=== PATIENT | male | born 1955 | race Caucasian/White ===

== ENCOUNTER 2021-10-06 17:07 | Emergency (ER) | payer MEDICARE, OTHER, SELFPAY ==
--- NOTE | 2021-10-06 17:13 | ED.LOWEXIN ---
HPI - Extremity Injury (Lower) General Chief Complaint: Wound/Laceration Stated Complaint: left leg injury Time Seen by Provider: 10/06/21 17:11 Source: patient Mode of arrival: ambulatory Limitations: no limitations History of Present Illness HPI Narrative: Mr. Foster is a 66-year-old male patient presenting to the clinic today with complaints of a left leg injury/laceration. He reports he tripped in the garage and gases leg open on the sergei. Last tetanus shot was in 2004. Bleeding is controlled Related Data Home Medications Medication Instructions Recorded Confirmed alfuzosin 10 mg tablet,extended 10 mg PO DAILY 10/06/21 10/06/21 release 24 hr (Uroxatral) allopurinol 100 mg tablet 100 mg PO DAILY 10/06/21 10/06/21 cholecalciferol (vitamin D3) 25 25 mcg PO DAILY 10/06/21 10/06/21 mcg (1,000 unit) capsule (Vitamin D3) duloxetine 60 mg capsule,delayed 60 mg PO DAILY 10/06/21 10/06/21 release (Cymbalta) famotidine 40 mg tablet (Pepcid) 40 mg PO DAILY 10/06/21 10/06/21 finasteride 5 mg tablet (Proscar) 5 mg PO DAILY 10/06/21 10/06/21 mirabegron 50 mg tablet,extended 50 mg PO DAILY 10/06/21 10/06/21 release 24 hr (Myrbetriq) multivit with minerals-iron 18 1 tablet PO DAILY 10/06/21 10/06/21 mg-folic ac 400 mcg-vit K 25 mcg tablet (Adults Multivitamin) olmesartan 5 mg tablet 5 mg PO DAILY 10/06/21 10/06/21 pantoprazole 40 mg tablet,delayed 40 mg PO QAM 10/06/21 10/06/21 release solifenacin 10 mg tablet (Vesicare) 10 mg PO DAILY 10/06/21 10/06/21 Allergies Allergy/AdvReac Type Severity Reaction Status Date / Time No Known Allergies Allergy Verified 10/06/21 17:17 Review of Systems Review of Systems: Pertinent positives per HPI. Patient denies any fever, chills, rash, headache, visual changes, dizziness, cough, runny nose, sore throat, shortness of breath, chest pain, palpitations, nausea, vomiting, diarrhea, constipation, abdominal pain, or any urinary issues. PMFSH Comments At the time of my signature, I reviewed and agree with the nursing past medical, surgical, social, and family history. There is no relevant family history pertinent to the patient complaint. Exam Narrative: General: Well-developed, well nourished, in no apparent distress Head: Normocephalic, atraumatic. Cardio: Regular rate and rhythm, s1 and s2 normal, no murmur appreciated. Resp: Clear to auscultation bilaterally, no rhonchi, rales, wheezing or rubs. Musculoskeletal: No deformity, mild tenderness to palpation of the left real around the laceration, 5.5cm vertical laceration to the left anterior eral, approx 1.5cm of laceration is an abrasion, grossly normal range of motion, muscle strength strong and equal, peripheral pulse strong, no edema, no cyanosis, normal gait and station Course Course Emergency Course: Portions of this record may have been created with voice recognition software. Level of Care: Express Care Visit Vital Signs Vital signs: Vital signs reviewed Procedures Laceration Laceration 1: Date: 10/06/21 Site: lower extremity (Left anterior leg) Side (If applicable): left Description: linear Depth: simple, single layer Local Anesthetic: lidocaine 1% (Without epi) Amount of anesthesia used (mL): 3 Pre-repair: wound explored and irrigated ====== Skin Level ====== Skin layer closed with: nylon Size (cm): 4-0 Number of sutures: 4 Technique: simple, interrupted ====== Subcutaneous Layer ====== ====== Muscle Layer ====== ====== Tendon Layer ====== Dressing: Verbal consent obtained for laceration repair. Risk and benefits explained and patient voiced understanding. Area was cleansed with Techni care and a 25 gauge needle was then used to instill 3 ml of 1% lidocaine without epi into the wound edges. Anesthesia was appropriate, area was prepped and draped using sterile technique. A 4-0 suture o
[2021-10-06 17:19] VITALS: BP 127/93; PULSE 83; RESP 20; TEMP 37.1
[2021-10-06] MEDS: TETANUS,DIPHTHERIA,AC PERTUSSIS ADULT (0.5 ML) BOOSTRIX IM (17:34)
== END 2021-10-06 18:04 | disposition home or self-care (01) ==
PROVIDERS: Emergency Provider Nurse Practitioner Family
DX: S81.812A Laceration without foreign body, left lower leg, initial encounter (principal); W22.8XXA Striking against or struck by other objects, initial encounter; Z23 Encounter for immunization; E78.00 Pure hypercholesterolemia, unspecified; G47.30 Sleep apnea, unspecified; K21.9 Gastro-esophageal reflux disease without esophagitis; Z90.5 Acquired absence of kidney; N40.0 Benign prostatic hyperplasia without lower urinary tract symptoms
CPT/HCPCS: 12002; 90471; 90715; 99212; G0463

== ENCOUNTER 2021-10-13 16:31 | Emergency (ER) | payer MEDICARE, OTHER, SELFPAY ==
[2021-10-13 16:40] VITALS: BP 136/87; PULSE 89; RESP 20; TEMP 37.4; O2SAT 99
--- NOTE | 2021-10-13 16:45 | ED.GENADULT ---
HPI - General Adult General Chief complaint: Skin/Abscess/Foreign Body Stated complaint: stitches removed Time Seen by Provider: 10/13/21 16:45 Source: patient Mode of arrival: ambulatory Limitations: no limitations History of Present Illness HPI narrative: 66-year-old male accompanied by presents to express care to have stitches removed from a wound on his left lower anterior leg that were placed on 06 October.Patient reports that he hit his leg on a sergei in his garage when he was doing some unpacking since recently moving back to [facility] from [place]. Patient has scabbed wound to left lower leg with 4 stitches in wound no drainage noted or any acute redness of wound. Patient denies any acute pain to area, states he has been applying antibacterial ointment to wound daily. MD complaint: Here for stitch removal Treatments prior to arrival: other (antibacterial ointment) Related Data Home Medications Medication Instructions Recorded Confirmed alfuzosin 10 mg tablet,extended 10 mg PO DAILY 10/06/21 10/13/21 release 24 hr (Uroxatral) allopurinol 100 mg tablet 100 mg PO DAILY 10/06/21 10/13/21 cholecalciferol (vitamin D3) 25 25 mcg PO DAILY 10/06/21 10/13/21 mcg (1,000 unit) capsule (Vitamin D3) duloxetine 60 mg capsule,delayed 60 mg PO DAILY 10/06/21 10/13/21 release (Cymbalta) famotidine 40 mg tablet (Pepcid) 40 mg PO DAILY 10/06/21 10/13/21 finasteride 5 mg tablet (Proscar) 5 mg PO DAILY 10/06/21 10/13/21 mirabegron 50 mg tablet,extended 50 mg PO DAILY 10/06/21 10/13/21 release 24 hr (Myrbetriq) multivit with minerals-iron 18 1 tablet PO DAILY 10/06/21 10/13/21 mg-folic ac 400 mcg-vit K 25 mcg tablet (Adults Multivitamin) olmesartan 5 mg tablet 5 mg PO DAILY 10/06/21 10/13/21 pantoprazole 40 mg tablet,delayed 40 mg PO QAM 10/06/21 10/13/21 release solifenacin 10 mg tablet (Vesicare) 10 mg PO DAILY 10/06/21 10/13/21 Allergies Allergy/AdvReac Type Severity Reaction Status Date / Time No Known Allergies Allergy Verified 10/13/21 16:39 Review of Systems Review of Systems: CONSTITUTIONAL: Denies fever, chills, or sweats. EYES: Denies visual changes, redness, or discharge. ENT: Denies rhinorrhea, congestion, sore throat, or otalgia. CARDIOVASCULAR: Denies chest pain, palpitations, or edema. RESPIRATORY: Denies cough or dyspnea. GASTROINTESTINAL: Denies abdominal pain, nausea, vomiting, or diarrhea. GENITOURINARY: Denies dysuria or hematuria. SKIN: Denies rash or itching. Healing wound to left lower anterior leg with scabbing measures 5.5cm. MUSCULOSKELETAL: Denies back pain, joint pain, or myalgia. NEUROLOGIC: Denies headache, numbness, or weakness. PSYCHIATRIC: Denies anxiety or depression. All systems reviewed & are unremarkable except as noted in HPI and below PMFSH Past Medical History Medical History (Updated 10/13/21 @ 20:01 by Yelena Cali NP) BPH (benign prostatic hyperplasia) Cardiac arrhythmia GERD (gastroesophageal reflux disease) History of kidney cancer Hypercholesteremia ANJANA (obstructive sleep apnea) wears C-PaP Surgical History Surgical History (Updated 10/13/21 @ 17:14 by Yelena Cali NP) H/O partial nephrectomy Left History of right nephrectomy Social History Social History (Updated 10/13/21 @ 17:15 by Yelena Cali NP) Living arrangements: with family Gender identity (if verbalized by the patient): Male Comments At time of signature, agree with nursing past medical, surgical, social and family history. There is no relevant family history pertinent to the presenting complaint Exam Narrative: GENERAL: Well-appearing, well-nourished, and in no acute distress. HEAD: Normocephalic, atraumatic. EYES: PERRLA and EOMI. ENT: Nares clear, no rhinorrhea or epistaxis. Mucous membranes moist. TMs normal with good light reflex NECK: Supple. No lymphadenopathy CHEST: Clear to auscultation. No respiratory distress. SaO2 99% on room air HEART: Regular r
== END 2021-10-13 17:05 | disposition home or self-care (01) ==
PROVIDERS: Emergency Provider Registered Nurse
DX: S81.811D Laceration without foreign body, right lower leg, subsequent encounter (principal); W22.8XXD Striking against or struck by other objects, subsequent encounter; N40.0 Benign prostatic hyperplasia without lower urinary tract symptoms; K21.9 Gastro-esophageal reflux disease without esophagitis; E78.00 Pure hypercholesterolemia, unspecified; G47.33 Obstructive sleep apnea (adult) (pediatric); Z85.53 Personal history of malignant neoplasm of renal pelvis; Z90.5 Acquired absence of kidney
CPT/HCPCS: 99211; G0463

== ENCOUNTER 2021-11-02 09:30 | Outpatient (CLI) | payer MEDICARE, OTHER, SELFPAY ==
[2021-11-02 18:40] LABS: Cholesterol 131 mg/dL (0-200); HDL Direct 29 mg/dL; Triglycerides 140 mg/dL (<150)
[2021-11-02 18:45] LABS: Alanine Aminotransferase 22 U/L (6-50); Albumin Level 4.2 g/dL (3.5-5.1); Alkaline Phosphatase 85 U/L (38-126); Anion Gap 9 mmol/L (8-16); Aspartate Amino Transferase 25 U/L (17-59); Bilirubin,Total 0.6 mg/dL (0.2-1.3); Blood Urea Nitrogen 20 mg/dL (9-20); Calcium 9.2 mg/dL (8.4-10.2); Carbon Dioxide 27 mmol/L (22-30); Chloride 105 mmol/L (98-107); Estimated Glomerular Filt Rate 43; Glucose 106 mg/dL (65-110); Potassium 4.2 mmol/L (3.4-5.0); Sodium 141 mmol/L (137-145)
[2021-11-02 18:50] LABS: LDL Cholesterol Direct 63 mg/dL
== END 2021-11-02 09:31 | disposition home or self-care (01) ==
PROVIDERS: Family Medicine; PCP Emergency Medicine; Visit Provider Emergency Medicine
DX: E78.00 Pure hypercholesterolemia, unspecified (principal); Z90.5 Acquired absence of kidney
CPT/HCPCS: 36415; 80053; 80061

== ENCOUNTER → 2022-01-03 13:25 | Outpatient (CLI) | payer MEDICARE, OTHER, SELFPAY ==
--- NOTE | ~2022-01-03 | MR_ITS ---
EXAMINATION: MR lumbar spine wo con DATE: 01/03/2022 13:58 INDICATION: Low back pain. TECHNIQUE: Magnetic resonance imaging (MRI) of the lumbar spine was performed without intravenous con trast. Sequences included sagittal T2-weighted FSE, sagittal T2-weighted FS FSE, sagittal T1-weighted FSE, and axial T2-weighted FSE. COMPARISON: None FINDINGS: There is 4 degrees levocurvature of lumbar spine. Vertebral body heights are normal. There is mildly decreased disc height at L4-L5 and L5-S1. The distal spinal cord signal intensity is normal . The conus medullaris is at L1-L2. There is no kidney in the right renal fossa. The following disc l evels are specifically discussed: L1-L2: The disc does not extend beyond the endplate margin. There is mild bilateral facet joint osteo arthritis. There is no neural foraminal stenosis. There is no central canal stenosis. L2-L3: The disc does not extend beyond the endplate margin. There is mild bilateral facet joint osteo arthritis. There is no neural foraminal stenosis. There is no central canal stenosis. L3-L4: The disc is bulging and has an annular fissure. There is mild bilateral facet joint osteoarthr itis. There is mild bilateral neural foraminal stenosis. There is mild central canal stenosis. L4-L5: The disc is bulging. There is mild right and severe left facet joint osteoarthritis. There is mild bilateral neural foraminal stenosis. There is no central canal stenosis. L5-S1: There is a right foraminal protrusion with annular fissure. There is moderate left facet joint osteoarthritis. There is ankylosis of right facet joint with severe hypertrophy. There is mild right neural foraminal stenosis. There is no central canal stenosis. IMPRESSION: 1. Mild lumbar spondylosis. Reviewed, dictated and finalized at location A. IMPRESSION: 1. Mild lumbar spondylosis.
== END ==
PROVIDERS: PCP Emergency Medicine; Visit Provider Nurse Practitioner Family
DX: M47.896 Other spondylosis, lumbar region (principal)
CPT/HCPCS: 72148

== ENCOUNTER 2022-02-06 13:36 | Outpatient (CLI) | payer MEDICARE, OTHER, SELFPAY ==
--- NOTE | ~2022-02-06 | CT_ITS ---
EXAMINATION: CT abdomen pelvis wo con DATE: 02/06/2022 13:54 INDICATION: Gross hematuria TECHNIQUE: Computed tomography (CT) of the abdomen and pelvis was performed without intravenous contr ast. The dose-length product was 490.39 mGy-cm. Automated exposure control and iterative reconstructi on technique were employed. COMPARISON: None. FINDINGS: There is a 4 mm left lower lobe nodule, image 13. Heart size is normal. No significant pleu ral or pericardial effusion. No significant vascular abnormality. No lymphadenopathy. Status post rig ht nephrectomy. There are gallstones. There is a 2.2 cm hypodense mass of the right hepatic lobe just posterior to th e gallbladder. The spleen, pancreas, left adrenal gland is unremarkable. There are nonobstructing lef t renal stones. There is defect along the superior lateral margin of the left kidney consistent with partial nephrectomy. No significant vascular abnormality. No lymphadenopathy. No free air or free flu id. Normal appendix. Small fat-containing umbilical hernia. Colonic diverticulosis without evidence f or diverticulitis. There is mild lumbar spondylosis. No focal lytic or blastic lesions. IMPRESSION: 1. Nonobstructing left nephrolithiasis. 2: Cholelithiasis. 3: Hypodense mass of the right hepatic lobe measuring 2.2 cm measuring 6 Hounsfield units, most likel y a cyst. 4: Left lower lobe nodule measuring 4 mm. Recommend follow-up low dose CT chest in 12 months to asses s stability. Reviewed, dictated and finalized at location B. ER PLANER IMPRESSION: 1. Nonobstructing left nephrolithiasis. 2: Cholelithiasis. 3: Hypodense mass of the right hepatic lobe measuring 2.2 cm measuring 6 Hounsf ield units, most likely a cyst. 4: Left lower lobe nodule measuring 4 mm. Recommend follow-up low dose CT chest in 12 months to assess stability.
== END 2022-02-06 13:37 | disposition home or self-care (01) ==
LOC: ANHIMG 13:38
PROVIDERS: PCP Emergency Medicine; Visit Provider Urology
DX: R31.0 Gross hematuria (principal); N20.0 Calculus of kidney; K80.20 Calculus of gallbladder without cholecystitis without obstruction; R91.8 Other nonspecific abnormal finding of lung field
CPT/HCPCS: 74176

== ENCOUNTER 2022-02-23 14:40 | Outpatient (CLI) | payer MEDICARE, OTHER, SELFPAY ==
[2022-02-23 16:11] LABS: Influenza A QL RT-PCR Negative (Negative); Influenza B QL RT-PCR Negative (Negative)
== END 2022-02-23 14:41 | disposition home or self-care (01) ==
LOC: ANHLAB 14:46
PROVIDERS: PCP Emergency Medicine; Visit Provider Physician Assistant
DX: B34.9 Viral infection, unspecified (principal)
CPT/HCPCS: 87502

== ENCOUNTER → 2022-03-23 15:51 | Outpatient (CLI) | payer MEDICARE, OTHER, SELFPAY ==
--- NOTE | ~2022-03-23 | XR_ITS ---
EXAMINATION: XR chest 2V 03/23/2022 16:01 INDICATION: Cough for 2 weeks PROCEDURE: 2 view chest COMPARISON: No prior studies for comparison. FINDINGS: The lungs are clear. The cardiomediastinal silhouette is within normal limits. There are no pleural effusions. There is no pneumothorax suspected. IMPRESSION: 1: NO ACUTE CARDIOPULMONARY DISEASE. Reviewed, dictated and finalized at location A. ITAL ACCOUNT MANAGER
== END ==
PROVIDERS: PCP Physician Assistant; Visit Provider Physician Assistant
DX: R05.9 Cough, unspecified (principal)
CPT/HCPCS: 71046

== ENCOUNTER 2022-06-07 07:45 | Outpatient (CLI) | payer MEDICARE, OTHER, SELFPAY ==
[2022-06-07 08:45] LABS: Hematocrit 46.6 % (42.0-52.0); Hemoglobin 15.9 g/dL (14.0-18.0); Mean Corpuscular HGB Conc 34.1 g/dl (32-36); Mean Corpuscular Hemoglobin 30.2 pg (26-34); Mean Corpuscular Volume 88.6 fl (80-100); Mean Platelet Volume 12.4 fl (7.4-10.4); Platelet Count Result 132 k/mm3 (150-375); Red Blood Count 5.26 M/mm3 (4.6-6.20); Red Cell Distribution Width 13.9 % (11.5-14.5); White Blood Count 5.7 K/mm3 (4.5-10.0)
[2022-06-07 09:09] LABS: Albumin Level 4.2 g/dL (3.5-5.1); Anion Gap 5 mmol/L (8-16); Blood Urea Nitrogen 19 mg/dL (9-20); Calcium 8.6 mg/dL (8.4-10.2); Carbon Dioxide 27 mmol/L (22-30); Chloride 109 mmol/L (98-107); Estimated Glomerular Filt Rate 50; Glucose 106 mg/dL (65-110); Phosphorus 3.3 mg/dL (2.5-4.5); Potassium 4.3 mmol/L (3.4-5.0); Sodium 141 mmol/L (137-145)
[2022-06-07 09:21] LABS: Parathyroid Intact 110.8 pg/mL (7.5-53.5)
[2022-06-07 10:44] LABS: Creatinine Urine 139.5 mg/dL; Total Protein Urine Random 7 mg/dL; Ur Ttl Prot Creatinine Ratio 0.05 mg/mg (0-0.20)
== END 2022-06-07 07:46 | disposition home or self-care (01) ==
LOC: ANHLAB 07:48
PROVIDERS: PCP Emergency Medicine; Visit Provider Internal Medicine Nephrology
DX: N18.32 Chronic kidney disease, stage 3b (principal)
CPT/HCPCS: 36415; 80069; 82570; 83970; 84156; 85027

== ENCOUNTER 2022-06-23 06:34 | Outpatient (CLI) | payer MEDICARE, OTHER, SELFPAY ==
--- NOTE | ~2022-06-23 | CT_ITS ---
EXAMINATION: CT diagnostic chest wo con DATE: 06/23/2022 07:06 INDICATION: Lung nodule on CT TECHNIQUE: Computed tomography (CT) of the chest was performed without intravenous contrast. The dose -length product (DLP) was 612.62 mGy-cm. Automated exposure control and iterative reconstruction tech Colecticaque were employed. COMPARISON: 02/06/2022 FINDINGS: There are at least five pulmonary nodules. There are one each in the left upper lobe, right upper lobe, and right lower lobe, and two in the left lower lobe. The 5 mm nodule in the right lower lobe (image 70) previously measured 3 mm. The left lower lobe nodule seen on the comparison examinat ion are stable. No pleural effusion or pneumothorax. No pathologically enlarged thoracic lymph nodes are identified. The heart size is normal. There are partially imaged changes of right nephrectomy. St ones are present in the gallbladder. There is a nonobstructing stone in the lateral aspect of the lef t kidney. There is a 2.2 cm cyst or hemangioma of the liver. IMPRESSION: 1. Lung nodules as described above with slight enlargement of a right lower lobe nodule. Findings cou ld be benign versus metastatic disease. Follow-up CT in 3-6 months is recommended. Reviewed, dictated and finalized at location B. IMPRESSION: 1. Lung nodules as described above with slight enlargement of a right lower lob e nodule. Findings could be benign versus metastatic disease. Follow-up CT in 3 -6 months is recommended.
== END 2022-06-23 06:35 | disposition home or self-care (01) ==
PROVIDERS: PCP Emergency Medicine; Visit Provider Urology
DX: R91.8 Other nonspecific abnormal finding of lung field (principal)
CPT/HCPCS: 71250

== ENCOUNTER 2022-07-12 15:24 | Outpatient (CLI) | payer MEDICARE, OTHER, SELFPAY ==
[2022-07-12 16:26] LABS: Albumin Level 4.5 g/dL (3.5-5.1); Anion Gap 4 mmol/L (8-16); Blood Urea Nitrogen 20 mg/dL (9-20); Calcium 9.1 mg/dL (8.4-10.2); Carbon Dioxide 30 mmol/L (22-30); Chloride 110 mmol/L (98-107); Estimated Glomerular Filt Rate 40; Glucose 87 mg/dL (65-110); Phosphorus 3.4 mg/dL (2.5-4.5); Potassium 4.2 mmol/L (3.4-5.0); Sodium 144 mmol/L (137-145)
== END 2022-07-12 15:25 | disposition home or self-care (01) ==
PROVIDERS: PCP Emergency Medicine; Visit Provider Internal Medicine Nephrology
DX: N18.32 Chronic kidney disease, stage 3b (principal)
CPT/HCPCS: 36415; 80069

== ENCOUNTER 2022-09-08 09:30 | Outpatient (CLI) | payer MEDICARE, OTHER, SELFPAY ==
--- NOTE | 2022-09-08 09:58 | EST_ITS ---
Patient Info Name: West Foster Age: 67 years : 1955 Gender: Male Ht: 69 in Wt: 225 lbs BSA: 2.26 m2 HR: 80 bpm BP: 122 / 84 mmHg Heart Rhythm: Sinus Rhythm Exam Date: 09/08/2022 10:20 AM Exam Location: [facility] Patient Status: Outpatient Admit Date: 09/08/2022 Staff Ordering Physician: Torey Dejesus DO Tilt Wall Supervisor: Lucie Delgado RDCS Attending Provider: TOREY DEJESUS DO Referring Physician: Kannan ACEVES; Exercise Technologist: Yola Whitney RDCS Exercise Physician: Torey Dejesus DO Exam Type: CA stress echo Study Info Indications - COTA Treadmill exercise stress echocardiogram is performed. Summary 1. 1. Negative Russell exercise stress test for ischemic ST changes by ECG criteria. 2. 2. Reduced functional capacity, achieving 7 METs of workload. 3. 3. Appropriate HR response to exercise. 4. 4. Appropriate HR recovery at 1 minute post exercise. 5. 5. Negative stress echocardiogram for ischemia by wall motion analysis. 6. 6. Patient informed of the above results. Stress Echo Findings Left Ventricle Appropriate increase in LV endocardial thickening with systole. Appropriate augmentation of contractility with systole. No wall motion abnormality. Left Ventricle Normal LV systolic function, no wall motion abnormality. Protocol: Russell Stress ECG Details Stage: REST Duration (min): 7 min : 2 sec Speed (mph): 0.0 Grade (%): 0 HR (bpm): 81 SBP (mmHg): 122 DBP (mmHg): 84 METS: --- Stage: REST Duration (min): 17 min : 31 sec Speed (mph): 0.0 Grade (%): 0 HR (bpm): 44 SBP (mmHg): 122 DBP (mmHg): 84 METS: --- Stage: STAGE 1 Duration (min): 1 min : 0 sec Speed (mph): 1.7 Grade (%): 10 HR (bpm): 74 SBP (mmHg): 122 DBP (mmHg): 84 METS: --- Stage: STAGE 1 Duration (min): 2 min : 0 sec Speed (mph): 1.7 Grade (%): 10 HR (bpm): 93 SBP (mmHg): 122 DBP (mmHg): 84 METS: --- Stage: STAGE 1 Duration (min): 3 min : 0 sec Speed (mph): 1.7 Grade (%): 10 HR (bpm): 119 SBP (mmHg): 134 DBP (mmHg): 75 METS: --- Stage: STAGE 2 Duration (min): 1 min : 0 sec Speed (mph): 2.5 Grade (%): 12 HR (bpm): 135 SBP (mmHg): 134 DBP (mmHg): 75 METS: --- Stage: STAGE 2 Duration (min): 2 min : 0 sec Speed (mph): 2.5 Grade (%): 12 HR (bpm): 125 SBP (mmHg): 150 DBP (mmHg): 77 METS: --- Stage: STAGE 2 Duration (min): 2 min : 1 sec Speed (mph): 0.0 Grade (%): 0 HR (bpm): 125 SBP (mmHg): 150 DBP (mmHg): 77 METS: --- Stage: RECOVERY Duration (min): 0 min : 58 sec Speed (mph): 0.0 Grade (%): 0 HR (bpm): 99 SBP (mmHg): 162 DBP (mmHg): 74 METS: --- Stage: RECOVERY Duration (min): 1 min : 58 sec Speed (mph): 0.0 Grade (%): 0 HR (bpm): 98 SBP (mmHg): 162 DBP (mmHg): 74 METS: --- Stage: RECOVERY Duration (min): 2 min : 58 sec Speed (mph): 0.0 Grade (%): 0 HR (bpm): 92 SBP (mmHg): 147 DBP (mmHg): 64 METS: --- Stage
== END 2022-09-08 09:31 | disposition home or self-care (01) ==
LOC: ANHCARD 09:30
PROVIDERS: PCP Emergency Medicine; Visit Provider Internal Medicine Cardiovascular Disease
DX: R06.09 Other forms of dyspnea (principal)
CPT/HCPCS: 93351

== ENCOUNTER 2022-12-27 14:16 | Outpatient (CLI) | payer MEDICARE, OTHER, SELFPAY ==
[2022-12-27 15:20] LABS: Hematocrit 50.4 % (42.0-52.0); Hemoglobin 16.7 g/dL (14.0-18.0); Mean Corpuscular HGB Conc 33.1 g/dl (32-36); Mean Corpuscular Volume 90.6 fl (80-100); Mean Platelet Volume 11.2 fl (7.4-10.4); Platelet Count Result 174 k/mm3 (150-375); Red Blood Count 5.56 M/mm3 (4.6-6.20); Red Cell Distribution Width 14.2 % (11.5-14.5); White Blood Count 6.7 K/mm3 (4.5-10.0)
[2022-12-27 15:30] LABS: Albumin Level 4.3 g/dL (3.5-5.1); Anion Gap 10 mmol/L (8-16); Blood Urea Nitrogen 16 mg/dL (9-20); Carbon Dioxide 25 mmol/L (22-30); Chloride 106 mmol/L (98-107); Estimated Glomerular Filt Rate 46; Glucose 81 mg/dL (65-110); Phosphorus 3.2 mg/dL (2.5-4.5); Potassium 4.2 mmol/L (3.4-5.0); Sodium 141 mmol/L (137-145)
[2022-12-27 15:33] LABS: Creatinine Urine 108.5 mg/dL; Total Protein Urine Random 11 mg/dL
[2022-12-27 15:39] LABS: Parathyroid Intact 92.2 pg/mL (7.5-53.5)
[2022-12-27 16:20] LABS: Vitamin D 25 Hydroxy 82.1 ng/mL
== END 2022-12-27 14:17 | disposition home or self-care (01) ==
LOC: ANHLAB 14:18
PROVIDERS: PCP Emergency Medicine; Visit Provider Internal Medicine Nephrology
DX: N18.32 Chronic kidney disease, stage 3b (principal); E21.1 Secondary hyperparathyroidism, not elsewhere classified
CPT/HCPCS: 36415; 80069; 82306; 82570; 83970; 84156; 85027

== ENCOUNTER 2023-01-25 12:30 | Outpatient (RCR) | payer MEDICARE, OTHER, SELFPAY ==
--- NOTE | 2022-12-28 09:52 | OPREHPOC ---
Outpatient Therapy Plan of Care This is a Multidisciplinary Plan of Care that may contain components documented by all disciplines (PT, OT, and ST.) PT Problem 1 PT Problem #1 Knowledge Deficit PT Goal 1 Goal Pt to be IND with issued HEP Target Visit 4 PT Problem 2 PT Problem #2 Pain PT Goal 1 Goal Pt to report R elbow pain no greater than 3/10 in the last week. Target Visit 4 PT Goal 2 Goal Pt to report 75% improvement in overall symptoms. Target Visit 4 PT Problem 3 PT Problem #3 Impaired Range of Motion PT Goal 1 Goal Pt to demonstrate R active wrist flexion equal to L wrist. Target Visit 4 PT Goal 2 Goal Pt to report an equal stretch sensation with passive wrist flexion nicholas Target Visit 4 PT Problem 4 PT Problem #4 Impaired Functional Mobil PT Goal 1 Goal Pt to be able to ride motorcycle for 1 hour without an increase in pain. Target Visit 4
--- NOTE | 2022-12-28 09:52 | PTOPEVAL1 ---
Assessment and note entered by Angélica Barker, PT, DPT Evaluation Information Assessment Status Evaluation Diagnosis R elbow pain, lateral epicondylitis Onset 1 month Subjective Information Pt reports pain along his R lateral epicondyle that started while riding his motorcycle. He states he will put a pain relief cream on it after riding his motorcycle and it will feel better along the forearm but still hurt in the elbow. The pain worsens each time he rides he motorcycle. Reported Pain Level Pain Score 2: Self Report Assessment PT Clinical Summary West presents to therapy today with a diagnosis of R elbow pain and demonstrates signs and symptoms consistent with lateral epicondylitis. Today he demonstrates decreased active and passive wrist flexion with elbow extended and painful wrist extension. There is tenderness to palpation around the lateral epicondyle. He was instructed in a HEP, self mobilization, and ice massage. Skilled therapy services are indicated to address deficits noted above, to decreased pain, and to return to PLOF. Plan of Care Interventions Electrical Stimulation,Hot Pack/Cold Pack,Manual Therapy,Neuro Re-education,Patient/Caregiver Educati,Therapeutic Activities,Therapeutic Exercise,Ultrasound PT Services Indicated Yes Treatment Frequency and 1x/wk for 4 visits Duration These treatments will address the objective and functional deficits as defined above. The patient will be advanced safely and appropriately in order for the patient to progress towards his/her prior level of function. Additional exercises will be introduced and as well as a comprehensive home exercise program upon discharge, if needed, ?to ensure carryover of functional gains achieved in the clinic. This treatment plan has been reviewed and agreement upon by the patient.
--- NOTE | 2023-01-25 13:14 | PTOPDC ---
Assessment and note entered by Angélica Barker, PT, DPT Evaluation Information Assessment Status Discharge Diagnosis R elbow pain, lateral epicondylitis Onset 1 month Subjective Information Pt states his elbow pain is doing no better since starting therapy. He is wearing a brace when riding his motorcycle but the pain is still there. Reported Pain Level Pain Score 0: Self Report Assessment PT Clinical Summary West presents to therapy today for her progress report following 4 visits of skilled therapy to treat his diagnosis of R elbow pain. Today he demonstrates improved wrist and elbow ROM without an improvement in symptoms. His HEP was progressed and he will be discharged at this time d/t no improvements in his pain. Plan of Care PT Services Indicated No
== END 2023-01-25 13:27 | disposition home or self-care (01) ==
LOC: ANHGOSHPT 12:30
PROVIDERS: PCP Emergency Medicine; Visit Provider Nurse Practitioner Family
DX: M77.11 Lateral epicondylitis, right elbow (principal)
CPT/HCPCS: 97110; 97140; 97161

== ENCOUNTER → 2023-03-16 14:31 | Outpatient (CLI) | payer MEDICARE, OTHER, SELFPAY ==
--- NOTE | ~2023-03-16 | XR_ITS ---
EXAMINATION: XR elbow RT min 3V INDICATION: Right elbow pain TECHNIQUE: Four views of the right elbow are obtained. COMPARISON: None available FINDINGS: Bone alignment is normal. There is no fracture. No joint effusion is identified. The soft t issues are unremarkable. IMPRESSION: 1. No acute osseous abnormality. Reviewed, dictated and finalized at location B. OR OCCUPATIONAL THERAPIST
== END ==
PROVIDERS: PCP Emergency Medicine; Visit Provider Orthopaedic Surgery
DX: M25.521 Pain in right elbow (principal)
CPT/HCPCS: 73080

== ENCOUNTER 2023-04-17 01:18 | Day surgery (SDC) | payer MEDICARE, OTHER, SELFPAY ==
[2023-03-21 09:50] VITALS: BMI 31.3
--- NOTE | 2023-04-13 12:29 | SUR.PREOP ---
Patient called regarding upcoming procedure. Message left on pt's voicemail regarding appointment times.
[2023-04-17 08:08] VITALS: BP 119/80; PULSE 93; RESP 18; TEMP 36.2; O2SAT 100; BMI 31.2
[2023-04-17] MEDS: LACTATED RINGERS 1,000 ML 150 ML IV CONT (08:29)
--- NOTE | 2023-04-17 08:35 | WPDANESEPPF ---
Anes - Initial Pre Proc Eval Procedure: Operation Date: 04/17/23 09:00 Proposed Procedures p Colonoscopy - Jaguar Liang MD Date/Time: 04/17/23 08:35 Surgeon: Jaguar Liang MD Pre Op Diagnosis: hx colon polyps Patient Data Age: 67 Gender: M Height: 1.78 m Weight: 98.8 kg Last Vital Signs Temp 97.1 F L 04/17/23 08:08 Pulse 93 04/17/23 08:08 Resp 18 04/17/23 08:08 BP 119/80 04/17/23 08:08 Pulse Ox 100 04/17/23 08:08 O2 Del Method Room Air 04/17/23 08:08 Allergies Allergy/AdvReac Type Severity Reaction Status Date / Time No Known Allergies Allergy Verified 04/26/23 11:44 Home Medications Medication Instructions Recorded Confirmed Type alfuzosin 10 mg tablet,extended 10 mg PO DAILY 10/06/21 04/18/23 History release 24 hr (Uroxatral) cholecalciferol (vitamin D3) 25 25 mcg PO DAILY 10/06/21 04/18/23 History mcg (1,000 unit) capsule (Vitamin D3) multivit with minerals-iron 18 1 tablet PO DAILY 10/06/21 04/18/23 History mg-folic ac 400 mcg-vit K 25 mcg tablet (Adults Multivitamin) finasteride 5 mg tablet (Proscar) 5 mg PO DAILY #90 tabs 02/21/22 04/18/23 Rx empagliflozin 10 mg tablet 10 mg PO DAILY 01/01/23 04/18/23 History (Jardiance) Cpap Mask #1 ea 01/29/23 04/18/23 Rx solifenacin 10 mg tablet (Vesicare) 10 mg PO DAILY #90 tabs 02/05/23 04/18/23 Rx olmesartan 5 mg tablet 5 mg PO DAILY #90 tabs 03/08/23 04/18/23 Rx duloxetine 60 mg capsule,delayed 60 mg PO DAILY #90 caps 03/09/23 04/26/23 Rx release (Cymbalta) allopurinol 100 mg tablet 100 mg PO DAILY #90 tabs 03/29/23 04/18/23 Rx famotidine 40 mg tablet See Rx Instructions .Route 04/02/23 04/18/23 Rx .COMPLEX #90 tabs pantoprazole 40 mg tablet,delayed See Rx Instructions .Route 04/02/23 04/18/23 Rx release .COMPLEX #90 tabs mirabegron 50 mg tablet,extended 50 mg PO DAILY #90 tabs 04/16/23 04/18/23 Rx release 24 hr (Myrbetriq) oxycodone-acetaminophen 5 mg-325 1 - 2 tablet PO Q4-6H PRN pain #30 04/26/23 Rx mg tablet tabs Patient hx anesthesia problems: none Family hx anesthesia problems: none Results Review: All pre-operative results and documents have been reviewed as part of the pre-operative evaluation. [facility] Past Medical History Medical History BPH (benign prostatic hyperplasia) Cardiac arrhythmia GERD (gastroesophageal reflux disease) History of kidney cancer Hypercholesteremia ANJANA (obstructive sleep apnea) wears C-PaP Surgical History Surgical History H/O partial nephrectomy Left History of right nephrectomy Social History Social History Smoking status: Never smoker Second hand tobacco smoke exposure: No Alcohol intake: current Alcohol use details: STATES RARELY - COUPLE TIMES A YEAR Substance use: never Substance use type: does not use Do You Feel Safe in your Home?: Yes Lack of Transportation: No Lack of Food: Never True Current Housing: I Have Housing Concerned About Future Housing: No Difficulty Paying Gas/Electric Bills: No Difficulty Paying for Meds: No Currently Unemployed: No Education: Trade/Vocational Certificate Difficulty w/ Childcare or Family Care: No Living arrangements: with family Gender identity (if verbalized by the patient): Male Sexual Orientation (if Verbalized by the Patient): Straight or Heterosexual Spiritual care concerns: No Anes - Eval Final PreProcedure Day of Procedure 04/17/23 08:35 Patient weight: obese Heart: regular rate and rhythm Lungs: clear to auscultation Airway: Mallampati scale class III Neurological: alert and oriented Last oral intake: >/= 8 hours ASA classification: III Emergent: no Anesthetic plan: proceed Anesthesia type and monitoring: general GIVS and standard monitoring Results
--- NOTE | 2023-04-17 09:11 | PM.HPGS ---
History of Present Illness History of Present Illness Consent: Risks, benefits, and alternatives have been discussed and questions answered. Patient agrees to proceed with procedure. Chief complaint: hx colon polyps Narrative: [place] Foster is a 67 year old male with colon polyp 5 years ago Review of Systems Constitutional: Constitutional: Denies headache(s) and Denies weakness Eyes: Eyes: Denies blurry vision ENT: Reports Normal hearing present, Denies headache(s) and Denies neck pain Cardiovascular: Cardiovascular: Denies chest pain and Denies dyspnea Respiratory: Respiratory: Denies dyspnea Gastrointestinal: Gastrointestinal: Reports no additional gastrointestinal complaints Genitourinary: Genitourinary: Denies dysuria Musculoskeletal: Musculoskeletal: Denies neck pain Integumentary/Breasts: Skin/Breast: Denies dry skin Neurologic: Reports Normal hearing present, Denies headache(s) and Denies weakness Psychiatric: Psychiatric: Denies anxiety Endocrine: Endocrine: Denies change in body appearance Hematologic/Lymphatic: Hematologic/Lymphatic: Denies easy bleeding Allergic/Immunologic: Allergic/Immunologic: Denies urticaria PMFSH Past Medical History Medical History BPH (benign prostatic hyperplasia) Cardiac arrhythmia GERD (gastroesophageal reflux disease) History of kidney cancer Hypercholesteremia ANJANA (obstructive sleep apnea) wears C-PaP Surgical History Surgical History H/O partial nephrectomy Left History of right nephrectomy Social History Social History (Updated 03/21/23 @ 15:08 by Anita Castanon MA) Smoking status: Never smoker Second hand tobacco smoke exposure: No Alcohol intake: current Alcohol use details: STATES RARELY - COUPLE TIMES A YEAR Substance use: never Substance use type: does not use Do You Feel Safe in your Home?: Yes Lack of Transportation: No Lack of Food: Never True Current Housing: I Have Housing Concerned About Future Housing: No Difficulty Paying Gas/Electric Bills: No Difficulty Paying for Meds: No Currently Unemployed: No Education: Trade/Vocational Certificate Difficulty w/ Childcare or Family Care: No Living arrangements: with family Gender identity (if verbalized by the patient): Male Sexual Orientation (if Verbalized by the Patient): Straight or Heterosexual Spiritual care concerns: No Meds Home Medications and Allergies Home Medications Medication Instructions Recorded Confirmed Type alfuzosin 10 mg tablet,extended 10 mg PO DAILY 10/06/21 04/16/23 History release 24 hr (Uroxatral) cholecalciferol (vitamin D3) 25 25 mcg PO DAILY 10/06/21 04/16/23 History mcg (1,000 unit) capsule (Vitamin D3) multivit with minerals-iron 18 1 tablet PO DAILY 10/06/21 04/16/23 History mg-folic ac 400 mcg-vit K 25 mcg tablet (Adults Multivitamin) finasteride 5 mg tablet (Proscar) 5 mg PO DAILY #90 tabs 02/21/22 04/16/23 Rx empagliflozin 10 mg tablet 10 mg PO DAILY 01/01/23 04/16/23 History (Jardiance) Cpap Mask #1 ea 01/29/23 04/16/23 Rx solifenacin 10 mg tablet (Vesicare) 10 mg PO DAILY #90 tabs 02/05/23 04/16/23 Rx olmesartan 5 mg tablet 5 mg PO DAILY #90 tabs 03/08/23 04/16/23 Rx duloxetine 60 mg capsule,delayed 60 mg PO DAILY #90 caps 03/09/23 04/16/23 Rx release (Cymbalta) allopurinol 100 mg tablet 100 mg PO DAILY #90 tabs 03/29/23 04/16/23 Rx famotidine 40 mg tablet See Rx Instructions .Route 04/02/23 04/16/23 Rx .COMPLEX #90 tabs pantoprazole 40 mg tablet,delayed See Rx Instructions .Route 04/02/23 04/16/23 Rx release .COMPLEX #90 tabs mirabegron 50 mg tablet,extended 50 mg PO DAILY #90 tabs 04/16/23 04/16/23 Rx release 24 hr (Myrbetriq) Allergies Allergy/AdvReac Type Severity Reaction Status Date / Time No Known Allergies Allergy Verified 04/16/23 10:51
[2023-04-17 09:31] VITALS: BP 144/61; PULSE 80; RESP 22; O2SAT 95
[2023-04-17 09:41] VITALS: BP 91/63; PULSE 79; RESP 20; O2SAT 97
[2023-04-17 09:51] VITALS: BP 90/62; PULSE 65; RESP 16; O2SAT 97
== END 2023-04-17 10:10 | disposition home or self-care (01) ==
PROVIDERS: PCP Emergency Medicine; Visit Provider Internal Medicine Gastroenterology
PROC: 0DJD8ZZ Inspection of Lower Intestinal Tract, Via Natural or Artificial Opening Endoscopic (ICD-10-PCS; CPT 45378; principal; 2023-04-17 09:00)
DX: Z12.11 Encounter for screening for malignant neoplasm of colon (principal); D12.0 Benign neoplasm of cecum; D12.2 Benign neoplasm of ascending colon; K64.8 Other hemorrhoids; K57.30 Diverticulosis of large intestine without perforation or abscess without bleeding; E78.00 Pure hypercholesterolemia, unspecified; K21.9 Gastro-esophageal reflux disease without esophagitis; G47.33 Obstructive sleep apnea (adult) (pediatric); Z85.528 Personal history of other malignant neoplasm of kidney; Z90.5 Acquired absence of kidney
CPT/HCPCS: 45385; 88305; J2704; J7120

== ENCOUNTER 2023-04-19 12:26 | Outpatient (CLI) | payer MEDICARE, OTHER, SELFPAY ==
[2023-04-19 15:30] LABS: INR 1.1; Partial Thromboplastin Time 35.9 SECONDS (22.3-36.8); Prothrombin Time 14.4 Seconds (11.1-14.7)
[2023-04-19 15:33] LABS: Anion Gap 8 mmol/L (8-16); Blood Urea Nitrogen 16 mg/dL (9-20); Calcium 8.8 mg/dL (8.4-10.2); Carbon Dioxide 25 mmol/L (22-30); Chloride 109 mmol/L (98-107); Estimated Glomerular Filt Rate 40; Glucose 104 mg/dL (65-110); Potassium 4.4 mmol/L (3.4-5.0); Sodium 142 mmol/L (137-145)
== END 2023-04-19 12:27 | disposition home or self-care (01) ==
PROVIDERS: Anesthesiology; PCP Emergency Medicine; Visit Provider Orthopaedic Surgery
DX: N18.32 Chronic kidney disease, stage 3b (principal)
CPT/HCPCS: 36415; 80048; 85610; 85730

== ENCOUNTER 2023-04-26 00:55 | Day surgery (SDC) | payer MEDICARE, OTHER, SELFPAY ==
[2023-04-16 10:52] VITALS: BMI 31.3
--- NOTE | 2023-04-16 10:58 | PC.NURSE ---
PRE-OP INSTRUCTIONS, PLEASE READ CAREFULLY Report to the Outpatient Waiting Room, entrance under the green pavilion located off [facility], at time _1100_ on date _04/26/23_. Planned Procedure Time: _1 PM_. Time changes happen often and if your time is changed the preop area will call you the afternoon before. - You and your visitor will be asked to self-screen and do not enter if you have any COVID symptoms. - A mask is optional within the hospital at this time. Patients may have clear liquids (water, carbonated beverages, clear teas, apple juice) until 3 hours prior to surgery (1000 AM) with a maximum of 20 ounces. - No food from midnight until time of surgery Take the following medications with a SIP of water the morning of surgery: _DULOXETINE_ DO NOT STOP ANY OF YOUR OTHER PRESCRIPTION MEDICATIONS PRIOR TO SURGERY ?EXCEPT THE FOLLOWING Medications to discontinue per ANESTHESIA - _MULTIVITAMIN 3 DAYS PRIOR TO SURGERY, Date to take last dose 04/22/23_ Please no make-up, nail swiss, hairspray, perfume, deodorant, or body powder the day of surgery. No jewelry (including any body piercings) or valuables the day of surgery, leave them at home. Please take a shower or bath the night before, or the morning of, surgery with an antibacterial soap. Wear comfortable, loose fitting clothing. - Jewelry must be removed prior to entering the operating room. Rings and piercings that are not removed may be cut off. - The hospital will not accept responsibility for valuables. - Please leave all valuables, including medications, at home the day of surgery. If you are going home after surgery, a licensed regional driver must drive you home. - NO public transportation without another adult if you receive anesthesia. - We recommend that an adult stay with you for 24 hours following discharge. - We also recommend that you do not drive, make important decision, drink alcoholic beverages, or take any drugs that were not prescribed by your health care provider for at least 24 hours after your discharge time. For Pediatric surgeries, we recommend two adults accompany the child home. Follow any additional instructions given to you from your surgeon. If you or anyone in your household have experienced Covid symptoms in the past week, please notify your surgeon or the nurse liaison at the phone number below for possible testing. Telephone instructions given to _PATIENT_and asked if any additional questions and then verbalized understanding. Patient advised to call surgeon office or pre surgery nurse liaison [phone] if any additional questions.
[2023-04-26] VITALS (7 sets, daily range): BP systolic 117–143; BP diastolic 82–95; PULSE 66–80; RESP 14–16; TEMP 36.2–36.6; O2SAT 100
--- NOTE | 2023-04-26 07:22 | WPDHPUPDATE1 ---
History and Physical Update Update Date/Time: 04/26/23 07:22 History and Physical has been reviewed, including an updated exam of the patient. There are NO changes in the patient's condition. Risks, benefits, and alternatives have been discussed and questions answered. Patient agrees to proceed with procedure.
[2023-04-26] MEDS: LACTATED RINGERS 1,000 ML 30 ML IV CONT ×2 (11:30→13:46)
[2023-04-26 11:31] LABS: Glucose Point of Care 75 mg/dl (65-105)
[2023-04-26] MEDS: ACETAMINOPHEN 500 MG TABLET 1000 MG PO (11:45)
[2023-04-26] MEDS: KETOROLAC 15 MG/ML VIAL (*BKC) IV PUSH (11:45)
--- NOTE | 2023-04-26 11:59 | WPDANESEPPF ---
Anes - Initial Pre Proc Eval Procedure: Operation Date: 04/26/23 13:00 Proposed Procedures p Right Elbow Lateral Epicondyle Debridement - Madi Carpenter MD Date/Time: 04/26/23 11:59 Surgeon: Madi Carpenter MD Pre Op Diagnosis: right elbow lateral epicondylitis Patient Data Age: 67 Gender: M Height: 1.78 m Weight: 101.1 kg Last Vital Signs Temp 36.6 C 04/26/23 11:45 Pulse 66 04/26/23 11:45 Resp 16 04/26/23 11:45 BP 129/82 04/26/23 11:45 Pulse Ox 100 04/26/23 11:45 O2 Del Method Room Air 04/26/23 11:45 Allergies Allergy/AdvReac Type Severity Reaction Status Date / Time No Known Allergies Allergy Verified 04/26/23 11:44 Home Medications Medication Instructions Recorded Confirmed Type alfuzosin 10 mg tablet,extended 10 mg PO DAILY 10/06/21 04/18/23 History release 24 hr (Uroxatral) cholecalciferol (vitamin D3) 25 25 mcg PO DAILY 10/06/21 04/18/23 History mcg (1,000 unit) capsule (Vitamin D3) multivit with minerals-iron 18 1 tablet PO DAILY 10/06/21 04/18/23 History mg-folic ac 400 mcg-vit K 25 mcg tablet (Adults Multivitamin) finasteride 5 mg tablet (Proscar) 5 mg PO DAILY #90 tabs 02/21/22 04/18/23 Rx empagliflozin 10 mg tablet 10 mg PO DAILY 01/01/23 04/18/23 History (Jardiance) Cpap Mask #1 ea 01/29/23 04/18/23 Rx solifenacin 10 mg tablet (Vesicare) 10 mg PO DAILY #90 tabs 02/05/23 04/18/23 Rx olmesartan 5 mg tablet 5 mg PO DAILY #90 tabs 03/08/23 04/18/23 Rx duloxetine 60 mg capsule,delayed 60 mg PO DAILY #90 caps 03/09/23 04/26/23 Rx release (Cymbalta) allopurinol 100 mg tablet 100 mg PO DAILY #90 tabs 03/29/23 04/18/23 Rx famotidine 40 mg tablet See Rx Instructions .Route 04/02/23 04/18/23 Rx .COMPLEX #90 tabs pantoprazole 40 mg tablet,delayed See Rx Instructions .Route 04/02/23 04/18/23 Rx release .COMPLEX #90 tabs mirabegron 50 mg tablet,extended 50 mg PO DAILY #90 tabs 04/16/23 04/18/23 Rx release 24 hr (Myrbetriq) oxycodone-acetaminophen 5 mg-325 1 - 2 tablet PO Q4-6H PRN pain #30 04/26/23 Rx mg tablet tabs Laboratory Tests 04/26/23 11:22 POC Capillary Glucose 75 mg/dl (65-105) Patient hx anesthesia problems: none Family hx anesthesia problems: none Results Review: All pre-operative results and documents have been reviewed as part of the pre-operative evaluation. [facility] Past Medical History Medical History BPH (benign prostatic hyperplasia) Cardiac arrhythmia GERD (gastroesophageal reflux disease) History of kidney cancer Hypercholesteremia ANJANA (obstructive sleep apnea) wears C-PaP Surgical History Surgical History H/O partial nephrectomy Left History of right nephrectomy Social History Social History Smoking status: Never smoker Second hand tobacco smoke exposure: No Alcohol intake: current Alcohol use details: STATES RARELY - COUPLE TIMES A YEAR Substance use: never Substance use type: does not use Do You Feel Safe in your Home?: Yes Lack of Transportation: No Lack of Food: Never True Current Housing: I Have Housing Concerned About Future Housing: No Difficulty Paying Gas/Electric Bills: No Difficulty Paying for Meds: No Currently Unemployed: No Education: Trade/Vocational Certificate Difficulty w/ Childcare or Family Care: No Living arrangements: with family Gender identity (if verbalized by the patient): Male Sexual Orientation (if Verbalized by the Patient): Straight or Heterosexual Spiritual care concerns: No Anes - Eval Final PreProcedure Day of Procedure 04/26/23 11:59 Patient weight: obese Heart: regular rate and rhythm Lungs: clear to auscultation Airway: Mallampati scale class III Neurological: alert and oriented Last oral intake: >/= 8 hours ASA classification
[2023-04-26] MEDS: ceFAZolin 2 GM/D5W 50 ML 2 GM/50 ML BAG IVPB (12:51)
[2023-04-26] MEDS: BUPivacaine HCL 0.5% PF 30 ML VIAL 20 ML INFILTRATE (13:14)
[2023-04-26 14:16] LABS: Glucose Point of Care 83 mg/dl (65-105)
--- NOTE | 2023-04-26 14:16 | W.PM.PROC2 ---
Procedure Note - Detailed Date of Procedure 04/26/23 Pre-op Diagnosis Right elbow lateral epicondylitis Post-op Diagnosis Same Procedure Performed Open right elbow lateral epicondyle debridement Surgeon Madi Carpenter MD [employer] Agent Suellen Disla PA-C Anesthesia General Findings Moderate degenerative tissue. Subtle prominent areas at the lateral epicondyle without discrete calcified bodies. Description of Procedure The patient was brought to the operating room. Preoperative antibiotics were given. A general anesthetic was administered. The arm was prepped and draped in the usual sterile fashion with a well-padded tourniquet on the arm. The limb was exsanguinated and the tourniquet inflated to 250 mililiters of mercury. A longitudinal incision was created over the pathological site at the lateral epicondyle. Dissection was brought down to the interval between the common extensor tendons and the extensor carpi radialis longus. The muscle was elevated anteriorly, exposing the extensor carpi radialis brevis. Degenerative pathologic tendon was identified and excised sharply. The lateral epicondyle was gently abraded. The scratch test was to confirm complete excision of pathologic tissue. The wound was carefully irrigated. The tourniquet was released. The extensor tendon fascia was repaired with [id number] sutures #0 Vicryl . The skin was closed with interrupted 3-0 Monocryl suture followed by running 4-0 Monocryl suture and Steri-Strips. Sterile dressing was applied with the wrist splint. The patient was extubated and brought to the recovery room in stable condition. Estimated Blood Loss 10 Drains No Complications No immediate complications Condition Stable Disposition PACU [facility] Billing Surgery - Charge Forward: Surgery Billing
== END 2023-04-26 15:08 | disposition home or self-care (01) ==
PROVIDERS: PCP Emergency Medicine; Visit Provider Orthopaedic Surgery
PROC: (CPT 24110; principal; 2023-04-26 13:00)
DX: M77.11 Lateral epicondylitis, right elbow (principal); N40.0 Benign prostatic hyperplasia without lower urinary tract symptoms; K21.9 Gastro-esophageal reflux disease without esophagitis; E78.00 Pure hypercholesterolemia, unspecified; G47.33 Obstructive sleep apnea (adult) (pediatric); Z85.528 Personal history of other malignant neoplasm of kidney; Z90.5 Acquired absence of kidney; E66.9 Obesity, unspecified; Z68.32 Body mass index [BMI] 32.0-32.9, adult; Z79.84 Long term (current) use of oral hypoglycemic drugs
CPT/HCPCS: 24358; 82948; A4565; A9270; J0690; J1596; J1885; J2250; J2371; J2405; J2704; J3010; J7120

== ENCOUNTER 2023-05-11 10:11 | Outpatient (CLI) | payer MEDICARE, OTHER, SELFPAY ==
[2023-05-11 10:41] LABS: Cholesterol 158 mg/dL (0-200); HDL Direct 37 mg/dL; Triglycerides 158 mg/dL (<150)
[2023-05-11 10:51] LABS: LDL Cholesterol Direct 86 mg/dL
== END 2023-05-11 10:12 | disposition home or self-care (01) ==
LOC: ANHLAB 10:13
PROVIDERS: PCP Emergency Medicine; Visit Provider Emergency Medicine
DX: I10 Essential (primary) hypertension (principal)
CPT/HCPCS: 36415; 80061

== ENCOUNTER 2023-06-20 14:05 | Outpatient (CLI) | payer MEDICARE, OTHER, SELFPAY ==
[2023-06-20 14:25] LABS: Hematocrit 51.1 % (42.0-52.0); Hemoglobin 16.9 g/dL (14.0-18.0); Mean Corpuscular HGB Conc 33.1 g/dl (32-36); Mean Corpuscular Hemoglobin 30.1 pg (26-34); Mean Corpuscular Volume 91.1 fl (80-100); Mean Platelet Volume 11.1 fl (7.4-10.4); Platelet Count Result 177 k/mm3 (150-375); Red Blood Count 5.61 M/mm3 (4.6-6.20); Red Cell Distribution Width 13.6 % (11.5-14.5); White Blood Count 5.8 K/mm3 (4.5-10.0)
[2023-06-20 14:41] LABS: Albumin Level 4.3 g/dL (3.5-5.1); Anion Gap 4 mmol/L (4-12); Blood Urea Nitrogen 22 mg/dL (9-20); Calcium 9.4 mg/dL (8.4-10.2); Carbon Dioxide 30 mmol/L (22-30); Chloride 106 mmol/L (98-107); Estimated Glomerular Filt Rate 40; Glucose 110 mg/dL (65-110); Phosphorus 3.5 mg/dL (2.5-4.5); Potassium 4.1 mmol/L (3.4-5.0); Sodium 140 mmol/L (137-145)
[2023-06-20 14:50] LABS: Parathyroid Intact 72.8 pg/mL (7.5-53.5)
[2023-06-20 15:03] LABS: Creatinine Urine 115.8 mg/dL; Total Protein Urine Random 7 mg/dL; Ur Ttl Prot Creatinine Ratio 0.06 mg/mg (0-0.20)
[2023-06-20 16:20] LABS: Vitamin D 25 Hydroxy 72.9 ng/mL
== END 2023-06-20 14:06 | disposition home or self-care (01) ==
LOC: ANHLAB 14:08
PROVIDERS: PCP Emergency Medicine; Visit Provider Internal Medicine Nephrology
DX: E21.1 Secondary hyperparathyroidism, not elsewhere classified (principal); N18.32 Chronic kidney disease, stage 3b; Z85.528 Personal history of other malignant neoplasm of kidney
CPT/HCPCS: 36415; 80069; 82306; 82570; 83970; 84156; 85027

== ENCOUNTER 2023-09-06 14:30 | Outpatient (RCR) | payer MEDICARE, OTHER, SELFPAY ==
--- NOTE | 2023-06-12 08:26 | OTOPEVAL1 ---
Assessment and note entered by Jeferson Richards, JUAN/Cinthya, CHT Evaluation Information 06/12/23 Diagnosis Encounter for other orthopedic aftercare Subjective Information Patient is s/p right lateral epicondyle debridement (04/26/23). He is right handed. Reports difficulties and pain with light ROM, being able to wash his hair, and feeding himself. He reports he cannot pickle maker a glass of water with the right hand. Reported Pain Level Pain Score 0: Self Report Additional Pain Score Comments No pain at rest. Pain can increase to 10/10 with use. Assessment OT Clinical Summary Patient referred to OT ~6 weeks following right lateral epicondyle debridement with residual pain, weakness, and stiffness limiting his return to right UE use for ADLs and riding his motorcycle. Skilled OT indicated for HEP instruction/ progression, use of modalities, manual therapy, and therapeutic exercises to facilitate optimal functional flexibility and strength of his dominant UE. Plan of Care Interventions Therapeutic Exercise,Manual Therapy,Therapeutic Activities,Hot Pack/Cold Pack,Ultrasound,Paraffin OT Services Indicated Yes Treatment Frequency and 2x/week for 8 visits Duration These treatments will address the objective and functional deficits as defined above. The patient will be advanced safely and appropriately in order for the patient to progress towards his/her prior level of function. Additional exercises will be introduced and as well as a comprehensive home exercise program upon discharge, if needed, ?to ensure carryover of functional gains achieved in the clinic. This treatment plan has been reviewed and agreement upon by the patient.
--- NOTE | 2023-06-12 08:27 | OPREHPOC ---
Outpatient Therapy Plan of Care This is a Multidisciplinary Plan of Care that may contain components documented by all disciplines (PT, OT, and ST.) OT Problem 1 OT Problem #1 Knowledge Deficit OT Goal 1 Goal 1. Patient to be independent with instructed materials. Target Visit 9 OT Problem 2 OT Problem #2 Pain OT Goal 1 Goal 1. Patient to report reduced pain with active ROM to 1/10 or less. 2. Patient to report reduced pain with using his right hand to wash his hair to 2/10 or less. Target Visit 9 OT Problem 3 OT Problem #3 Impaired Flexibility OT Goal 1 Goal 1. Improve functional flexibility of the right elbow to 0 degrees of extension. Target Visit 9 OT Problem 4 OT Problem #4 Impaired Strength OT Goal 1 Goal 1. Patient to be able to complete elbow strengthening with 2 lb. free weight x10 reps without pain. 2. Patient to be able to complete wrist strengthening in all planes with 2 lb. free weight x10 reps without pain. Target Visit 9
--- NOTE | 2023-07-12 11:39 | OTOPPROG ---
Assessment and note entered by Jeferson Richards, BABAKR/Cinthya, CHT OT Progress Update 07/12/23 Diagnosis Encounter for other orthopedic aftercare Subjective Information s/p right lateral epicondyle debridement 04/26/23 Patient has participated in 8 OT sessions. He reports not feeling like there's been much progress functionally as he continues to feel pain when using his right hand to feed himself, complete grooming tasks, and when he tries to lift a glass of water. He reports daily 6/10 pain. He reports trying to do some yard work and was in 8/ 10 pain after this. He reports he is now able to use his right hand to feed himself, but has to take breaks due to pain. He leaves therapy sessions consistently at 2/10. ROM of the elbow, forearm, and wrist has improved to normal limits. Right national account director strength improved from 38 lbs to 60 lbs. At the start of care he had 7/10 pain with national account director strength assessment and today he reported 2/10 pain. Therapy has been utilizing modalities, manual therapy, stretching, and light strengthening to help reduce pain and improve functional strength. He is compliant with his HEP. Quickdash improved from 61.4% to 47.7% Assessment OT Clinical Summary Patient referred to OT following right lateral epicondyle debridement. He has participated in 8 treatment sessions focused on utilizing modalities , soft tissue work, and therapeutic exercise. He is demonstrating progress with improved flexibility and reduced pain. He continues to be limited with functional use particularly activities that are resistive. Continued skilled OT indicated for HEP progression, use of modalities, manual therapy, and therapeutic exercises to facilitate optimal functional flexibility and strength of his dominant UE. Plan of Care Interventions Therapeutic Exercise,Manual Therapy,Therapeutic Activities,Hot Pack/Cold Pack,Ultrasound,Paraffin OT Services Indicated Yes Treatment Frequency and 2x/week for 9 visits Duration These treatments will address the objective and functional deficits as defined above. The patient will be advanced safely and appropriately in order for the patient to progress
--- NOTE | 2023-07-12 11:40 | OPREHPOC ---
Outpatient Therapy Plan of Care This is a Multidisciplinary Plan of Care that may contain components documented by all disciplines (PT, OT, and ST.) OT Problem 1 OT Problem #1 Knowledge Deficit OT Goal 1 Goal 1. Patient to be independent with instructed materials. ---OT POC UPDATE 07/12/23--- 1. Met, continue as HEP is progressed Target Visit 9 OT Problem 2 OT Problem #2 Pain OT Goal 1 Goal 1. Patient to report reduced pain with active ROM to 1/10 or less. 2. Patient to report reduced pain with using his right hand to wash his hair to 2/10 or less. ---OT POC UPDATE 07/12/23--- 1. Not met, continue to treat pain 2. Not met, continue to treat pain Target Visit 9 OT Problem 3 OT Problem #3 Impaired Flexibility OT Goal 1 Goal 1. Improve functional flexibility of the right elbow to 0 degrees of extension. ---OT POC UPDATE 07/12/23--- 1. Met Target Visit 9 OT Problem 4 OT Problem #4 Impaired Strength OT Goal 1 Goal 1. Patient to be able to complete elbow strengthening with 2 lb. free weight x10 reps without pain. 2. Patient to be able to complete wrist strengthening in all planes with 2 lb. free weight x10 reps without pain. ---OT POC UPDATE 07/12/23--- 1. Progressing, not met, continue 2. Progressing, not met, continue Target Visit 9
--- NOTE | 2023-08-09 11:27 | OTOPPROG ---
Assessment and note entered by Jeferson Richards, BABAKR/Cinthya, CHT Evaluation Information Assessment Status Progress Diagnosis Encounter for other orthopedic aftercare Subjective Information s/p right lateral epicondyle debridement 04/26/23 Patient has participated in 16 OT sessions. He reports continued issues with pain in the elbow, particularly with use. He states at rest his pain is typically 0/10, unless it's been a busy day. He has been using the arm, but does not push himself to the point of 10/10 pain. He has progressed to light strengthening with 2 lbs. 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 He states he can feed himself with the right hand, taking less rest breaks than a month ago. He reports the worst pains are with elbow flexion with resistance. ROM of the elbow, forearm, and wrist has improved to normal limits. Right supervisor pullet farm strength improved from 60 lbs to 76 lbs . At the start of care he had 7/10 pain with supervisor pullet farm strength assessment and today he reported 2/10 pain. Elbow flexion MMT is the most painful of all muscle groups tested. Elbow flexion 4+/5. Elbow extension 5/5. Wrist flexion and extension measure 4+/5 and no pain with MMT assessment of the wrist. Therapy has been utilizing modalities, manual therapy, stretching, and light strengthening to help reduce pain and improve functional strength. He is compliant with his HEP. Assessment OT Clinical Summary Patient referred to OT following right lateral epicondyle debridement. He has participated in 16 treatment sessions focused on utilizing modalities , soft tissue work, and therapeutic exercise focused on improved flexibility and strength. He is demonstrating progress with improved strength and reduced pain with exercises and ADLs. He is tolerating progressive wrist strengthening well. Difficulties with elbow flexion, particularly with forearm in neutral or pronated. He is working on the flexibility of the supinator. He continues to be limited with functional use particularly activities that are resistive. Continued skilled OT indicated for HEP progression, use of modalities, manual therapy, and therapeutic exercises to facilitate optimal functiona
--- NOTE | 2023-08-09 11:28 | OPREHPOC ---
Outpatient Therapy Plan of Care This is a Multidisciplinary Plan of Care that may contain components documented by all disciplines (PT, OT, and ST.) OT Problem 1 OT Problem #1 Knowledge Deficit OT Goal 1 Goal 1. Patient to be independent with instructed materials. ---OT POC UPDATE 07/12/23--- 1. Met, continue as HEP is progressed ---OT POC UPDATE 08/09/23--- 1. Met Target Visit 24 OT Problem 2 OT Problem #2 Pain OT Goal 1 Goal 1. Patient to report reduced pain with active ROM to 1/10 or less. 2. Patient to report reduced pain with using his right hand to wash his hair to 2/10 or less. ---OT POC UPDATE 07/12/23--- 1. Not met, continue to treat pain 2. Not met, continue to treat pain ---OT POC UPDATE 08/09/23--- 1. Progressing, not met, continue to treat pain 2. Progressing, not met, continue to treat pain Target Visit 24 OT Problem 3 OT Problem #3 Impaired Flexibility OT Goal 1 Goal 1. Improve functional flexibility of the right elbow to 0 degrees of extension. ---OT POC UPDATE 07/12/23--- 1. Met ---OT POC UPDATE 08/09/23--- 1. Met; D/C ROM goal Target Visit 9 OT Problem 4 OT Problem #4 Impaired Strength OT Goal 1 Goal 1. Patient to be able to complete elbow strengthening with 2 lb. free weight x10 reps without pain. 2. Patient to be able to complete wrist strengthening in all planes with 2 lb. free weight x10 reps without pain. ---OT POC UPDATE 07/12/23--- 1. Progressing, not met, continue 2. Progressing, not met, continue ---OT POC UPDATE 08/09/23--- 1. Progressing, not met, continue 2. Met Target Visit 24
--- NOTE | 2023-09-06 15:09 | OTOPDC ---
Assessment and note entered by Jeferson Richards, JUAN/Cinthya, CHT OT Discharge Summary 09/06/23 Assessment Status Discharge Diagnosis Encounter for other orthopedic aftercare Subjective Information s/p right lateral epicondyle debridement 04/26/23 Patient has participated in 23 OT sessions. He reports continued issues with pain in the elbow, particularly with use. He unfortunately is reporting no change in the last month. He states at rest his pain continues to be 0/10, unless it's been a busy day. He has been using the arm, but does not push himself to the point of 10/10 pain. He has progressed to light strengthening with 2 lbs. 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 He states he can feed himself with the right hand, taking less rest breaks than a month ago. He reports the worst pains are with elbow flexion with resistance. ROM of the elbow, forearm, and wrist has improved to normal limits. Right event sales manager strength improved from 60 lbs to 76 lbs. At the start of care he had 7/10 pain with event sales manager strength assessment and today he reported 0/10 pain. Elbow flexion MMT is the most painful of all muscle groups tested. Elbow flexion 4+/5. Elbow extension 5/5. Wrist flexion and extension measure 4+/5 and no pain with MMT assessment of the wrist. Therapy has been utilizing modalities, manual therapy, stretching, and light strengthening to help reduce pain and improve functional strength. He is compliant with his HEP. Reported Pain Level Pain Score 0: Self Report Additional Pain Score Comments No pain at rest. At worst the pain has gotten up to is 5/10 when doing things around the house, carrying items to the basement, etc. Assessment OT Clinical Summary Patient referred to OT following right lateral epicondyle debridement. He has participated in 23 treatment sessions focused on utilizing modalities, soft tissue work, and therapeutic exercise focused on improved flexibility and strength. Since the start of care he has made progress with improved strength and reduced pain with exercises and ADLs, however the progress has unfortunately
== END 2023-09-06 16:07 | disposition home or self-care (01) ==
LOC: ANHGOSHOT 14:30
PROVIDERS: PCP Emergency Medicine; Visit Provider Physician Assistant Surgical
DX: Z48.817 Encounter for surgical aftercare following surgery on the skin and subcutaneous tissue (principal)
CPT/HCPCS: 97018; 97035; 97110; 97140; 97165

== ENCOUNTER 2023-09-10 12:14 | Outpatient (CLI) | payer MEDICARE, OTHER, SELFPAY ==
--- NOTE | ~2023-09-10 | MR_ITS ---
EXAMINATION: MR elbow RT wo con DATE: 09/10/2023 13:11 INDICATION: Right elbow lateral epicondylitis presenting with pain. TECHNIQUE: Magnetic resonance imaging (MRI) of the right elbow was performed without intravenous cont rast. Sequences included coronal, axial, and sagittal PD-weighted FS FSE and coronal, axial, and sagi ttal PD-weighted FSE. COMPARISON: None FINDINGS: Osseous/other: Normal alignment. Normal marrow signal with no marrow edema, fracture, osteochondral lesion or abnor mal marrow replacing process. Tendons: Triceps and brachialis tendons are normal. Mild tendinopathy without tear of the distal biceps brachi i tendon. Mild tendinopathy without tear at the medial humeral epicondylar origin of the common flexo r tendon wad. Moderate tendinopathy without tear at the lateral epicondylar origin of the common exte nsor tendon wad. Ligaments: The medial and lateral collateral ligament complexes are normal. Cubital tunnel: Cubital tunnel is unremarkable with normal signal and caliber of the ulnar nerve. Fluid: Physiologic amount of fluid the elbow joint. IMPRESSION: 1. Tendinopathy without discrete tears, moderate severity at the origin of the common extensor tendon wad and mild at the origin of the common flexor tendon wad and distal biceps brachii tendon. Reviewed, dictated and finalized at location B. IMPRESSION: 1. Tendinopathy without discrete tears, moderate severity at the origin of the common extensor tendon wad and mild at the origin of the common flexor tendon w ad and distal biceps brachii tendon.
== END 2023-09-10 12:15 | disposition home or self-care (01) ==
PROVIDERS: PCP Emergency Medicine; Visit Provider Physician Assistant Surgical
DX: M77.11 Lateral epicondylitis, right elbow (principal)
CPT/HCPCS: 73221

== ENCOUNTER 2023-11-06 13:45 | Outpatient (RCR) | payer MEDICARE, OTHER, SELFPAY ==
--- NOTE | 2023-09-28 17:20 | OPREHPOC ---
Outpatient Therapy Plan of Care This is a Multidisciplinary Plan of Care that may contain components documented by all disciplines (PT, OT, and ST.) PT Problem 1 PT Problem #1 Knowledge Deficit PT Goal 1 Goal [place] with HEP Target Visit 4 PT Problem 2 PT Problem #2 Pain PT Goal 1 Goal Patient will reports minimal to no pain with moderate pressure of bicipital groove Target Visit 8 PT Goal 2 Goal Report no elbow pain with lift activity of 5# or greater Target Visit 10 PT Problem 3 PT Problem #3 Impaired Strength PT Goal 1 Goal Demonstrate elbow flexion strength of 5/5 without pain at proximal or distal biceps Target Visit 10
--- NOTE | 2023-09-28 17:20 | PTOPEVAL1 ---
Assessment and note entered by Richard Mccain, PT Evaluation Information Assessment Status Evaluation Diagnosis Bicipital tendonitis Onset September 2022 Subjective Information Reports that overall he has been having pain mostly localized to the elbow at this time. Denying any shoulder issues. Reports that he had a cortisone injection on September 18 of this month. He is Right handed and it is affecting his function of his dominant upper extremity. Right now pain is greatest limiting factor. Reported Pain Level Pain Score 1: Self Report Assessment PT Clinical Summary Patient presents with medial and lateral epicondyle irritation with significant tenderness to R condyles. He is also showing pain and tenderness to R anterior shoulder in bicipital groove. Patient will benefit from skilled therapy to address these deficits for edema reduction, pain relief, and improved gross function of shoulder and elbow with reduced pain. Plan of Care Interventions Electrical Stimulation,Hot Pack/Cold Pack,Manual Therapy,Neuro Re-education,Therapeutic Activities, Therapeutic Exercise,Ultrasound PT Services Indicated Yes Treatment Frequency and 2x/week for 10 visits Duration These treatments will address the objective and functional deficits as defined above. The patient will be advanced safely and appropriately in order for the patient to progress towards his/her prior level of function. Additional exercises will be introduced and as well as a comprehensive home exercise program upon discharge, if needed, ?to ensure carryover of functional gains achieved in the clinic. This treatment plan has been reviewed and agreement upon by the patient.
--- NOTE | 2023-11-06 15:54 | OPREHPOC ---
Outpatient Therapy Plan of Care This is a Multidisciplinary Plan of Care that may contain components documented by all disciplines (PT, OT, and ST.) PT Problem 1 PT Problem #1 Knowledge Deficit PT Goal 1 Goal / Goal Update [place] with HEP Target Visit 4 Progress Met PT Problem 2 PT Problem #2 Pain PT Goal 1 Goal / Goal Update Patient will reports minimal to no pain with moderate pressure of bicipital groove Target Visit 8 Progress Partially Met PT Goal 2 Goal / Goal Update Report no elbow pain with lift activity of 5# or greater Target Visit 10 Progress Not Met PT Problem 3 PT Problem #3 Impaired Strength PT Goal 1 Goal / Goal Update Demonstrate elbow flexion strength of 5/5 without pain at proximal or distal biceps Target Visit 10 Progress Not Met
--- NOTE | 2023-11-06 15:55 | PTOPDC ---
Assessment and note entered by Richard Mccain, PT Evaluation Information Assessment Status Discharge Diagnosis Bicipital tendonitis Onset September 2022 Subjective Information Reports that he has no perceived change at this time. Dr. Carpenter referring to elbow specialist and he is awaiting instruction. He is comfortable with current strengthening and stretching routine and will continue because he reports that he does get more sore if he does not regularly stretch. Patient requesting discharge to [facility] at this time. Reported Pain Level Pain Score 5: Self Report Assessment PT Clinical Summary Patient has seen some minor progress in shoulder motion and shoulder strength. Improved elbow flexion noted. Overall still reporting pain in elbow that is unchanged from initial evaluation. Patient is following up with elbow specialist to assess possible sources of pain. He is able to reduce increased pain with frequent stretching per report. Independent with [facility] and will continue while awaiting consult. Discharge per request at this time. Plan of Care PT Services Indicated D/C to HEP
== END 2023-11-06 16:04 | disposition home or self-care (01) ==
LOC: ANHGOSHPT 13:45
PROVIDERS: PCP Emergency Medicine; Visit Provider Orthopaedic Surgery
DX: M75.21 Bicipital tendinitis, right shoulder (principal); Z98.890 Other specified postprocedural states
CPT/HCPCS: 97035; 97110; 97140; 97161; 97530

== ENCOUNTER 2023-11-23 13:18 | Outpatient (RCR) | payer MEDICARE, OTHER, SELFPAY ==
--- NOTE | 2023-11-23 14:28 | PTOPEVAL1 ---
Assessment and note entered by Angélica Barker, PT, DPT Evaluation Information Assessment Status Evaluation Diagnosis R knee pain ICD-10 Condition Codes (PT) M25.561 Onset chronic Subjective Information Pt reports a 10-15 year history of R knee pain with a possible meniscus injury. He states 30 years ago he has a meniscus repair. He states all activities that require him to bend his knee is painful, also stairs, carry heavy loads and kneeling. He also reports changing directions while he is walking will cause a sharp pain. Reported Pain Level Pain Score 0: Self Report Assessment PT Clinical Summary Pt presents to therapy today for his initial evaluation with a diagnosis of R knee pain, it is suspected of a meniscus injury. Today he reports tenderness to palpation at the medial knee joint line. He has good hip, knee, and ankle ROM and strength. He ambulates without an deviations, he does demonstrate an anterior weight shift with functional squatting. Therapy services are indicated to improve knee joint stability and to minimize pain. Plan of Care Interventions Gait Training,Hot Pack/Cold Pack,Manual Therapy, Neuro Re-education,Patient/Caregiver Educati, Therapeutic Activities,Therapeutic Exercise PT Services Indicated Yes Treatment Frequency and pending ortho follow up Duration These treatments will address the objective and functional deficits as defined above. The patient will be advanced safely and appropriately in order for the patient to progress towards his/her prior level of function. Additional exercises will be introduced and as well as a comprehensive home exercise program upon discharge, if needed, ?to ensure carryover of functional gains achieved in the clinic. This treatment plan has been reviewed and agreement upon by the patient.
--- NOTE | 2024-01-24 08:35 | PTOPDC ---
Assessment and note entered by Angélica Barker, PT, DPT Evaluation Information Assessment Status Discharge - Pt Not Presen Diagnosis R knee pain ICD-10 Condition Codes (PT) M25.561 Onset chronic Subjective Information Called and spoke with pt, he states he and Dr. Carpenter decided on a surgical approach but he is planning on waiting until spring. Assessment PT Clinical Summary Encouraged pt to continue with issued HEP until surgery. Will d/c at this time to HEP.
== END 2024-01-24 08:57 | disposition home or self-care (01) ==
LOC: ANHGOSHPT 13:18
PROVIDERS: PCP Emergency Medicine; Visit Provider Orthopaedic Surgery
DX: M11.861 Other specified crystal arthropathies, right knee (principal)
CPT/HCPCS: 97110; 97161

== ENCOUNTER 2023-12-06 14:05 | Outpatient (CLI) | payer MEDICARE, OTHER, SELFPAY ==
--- NOTE | ~2023-12-06 | MR_ITS ---
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 Sequences included coronal PD-weighted FSE, coronal PD-weighted FS FSE, sagittal T2-weighted FS E, sagittal PD-weighted FS FSE and axial PD weighted fat saturated FSE. COMPARISON: 11/14/2023 FINDINGS: Medial compartment: There is increased intrasubstance signal in the posterior horn of the medial meniscus which does not extend to the articular surface to suggest tear most likely related to chondrocalcinosis which is sebastian dent on the prior radiographs. There is mild chondral swelling with intrasubstance linear decreased s ignal along the lateral side of the anterior weightbearing medial femoral condyle which also appears to correspond to chondrocalcinosis on prior radiograph. Articular cartilage is otherwise normal. Lateral compartment: Small region of increased intrasubstance signal along the inner third of the body of the lateral meni scus similarly not definitively contact an articular surface and with corresponding chondrocalcinosis at this location on the prior radiograph. Subtle stippled pattern of decreased intrasubstance signal within the cartilage at the central weightbearing lateral femoral condyle and along the posterior as pect of the lateral tibial plateau also likely related to chondrocalcinosis. Articular cartilage is o therwise normal. Patellofemoral compartment: And mild chondral swelling and heterogeneous decreased signal in the cartilage at the lateral patella r facet which can also be related to chondrocalcinosis with corresponding calcific density on the lola or radiograph although the undersurface is also mildly irregular suggesting at least mild partial-thi ckness chondral fissuring. There is deep chondral fissuring with minimal underlying cortical irregula rity and small focus of mild subarticular edema-like signal change at the inferomedial aspect of the lateral trochlea. Ligaments and tendons: Anterior and posterior cruciate ligaments are normal. The medial collateral ligament and fibular rajinder ateral ligament complex are normal. The extensor mechanism is normal. The visualized medial and later al hamstring tendons as well as the iliotibial band are normal. Fluid: Minimal right knee joint effusion. 4 mm loose osteochondral body versus heterotopic ossicle with cent ral fat density and peripheral rim calcification on prior radiograph located along the cephalad perip heral margin of the body of the medial meniscus. Osseous/other: Bone alignment is normal. No fracture or pathologic marrow replacing process. IMPRESSION: 1. Small regions of abnormal signal in portions of the bilateral menisci and portions of the cartilag e in all 3 compartments with corresponding calcification on prior radiograph consistent with chondroc alcinosis. 2. Small region of high-grade chondral malacia the inferomedial aspect of the lateral trochlea and mo derate grade chondromalacia along the lateral patellar facet. Reviewed, dictated and finalized at location B. IMPRESSION: 1. Small regions of abnormal signal in portions of the bilateral menisci and po rtions of the cartilage in all 3 compartments with corresponding calcification on prior radiograph consistent with chondrocalcinosis. 2. Small region of high-grade chondral malacia the inferomedial aspect of the l ateral trochlea and moderate grade chondromalacia along the lateral patellar fa cet.
== END 2023-12-06 14:06 | disposition home or self-care (01) ==
LOC: MICIMG 14:07
PROVIDERS: PCP Orthopaedic Surgery; Visit Provider Orthopaedic Surgery
DX: M11.861 Other specified crystal arthropathies, right knee (principal)
CPT/HCPCS: 73721

== ENCOUNTER 2023-12-27 16:11 | Outpatient (CLI) | payer MEDICARE, OTHER, SELFPAY ==
[2023-12-27 16:28] LABS: Hematocrit 49.1 % (42.0-52.0); Hemoglobin 16.5 g/dL (14.0-18.0); Mean Corpuscular HGB Conc 33.6 g/dl (32-36); Mean Corpuscular Hemoglobin 30.2 pg (26-34); Mean Corpuscular Volume 89.8 fl (80-100); Mean Platelet Volume 10.8 fl (7.4-10.4); Platelet Count Result 178 k/mm3 (150-375); Red Blood Count 5.47 M/mm3 (4.6-6.20); Red Cell Distribution Width 13.5 % (11.5-14.5); White Blood Count 6.6 K/mm3 (4.5-10.0)
[2023-12-27 17:11] LABS: Parathyroid Intact 62.1 pg/mL (14.5-75.2)
[2023-12-27 17:42] LABS: Albumin Level 4.5 g/dL (3.5-5.1); Anion Gap 10 mmol/L (4-12); Blood Urea Nitrogen 19 mg/dL (9-20); Calcium 9.2 mg/dL (8.4-10.2); Carbon Dioxide 25 mmol/L (22-30); Chloride 106 mmol/L (98-107); Estimated Glomerular Filt Rate 40; Glucose 61 mg/dL (65-110); Phosphorus 2.9 mg/dL (2.5-4.5); Potassium 3.8 mmol/L (3.4-5.0); Sodium 141 mmol/L (137-145)
[2023-12-27 17:57] LABS: Creatinine Urine 51.5 mg/dL; Total Protein Urine Random 13 mg/dL; Ur Ttl Prot Creatinine Ratio 0.25 mg/mg (0-0.20)
== END 2023-12-27 16:12 | disposition home or self-care (01) ==
PROVIDERS: PCP Emergency Medicine; Visit Provider Internal Medicine Nephrology
DX: N18.32 Chronic kidney disease, stage 3b (principal); Z85.528 Personal history of other malignant neoplasm of kidney
CPT/HCPCS: 36415; 80069; 82570; 83970; 84156; 85027

== ENCOUNTER 2024-01-28 08:27 | Outpatient (CLI) | payer MEDICARE, OTHER, SELFPAY ==
--- NOTE | ~2024-01-28 | MR_ITS ---
EXAMINATION: MR lumbar spine wo con DATE: 01/28/2024 09:10 INDICATION: Low back pain. TECHNIQUE: Magnetic resonance imaging (MRI) of the lumbar spine was performed without intravenous con trast. Sequences included sagittal T2-weighted FSE, sagittal T2-weighted FS FSE, sagittal T1-weighted FSE, and axial T2-weighted FSE. COMPARISON: Lumbar spine MRI 01/03/2022 FINDINGS: There is 7 degrees levocurvature of lumbar spine. There is mild chronic anterior wedging of T12 vertebral body. There is mildly decreased disc height at L3-L4, L4-L5, and L5-S1. The distal spi nal cord signal intensity is normal. The conus medullaris is at L1-L2. The following disc levels are specifically discussed: L1-L2: The disc does not extend beyond the endplate margin. There is mild bilateral facet joint osteo arthritis. There is no neural foraminal stenosis. There is no central canal stenosis. L2-L3: The disc does not extend beyond the endplate margin. There is moderate bilateral facet joint o steoarthritis. There is no neural foraminal stenosis. There is no central canal stenosis. L3-L4: The disc is bulging. There is mild bilateral facet joint osteoarthritis. There is mild bilater al neural foraminal stenosis. There is mild central canal stenosis. L4-L5: The disc is bulging. There is moderate right and severe left facet joint osteoarthritis. There is mild bilateral neural foraminal stenosis. There is mild central canal stenosis. L5-S1: The disc does not extend beyond the endplate margin. There is moderate left facet joint osteoa rthritis. There is ankylosis of right facet joint with moderate hypertrophy. There is mild bilateral neural foraminal stenosis. There is no central canal stenosis. IMPRESSION: 1. Mild lumbar spondylosis, stable from 01/03/2022. Reviewed, dictated and finalized at location [] [employer]ENCE TRA[employer]
== END 2024-01-28 08:28 | disposition home or self-care (01) ==
LOC: MICIMG 08:29
PROVIDERS: PCP Nurse Practitioner Family; Visit Provider Nurse Practitioner Family
DX: M47.896 Other spondylosis, lumbar region (principal)
CPT/HCPCS: 72148

== ENCOUNTER 2024-04-15 14:00 | Outpatient (RCR) | payer MEDICARE, OTHER, SELFPAY ==
--- NOTE | 2024-03-07 12:15 | OPREHPOC ---
Outpatient Therapy Plan of Care This is a Multidisciplinary Plan of Care that may contain components documented by all disciplines (PT, OT, and ST.) PT Problem 1 PT Problem #1 Knowledge Deficit PT Goal 1 Goal / Goal Update [place] with HEP Target Visit 4 PT Goal 2 Goal / Goal Update Report consistent pain no greater than 2/10 for 2 weeks Target Visit 8 PT Problem 2 PT Problem #2 Impaired Range of Motion PT Goal 1 Goal / Goal Update 1. Achieve terminal R elbow extension 2. 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 Target Visit 8
--- NOTE | 2024-03-07 12:15 | PTOPEVAL1 ---
Assessment and note entered by Richard Mccain, PT Evaluation Information Assessment Status Evaluation Diagnosis Right elbow extensor tendon repair M77.11 ICD-10 Condition Codes (PT) Pain in right shoulder M25.511,Pain in right elbow M25.521 Onset 02/18/24 Subjective Information Reports that he is having pain but it is different from what he was having before. 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 He has had a couple of instances of numbness in his hand but were short lived. Reported Pain Level Pain Score 4: Self Report Assessment PT Clinical Summary Patient presents with ROM and strength loss following extensor complex repair. Patient per protocol allowed to perform elbow AROM as tolerated. Patient will benefit forms killed therapy to address these deficits for gross function motion and training exercise with progression to gross UE functional strength training. Plan of Care Interventions Electrical Stimulation,Hot Pack/Cold Pack,Manual Therapy,Neuro Re-education,Therapeutic Activities, Therapeutic Exercise PT Services Indicated Yes Treatment Frequency and 2x/week for 8 visits Duration These treatments will address the objective and functional deficits as defined above. The patient will be advanced safely and appropriately in order for the patient to progress towards his/her prior level of function. Additional exercises will be introduced and as well as a comprehensive home exercise program upon discharge, if needed, ?to ensure carryover of functional gains achieved in the clinic. This treatment plan has been reviewed and agreement upon by the patient.
--- NOTE | 2024-04-15 14:39 | OPREHPOC ---
Outpatient Therapy Plan of Care This is a Multidisciplinary Plan of Care that may contain components documented by all disciplines (PT, OT, and ST.) PT Problem 1 PT Problem #1 Knowledge Deficit PT Goal 1 Goal / Goal Update [place] with HEP Target Visit 4 Progress Met PT Goal 2 Goal / Goal Update Report consistent pain no greater than 2/10 for 2 weeks Target Visit 8 Progress Met PT Problem 2 PT Problem #2 Impaired Range of Motion PT Goal 1 Goal / Goal Update 1. Achieve terminal R elbow extension 2. 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 Target Visit 8 Progress Met
--- NOTE | 2024-04-15 14:39 | PTOPDC ---
Assessment and note entered by Richard Mccain, PT Evaluation Information Assessment Status Progress Diagnosis Right elbow extensor tendon repair M77.11 ICD-10 Condition Codes (PT) Pain in right shoulder M25.511,Pain in right elbow M25.521 Onset 02/18/24 Subjective Information Reports that overall he is doing remarkably better . Still has occasional pain at maximal flexion and rotation. No pain at rest and no discomfort with regular use. Reported Pain Level Pain Score 0: Self Report Assessment PT Clinical Summary Patient has met all goals for therapy and is suitable for discharge to [facility] at this time. No ROM , curb supervisor, or strength deficits noted. Plan of Care PT Services Indicated Yes
== END 2024-04-15 15:00 | disposition home or self-care (01) ==
LOC: ANHGOSHPT 14:00
PROVIDERS: PCP Nurse Practitioner Family
DX: M77.11 Lateral epicondylitis, right elbow (principal)
CPT/HCPCS: 97016; 97110; 97140; 97161

== ENCOUNTER 2024-05-20 12:01 | Outpatient (CLI) | payer MEDICARE, OTHER, SELFPAY ==
[2024-05-20 12:24] LABS: Estimated Glomerular Filt Rate 40
[2024-05-20 14:32] LABS: Hematocrit 49.8 % (42.0-52.0); Hemoglobin 16.6 g/dL (14.0-18.0); Mean Corpuscular HGB Conc 33.3 g/dl (32-36); Mean Corpuscular Hemoglobin 29.9 pg (26-34); Mean Corpuscular Volume 89.6 fl (80-100); Mean Platelet Volume 11.1 fl (7.4-10.4); Platelet Count Result 175 k/mm3 (150-375); Red Blood Count 5.56 M/mm3 (4.6-6.20); Red Cell Distribution Width 13.7 % (11.5-14.5); White Blood Count 7.2 K/mm3 (4.5-10.0)
[2024-05-20 14:46] LABS: Albumin Level 4.1 g/dL (3.5-5.1); Anion Gap 9 mmol/L (4-12); Blood Urea Nitrogen 21 mg/dL (9-20); Calcium 9.4 mg/dL (8.4-10.2); Carbon Dioxide 26 mmol/L (22-30); Chloride 107 mmol/L (98-107); Estimated Glomerular Filt Rate 49; Glucose 72 mg/dL (65-110); Potassium 4.3 mmol/L (3.4-5.0); Sodium 142 mmol/L (137-145)
[2024-05-20 14:51] LABS: Creatinine Urine 67.9 mg/dL
[2024-05-20 14:58] LABS: Parathyroid Intact 43.1 pg/mL (14.5-75.2)
[2024-05-20 15:06] LABS: Total Protein Urine Random < 5 mg/dL; Ur Ttl Prot Creatinine Ratio < 0.07 mg/mg (0-0.20)
== END 2024-05-20 12:02 | disposition home or self-care (01) ==
PROVIDERS: Internal Medicine Nephrology; PCP Nurse Practitioner Family; Visit Provider Nurse Practitioner Family
DX: R10.11 Right upper quadrant pain (principal); R07.81 Pleurodynia; N18.32 Chronic kidney disease, stage 3b; K82.4 Cholesterolosis of gallbladder; K76.0 Fatty (change of) liver, not elsewhere classified; K59.00 Constipation, unspecified
CPT/HCPCS: 36415; 71260; 74177; 80069; 82570; 83970; 84156; 85027; Q9967

== ENCOUNTER 2024-06-12 12:20 | Outpatient (CLI) | payer MEDICARE, OTHER, SELFPAY ==
--- OUTSIDE RECORDS SUMMARY | 2024-06-12 13:12 | XMS_ITS | Clinical Summary ---
Author Organization [facility] Cayla utieddie Address [address] [address] Phone Care Team Providers Care Alignment Mechanic Name Role Phone Medhat Pierre MD Primary Care Provider [phone] Allergies No known active allergies Medications No known medications Active Problems Problem Noted Date Diagnosed Date Chronic kidney disease stage 3B 12/15/2021 Blood in urine 12/15/2021 Renal cell carcinoma of bilateral kidneys 2021 Family History Medical History Relation Comments Kidney disease Neg Hx Social History Tobacco Use Types Packs/Day Years Used Date Smoking Tobacco: Never Smokeless Tobacco: Never Alcohol Use Standard Drinks/Week Comments Yes 0 (1 standard drink = 0.6 oz pur e alcohol) rare Sex and Gender Information Value Date Recorded Sex Assigned at Not on file Gender Identity Not on file Sexual Orientation Not on file Last Filed Vital Signs Vital Sign Reading Time Taken Comments Blood Pressure 108/60 12/15/2021 10:22 AM CDT Pulse 96 12/15/2021 10:22 AM CDT Temperature 36.2 C (97.1 F) 12/15/2021 10:22 AM CDT Respiratory Rate - - Oxygen Saturation - - Inhaled Oxygen Concentration - - Weight 103 kg (227 lb) 12/15/2021 10:22 AM CDT Height 177.8 cm (5' 10 ) 12/15/2021 10:22 AM CDT Body Mass Index 32.57 12/15/2021 10:22 AM CDT Plan of Treatment Health Maintenance Due Date Last Done Comments Pneumococcal PPSV23/PCV13 65 + Years / High and Highest Risk (1 of 4 - PCV) 1961 Influenza Vaccine (#1) 2023 Care Teams Alignment Mechanic Relationship Specialty Start Date End Date Medhat Pierre MD PCP - General Family Medicine 11/01/21
--- OUTSIDE RECORDS SUMMARY | 2024-06-12 13:12 | XMS_ITS | Patient Health Record ---
Author Organization [facility]rest Billing Info Address [address] [place] [id number] Care Team Providers Care Bottomer Operator Name Role Phone Cm Hodges Primary Care Provider CYRUS Maldonado [phone] Reason For Referral No Information Medications Medication SIG (Take, Route, Frequency, Duration) Notes Start Date End Date Status VESIcare 10 MG 1 tablet Orally Once a day for 90 days 06/25/2018 Active Vitamin D-3 1000 UNIT 1 capsule Orally O nce a day for 30 day(s) Active Alfuzosin HCl ER 10 MG 1 tablet immediat abhinav after the same meal Orally Once a day for 90 days Active Olmesartan Medoxomil 20 MG 1 tablet Orally Once a day for 30 day(s) Active Uroxatral 10 MG 1 tablet immediately after the same meal Orally Once a day for 90 days Active Pepcid 40 MG 1 tablet at bedtime Orally Once a day for 30 day(s) Active Allopurinol 100 MG 1 tablet Orally Once a day for 30 day(s) Active Proscar 5 MG 1 tablet Orally Once a day for 90 Active Cozaar 50 MG 1 tablet Orally Once a day for 30 day(s) Active Zantac 150 MG 1 tablet at bedtime Orally Once a day for 30 day(s) Not-Taking Cymbalta 60 MG 1 capsule Orally Onc e a day for 30 day(s) Active Multivitamin Adult - as directed Orally Active Pantoprazole Sodium 40 MG 1 tablet Orall y Once a day for 30 day(s) Active Myrbetriq 50 MG 1 tablet Orally Once a day for 90 days 08/26/2018 Active Social History Tobacco Use: Social History Observation Description Date Details (start date - stop date) Never Smoker NA - NA Tobacco Status: Question Answer Notes Patient is a never smoker Problems Problem Type SNOMED Code ICD Code Onset Dates Problem Status W/U Status Risk Notes Problem [id number] 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, unspecified laterality (C64.9) Active confirmed Problem [id number] Benign prostatic hyperplasia with lower urinary tract symptoms, symptom details unspecified (N40.1) Active confirmed Plan Of Treatment Pending Test Test Name Order Date XRAY-CHEST, 2 VIEWS, FRONTAL & LATERAL ( [id number]) 01/31/2018 MRI-ABDOMEN; W/O CONTRAST MA TL(S) FOLLOWED BY CONTRAST MATL(S) & FURTHER SEQUENCES ([id number]) 01/31/2018 BUN + Creat ([id number]) 01/31/2018 BUN + Creat ([id number]) 03/10/2020 Insurance Providers Payer Name Payer Address Payer Phone Subscriber Number Group Number Insured Name Patient Relationship to Insured Coverage Start Date Coverage End Date [place] [address] [address] [place], [place] [id number] [place] Self - patient is the insured [address] [facility] [address] [place], [place] [id number] [phone] [id number] [place] Self - patient is the insured 8 8 Medical (General) History Medical History History ICD Code Esophageal reflux Arthritis Hypertension enlarged prostate renal cell ca Surgical History Surgery Date(Month/Year) rt nephrectomy 08/23 lt partial nephrectomy 04/01 lt thumb sx, knee sx 1990 lt shoulder sx 2011 tonsillectomy Right Hand/Trigger Finger 11/2019 Hospitalization History Reason Date(Month/Year) see surgical hx
--- OUTSIDE RECORDS SUMMARY | 2024-06-12 13:12 | XMS_ITS | Clinical Summary ---
Author Organization [facility] Address [facility] [place] [address] Care Team Providers Care T[employer] Installer Name Role Phone Stephanie Magana NP Primary Care Provider [phone] Torey Brunner DO Unavailable Allergies No known active allergies Medications alfuzosin ER (UROXATRAL) 10 mg 24 hr tablet Take 1 tablet (10 mg total) by mouth daily after dinner 08/20/19 23 Active cholecalciferol (VITAMIN D-3) 25 mcg (1,000 unit) tablet Take 1 tablet (1,000 Units total) by mouth every morning Active DULoxetine DR (CYMBALTA) 60 mg capsule Take 1 capsule (60 mg total) by mouth nightly 06/06/19 23 Active Jardiance 10 mg tablet Take 1 tablet (10 mg total) by mouth every morning 07/19/19 23 Active famotidine (PEPCID) 40 mg tablet Take 1 tablet (40 mg total) by mouth nightly 07/03/19 23 Active Myrbetriq 50 mg tablet extended release 24 hr Take 1 tablet (50 mg total) by mouth daily after dinner 07/20/[address] (PROTONIX) 40 mg EC tablet Take 1 tablet (40 mg total) by mouth every morning 08/08/19 23 Active solifenacin (VESIcare) 10 mg tablet Take 1 tablet (10 mg total) by mouth daily after dinner 07/19/19 23 Active multivitamin tablet Take 1 tablet by mouth every morning Active allopurinoL (ZYLOPRIM) 100 mg tablet Take 1 tablet (100 mg total) by mouth daily after dinner Active finasteride (PROSCAR) 5 mg tablet Take 1 tablet (5 mg total) by mouth nightly Active olmesartan (BENICAR) 5 mg tablet Take 1 tablet (5 mg total) by mouth nightly Active methocarbamoL (ROBAXIN) 750 mg tablet Take 1 tablet (750 mg total) by mouth 3 (three) times a day as needed 05/22/19 Active acetaminophen 500 mg capsuleIndicatio ns:Pain Take 2 capsules (1,000 mg total) by mouth every 6 (six) hours 06/10/19 25 Active gabapentin (NEURONTIN) 300 mg capsule Take 1 capsule (300 mg total) by mouth 3 (three) times a day 90 capsule 1 06/10/19 25 025 Active lidocaine (ASPERCREME) 4 % adhesive patch,medicated Place 2 patches on the skin daily for 12 hours 06/10/19 25 Active polyethylene glycol (MIRALAX) 17 gram packetIndication s:constipation Take 1 packet (17 g total) by mouth daily 30 packet 06/10/19 25 025 Active senna-docusate (PERICOLACE) 8.6-50 mg Take 2 tablets by mouth 2 (two) times a day as needed for constipation 60 tablet 06/10/19 25 025 Active oxyCODONE (ROXICODONE) 5 mg immediate release tabletIndication s:Pain Take 1 tablet (5 mg total) by mouth every 4 (four) hours as needed for pain for up to 7 days 24 tablet 06/10/19 25 025 Active apixaban (ELIQUIS) 5 mg tabletIndication s:atrial fibrillation Take 1 tablet (5 mg total) by mouth every 12 (twelve) hours 60 tablet 06/10/19 25 025 Active amiodarone (PACERONE) 200 mg tabletIndication s:Prevention of Recurrent Atrial Fibrillation Take 2 tablets (400 mg total) by mouth 2 (two) times a day for 3 days, THEN 2 tablets (400 mg total) daily for 20 days. 52 tablet 06/10/19 25 025 Active chlorhexidine (PERIDEX) 0.12 % oral rinseIndications :Mouth Infection Prevention Swish and spit 15 mL 3 (three) times a day for 5 days 225 mL 05/27/19 25 025 methylPREDNISolo ne (MEDROL DOSEPACK) 4 mg Dosepack 08/31/19 24 025 Discontinu ed(Alterna te therapy) Active Problems Patient Care Coordination No te Formatting of this note migh t be different from the original. Referring provider: Dr. Medhat Pierre Mr. West Foster is a 67-year-old with a lung nodule. He was being followed for some lung nodules. On 06/24/2019 the patient underwent a chest CT without contrast which demonstrated at least 5 pulmonary nodules. There was 1 in the left upper lobe, right upper lobe and right lower lobe and 2 in the left lower lobe. There was a 5 mm right lower lobe nodule that previously measured 3 mm. The other nodules are stable. Patient has a history of a right nephrectomy in 2007 for renal cell carcinoma and is status post left partial nephrectomy due to a recurrence in 2011. He also has a history of stage IIIB chronic kidney disease. Patient is a never smoker. Patient presents today for further surgical evaluation. 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 Lung nodule Encounters Date Type Department Care Team Description 06/12/2024 Orders Only [facility] Surgery [address] [place] [phone] Janice Byrd, MARINE Bloody stools (Primary Dx) 06/12/2024 Orders Only [facility] Surgery [address] [place] [phone] Janice Byrd, MARINE Bloody stools (Primary Dx) 06/04/2024 8:30 AM CDT - 06/04/2024 12:00 PM CDT Surgery [facility] Operating Room [address] [place] [address] George Martinez MD XI ROBOTIC THORACIC RIGHT LOWER LOBE LOBECTOMY 06/04/2024 7:42 AM CDT Anesthesia Event [facility] Operating Room [address] [place] [phone] Margarita Cooper MD Barnhart, Lynlee Jo, NP 06/04/2024 6:47 AM CDT - 06/09/2024 4:30 PM CDT Hospital Encounter [address] [address] George Martinez MD Lung nodule (Primary Dx); Nodule of lower lobe of right lung Discharge Disposition: Discharge to home or self care 05/27/2024 11:00 AM CDT - 05/27/2024 11:59 PM CDT Hospital Encounter [facility] Diagnostic Imaging [address] [place] [address] Discharge Disposition: Discharge to home or self care 05/27/2024 10:45 AM CDT Pre-Admission Testing [facility] Pre Anesthesia Testing [address] [place] [address] Pre-operative exam (Primary Dx) 05/26/2024 Orders Only [facility] Surgery [facility] Floor [address] [place] [phone] Janice Byrd NP Gingivitis (Primary Dx) 05/21/2024 Orders Only [facility] Pulmonology [address] [phone] Jag Tobar MD 05/20/2024 12:20 PM DATA SME - 05/20/2024 11:59 PM DATA SME Hospital Encounter [facility] [employer] [address] [place] [address] Discharge Disposition: Discharge to home or self care 05/20/2024 Telephone [facility] Surgery [address] [facility] [address] [place] [phone] Yadira Byrd RMA 05/20/2024 Orders Only [facility] Surgery [address] [facility] [address] [place] [phone] George Martinez MD Chest wall pain (Primary Dx) 05/20/2024 Telephone [facility] Surgery [address] [place] [address] Floor 5 [place] [address] Janice Byrd NP 05/15/2024 10:45 AM DATA SME Office Visit [facility] Pulmonology [facility] [address] [place] [phone] Jag Tobar MD Lung nodule (Primary Dx); ANJANA (obstructive sleep apnea); History of renal cell cancer 05/08/2024 1:40 PM DATA SME Office Visit [facility] Orthopaedic Surgery [address] [facility] [address] [place] [address] Fredy Flanagan MD Lateral epicondylitis of right elbow (Primary Dx) 05/08/2024 9:30 AM DATA SME Office Visit [facility] Surgery [address] [facility] [address] [place] [address] George Martinez MD Lung nodule (Primary Dx) 04/29/2024 Telephone [facility] Surgery [address] [facility] Floor 5 [place] [address] Octavio Herrera, MARINE 04/22/2024 Telephone [facility] Oncology [address] [facility] [address] [place] [address] Meenakshi Kohler, ANDRÉS 04/22/2024 Orders Only [facility] Pulmonology [address] [place] [address] [place] [phone] Jag Tobar MD Fungal infection (Primary Dx) 04/22/2024 Orders Only [facility] Pulmonology [address] [place] [address] [place] [phone] Jag Tobar MD 04/11/2024 9:15 AM DATA SME - 04/11/2024 10:50 AM DATA SME Surgery [facility] OR [address] [place] [address] Jag Tobar MD BRONCHOSCOPY,LAVAGE, BRUSHINGS,BIOPSY 04/11/2024 9:07 AM DATA SME Anesthesia Event [facility] OR [address] [place] [address] Sandra Mensah MD Kuntz, Edward William MD 04/11/2024 6:57 AM DATA SME - 04/11/2024 12:59 PM DATA SME Hospital Encounter [facility] OR [address] [place] [address] Jag Tobar MD Nodule of right lung Discharge Disposition: Discharge to home or self care 04/10/2024 10:04 AM DATA SME - 04/10/2024 11:59 PM DATA SME Hospital Encounter [facility] [address] [place] [address] Discharge Disposition: Discharge to home or self care 04/10/2024 10:03 AM DATA SME - 04/10/2024 11:59 PM DATA SME Hospital Encounter [facility] [address] [place] [address] Lung nodule Discharge Disposition: Discharge to home or self care 04/10/2024 Telephone [facility] Oncology [address] [facility] [address] [place] [address] Stephania Thomas, ADAM 04/10/2024 Orders Only [facility] Surgery [address] [facility] Floor 5 [place] [phone] Janice Byrd NP Lung nodule (Primary Dx) 04/08/2024 Telephone [facility] Surgery [address] [facility] [address] [place] [phone] Yadira Byrd RMA 04/07/2024 1:56 PM DATA SME - 04/07/2024 11:59 PM DATA SME Hospital Encounter [facility] Cardiac Testing [address] [place] [address] Preop testing Discharge Disposition: Discharge to home or self care 04/07/2024 1:56 PM DATA SME - 04/07/2024 11:59 PM DATA SME Hospital Encounter [facility] Respiratory Therapy [address] [place] [address] Lung nodule Discharge Disposition: Discharge to home or self care 04/07/2024 Orders Only [facility] PreAdmission Testing [address] [place] [address] Lianne Carlson RN Preop testing (Primary Dx) 04/04/2024 12:15 PM DATA SME Lab [facility] Lab [address] [place] [address] Lung nodule; History of biopsy 04/04/2024 11:45 AM DATA SME Office Visit [facility] Pulmonology [address] [facility] [address] [place] [address] Jag Tobar MD Lung nodule (Primary Dx); ANJANA (obstructive sleep apnea); History of renal cell cancer; History of biopsy 04/04/2024 Orders Only [facility] Surgery [address] [facility] [address] [place] [address] George Martinez MD Lung nodule (Primary Dx) 04/03/2024 8:45 AM DATA SME Office Visit [facility] Surgery [address] [facility] [address] [place] [address] George Martinez MD Lung nodule (Primary Dx) 03/27/2024 2:20 PM DATA SME Office Visit [facility] Orthopaedic Surgery [address] [facility] 1st Floor [address] [place] [address] Fredy Flanagan MD Lateral epicondylitis of right elbow (Primary Dx) 03/25/2024 12:15 PM DATA SME - 03/25/2024 11:59 PM DATA SME Hospital Encounter [facility] Medical Office Building [address] [place] [address] Lung nodule Discharge Disposition: Discharge to home or self care from Last 3 Months Surgical History Surgery Date Site/Laterality Comments PARTIAL NEPHRECTOMY 03/19/2011 - 03/18/2012 Left NEPHRECTOMY 03/19/2007 - 03/18/2008 Right KNEE ARTHROSCOPY Right x2 TRANSFER MUSCLE / TENDON ELB OW / UPPER ARM 03/19/2023 - 04/18/2023 Right x2 02/2024 ELBOW SURGERY 02/17/2024 - 03/18/2024 x2 LASIK COLONOSCOPY BRONCHOSCOPY 04/11/2024 w/biopsy Medical History Medical History Date Comments Arthritis Hypertension Chronic kidney disease Stage 3b Cancer (HCC) renal cell carci noma bilaterally Sleep apnea uses CPAP divya e Multiple pulmonary nodules [facility] h scheuled for 04/11/24 for evaluation Wears glasses Family History Medical History Relation Name Comments Stomach cancer Maternal Grandmother Breast cancer Mother Breast cancer Sister Anesthesia problems Neg Hx Relation Name Status Comments Father Maternal Grandmother Mother Sister Social History Tobacco Use Types Packs/Day Years Used Date Smoking Tobacco: Never Smokeless Tobacco: Never Tobacco Cessation:Counseling Given: Not Answered [facility] Utilities Answer Date Recorded In the past 12 months has th e electric, gas, oil, or water company threatened to shut off services in your home? No 06/09/2024 Social Connection and Isolat ion Panel [NHANES] Answer Date Recorded In a typical week, how many times do you talk on the phone with family, friends, or neighbors? More than three times a week 06/09/2024 How often do you get togethe r with friends or relatives? More than three times a week 06/09/2024 How often do you attend chur ch or rastafari services? Never 06/09/2024 Do you belong to any clubs o r organizations such as worship groups, unions, fraternal or athletic groups, or school groups? No 06/09/2024 How often do you attend meet ings of the clubs or organizations you belong to? Never 06/09/2024 Are you , , di vorced, , never , or living with a partner? 06/09/2024 AUDIT-C Answer Date Recorded Q1: How often do you have a drink containing alc ohol? Monthly or less 06/04/2024 Q2: How many drinks containi ng alcohol do you have on a typical day when you are drinking? 1 or 2 06/04/2024 Q3: How often do you have si x or more drinks on one occasion? Never 06/04/2024 Overall Financial Resource Strain (CARDIA) Answe r Date Recorded How hard is it for you to pa y for the very basics like food, housing, medical care, and heating? Not hard at all 06/09/2024 Hunger Vital Sign Answer Date Recorded Within the past 12 months, y ou worried that your food would run out before you got the money to buy more. Never true 06/10/19 25 Within the past 12 months, t he food you bought just didn't last and you didn't have money to get more. Never true 06/09/2024 PRAPARE - Transportation Answer Date Re corded In the past 12 months, has l ack of transportation kept you from medical appointments or from getting medications? No 05/18 In the past 12 months, has l ack of transportation kept you from meetings, work, or from getting things needed for daily living? No 06/09/2024 Housing Stability Vital Sign Answer Gato e Recorded In the last 12 months, was t here a time when you were not able to pay the mortgage or rent on time? No 06/09/2024 In the past 12 months, how m any times have you moved where you were living? 0 06/09/2024 At any time in the past 12 m [facility], were you homeless or living in a fci (including now)? No 06/09/2024 Personal Safety Answer Date Recorded Have you ever been in or are you currently in a harmful physical or emotional relationship or is someone making you feel afraid or unsafe? Denies 06/04/2024 Sex and Gender Information Value Date Recorded Sex Assigned at Not on file Legal Sex Male 3:43 PM CDT Gender Identity Male 05/17/2023 8:50 AM DATA SME Sexual Orientation Straight 05/17/2023 8: 50 AM DATA SME Obstetrics History Last Filed Vital Signs Vital Sign Reading Time Taken Comments Blood Pressure 112/78 06/09/2024 12:22 PM CDT Pulse 81 06/09/2024 12:00 PM CDT Temperature 36.6 C (97.8 F) 06/09/2024 12:22 PM CDT Respiratory Rate 16 06/09/2024 12:2 2 PM CDT Oxygen Saturation 96% 06/09/2024 12: 22 PM CDT Inhaled Oxygen Concentration - - Weight 100.3 kg (221 lb 1.9 oz) 06/05/2024 6:00 AM CDT Height 177.8 cm (5' 10 ) 06/04/2024 7:02 AM CDT Body Mass Index 31.73 06/04/2024 7:02 AM CDT Plan of Treatment Health Maintenance Due Date Last Done Comments Colon Cancer Screening-Colonoscopy 1955 Depression Screening 1955 Hepatitis C Screening 1953 Hepatitis B Screening 1971 Pneumococcal vaccine 65+ (1 of 1 - PCV) 2003 Zoster Vaccine (1 of 2) 2003 Well Visit 65+ 2018 Influenza Vaccine (#1) 2023 2, 12/18/2018, 01/18/2010 Fall Risk Assessment 06/09/2025 06/09/2024 DTaP/Tdap/Td Vaccine (2 - Td or Tdap) 10/07/2031 Medical Devices Implanted Type Area Shop Director Device Identifier Shelf Expiration Date Model / Serial / Lot [employer] Suture [place] K[employer]less Fibertak Resorbable [id number] - [id number] Implanted:Qty: 1 on 02/18/2024 by Fredy Flanagan MD at [facility] Right: Elbow [employer] [id number] 10/16/2028 [id number] / / [id number] Procedures Procedure Name Priority Date/Time Associated Diagnosis Comments HEPATIC FUNCTION PANEL STAT 11:37 AM CDT PROTIME-INR STAT 06/09/2024 11:37 AM CDT EGFR Routine 06/09/2024 4:19 AM CDT DIFFERENTIAL AUTO Routine 06/09/2024 4:1 9 AM CDT BASIC METABOLIC PANEL Routine 06/09/2024 4:19 AM CDT CBC WITH AUTO DIFFERENTIAL Routine 06/09/2024 4:19 AM CDT XR CHEST 1 VIEW IP Routine 06/09/2024 4:17 AM CDT XR CHEST 1 VIEW IP Routine 06/08/2024 6:00 AM CDT EGFR Routine 06/08/2024 3:43 AM CDT DIFFERENTIAL AUTO Routine 06/08/2024 3:4 3 AM CDT BASIC METABOLIC PANEL Routine 06/08/2024 3:43 AM CDT CBC WITH AUTO DIFFERENTIAL Routine 06/08/2024 3:[address] CHEST WO CONTRAST IP Routine 06/07/2024 11:19 AM CDT XR CHEST PA LATERAL 2 VIEWS IP Routine 06/07/2024 9:15 AM CDT XR CHEST 1 VIEW IP Routine 06/07/2024 5:55 AM CDT EGFR Routine 06/07/2024 4:39 AM CDT DIFFERENTIAL AUTO Routine 06/07/2024 4:3 9 AM CDT BASIC METABOLIC PANEL Routine 06/07/2024 4:39 AM CDT CBC WITH AUTO DIFFERENTIAL Routine 06/07/2024 4:39 AM CDT ECG 12-LEAD STAT 06/06/2024 6:[address] LIMITED LOCALIZED FOLLOW UP STUDY ED Urgent/IP Urgent 06/06/2024 2:04 PM CDT APTT STAT 06/06/2024 8:35 AM CDT PROTIME-INR STAT 06/06/2024 8:35 AM CDT CRITICAL CARE Routine 06/06/2024 8:27 AM CDT Nodule of lower lobe of right lung POCT GLUCOSE DEVICE Routine 06/06/2024 7 :48 AM CDT XR CHEST 1 VIEW IP Routine 06/06/2024 5:04 AM CDT EGFR Routine 06/06/2024 5:00 AM CDT DIFFERENTIAL AUTO Routine 06/06/2024 5:0 0 AM CDT CBC WITH AUTO DIFFERENTIAL Routine 06/06/2024 5:00 AM CDT PHOSPHORUS Routine 06/06/2024 5:00 AM CDT COMPREHENSIVE METABOLIC PANEL Routine 06/06/2024 5:00 AM CDT CRITICAL CARE Routine 06/05/2024 11:57 PM CDT Lung nodule POCT GLUCOSE DEVICE Routine 06/05/2024 9 :22 PM CDT XR CHEST 1 VIEW IP Routine 06/05/2024 9:21 PM CDT POCT GLUCOSE DEVICE Routine 06/05/2024 4 :27 PM CDT XR CHEST 1 VIEW ED Urgent/IP Urgent 06/05/2024 4:19 PM CDT POCT GLUCOSE DEVICE Routine 06/05/2024 11:35 AM CDT CRITICAL CARE Routine 06/05/2024 7:29 AM CDT Nodule of lower lobe of right lung POCT GLUCOSE DEVICE Routine 06/05/2024 7 :02 AM CDT XR CHEST 1 VIEW IP Routine 06/05/2024 4:53 AM CDT EGFR Routine 06/05/2024 3:10 AM CDT DIFFERENTIAL AUTO Routine 06/05/2024 3:1 0 AM CDT CBC WITH AUTO DIFFERENTIAL Routine 06/05/2024 3:10 AM CDT PHOSPHORUS Routine 06/05/2024 3:10 AM CDT MAGNESIUM Routine 06/05/2024 3:10 AM CDT COMPREHENSIVE METABOLIC PANEL Routine 06/05/2024 3:10 AM CDT EGFR Timed 06/04/2024 11:02 PM CDT BASIC METABOLIC PANEL Timed 06/04/2024 11:02 PM CDT CBC WITHOUT DIFFERENTIAL Timed 06/04/2024 11:02 PM CDT POCT GLUCOSE DEVICE Routine 06/04/2024 7 :55 PM CDT POCT GLUCOSE DEVICE Routine 06/04/2024 7 :55 PM CDT POCT GLUCOSE DEVICE Routine 06/04/2024 5 :47 PM CDT EGFR STAT 06/04/2024 1:26 PM CDT DIFFERENTIAL AUTO STAT 06/04/2024 1:2 6 PM CDT CBC WITH AUTO DIFFERENTIAL STAT 06/04/2024 1:26 PM CDT PHOSPHORUS STAT 06/04/2024 1:26 PM CDT MAGNESIUM STAT 06/04/2024 1:26 PM CDT BASIC METABOLIC PANEL STAT 06/04/2024 1:26 PM CDT POCT GLUCOSE DEVICE Routine 06/04/2024 1 :10 PM CDT CRITICAL CARE Routine 06/04/2024 1:06 PM CDT Nodule of lower lobe of right lung XR CHEST 1 VIEW ED Urgent/IP Urgent 06/04/2024 11:31 AM CDT SURGICAL PATHOLOGY Routine 06/04/2024 11:23 AM CDT Nodule of lower lobe of right lung PREPARE RBC STAT 06/04/2024 8:20 AM CDT PERIPHERAL LINE Routine 06/04/2024 8:09 AM CDT ANESTHESIA ARTERIAL LINE PLACEMENT Routine 06/04/2024 8:09 AM CDT ID AN ELECTIVE ENDOTRACHEAL AIRWAY Routine 06/04/2024 8:08 AM CDT XI ROBOTIC THORACIC WEDGE RESECTION 06/04/2024 7:42 AM CDT Nodule of lower lobe of right lung PREPARE RBC STAT 06/04/2024 7:00 AM CDT B CHECK SAMPLE STAT 06/04/2024 6:47 AM CDT EGFR Routine 05/27/2024 12:19 PM CDT Pre-operative exam DIFFERENTIAL AUTO Routine 05/27/2024 12:19 PM CDT Pre-operative exam CBC WITH AUTO DIFFERENTIAL Routine 05/27/2024 12:19 PM CDT Pre-operative exam COMPREHENSIVE METABOLIC PANEL Routine 05/27/2024 12:19 PM CDT Pre-operative exam TYPE AND SCREEN Routine 05/27/2024 11:59 AM CDT Pre-operative exam URINALYSIS AND REFLEX TO MICROSCOPIC AND CULTURE Routine 05/27/2024 11:59 AM CDT Pre-operative exam ECG 12-LEAD Routine 05/27/2024 11:45 AM CDT Pre-operative exam XR CHEST PA LATERAL 2 VIEWS Schedule Routine, Read Routine (OP Routine) 05/27/2024 11:16 AM CDT Pre-operative exam CT BODY OUTSIDE REFERENCE Routine 05/20/2024 12:20 PM DATA SME XR CHEST PA LATERAL 2 VIEWS ED Urgent/IP Urgent 04/11/2024 12:16 PM DATA SME XR CHEST 1 VIEW ED 04/11/2024 10:17 AM DATA SME FL FLUOROSCOPY < 1 HOUR IP Routine 04/11/19 9:41 AM DATA SME SURGICAL PATHOLOGY Routine 04/11/2024 9: 22 AM DATA SME Nodule of right lung CYTOLOGY Routine 04/11/2024 9:21 AM DATA SME Nodule of right lung ID AN PROCEDURE PLACEHOLDER Routine 04/11/2024 9:20 AM DATA SME ID AN ELECTIVE ENDOTRACHEAL AIRWAY Routine 04/11/2024 9:20 AM DATA SME AEROBIC CULTURE AND GRAM STAIN Routine 04/11/2024 9:19 AM DATA SME MYCOLOGY (FUNGAL) CULTURE Routine 04/11/2024 9:19 AM DATA SME MYCOBACTERIOLOGY AFB CULTURE AND ACID-FAST STAIN Routine 04/11/2024 9:19 AM DATA SME BRONCHOSCOPY 04/11/2024 9:08 AM DATA SME Nodule of right lung BRONCHOSCOPY 04/11/2024 8:47 AM DATA SME EGFR STAT 04/11/2024 7:30 AM DATA SME DIFFERENTIAL AUTO STAT 04/11/2024 7:3 0 AM DATA SME PROTIME-INR STAT 04/11/2024 7:30 AM DATA SME CBC WITH AUTO DIFFERENTIAL STAT 04/11/2024 7:30 AM DATA SME BASIC METABOLIC PANEL STAT 04/11/2024 7:30 AM DATA SME APTT STAT 04/11/2024 7:30 AM DATA SME PET/CT FDG SKULL TO THIGH Schedule Routine, Read Routine (OP Routine) 04/10/2024 12:12 PM DATA SME Lung nodule PULMONARY FUNCTION TEST (PFT) Routine 04/07/2024 2:59 PM DATA SME Lung nodule ECG 12-LEAD Routine 04/07/2024 2:06 PM DATA SME Preop testing EGFR Routine 04/04/2024 12:28 PM DATA SME Lung nodule DIFFERENTIAL AUTO Routine 04/04/2024 12:28 PM DATA SME Lung nodule CBC WITH AUTO DIFFERENTIAL Routine 04/04/2024 12:28 PM DATA SME Lung nodule BASIC METABOLIC PANEL Routine 04/04/2024 12:28 PM DATA SME Lung nodule PROTIME-INR Routine 04/04/2024 12:28 PM DATA SME Lung nodule History of biopsy POCT CREATININE FOR CONTRAST EVALUATION Routine 03/25/2024 12:[address] CHEST W CONTRAST Schedule Routine, Read Routine (OP Routine) 03/25/2024 12:35 PM DATA SME Lung nodule from Last 3 Months Results * Protime-INR (06/09/2024 11:37 AM CDT) PT 12.0 9.7 - 13.0 sec INR 1.11 0.90 - 1.20 ANNE BANUELOS Comment: Interpretive data Oral anticoagulant therapeutic ranges: Venous thromboembolism prophylaxis or treatment: 2.0-3.0 CARDIOLOGY Standard range: 2.0-3.0 High-intensity range: 2.5-3.5 Refer to indication-specific guidelines for appropriate target ranges for prosthetic heart valve replacement. Current interpretive data was last revised on 2019. Blood 06/09/2024 11:3 7 AM CDT 06/09/2024 11:45 AM CDT Narrative CERNER CH - 06/09/2024 12:02 PM CDT Baseline prior to apixaban initiation. Monserrat Ibarra TOOL AND DIE MAKER APPRENTICE LAB BLOOD ORDERABLES Joya l Result Performing Organization Address [facility] Co de Phone Number [facility] [id number] [address] [employer] [place] [place] [address] * Hepatic function panel (06/09/2024 11:37 AM CDT) Bilirubin, total 0.7 0.1 - 1.2 mg/dL Bilirubin, direct 0.3 0.1 - 0.3 mg/dL [facility] Protein, pl 6.5 6.5 - 8.5 g/dL [facility] Albumin 3.5 3.5 - 5.0 g/dL [facility] Alk phos 101 40 - 130 Units/L [facility] ALT 33 7 - 55 Units/L [facility] AST 27 10 - 50 Units/L [facility] Blood 06/09/2024 11:3 7 AM CDT 06/09/2024 11:45 AM CDT Narrative [facility] - 06/09/2024 12:14 PM CDT Baseline prior to apixaban initiation. Monserrat Ibarra [employer] APPRENTICE LAB BLOOD ORDERABLES Joya l Result Performing Organization Address [facility] Phone Number [facility] [id number] [employer] [place] [place] [address] * (ABNORMAL) eGFR (06/09/2024 4:19 AM CDT) eGFR 46(L) >=60 mL/min/1. 73 m2 Comment: Interpretive Data Reference Interval Normal >/= 90 mL/min/1.73m2 Mildly decreased* 60 - 89 mL/min/1.73m2 Mildly to moderately decreased 45 - 59 mL/min/1.73m2 Moderately to severely decreased 30 - 44 mL/min/1.73m2 Severely decreased 15 - 29 mL/min/1.73m2 Kidney Failure < 15 mL/min/1.73m2 *Relative to young adult level Estimated glomerular filtration rate is determined by the 2020 CKD-EPI equation recommended by the National Kidney Foundation (A Unifying Approach to GFR Estimation: Recommendations of the NKF-ASK Task Force on Reassessing the Inclusion of Race in Diagnosing Kidney Disease, JASN 202). The CKD-EPI equation should not be used for patients with unstable renal function and has not been validated in children and those over 70. Current interpretive data was last reviewed 2021. Blood 06/09/2024 4:19 AM CDT 06/09/2024 5:16 AM CDT us Jeferson George NP LAB BLOOD ORDERABLES Final Result ANNE [address] Department [place] [address] * (ABNORMAL) Differential, auto (06/09/2024 4:19 AM CDT) Neutrophil abs 10.7(H) 1.5 - 6.5 K/cumm Imm gran abs 0.1 0.0 - 0.1 K/cumm [facility] Lymphocyte abs 1.6 0.8 - 3.3 K/cumm [facility] Monocyte abs 0.9(H) 0.2 - 0.8 K/cumm [facility] Eosinophil abs 0.1 0.0 - 0.5 K/cumm [facility] Basophil abs 0.0 0.0 - 0.1 K/cumm [facility] Neutrophil pct 80.3 % [facility] Comment: Interpretive Data Percent cell count reference ranges are not reported, since discordance with absolute values may lead to misinterpretation of CBC data. Current Interpretive Data was last revised on 2017. Imm gran pct 0.5 % ANNE Comment: Interpretive Data Percent cell count reference ranges are not reported, since discordance with absolute values may lead to misinterpretation of CBC data. Current Interpretive Data was last revised on 2017. Lymphocyte pct 11.8 % ANNE Comment: Interpretive Data Percent cell count reference ranges are not reported, since discordance with absolute values may lead to misinterpretation of CBC data. Current Interpretive Data was last revised on 2017. Monocyte pct 6.8 % [facility] Comment: Interpretive Data Percent cell count reference ranges are not reported, since discordance with absolute values may lead to misinterpretation of CBC data. Current Interpretive Data was last revised on 2017. Eosinophil pct 0.4 % [facility] Comment: Interpretive Data Percent cell count reference ranges are not reported, since discordance with absolute values may lead to misinterpretation of CBC data. Current Interpretive Data was last revised on 2017. Basophil pct 0.2 % [facility] Comment: Interpretive Data Percent cell count reference ranges are not reported, since discordance with absolute values may lead to misinterpretation of CBC data. Current Interpretive Data was last revised on 2017. Blood 06/09/2024 4:19 AM CDT 06/09/2024 5:15 AM CDT Charles Dorantes MD LAB BLOOD ORDERABLES Fin al Result [facility] [address] Department [place] [address] * (ABNORMAL) CBC with auto differential (06/09/2024 4:19 AM CDT) WBC 13.4(H) 3.8 - 9.9 K/cumm Hgb 15.6 13.0 - 17.5 g/dL [facility] Hct 48.0 38.9 - 50.3 % [facility] Plt 196 150 - 400 K/cumm [facility] MPV 11.2 9.1 - 12.3 fL [facility] RBC 5.30 4.30 - 5.80 M/cumm [facility] MCV 90.6 81.3 - 96.4 fL [facility] MCH 29.4 27.1 - 33.3 pg [facility] MCHC 32.5 32.3 - 35.7 g/dL [facility] RDW CV 14.4 11.1 - 14.9 % [facility] RDW SD 47.6 35.7 - 48.1 fL [facility] NRBC abs 0.00 0.00 - 0.01 K/cumm [facility] Blood 06/09/2024 4:19 AM CDT 06/09/2024 5:15 AM CDT us Charles Dorantes MD LAB BLOOD ORDERABLES Fin al Result ANNE [id number] Department [place] [address] * (ABNORMAL) Basic metabolic panel (06/09/2024 4:19 AM CDT) Sodium 140 135 - 145 mmol/L Potassium, pl 4.0 3.3 - 4.9 mmol/L [facility] Chloride 103 97 - 110 mmol/L [facility] CO2 25 22 - 32 mmol/L [facility] Anion gap 12 2 - 15 mmol/L [facility] BUN 25 6 - 25 mg/dL [facility] Creatinine 1.60(H) 0.80 - 1.30 mg/dL [facility] Glucose 141 70 - 199 mg/dL [facility] Comment: Interpretive Data Fasting glucose >/= 126 mg/dl is diagnostic for diabetes. Fasting is defined as no caloric intake for at least 8 hours. Fasting glucose between 100 mg/dl to 125 mg/dl is diagnostic of prediabetes. In a patient with classic symptoms of hyperglycemia or hyperglycemic crisis, a random glucose >/= 200 mg/dl is diagnostic for diabetes. In the absence of unequivocal hyperglycemia, results should be confirmed by repeat testing. The classification and Diagnosis of Diabetes Diabetes Care 2021; 46: S19-S40. Current interpretive data was last revised 2022. Calcium 9.1 8.5 - 10.3 mg/dL [facility] Blood 06/09/2024 4:19 AM CDT 06/09/2024 5:16 AM CDT us Jeferson George NP LAB BLOOD ORDERABLES Final Result ANNE [address] [address] Department [place] [address] * XR Chest 1 View (06/09/2024 4:17 AM CDT) Anatomical Region Laterality Modality Body, Chest N/A Computed Radiogr aphy 06/09/2024 8:27 AM CDT Impressions 06/09/2024 8:27 AM CDT No pneumothorax. Electronically signed by: Lena Harris M.D. Narrative 06/09/2024 8:27 AM CDT EXAMINATION: XR CHEST 1 VIEW HISTORY: The patient is a 69-year-old male who has had removal of a right thoracostomy tube. Comparison made with the previous study dated 06/08/2024. TECHNIQUE: AP portable view of the chest. FINDINGS: Allowing for the poor inspiration, there is no active infiltrate. No pneumothorax is evident. Heart not enlarged. No failure. Procedure Note Lena Harris MD - 06/09/2024 EXAMINATION: XR CHEST 1 VIEW HISTORY: The patient is a 69-year-old male who has had removal of a right thoracostomy tube. Comparison made with the previous study dated 06/08/2024. TECHNIQUE: AP portable view of the chest. FINDINGS: Allowing for the poor inspiration, there is no active infiltrate. No pneumothorax is evident. Heart not enlarged. No failure. IMPRESSION: No pneumothorax. Electronically signed by: Lena Harris M.D. George Martinez MD IMG XR PROCEDURES Final Result * XR Chest 1 View (06/08/2024 6:00 AM CDT) Anatomical Region Laterality Modality Body, Chest N/A Computed Radiogr aphy 06/08/2024 10:1 6 AM CDT Impressions 06/08/2024 10:16 AM CDT Decreased size of small right pneumothorax with thoracostomy tube in place. Electronically signed by: Yael Avitia M.D. Narrative 06/08/2024 10:16 AM CDT Examination: XR CHEST 1 VIEW Date: 06/08/2024 5:45 AM History: Check tube placement Comparison: 06/07/2024. Findings: Volume loss of the right hemithorax with diaphragmatic elevation, basilar atelectasis and thoracostomy tube at the base is again seen. A small known right pneumothorax is decreased. Normal heart size noted. Right lower chest wall emphysema is present. Procedure Note Yael Avitia MD - 06/08/2024 Examination: XR CHEST 1 VIEW Date: 06/08/2024 5:45 AM History: Check tube placement Comparison: 06/07/2024. Findings: Volume loss of the right hemithorax with diaphragmatic elevation, basilar atelectasis and thoracostomy tube at the base is again seen. A small known right pneumothorax is decreased. Normal heart size noted. Right lower chest wall emphysema is present. IMPRESSION: Decreased size of small right pneumothorax with thoracostomy tube in place. Electronically signed by: Yael Avitia M.D. us George Martinez MD IMG XR PROCEDURES Final Result * (ABNORMAL) eGFR (06/08/2024 3:43 AM CDT) eGFR 56(L) >=60 mL/min/1. 73 m2 Comment: Interpretive Data Reference Interval Normal >/= 90 mL/min/1.73m2 Mildly decreased* 60 - 89 mL/min/1.73m2 Mildly to moderately decreased 45 - 59 mL/min/1.73m2 Moderately to severely decreased 30 - 44 mL/min/1.73m2 Severely decreased 15 - 29 mL/min/1.73m2 Kidney Failure < 15 mL/min/1.73m2 *Relative to young adult level Estimated glomerular filtration rate is determined by the 2020 CKD-EPI equation recommended by the National Kidney Foundation (A Unifying Approach to GFR Estimation: Recommendations of the NKF-ASK Task Force on Reassessing the Inclusion of Race in Diagnosing Kidney Disease, JASN 2020). The CKD-EPI equation should not be used for patients with unstable renal function and has not been validated in children and those over 70. Current interpretive data was last reviewed 2021. Blood 06/08/2024 3:43 AM CDT 06/08/2024 3:47 AM CDT us Jeferson George NP LAB BLOOD ORDERABLES Final Result ANNE [address] [facility] Department [place] [address] * Differential, auto (06/08/2024 3:43 AM CDT) Neutrophil abs 6.0 1.5 - 6.5 K/cumm Imm gran abs 0.1 0.0 - 0.1 K/cumm [facility] Lymphocyte abs 2.0 0.8 - 3.3 K/cumm [facility] Monocyte abs 0.7 0.2 - 0.8 K/cumm [facility] Eosinophil abs 0.3 0.0 - 0.5 K/cumm [facility] Basophil abs 0.0 0.0 - 0.1 K/cumm [facility] Neutrophil pct 66.1 % [facility] Comment: Interpretive Data Percent cell count reference ranges are not reported, since discordance with absolute values may lead to misinterpretation of CBC data. Current Interpretive Data was last revised on 2017. Imm gran pct 0.8 % [facility] Comment: Interpretive Data Percent cell count reference ranges are not reported, since discordance with absolute values may lead to misinterpretation of CBC data. Current Interpretive Data was last revised on 2017. Lymphocyte pct 21.6 % [facility] Comment: Interpretive Data Percent cell count reference ranges are not reported, since discordance with absolute values may lead to misinterpretation of CBC data. Current Interpretive Data was last revised on 2017. Monocyte pct 7.5 % [facility] Comment: Interpretive Data Percent cell count reference ranges are not reported, since discordance with absolute values may lead to misinterpretation of CBC data. Current Interpretive Data was last revised on 2017. Eosinophil pct 3.7 % [facility] Comment: Interpretive Data Percent cell count reference ranges are not reported, since discordance with absolute values may lead to misinterpretation of CBC data. Current Interpretive Data was last revised on 2017. Basophil pct 0.3 % [facility] Comment: Interpretive Data Percent cell count reference ranges are not reported, since discordance with absolute values may lead to misinterpretation of CBC data. Current Interpretive Data was last revised on 2017. Blood 06/08/2024 3:43 AM CDT 06/08/2024 3:47 AM CDT Charles Dorantes MD LAB BLOOD ORDERABLES Fin al Result Performing Organization Address [facility] Co de Phone Number ANNE [address] [place] [address] * CBC with auto differential (06/08/2024 3:43 AM CDT) WBC 9.1 3.8 - 9.9 K/cumm Hgb 15.5 13.0 - 17.5 g/dL [facility] Hct 46.7 38.9 - 50.3 % [facility] Plt 185 150 - 400 K/cumm [facility] MPV 11.0 9.1 - 12.3 fL [facility] RBC 5.18 4.30 - 5.80 M/cumm [facility] MCV 90.2 81.3 - 96.4 fL [facility] MCH 29.9 27.1 - 33.3 pg [facility] MCHC 33.2 32.3 - 35.7 g/dL [facility] RDW CV 14.3 11.1 - 14.9 % [facility] RDW SD 47.0 35.7 - 48.1 fL [facility] NRBC abs 0.00 0.00 - 0.01 K/cumm [facility] Blood 06/08/2024 3:43 AM CDT 06/08/2024 3:47 AM CDT Charles Dorantes MD LAB BLOOD ORDERABLES Fin al Result Performing Organization Address [facility] Co de Phone Number ANNE BANU[place] [address] Department of [employer] [place] [address] * (ABNORMAL) Basic metabolic panel (06/08/2024 3:43 AM CDT) Sodium 139 135 - 145 mmol/L Potassium, pl 3.9 3.3 - 4.9 mmol/L [facility] Chloride 105 97 - 110 mmol/L [facility] CO2 24 22 - 32 mmol/L [facility] Anion gap 10 2 - 15 mmol/L [facility] BUN 21 6 - 25 mg/dL [facility] Creatinine 1.35(H) 0.80 - 1.30 mg/dL [facility] Glucose 144 70 - 199 mg/dL [facility] Comment: Interpretive Data Fasting glucose >/= 126 mg/dl is diagnostic for diabetes. Fasting is defined as no caloric intake for at least 8 hours. Fasting glucose between 100 mg/dl to 125 mg/dl is diagnostic of prediabetes. In a patient with classic symptoms of hyperglycemia or hyperglycemic crisis, a random glucose >/= 200 mg/dl is diagnostic for diabetes. In the absence of unequivocal hyperglycemia, results should be confirmed by repeat testing. The classification and Diagnosis of Diabetes Diabetes Care 2021; 46: S19-S40. Current interpretive data was last revised 2022. Calcium 8.6 8.5 - 10.3 mg/dL [facility] Blood 06/08/2024 3:43 AM CDT 06/08/2024 3:47 AM CDT Jeferson George NP LAB BLOOD ORDERABLES Final Result [facility] [address] Department [place] [address] * CT Chest WO Contrast (06/07/2024 11:19 AM CDT) Anatomical Region Laterality Modality Body N/A Computed Tomogra phy 06/07/2024 12:0 8 PM CDT Impressions 06/07/2024 12:37 PM CDT Right lower lobectomy with thoracostomy tube and decreased size of small right pneumothorax. Multifocal right upper lobe peribronchial and dependent coalescent groundglass opacities which may represent aspiration or bronchopneumonia. Bilateral pulmonary nodules. Cholelithiasis. Electronically signed by: Yael Avitia M.D. Narrative 06/07/2024 12:37 PM CDT Examination: CT CHEST WO CONTRAST Date: 06/07/2024 11:15 AM Clinical History: Pneumothorax Assess status post right lower lobectomy couple pneumothoraces/collapse Technique: Computed tomographic images of the chest were obtained in the axial plane without the administration of contrast. 2-D Coronal and sagittal reformatted images were performed. Comparison: Outside CT chest 05/20/[address] Limited 06/06/2024. Findings: Normal heart size noted without pericardial effusion..Nonaneurysmal aorta is seen. No mesenteric lymphadenopathy identified. Postop change of right lower lobectomy is seen.Ill-defined multifocal peribronchial and dependent coalescent groundglass opacities are seen in the right upper lobe. A right thoracostomy tube is seen in the medial right base with small pneumothorax decreased in size from 06/06/2024. An 8 mm smoothly marginated middle lobe paramediastinal nodule is unchanged. A 3 mm anterior right middle lobe nodule is seen in image 59.. A 7 mm left lower lobe nodule image 59 and 6 mm on image 58 series 3 again noted. The bony thorax is unremarkable.. Distended gallbladder with multiple gallstones again seen. Procedure Note Yael Avitia MD - 06/07/2024 Examination: CT CHEST WO CONTRAST Date: 06/07/2024 11:15 AM Clinical History: Pneumothorax Assess status post right lower lobectomy couple pneumothoraces/collapse Technique: Computed tomographic images of the chest were obtained in the axial plane without the administration of contrast. 2-D Coronal and sagittal reformatted images were performed. Comparison: Outside CT chest 05/20/[address] Limited 06/06/2024. Findings: Normal heart size noted without pericardial effusion..Nonaneurysmal aorta is seen. No mesenteric lymphadenopathy identified. Postop change of right lower lobectomy is seen.Ill-defined multifocal peribronchial and dependent coalescent groundglass opacities are seen in the right upper lobe. A right thoracostomy tube is seen in the medial right base with small pneumothorax decreased in size from 06/06/2024. An 8 mm smoothly marginated middle lobe paramediastinal nodule is unchanged. A 3 mm anterior right middle lobe nodule is seen in image 59.. A 7 mm left lower lobe nodule image 59 and 6 mm on image 58 series 3 again noted. The bony thorax is unremarkable.. Distended gallbladder with multiple gallstones again seen. IMPRESSION: Right lower lobectomy with thoracostomy tube and decreased size of small right pneumothorax. Multifocal right upper lobe peribronchial and dependent coalescent groundglass opacities which may represent aspiration or bronchopneumonia. Bilateral pulmonary nodules. Cholelithiasis. Electronically signed by: Yael Avitia M.D. us Chanelle Campbell [employer] APPRENTICE IMG CT PROCEDURES Final R esult * XR Chest PA Lateral 2 Views (06/07/2024 9:15 AM CDT) Anatomical Region Laterality Modality Body, Chest N/A Computed Radiogr aphy 06/07/2024 10:2 3 AM CDT Impressions 06/07/2024 10:23 AM CDT Increased size of the small right pneumothorax with thoracostomy tube in place. Gas-filled large and small bowel with air-fluid levels possibly ileus. Correlate clinically and with follow-up abdomen series. The Non Critical results were discussed with the patient's nurse, Torrie by Dr. Avitia on 06/07/2024 at 10:22 AM. Electronically signed by: Yael Avitia M.D. Narrative 06/07/2024 10:23 AM CDT Examination: XR CHEST PA LATERAL 2 VIEWS Date: 06/07/2024 8:50 AM History: assess lung volumes- has chest tube Comparison: 06/07/2024. Findings: The heart is normal in size. Moderate right diaphragm elevation is seen with basal atelectasis. The left hemithorax is clear. The known small right pneumothorax is increased in size with 18 mm pleural separation. A thoracostomy tube is seen at the right base. Interval air-fluid levels noted in large and small bowel with mild distention. Procedure Note Yael Avitia MD - 06/07/2024 Examination: XR CHEST PA LATERAL 2 VIEWS Date: 06/07/2024 8:50 AM History: assess lung volumes- has chest tube Comparison: 06/07/2024. Findings: The heart is normal in size. Moderate right diaphragm elevation is seen with basal atelectasis. The left hemithorax is clear. The known small right pneumothorax is increased in size with 18 mm pleural separation. A thoracostomy tube is seen at the right base. Interval air-fluid levels noted in large and small bowel with mild distention. IMPRESSION: Increased size of the small right pneumothorax with thoracostomy tube in place. Gas-filled large and small bowel with air-fluid levels possibly ileus. Correlate clinically and with follow-up abdomen series. The Non Critical results were discussed with the patient's nurse, Torrie by Dr. Avitia on 06/07/2024 at 10:22 AM. Electronically signed by: Yael Avitia M.D. us Monserrat Ibarra [employer] APPRENTICE IMG XR PROCEDURES Final R esult * XR Chest 1 View (06/07/2024 5:55 AM CDT) Anatomical Region Laterality Modality Body, Chest N/A Computed Radiogr aphy 06/07/2024 9:59 AM CDT Impressions 06/07/2024 9:59 AM CDT Interval right lower lobe atelectasis with diaphragmatic elevation. Small right pneumothorax is decreased in size. Electronically signed by: Yael Avitia M.D. Narrative 06/07/2024 9:59 AM CDT Examination: XR CHEST 1 VIEW Date: 06/07/2024 5:40 AM History: Check tube placement Comparison: 06/06/2024. Findings: Interval right diaphragmatic elevation and lower lobe atelectasis is seen. A small known right pneumothorax is decreased in size with 5 mm of pleural separation at the apex. Normal heart size noted. The left hemithorax is clear. Osseous structures are not remarkable. Procedure Note Yael Avitia MD - 06/07/2024 Examination: XR CHEST 1 VIEW Date: 06/07/2024 5:40 AM History: Check tube placement Comparison: 06/06/2024. Findings: Interval right diaphragmatic elevation and lower lobe atelectasis is seen. A small known right pneumothorax is decreased in size with 5 mm of pleural separation at the apex. Normal heart size noted. The left hemithorax is clear. Osseous structures are not remarkable. IMPRESSION: Interval right lower lobe atelectasis with diaphragmatic elevation. Small right pneumothorax is decreased in size. Electronically signed by: Yael Avitia M.D. us George Martinez MD IMG XR PROCEDURES Final Result * (ABNORMAL) eGFR (06/07/2024 4:39 AM CDT) eGFR 51(L) >=60 mL/min/1. 73 m2 Comment: Interpretive Data Reference Interval Normal >/= 90 mL/min/1.73m2 Mildly decreased* 60 - 89 mL/min/1.73m2 Mildly to moderately decreased 45 - 59 mL/min/1.73m2 Moderately to severely decreased 30 - 44 mL/min/1.73m2 Severely decreased 15 - 29 mL/min/1.73m2 Kidney Failure < 15 mL/min/1.73m2 *Relative to young adult level Estimated glomerular filtration rate is determined by the 2020 CKD-EPI equation recommended by the National Kidney Foundation (A Unifying Approach to GFR Estimation: Recommendations of the NKF-ASK Task Force on Reassessing the Inclusion of Race in Diagnosing Kidney Disease, JASN 2020). The CKD-EPI equation should not be used for patients with unstable renal function and has not been validated in children and those over 70. Current interpretive data was last reviewed 2021. Blood 06/07/2024 4:39 AM CDT 06/07/2024 6:06 AM CDT Jeferson George NP LAB BLOOD ORDERABLES Final Result [facility] [address] Department [place] [address] * (ABNORMAL) Differential, auto (06/07/2024 4:39 AM CDT) Neutrophil abs 6.1 1.5 - 6.5 K/cumm Imm gran abs 0.1 0.0 - 0.1 K/cumm [facility] Lymphocyte abs 1.8 0.8 - 3.3 K/cumm [facility] Monocyte abs 0.9(H) 0.2 - 0.8 K/cumm [facility] Eosinophil abs 0.3 0.0 - 0.5 K/cumm [facility] Basophil abs 0.0 0.0 - 0.1 K/cumm [facility] Neutrophil pct 66.7 % [facility] Comment: Interpretive Data Percent cell count reference ranges are not reported, since discordance with absolute values may lead to misinterpretation of CBC data. Current Interpretive Data was last revised on 2017. Imm gran pct 0.6 % [facility] Comment: Interpretive Data Percent cell count reference ranges are not reported, since discordance with absolute values may lead to misinterpretation of CBC data. Current Interpretive Data was last revised on 2017. Lymphocyte pct 19.8 % [facility] Comment: Interpretive Data Percent cell count reference ranges are not reported, since discordance with absolute values may lead to misinterpretation of CBC data. Current Interpretive Data was last revised on 2017. Monocyte pct 9.5 % [facility] Comment: Interpretive Data Percent cell count reference ranges are not reported, since discordance with absolute values may lead to misinterpretation of CBC data. Current Interpretive Data was last revised on 2017. Eosinophil pct 3.0 % [facility] Comment: Interpretive Data Percent cell count reference ranges are not reported, since discordance with absolute values may lead to misinterpretation of CBC data. Current Interpretive Data was last revised on 2017. Basophil pct 0.4 % [facility] Comment: Interpretive Data Percent cell count reference ranges are not reported, since discordance with absolute values may lead to misinterpretation of CBC data. Current Interpretive Data was last revised on 2017. Blood 06/07/2024 4:39 AM CDT 06/07/2024 6:04 AM CDT Charles Dorantes MD LAB BLOOD ORDERABLES Fin al Result [facility] [address] Department [place] [address] * (ABNORMAL) CBC with auto differential (06/07/2024 4:39 AM CDT) WBC 9.1 3.8 - 9.9 K/cumm Hgb 15.1 13.0 - 17.5 g/dL [facility] Hct 46.5 38.9 - 50.3 % [facility] Plt 165 150 - 400 K/cumm [facility] MPV 11.5 9.1 - 12.3 fL [facility] RBC 5.02 4.30 - 5.80 M/cumm [facility] MCV 92.6 81.3 - 96.4 fL [facility] MCH 30.1 27.1 - 33.[address] [facility] MCHC 32.5 32.3 - 35.7 g/dL [facility] RDW CV 14.6 11.1 - 14.9 % [facility] RDW SD 49.5(H) 35.7 - 48.1 fL [facility] NRBC abs 0.00 0.00 - 0.01 K/cumm [facility] Blood 06/07/2024 4:39 AM CDT 06/07/2024 6:04 AM CDT us Charles Dorantes MD LAB BLOOD ORDERABLES Fin al Result [facility] [address] Department [place] [address] * (ABNORMAL) Basic metabolic panel (06/07/2024 4:39 AM CDT) Sodium 141 135 - 145 mmol/L Potassium, pl 3.9 3.3 - 4.9 mmol/L [facility] Chloride 104 97 - 110 mmol/L [facility] CO2 26 22 - 32 mmol/L [facility] Anion gap 11 2 - 15 mmol/L [facility] BUN 24 6 - 25 mg/dL [facility] Creatinine 1.47(H) 0.80 - 1.30 mg/dL [facility] Glucose 111 70 - 199 mg/dL [facility] Comment: Interpretive Data Fasting glucose >/= 126 mg/dl is diagnostic for diabetes. Fasting is defined as no caloric intake for at least 8 hours. Fasting glucose between 100 mg/dl to 125 mg/dl is diagnostic of prediabetes. In a patient with classic symptoms of hyperglycemia or hyperglycemic crisis, a random glucose >/= 200 mg/dl is diagnostic for diabetes. In the absence of unequivocal hyperglycemia, results should be confirmed by repeat testing. The classification and Diagnosis of Diabetes Diabetes Care 202; 46: S19-S40. Current interpretive data was last revised 2022. Calcium 8.7 8.5 - 10.3 mg/dL NANE BANUELOS Blood 06/07/2024 4:39 AM CDT 06/07/2024 6:06 AM CDT us Jeferson George NP LAB BLOOD ORDERABLES Final Result Performing Organization Address [facility] Co de Phone Number ANNE [address] Department [place] [address] * ECG 12 lead (06/06/2024 6:18 PM CDT) 06/06/2024 6:18 PM CDT Narrative [facility] - 06/06/2024 11:56 PM CDT Vent Rate: 96 bpm RR Interval: 622 msec ID Interval: 0 msec QRS Duration: 112 msec QT Interval: 356 msec QTC Interval: 410 msec P-R-T [place]: 0 - 20 - -10 degrees IMPRESSION: ATRIAL FIBRILLATION WITH ABERRANT CONDUCTION OR VENTRICULAR PREMATURE COMPLEXES MODERATE INTRAVENTRICULAR CONDUCTION DELAY ABNORMAL RHYTHM ECG Compared to prior EKG, atrial fibrillation replaced sinus rhythm Electronically Signed By: Damaso Brock MD George Martinez MD ECG ORDERABLES Final Result Performing Organization Address [facility] de Phone Number [facility] [email or web address] [facility] * CT Limited Localized Follow Up Study (06/06/2024 2:04 PM CDT) Anatomical Region Laterality Modality Body N/A Computed Tomogra phy 06/06/2024 7:32 PM CDT Impressions 06/06/2024 7:32 PM CDT As the right pneumothorax was too small to place a pigtail catheter, the originally scheduled chest tube placement was canceled Electronically signed by: Lena Harris M.D. Narrative 06/06/2024 7:32 PM CDT EXAMINATION: CT LIMITED LOCALIZED FOLLOW UP STUDY HISTORY: The patient is a 69-year-old male who was referred to the CT suite for image guided placement of a chest tube into a small right pneumothorax. TECHNIQUE: Procedure was explained to the patient along with benefits, complications and possible alternatives and informed consent was obtained and documented. Mulberry protocol was performed to confirm the patient's identity and planned procedure. The patient was placed supine on the CT scan and sections were obtained through the thorax. These images revealed a very tiny right pneumothorax of less than 5%. Therefore I made a decision not to try to place a pigtail catheter into the right pneumothorax. This was discussed with the patient's nurse, following which this was discussed with the patient. FINDINGS: CT images reveals a very tiny right pneumothorax. Procedure Note Lena Harris MD - 06/06/2024 EXAMINATION: CT LIMITED LOCALIZED FOLLOW UP STUDY HISTORY: The patient is a 69-year-old male who was referred to the CT suite for image guided placement of a chest tube into a small right pneumothorax. TECHNIQUE: Procedure was explained to the patient along with benefits, complications and possible alternatives and informed consent was obtained and documented. Mulberry protocol was performed to confirm the patient's identity and planned procedure. The patient was placed supine on the CT scan and sections were obtained through the thorax. These images revealed a very tiny right pneumothorax of less than 5%. Therefore I made a decision not to try to place a pigtail catheter into the right pneumothorax. This was discussed with the patient's nurse, following which this was discussed with the patient. FINDINGS: CT images reveals a very tiny right pneumothorax. IMPRESSION: As the right pneumothorax was too small to place a pigtail catheter, the originally scheduled chest tube placement was canceled Electronically signed by: Lena Harris M.D. Jeferson George TOOL AND DIE MAKER APPRENTICE IM CT PROCEDURES Final Res ult * aPTT (06/06/2024 8:35 AM CDT) aPTT 33 28 - 38 sec Comment: Interpretive Data Heparin therapeutic range: 66.0 - 100.0 seconds. Range based on correlation with therapeutic heparin activity range of 0.3 - 0.7 Units/mL. Current interpretive data was last revised on 2022. Blood 06/06/2024 8:35 AM CDT 06/06/2024 8:42 AM CDT Jeferson George [employer]OL [employer]IE MAKER APPRENTICE LAB BLOOD ORDERABLES Final Result Performing Organization Address [facility] de Phone Number ANNE BANUELOS [address] [facility] [employer] [place] [address] * Protime-INR (06/06/2024 8:35 AM CDT) PT 12.4 9.7 - 13.0 sec INR 1.14 0.90 - 1.20 ANNE Comment: Interpretive data Oral anticoagulant therapeutic ranges: Venous thromboembolism prophylaxis or treatment: 2.0-3.0 CARDIOLOGY Standard range: 2.0-3.0 High-intensity range: 2.5-3.5 Refer to indication-specific guidelines for appropriate target ranges for prosthetic heart valve replacement. Current interpretive data was last revised on 2019. Blood 06/06/2024 8:35 AM CDT 06/06/2024 8:42 AM CDT Jeferson George TOOL AND DIE MAKER APPRENTICE LAB BLOOD ORDERABLES Final Result Performing Organization Address [facility] de Phone Number ANNE BANUELOS [address] [facility] [employer] [place] [address] * Critical Care (06/06/2024 8:27 AM CDT) Narrative Charles Dorantes MD - 06/06/2024 8:27 AM CDT Charles Dorantes MD 06/06/2024 4:14 PM Critical Care Performed by: Charles Dorantes MD Authorized by: Charles Dorantes MD CRITICAL CARE: Team: CORTEZ Shift: AM Level of Billing: Subsequent Hospital Visit Level 3 My time spent with this patient was 30 minutes: Critical Provider Statement: I have seen and examined the patient on this day of service. I have reviewed and confirmed the history, physical exam, laboratory, and radiographic data as documented in the ICU note. I have reviewed and discussed my treatment plan with the patient's team and other medical/sap solution manager consultant staff. This time was in addition to and separate from care provided by other practitioners on this day of service. Lobectomy This time was spent by me doing the following: Serial bedside patient exams Acute pain control Active and frequent reassessment of respiratory status and oxygen requirements Active and frequent monitoring of intake/output and volumen status I spent time reviewing and interpreting data from bedside monitors, laboratory results, and imaging, I spent time discussing the management of this critically ill patient with consultants and the medical staff and I spent time documenting in the medical record us Charles Dorantes MD IN CLINIC/BEDSIDE ORDERA BLES Final Result * POCT glucose (06/06/2024 7:48 AM CDT) Glucose, POC 122 70 - 199 mg/dL POC Performer [id number] ANNE Blood 06/06/2024 7:48 AM CDT 06/06/2024 7:48 AM CDT us George Martinez MD LAB POCT ORDERABLES - DEVICE Fin al Result Performing Organization Address City/State/[facility] Co de Phone Number ANNE [address] Department [place] [address] * XR Chest 1 View (06/06/2024 5:04 AM CDT) Anatomical Region Laterality Modality Body, Chest N/A Computed Radiogr aphy 06/06/2024 5:56 AM CDT Impressions 06/06/2024 5:56 AM CDT Stable cardiomegaly. Small right pneumothorax without tension. Electronically signed by: Dylan Hendrickson M.D. Narrative 06/06/2024 5:56 AM CDT EXAMINATION: XR CHEST 1 VIEW DATE: 06/06/2024 4:35 AM HISTORY: Tube placement history of renal cell carcinoma renal disease FINDINGS:Compared with study of the prior day, cardiomegaly stable. No failure fluid infiltrates. Small right pneumothorax without tension less than 5%. Mild elevation right diaphragm persists. Right-sided chest drain seen at the right lung base. Procedure Note Dylan Hendrickson MD - 06/06/2024 EXAMINATION: XR CHEST 1 VIEW DATE: 06/06/2024 4:35 AM HISTORY: Tube placement history of renal cell carcinoma renal disease FINDINGS:Compared with study of the prior day, cardiomegaly stable. No failure fluid infiltrates. Small right pneumothorax without tension less than 5%. Mild elevation right diaphragm persists. Right-sided chest drain seen at the right lung base. IMPRESSION: Stable cardiomegaly. Small right pneumothorax without tension. Electronically signed by: Dylan Hendrickson M.D. us George Martinez MD IMG XR PROCEDURES Final Result * (ABNORMAL) eGFR (06/06/2024 5:00 AM CDT) eGFR 52(L) >=60 mL/min/1. 73 m2 Comment: Interpretive Data Reference Interval Normal >/= 90 mL/min/1.73m2 Mildly decreased* 60 - 89 mL/min/1.73m2 Mildly to moderately decreased 45 - 59 mL/min/1.73m2 Moderately to severely decreased 30 - 44 mL/min/1.73m2 Severely decreased 15 - 29 mL/min/1.73m2 Kidney Failure < 15 mL/min/1.73m2 *Relative to young adult level Estimated glomerular filtration rate is determined by the 2020 CKD-EPI equation recommended by the National Kid[employer] (A Unifying Approach to GFR Estimation: Recommendations of the NKF-ASK Task Force on Reassessing the Inclusion of Race in Diagnosing Kidney Disease, JASN 2020). The CKD-EPI equation should not be used for patients with unstable renal function and has not been validated in children and those over 70. Current interpretive data was last reviewed 2021. Blood 06/06/2024 5:00 AM CDT 06/06/2024 5:05 AM CDT us Charles Dorantes MD LAB BLOOD ORDERABLES Fin al Result ANNE [address] Department [place] [address] * (ABNORMAL) Differential, auto (06/06/2024 5:00 AM CDT) Neutrophil abs 9.7(H) 1.5 - 6.5 K/cumm Imm gran abs 0.1 0.0 - 0.1 K/cumm [facility] Lymphocyte abs 1.7 0.8 - 3.3 K/cumm [facility] Monocyte abs 1.0(H) 0.2 - 0.8 K/cumm [facility] Eosinophil abs 0.1 0.0 - 0.5 K/cumm [facility] Basophil abs 0.0 0.0 - 0.1 K/cumm [facility] Neutrophil pct 77.1 % [facility] Comment: Interpretive Data Percent cell count reference ranges are not reported, since discordance with absolute values may lead to misinterpretation of CBC data. Current Interpretive Data was last revised on 2017. Imm gran pct 0.5 % [facility] Comment: Interpretive Data Percent cell count reference ranges are not reported, since discordance with absolute values may lead to misinterpretation of CBC data. Current Interpretive Data was last revised on 2017. Lymphocyte pct 13.2 % [facility] Comment: Interpretive Data Percent cell count reference ranges are not reported, since discordance with absolute values may lead to misinterpretation of CBC data. Current Interpretive Data was last revised on 2017. Monocyte pct 8.1 % [facility] Comment: Interpretive Data Percent cell count reference ranges are not reported, since discordance with absolute values may lead to misinterpretation of CBC data. Current Interpretive Data was last revised on 2017. Eosinophil pct 0.9 % [facility] Comment: Interpretive Data Percent cell count reference ranges are not reported, since discordance with absolute values may lead to misinterpretation of CBC data. Current Interpretive Data was last revised on 2017. Basophil pct 0.2 % [facility] Comment: Interpretive Data Percent cell count reference ranges are not reported, since discordance with absolute values may lead to misinterpretation of CBC data. Current Interpretive Data was last revised on 2017. Blood 06/06/2024 5:00 AM CDT 06/06/2024 5:04 AM CDT us Charles Dorantes MD LAB BLOOD ORDERABLES Fin al Result ANNE BANUELOS [address] Department of Laboratories [place] [id number] * (ABNORMAL) CBC with auto differential (06/06/2024 5:00 AM CDT) WBC 12.6(H) 3.8 - 9.9 K/cumm Hgb 15.1 13.0 - 17.5 g/dL [facility] Hct 46.2 38.9 - 50.3 % [facility] Plt 143(L) 150 - 400 K/cumm [facility] MPV 11.2 9.1 - 12.3 fL [facility] RBC 5.12 4.30 - 5.80 M/cumm [facility] MCV 90.2 81.3 - 96.4 fL [facility] MCH 29.5 27.1 - 33.3 pg [facility] MCHC 32.7 32.3 - 35.7 g/dL [facility] RDW CV 14.5 11.1 - 14.9 % [facility] RDW SD 48.2(H) 35.7 - 48.1 fL [facility] NRBC abs 0.00 0.00 - 0.01 K/cumm [facility] Blood 06/06/2024 5:00 AM CDT 06/06/2024 5:04 AM CDT Charles Dorantes MD LAB BLOOD ORDERABLES Fin al Result Performing Organization Address City/[facility] Co de Phone Number SUNSHINEANEESH [address] [facility] [employer] [place] [address] * (ABNORMAL) Phosphorus (06/06/2024 5:00 AM CDT) Pathologist [facility] Phosphorus, pl 1.8(L) 2.3 - 4.5 mg/dL Blood 06/06/2024 5:00 AM CDT 06/06/2024 5:05 AM CDT Charles Dorantes MD LAB BLOOD ORDERABLES Fin al Result Performing Organization Address [facility]/ZIP Co de Phone Number [facility] [address] [employer] [place] [address] * (ABNORMAL) Comprehensive metabolic panel (06/06/2024 5:00 AM CDT) Sodium 141 135 - 145 mmol/L Potassium, pl 4.1 3.3 - 4.9 mmol/L [facility] Chloride 109 97 - 110 mmol/L [facility] CO2 22 22 - 32 mmol/L [facility] Anion gap 10 2 - 15 mmol/L [facility] BUN 20 6 - 25 mg/dL [facility] Creatinine 1.45(H) 0.80 - 1.30 mg/dL [facility] Glucose 135 70 - 199 mg/dL [facility] Comment: Interpretive Data Fasting glucose >/= 126 mg/dl is diagnostic for diabetes. Fasting is defined as no caloric intake for at least 8 hours. Fasting glucose between 100 mg/dl to 125 mg/dl is diagnostic of prediabetes. In a patient with classic symptoms of hyperglycemia or hyperglycemic crisis, a random glucose >/= 200 mg/dl is diagnostic for diabetes. In the absence of unequivocal hyperglycemia, results should be confirmed by repeat testing. The classification and Diagnosis of Diabetes Diabetes Care 2021; 46: S19-S40. Current interpretive data was last revised 2022. Calcium 8.2(L) 8.5 - 10.3 mg/dL [facility] Bilirubin, total 0.3 0.1 - 1.2 mg/dL [facility] Protein, pl 6.3(L) 6.5 - 8.5 g/dL [facility] Albumin 3.6 3.5 - 5.0 g/dL [facility] Alk phos 81 40 - 130 Units/L [facility] ALT 19 7 - 55 Units/L [facility] AST 24 10 - 50 Units/L [facility] Blood 06/06/2024 5:00 AM CDT 06/06/2024 5:05 AM CDT us Charles Dorantes MD LAB BLOOD ORDERABLES Fin al Result ANNE [address] Department [place] [address] * Critical Care (06/05/2024 11:57 PM CDT) Narrative Trae Guerrero MD - 06/05/2024 11:57 PM CDT Trae Guerrero MD 06/06/2024 5:35 AM Critical Care Performed by: Trae Guerrero MD Authorized by: Trae Guerrero MD CRITICAL CARE: Team: CORTEZ Shift: PM Level of Billing: Subsequent Hospital Visit Level 3 My time spent with this patient was 30 minutes: Critical Provider Statement: I have seen and examined the patient on this day of service. I have reviewed and confirmed the history, physical exam, laboratory, and radiographic data as documented in the ICU note. I have reviewed and discussed my treatment plan with the patient's team and other medical/sap solution manager consultant staff. This time was in addition to and separate from care provided by other practitioners on this day of service. Acute pain/acute postoperative pain This time was spent by me doing the following: Serial bedside patient exams Active and frequent reassessment of respiratory status and oxygen requirements and Incentive spirometry, pulmonary toilet I spent time reviewing and interpreting data from bedside monitors, laboratory results, and imaging, I spent time discussing the management of this critically ill patient with consultants and the medical staff and I spent time documenting in the medical record us Trae Guerrero MD IN CLINIC/BEDSIDE ORDERABLES Fi nal Result * POCT glucose (06/05/2024 9:22 PM CDT) Glucose, POC 112 70 - 199 mg/dL POC Performer [id number] ANNE BANUELOS Blood 06/05/2024 9:22 PM CDT 06/05/2024 9:22 PM CDT us George Martinez MD LAB POCT ORDERABLES - DEVICE Fin al Result ANNE [address] Department [place] [address] * XR Chest 1 Vw Portable (06/05/2024 9:21 PM CDT) Anatomical Region Laterality Modality Body, Chest N/A Computed Radiogr aphy 06/05/2024 10:0 6 PM CDT Impressions 06/05/2024 10:06 PM CDT Cardiomegaly. Electronically signed by: Lena Harris M.D. Narrative 06/05/2024 10:06 PM CDT EXAMINATION: XR CHEST 1 VIEW HISTORY: The patient is a 69-year-old male who presents with chest pain. Comparison is made with the previous study dated 06/05/2024 TECHNIQUE: AP portable view of the chest. FINDINGS: Cardiomegaly with aortic atherosclerosis. No failure. No active infiltrate. Procedure Note Lena Harris MD - 06/05/2024 EXAMINATION: XR CHEST 1 VIEW HISTORY: The patient is a 69-year-old male who presents with chest pain. Comparison is made with the previous study dated 06/05/2024 TECHNIQUE: AP portable view of the chest. FINDINGS: Cardiomegaly with aortic atherosclerosis. No failure. No active infiltrate. IMPRESSION: Cardiomegaly. Electronically signed by: Lena Harris M.D. us Trae Guerrero MD IMG XR PROCEDURES Final Result * POCT glucose (06/05/2024 4:27 PM CDT) [facility] Signature Glucose, POC 98 70 - 199 mg/dL POC Performer [id number] ANNE BANUELOS Blood 06/05/2024 4:27 PM CDT 06/05/2024 4:27 PM CDT George Martinez MD LAB POCT ORDERABLES - DEVICE Fin al Result ANNE [address] Department [place] [address] * XR Chest 1 View (06/05/2024 4:19 PM CDT) Anatomical Region Laterality Modality Body, Chest N/A Computed Radiogr aphy 06/05/2024 4:36 PM CDT Impressions 06/05/2024 4:36 PM CDT Basilar oriented right thoracostomy tube appears appropriately positioned. No definitive pneumothorax. Bandlike opacity in the left lower lobe suggestive of atelectasis. Cardiomediastinal silhouette within normal limits. No consolidation. Electronically signed by: Alexander Watkins II, D.O. Narrative 06/05/2024 4:36 PM CDT EXAMINATION: XR CHEST 1 VIEW DATE: 06/05/2024 3:50 PM INDICATION: Assess chest tube placement. COMPARISON: 06/05/2024. Procedure Note Alexander Watkins II, DO - 06/05/2024 EXAMINATION: XR CHEST 1 VIEW DATE: 06/05/2024 3:50 PM INDICATION: Assess chest tube placement. COMPARISON: 06/05/2024. IMPRESSION: Basilar oriented right thoracostomy tube appears appropriately positioned. No definitive pneumothorax. Bandlike opacity in the left lower lobe suggestive of atelectasis. Cardiomediastinal silhouette within normal limits. No consolidation. Electronically signed by: Alexander Watkins II, D.O. us Monserrat Ibarra TOOL AND [employer]IE MAKER APPRENTICE IMG XR PROCEDURES Final R esult * POCT glucose (06/05/2024 11:35 AM CDT) [facility] Signature Glucose, POC 122 70 - 199 mg/dL POC Performer [id number] ANNE BANUELOS Blood 06/05/2024 11:3 5 AM CDT 06/05/2024 11:35 AM CDT us George Martinez MD LAB POCT ORDERABLES - DEVICE Fin al Result [facility] [address] [facility] Department [place] [address] * Critical Care (06/05/2024 7:29 AM CDT) Narrative Charles Dorantes MD - 06/05/2024 7:29 AM CDT Charles Dorantes MD 06/05/2024 1:58 PM Critical Care Performed by: Charles Dorantes MD Authorized by: Charles Dorantes MD CRITICAL CARE: Team: CORTEZ Shift: AM Level of Billing: Subsequent Hospital Visit Level 3 My time spent with this patient was 45 minutes: Critical Provider Statement: I have seen and examined the patient on this day of service. I have reviewed and confirmed the history, physical exam, laboratory, and radiographic data as documented in the ICU note. I have reviewed and discussed my treatment plan with the patient's team and other medical/sap solution manager consultant staff. This time was in addition to and separate from care provided by other practitioners on this day of service. Lobectomy This time was spent by me doing the following: Serial bedside patient exams Acute pain control CT management Active and frequent reassessment of respiratory status and oxygen requirements I spent time reviewing and interpreting data from bedside monitors, laboratory results, and imaging, I spent time discussing the management of this critically ill patient with consultants and the medical staff and I spent time documenting in the medical record us Charles Dorantes MD IN CLINIC/BEDSIDE ORDERA BLES Final Result * POCT glucose (06/05/2024 7:02 AM CDT) Glucose, POC 111 70 - 199 mg/dL POC Performer [id number] ANNE Blood 06/05/2024 7:02 AM CDT 06/05/2024 7:02 AM CDT us George Martinez MD LAB POCT ORDERABLES - DEVICE Fin al Result [facility] [address] Department [place] [address] * XR Chest 1 View (06/05/2024 4:53 AM CDT) Anatomical Region Laterality Modality Body, Chest N/A Computed Radiogr aphy 06/05/2024 8:09 AM CDT Impressions 06/05/2024 8:09 AM CDT No pneumothorax. Cardiomegaly. Electronically signed by: Dylan Hendrickson M.D. Narrative 06/05/2024 8:09 AM CDT EXAMINATION: XR CHEST 1 VIEW DATE: 06/05/2024 4:05 AM HISTORY: Tube placement follow-up FINDINGS:Compared with the study of the prior day, right thoracostomy tube remains in place without evidence of pneumothorax. Continued elevation right diaphragm. Cardiomegaly without failure. No infiltrates. Procedure Note Dylan Hendrickson MD - 06/05/2024 EXAMINATION: XR CHEST 1 VIEW DATE: 06/05/2024 4:05 AM HISTORY: Tube placement follow-up FINDINGS:Compared with the study of the prior day, right thoracostomy tube remains in place without evidence of pneumothorax. Continued elevation right diaphragm. Cardiomegaly without failure. No infiltrates. IMPRESSION: No pneumothorax. Cardiomegaly. Electronically signed by: Dylan Hendrickson M.D. us George Martinez MD IMG XR PROCEDURES Final Result * (ABNORMAL) eGFR (06/05/2024 3:10 AM CDT) eGFR 50(L) >=60 mL/min/1. 73 m2 Comment: Interpretive Data Reference Interval Normal >/= 90 mL/min/1.73m2 Mildly decreased* 60 - 89 mL/min/1.73m2 Mildly to moderately decreased 45 - 59 mL/min/1.73m2 Moderately to severely decreased 30 - 44 mL/min/1.73m2 Severely decreased 15 - 29 mL/min/1.73m2 Kidney Failure < 15 mL/min/1.73m2 *Relative to young adult level Estimated glomerular filtration rate is determined by the 2020 CKD-EPI equation recommended by the National Kidney Foundation (A Unifying Approach to GFR Estimation: Recommendations of the NKF-ASK Task Force on Reassessing the Inclusion of Race in Diagnosing Kidney Disease, JASN 2020). The CKD-EPI equation should not be used for patients with unstable renal function and has not been validated in children and those over 70. Current interpretive data was last reviewed 2021. Blood 06/05/2024 3:10 AM CDT 06/05/2024 3:15 AM CDT us Charles Dorantes MD LAB BLOOD ORDERABLES Fin al Result Performing Organization Address City/State/ZIP Co wy Phone Number [facility] [phone] Department of [employer] [place] [place] [address] * (ABNORMAL) Differential, auto (06/05/2024 3:10 AM CDT) Neutrophil abs 12.7(H) 1.5 - 6.5 K/cumm Imm gran abs 0.1 0.0 - 0.1 K/cumm [facility] Lymphocyte abs 0.8 0.8 - 3.3 K/cumm [facility] Monocyte abs 0.9(H) 0.2 - 0.8 K/cumm [facility] Eosinophil abs 0.0 0.0 - 0.5 K/cumm [facility] Basophil abs 0.0 0.0 - 0.1 K/cumm [facility] Neutrophil pct 88.1 % [facility] Comment: Interpretive Data Percent cell count reference ranges are not reported, since discordance with absolute values may lead to misinterpretation of CBC data. Current Interpretive Data was last revised on 2017. Imm gran pct 0.5 % [facility] Comment: Interpretive Data Percent cell count reference ranges are not reported, since discordance with absolute values may lead to misinterpretation of CBC data. Current Interpretive Data was last revised on 2017. Lymphocyte pct 5.4 % [facility] Comment: Interpretive Data Percent cell count reference ranges are not reported, since discordance with absolute values may lead to misinterpretation of CBC data. Current Interpretive Data was last revised on 2017. Monocyte pct 5.9 % [facility] Comment: Interpretive Data Percent cell count reference ranges are not reported, since discordance with absolute values may lead to misinterpretation of CBC data. Current Interpretive Data was last revised on 2017. Eosinophil pct 0.0 % [facility] Comment: Interpretive Data Percent cell count reference ranges are not reported, since discordance with absolute values may lead to misinterpretation of CBC data. Current Interpretive Data was last revised on 2017. Basophil pct 0.1 % [facility] Comment: Interpretive Data Percent cell count reference ranges are not reported, since discordance with absolute values may lead to misinterpretation of CBC data. Current Interpretive Data was last revised on 2017. Blood 06/05/2024 3:10 AM CDT 06/05/2024 3:15 AM CDT Charles Dorantes MD LAB BLOOD ORDERABLES Fin al Result Performing Organization Address [facility] Co de Phone Number [place]UEL[place] [phone] [facility] [employer] [place] [address] * (ABNORMAL) CBC with auto differential (06/05/2024 3:10 AM CDT) WBC 14.4(H) 3.8 - 9.9 K/cumm Hgb 13.7 13.0 - 17.5 g/dL [facility] Hct 41.3 38.9 - 50.3 % [facility] Plt 151 150 - 400 K/cumm [facility] MPV 11.0 9.1 - 12.3 fL [facility] RBC 4.63 4.30 - 5.80 M/cumm [facility] MCV 89.2 81.3 - 96.4 fL [facility] MCH 29.6 27.1 - 33.3 pg [facility] MCHC 33.2 32.3 - 35.7 g/dL [facility] RDW CV 14.2 11.1 - 14.9 % [facility] RDW SD 45.8 35.7 - 48.1 fL [facility] NRBC abs 0.00 0.00 - 0.01 K/cumm [facility] Blood 06/05/2024 3:10 AM CDT 06/05/2024 3:15 AM CDT Charles Dorantes MD LAB BLOOD ORDERABLES Fin al Result Performing Organization Address City/[facility] Co de Phone Number ANNE BANUELOS [address] Department of [employer] [place] [address] * Phosphorus (06/05/2024 3:10 AM CDT) Phosphorus, pl 3.0 2.3 - 4.5 mg/dL Blood 06/05/2024 3:10 AM CDT 06/05/2024 3:15 AM CDT Charles Dorantes MD LAB BLOOD ORDERABLES Fin al Result Performing Organization Address City[facility] Co de Phone Number ANNE BANUELOS [phone] [employer] [place] [address] * Magnesium (06/05/2024 3:10 AM CDT) Pathologist [facility] [place] Magnesium 2.4 1.4 - 2.5 mg/dL Blood 06/05/2024 3:10 AM CDT 06/05/2024 3:15 AM CDT Charles Dorantes MD LAB BLOOD ORDERABLES Fin al Result Performing Organization Address [facility] de Phone Number ANNE BANUELOS [address] [employer] [place] [address] * (ABNORMAL) Comprehensive metabolic panel (06/05/2024 3:10 AM CDT) Pathologist [facility] [place] Sodium 141 135 - 145 mmol/L Potassium, pl 4.5 3.3 - 4.9 mmol/L [facility] Chloride 111(H) 97 - 110 mmol/L [facility] CO2 21(L) 22 - 32 mmol/L [facility] Anion gap 9 2 - 15 mmol/L [facility] BUN 22 6 - 25 mg/dL [facility] Creatinine 1.49(H) 0.80 - 1.30 mg/dL [facility] Glucose 128 70 - 199 mg/dL [facility] Comment: Interpretive Data Fasting glucose >/= 126 mg/dl is diagnostic for diabetes. Fasting is defined as no caloric intake for at least 8 hours. Fasting glucose between 100 mg/dl to 125 mg/dl is diagnostic of prediabetes. In a patient with classic symptoms of hyperglycemia or hyperglycemic crisis, a random glucose >/= 200 mg/dl is diagnostic for diabetes. In the absence of unequivocal hyperglycemia, results should be confirmed by repeat testing. The classification and Diagnosis of Diabetes Diabetes Care 2021; 46: S19-S40. Current interpretive data was last revised 2022. Calcium 7.9(L) 8.5 - 10.3 mg/dL [facility] Bilirubin, total 0.4 0.1 - 1.2 mg/dL [facility] Protein, pl 5.7(L) 6.5 - 8.5 g/dL [facility] Albumin 3.5 3.5 - 5.0 g/dL [facility] Alk phos 75 40 - 130 Units/L [facility] ALT 18 7 - 55 Units/L [facility] AST 23 10 - 50 Units/L [facility] Blood 06/05/2024 3:10 AM CDT 06/05/2024 3:15 AM CDT us Charles Dorantes MD LAB BLOOD ORDERABLES Fin al Result Performing Organization Address [facility] Co de Phone Number ANNE BANUELOS [phone] Department [employer] [place] [address] * (ABNORMAL) eGFR (06/04/2024 11:02 PM CDT) eGFR 56(L) >=60 mL/min/1. 73 m2 Comment: Interpretive Data Reference Interval Normal >/= 90 mL/min/1.73m2 Mildly decreased* 60 - 89 mL/min/1.73m2 Mildly to moderately decreased 45 - 59 mL/min/1.73m2 Moderately to severely decreased 30 - 44 mL/min/1.73m2 Severely decreased 15 - 29 mL/min/1.73m2 Kidney Failure < 15 mL/min/1.73m2 *Relative to young adult level Estimated glomerular filtration rate is determined by the 2020 CKD-EPI equation recommended by the National Kidney Foundation (A Unifying Approach to GFR Estimation: Recommendations of the NKF-ASK Task Force on Reassessing the Inclusion of Race in Diagnosing Kidney Disease, JASN 2020). The CKD-EPI equation should not be used for patients with unstable renal function and has not been validated in children and those over 70. Current interpretive data was last reviewed 2021. Blood 06/04/2024 11:0 2 PM CDT 06/04/2024 11:14 PM CDT us George Martinez MD LAB BLOOD ORDERABLES Final Resul t Performing Organization Address City/[facility]/ZIP Co de Phone Number ANNE BANUELOS [address] Department [place] [address] * (ABNORMAL) CBC without differential (06/04/2024 11:02 PM CDT) Pathologist [facility] [place] WBC 13.2(H) 3.8 - 9.9 K/cumm Hgb 13.3 13.0 - 17.5 g/dL [facility] Hct 40.4 38.9 - 50.3 % [facility] Plt 134(L) 150 - 400 K/cumm [facility] MPV 11.3 9.1 - 12.3 fL [facility] RBC 4.52 4.30 - 5.80 M/cumm [facility] MCV 89.4 81.3 - 96.4 fL [facility] MCH 29.4 27.1 - 33.3 pg [facility] MCHC 32.9 32.3 - 35.7 g/dL [facility] RDW CV 14.1 11.1 - 14.9 % [facility] RDW SD 46.2 35.7 - 48.1 fL [facility] NRBC abs 0.00 0.00 - 0.01 K/cumm [facility] Blood 06/04/2024 11:0 2 PM CDT 06/04/2024 11:14 PM CDT us George Martinez MD LAB BLOOD ORDERABLES Final Resul t [facility] [id number] Department [place] [address] * (ABNORMAL) Basic metabolic panel (06/04/2024 11:02 PM CDT) Pathologist [facility] [place] Sodium 142 135 - 145 mmol/L Potassium, pl 4.4 3.3 - 4.9 mmol/L [facility] Chloride 111(H) 97 - 110 mmol/L [facility] CO2 19(L) 22 - 32 mmol/L [facility] Anion gap 12 2 - 15 mmol/L [facility] BUN 22 6 - 25 mg/dL [facility] Creatinine 1.35(H) 0.80 - 1.30 mg/dL [facility] Glucose 126 70 - 199 mg/dL [facility] Comment: Interpretive Data Fasting glucose >/= 126 mg/dl is diagnostic for diabetes. Fasting is defined as no caloric intake for at least 8 hours. Fasting glucose between 100 mg/dl to 125 mg/dl is diagnostic of prediabetes. In a patient with classic symptoms of hyperglycemia or hyperglycemic crisis, a random glucose >/= 200 mg/dl is diagnostic for diabetes. In the absence of unequivocal hyperglycemia, results should be confirmed by repeat testing. The classification and Diagnosis of Diabetes Diabetes Care 2021; 46: S19-S40. Current interpretive data was last revised 2022. Calcium 7.6(L) 8.5 - 10.3 mg/dL [facility] Blood 06/04/2024 11:0 2 PM CDT 06/04/2024 11:14 PM CDT us George Martinez MD LAB BLOOD ORDERABLES Final Resul t Performing Organization Address [facility] Co de Phone Number [facility] [address] [employer] [place] [address] * POCT glucose (06/04/2024 7:55 PM CDT) Glucose, POC 176 70 - 199 mg/dL POC Performer [id number] [facility] Blood 06/04/2024 7:55 PM CDT 06/04/2024 7:55 PM CDT us George Martinez MD LAB POCT ORDERABLES - DEVICE Fin al Result Performing Organization Address City/[facility] Co de Phone Number [facility] [address] [employer] [place] [address] * (ABNORMAL) POCT glucose (06/04/2024 7:55 PM CDT) Glucose, POC 224(H) 70 - 199 mg/dL POC Performer [id number] [facility] Blood 06/04/2024 7:55 PM CDT 06/04/2024 7:55 PM CDT us George Martinez MD LAB POCT ORDERABLES - DEVICE Fin al Result Performing Organization Address [facility] Co de Phone Number ANNE BANUELOS [phone] [employer] [place] [address] * POCT glucose (06/04/2024 5:47 PM CDT) Pathologist [facility] [place] Glucose, POC 131 70 - 199 mg/dL POC Performer [id number] [facility] Blood 06/04/2024 5:47 PM CDT 06/04/2024 5:47 PM CDT George Martinez MD LAB POCT ORDERABLES - DEVICE Fin al Result Performing Organization Address [facility] de Phone Number ANNE BANUELOS [phone] [employer] [place] [address] * (ABNORMAL) eGFR (06/04/2024 1:26 PM CDT) [facility] eGFR 54(L) >=60 mL/min/1. 73 m2 Comment: Interpretive Data Reference Interval Normal >/= 90 mL/min/1.73m2 Mildly decreased* 60 - 89 mL/min/1.73m2 Mildly to moderately decreased 45 - 59 mL/min/1.73m2 Moderately to severely decreased 30 - 44 mL/min/1.73m2 Severely decreased 15 - 29 mL/min/1.73m2 Kidney Failure < 15 mL/min/1.73m2 *Relative to young adult level Estimated glomerular filtration rate is determined by the 2020 CKD-EPI equation recommended by the National Kidney Foundation (A Unifying Approach to GFR Estimation: Recommendations of the NKF-ASK Task Force on Reassessing the Inclusion of Race in Diagnosing Kidney Disease, JASN 2020). The CKD-EPI equation should not be used for patients with unstable renal function and has not been validated in children and those over 70. Current interpretive data was last reviewed 2021. Blood 06/04/2024 1:26 PM CDT 06/04/2024 1:38 PM CDT us Charles Dorantes MD LAB BLOOD ORDERABLES Fin al Result [facility] [address] Department [place] [address] * (ABNORMAL) Differential, auto (06/04/2024 1:26 PM CDT) Neutrophil abs 10.7(H) 1.5 - 6.5 K/cumm Imm gran abs 0.1 0.0 - 0.1 K/cumm [facility] Lymphocyte abs 0.3(L) 0.8 - 3.3 K/cumm [facility] Monocyte abs 0.1(L) 0.2 - 0.8 K/cumm [facility] Eosinophil abs 0.0 0.0 - 0.5 K/cumm [facility] Basophil abs 0.0 0.0 - 0.1 K/cumm [facility] Neutrophil pct 95.7 % [facility] Comment: Interpretive Data Percent cell count reference ranges are not reported, since discordance with absolute values may lead to misinterpretation of CBC data. Current Interpretive Data was last revised on 2017. Imm gran pct 0.6 % [facility] Comment: Interpretive Data Percent cell count reference ranges are not reported, since discordance with absolute values may lead to misinterpretation of CBC data. Current Interpretive Data was last revised on 2017. Lymphocyte pct 2.3 % [facility] Comment: Interpretive Data Percent cell count reference ranges are not reported, since discordance with absolute values may lead to misinterpretation of CBC data. Current Interpretive Data was last revised on 2017. Monocyte pct 1.2 % [facility] Comment: Interpretive Data Percent cell count reference ranges are not reported, since discordance with absolute values may lead to misinterpretation of CBC data. Current Interpretive Data was last revised on 2017. Eosinophil pct 0.1 % [facility] Comment: Interpretive Data Percent cell count reference ranges are not reported, since discordance with absolute values may lead to misinterpretation of CBC data. Current Interpretive Data was last revised on 2017. Basophil pct 0.1 % [facility] Comment: Interpretive Data Percent cell count reference ranges are not reported, since discordance with absolute values may lead to misinterpretation of CBC data. Current Interpretive Data was last revised on 2017. Blood 06/04/2024 1:26 PM CDT 06/04/2024 1:38 PM CDT Charles Dorantes MD LAB BLOOD ORDERABLES Fin al Result Performing Organization Address [facility] Co de Phone Number ANNE BANUELOS [phone] [employer] [place] [address] * (ABNORMAL) CBC with auto differential (06/04/2024 1:26 PM CDT) WBC 11.1(H) 3.8 - 9.9 K/cumm Hgb 14.5 13.0 - 17.5 g/dL [facility] Hct 43.7 38.9 - 50.3 % [facility] Plt 150 150 - 400 K/cumm [facility] MPV 10.8 9.1 - 12.3 fL [facility] RBC 4.93 4.30 - 5.80 M/cumm [facility] MCV 88.6 81.3 - 96.4 fL [facility] MCH 29.4 27.1 - 33.3 pg [facility] MCHC 33.2 32.3 - 35.7 g/dL [facility] RDW CV 14.0 11.1 - 14.9 % [facility] RDW SD 45.3 35.7 - 48.1 fL [facility] NRBC abs 0.00 0.00 - 0.01 K/cumm [facility] Blood 06/04/2024 1:26 PM CDT 06/04/2024 1:38 PM CDT Charles Dorantes MD LAB BLOOD ORDERABLES Fin al Result Performing Organization Address City/[facility] Co de Phone Number ANNE BANUELOS [address] [employer] [place] [address] * (ABNORMAL) Phosphorus (06/04/2024 1:26 PM CDT) Phosphorus, pl 1.9(L) 2.3 - 4.5 mg/dL Blood 06/04/2024 1:26 PM CDT 06/04/2024 1:32 PM CDT Charles Dorantes MD LAB BLOOD ORDERABLES Fin al Result Performing Organization Address [facility] Co de Phone Number ANNE BANUELOS [address] [employer] [place] [address] * Magnesium (06/04/2024 1:26 PM CDT) Pathologist [facility] Magnesium 1.9 1.4 - 2.5 mg/dL Blood 06/04/2024 1:26 PM CDT 06/04/2024 1:32 PM CDT Charles Dorantes MD LAB BLOOD ORDERABLES Fin al Result Performing Organization Address [facility] de Phone Number ANNE BANUELOS [phone] [employer] [place] [address] * (ABNORMAL) Basic metabolic panel (06/04/2024 1:26 PM CDT) Pathologist [facility] [place] Sodium 143 135 - 145 mmol/L Potassium, pl 3.7 3.3 - 4.9 mmol/L [facility] Chloride 112(H) 97 - 110 mmol/L [facility] CO2 20(L) 22 - 32 mmol/L [facility] Anion gap 11 2 - 15 mmol/L [facility] BUN 26(H) 6 - 25 mg/dL [facility] Creatinine 1.40(H) 0.80 - 1.30 mg/dL [facility] Glucose 134 70 - 199 mg/dL [facility] Comment: Interpretive Data Fasting glucose >/= 126 mg/dl is diagnostic for diabetes. Fasting is defined as no caloric intake for at least 8 hours. Fasting glucose between 100 mg/dl to 125 mg/dl is diagnostic of prediabetes. In a patient with classic symptoms of hyperglycemia or hyperglycemic crisis, a random glucose >/= 200 mg/dl is diagnostic for diabetes. In the absence of unequivocal hyperglycemia, results should be confirmed by repeat testing. The classification and Diagnosis of Diabetes Diabetes Care 202; 46: S19-S40. Current interpretive data was last revised 2022. Calcium 8.0(L) 8.5 - 10.3 mg/dL [facility] Blood 06/04/2024 1:26 PM CDT 06/04/2024 1:32 PM CDT us Charles Dorantes MD LAB BLOOD ORDERABLES Fin al Result Performing Organization Address [facility] Co de Phone Number ANNE [address] [address] Department of [employer] [place] [address] * POCT glucose (06/04/2024 1:10 PM CDT) Glucose, POC 122 70 - 199 mg/dL POC Performer [id number] [facility] Blood 06/04/2024 1:10 PM CDT 06/04/2024 1:10 PM CDT George Martinez MD LAB POCT ORDERABLES - DEVICE Fin al Result Performing Organization Address [facility] Co de Phone Number ANNE [address] Department of [employer] [place] [address] * Critical Care (06/04/2024 1:06 PM CDT) Narrative Charles Dorantes MD - 06/04/2024 1:06 PM CDT Charles Dorantes MD 06/04/2024 6:26 PM Critical Care Performed by: Charles Dorantes MD Authorized by: Charles Dorantes MD CRITICAL CARE: Team: JARED Shift: AM Level of Billing: Critical Care My time spent with this patient was 45 minutes: Critical Provider Statement: I have seen and examined the patient on this day of service. I have reviewed and confirmed the history, physical exam, laboratory and radiologic data as documented in the signed ICU note. I have reviewed and discussed my treatment plan with the ICU team and other medical/sap solution manager consultant staff, making frequent assessments and decisions regarding this patient's complex medical care. Critical Care time was exclusive of time spent performing separately billed procedures, treating other patients, and teaching. This time was in addition to and separate from critical care provided by other practitioners in my group on this day of service. Critical Care was necessary to treat or prevent imminent or life-threatening deterioration of the following conditions: Lobectomy This time was spent by me doing the following: Serial bedside patient exams Acute pain control Chest tube management Active and frequent reassessment of respiratory status and oxygen requirements Active and frequent monitoring of intake/output and volumen status I spent time reviewing and interpreting data from bedside monitors, laboratory results, and imaging, I spent time discussing the management of this critically ill patient with consultants and the medical staff and I spent time documenting in the medical record us Charles Dorantes MD IN CLINIC/BEDSIDE ORDERA BLES Final Result * XR Chest 1 View - in ICU (06/04/2024 11:31 AM CDT) Anatomical Region Laterality Modality Body, Chest N/A Computed Radiogr aphy 06/04/2024 11:3 7 AM CDT Impressions 06/04/2024 11:37 AM CDT No pneumothorax. Electronically signed by: Lena Harris M.D. Narrative 06/04/2024 11:37 AM CDT EXAMINATION: XR CHEST 1 VIEW HISTORY: The patient is a 69-year-old who has had right thoracotomy. Comparison made with the previous study dated 04/11/2024 TECHNIQUE: AP portable view of the chest. FINDINGS: Right thoracostomy tube in situ. No pneumothorax. Lungs clear. Cardiovascular structures unremarkable. Procedure Note Lena Harris MD - 06/04/2024 EXAMINATION: XR CHEST 1 VIEW HISTORY: The patient is a 69-year-old who has had right thoracotomy. Comparison made with the previous study dated 04/11/2024 TECHNIQUE: AP portable view of the chest. FINDINGS: Right thoracostomy tube in situ. No pneumothorax. Lungs clear. Cardiovascular structures unremarkable. IMPRESSION: No pneumothorax. Electronically signed by: Lena Harris M.D. us George Martinez MD IMG XR PROCEDURES Final Result * Surgical pathology (06/04/2024 11:23 AM CDT) Tissue (Lymph Node, Single excision) 06/04/2024 8:36 AM CDT Tissue (Lymph Node, Single excision) 06/04/2024 8:42 AM CDT Tissue (Lymph Node, Single excision) 06/04/2024 8:47 AM CDT Tissue (Lymph Node, Single excision) 06/04/2024 8:54 AM CDT Tissue (Lymph Node, Single excision) 06/04/2024 9:07 AM CDT Tissue (Lymph Node, Single excision) 06/04/2024 9:07 AM CDT Tissue (Lymph Node, Single excision) 06/04/2024 9:18 AM CDT Tissue (Lymph Node, Single excision) 06/04/2024 9:43 AM CDT Tissue (Lymph Node, Single excision) 06/04/2024 9:44 AM CDT Tissue (Lymph Node, Single excision) 06/04/2024 10:01 AM CDT Tissue (Lung - Total / Lobe / Segment Resection non-tumor) 06/04/2024 10:06 AM CDT Narrative PATHOLOGY - 06/06/2024 2:43 PM CDT EPIC results best viewed via link to PDF [facility] Department of Pathology [address] [place], [place] [id number] Note to Patients: This report may contain a detailed description of human tissue sent by a health care provider to the laboratory for pathologic evaluation. The content of this report is essential for diagnosis and may provide important critical findings. This information may be unfamiliar to patients to review without a medical professional present. It is advised that the patient review this report in the presence of a health care provider who can answer questions and explain the details. Final Report Patient Name: WEST FOSTER Address: [address] [address] Gender: M : 1955 (Age: 69) Service: Cardiothoracic Location: Hospital #: [id number] Patient Type: [facility] Taken: 06/04/2024 Received: 06/04/2024 Accessioned: 06/04/2024 Reported: 06/06/2024 Physician(s):Ryan Mccray NP Diagnosis: A. Lymph node station 9 #1- Negative for carcinoma B. Lymph node station 7 #1- Negative for carcinoma C. Lymph node station 10 #1- Negative for carcinoma D. Lymph node station 11 #1- Negative for carcinoma E. Lymph node station 11 #2- Negative for carcinoma F. Lymph node station 11 #3- Negative for carcinoma G. Lymph node station 12 #1- Negative for carcinoma H. Lymph node station 11 #4- Negative for carcinoma I. Lymph node station 11 #5- Negative for carcinoma J. Lymph node station number 4R #1- Negative for carcinoma K. 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 Report Electronically Reviewed and Signed Out By Stacy Shoemaker M.D. 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 Martinez's cell phone - Dr. Angela Shoemaker M.D. Microscopic Description: Microscopic examination confirms the diagnosis and the frozen section diagnosis interpretation. All separately submitted lymph nodes are negative for carcinoma (0/10) The right lower lobe lobectomy specimen demonstrates a clear cell neoplasm showing moderate nuclear pleomorphism (nucleoli visible in many areas at low power). It is predominantly present within a branched bronchus with focal parenchymal involvement also noted. The tumor shows positive staining for RCC, CD10, AE1/AE3 and Vimentin. IHC stain for CK7 is negative. Three grossly identified lymph nodes are negative for carcinoma (0/3). Clinical History: Nodule of lower lobe of right lung, h/o renal cell CA, now with multiple lung masses, one growing (RLL) Procedure: XI robotic thoracic right lower lobe lobectomy Gross Description: The specimen is submitted in eleven containers labeled WEST FOSTER . A. The first container is labeled lymph node station 9 #1 . Is 1 gil-perez lymph node measuring 7 mm. Entirely in A. B. The second container is labeled lymph node station 7 #1 . It is 1 gil-perez lymph node measuring 4 mm. Entirely in B. C. The third container is labeled lymph node station 10 #1 . It is 1 gil-perez lymph node measuring 4 mm. Entirely in C. D. The fourth container is labeled lymph node station 11 #1 . It is 1 gil-perez lymph node measuring 5 mm. Entirely in D. E. The fifth container is labeled lymph node station 11 #2 . It is 1 gil-perez lymph node measuring 1 cm. Entirely in E. F. The sixth container is labeled lymph node station 11 #3 . It is 1 gil-perez lymph node measuring 1.2 cm. Entirely in F. G. The seventh container is labeled lymph node station 12 #1 . It is 1 gil-perez lymph node measuring 8 mm. Entirely in G. H. The eighth container is labeled lymph node station 11 #4 . It is 1 gil-perez lymph node measuring 9 mm. Entirely in a H. I. The ninth container is labeled lymph node station 11 #5 . It is 1 gil-perez lymph node measuring 6 mm. Entirely in I. J. The tenth container is labeled lymph node station 4 R #1 . It is 1 gil-perez lymph node measuring 5 mm. Entirely in J. K. The eleventh container is labeled right lower lobe . It is a lower lobectomy specimen that weighs 187 g and measures 15 x 11 x 3.5 cm. The pleural surface is pink-perez and smooth. A suture is present at the base. Deep to the suture is a perez lesion that appears to be predominantly located within the bronchus. It measures 4.3 x 2.0 x 1.5 cm. It is attached to the wall of the bronchus, 5 mm from the bronchial margin (after trimming an additional 2mm staple margin). The surrounding lung shows dilated bronchial branches and vessels that contain an abundance mucinous material mucinous tissue also surrounds the intrabronchial mass forming a mucinous plug. The mucus plug closely approximates the bronchial margin however the tumor appears 7mm distant from the margin (overall measurement). Scattered areas of pallor are present. There are no additional discrete masses. A portion of the lesion and the bronchial margin is submitted for frozen section evaluation with the tissue embedded in cassette K1 and K2. Telephone Information Clerk sections are submitted: Vascular margin K 3, tumor with bronchus K 4 through K6, random lung K 7 through K 9, lymph nodes from hilum K 10 . Bernabe Contreras R.N., P.A./Stacy Shoemaker M.D. REPORT IMAGES AND SCANNED DOCUMENTS, IF INCLUDED, ONLY VIEWABLE IN PDF VERSION OF REPORT The performance characteristics of some immunohistochemical stains, fluorescence in-situ hybridization tests and immunophenotyping by flow cytometry cited in this report (if any) were determined by the Surgical Pathology Department at [facility] as part of an ongoing senior manager quality assurance program and in compliance with federally mandated regulations drawn from the Clinical Laboratory Improvement Act of 1988 (CLIA '88). Some of these tests rely on the use of analyte specific reagents and are subject to specific labeling requirements by the US Food and Drug Administration. Such diagnostic tests may only be performed in a facility that is certified by the Department of Health and Human Services as a high complexity laboratory under CLIA '88. The FDA has determined that such clearance or approval is not necessary. This test is used for clinical purposes. It should not be regarded as investigational or for research. Nevertheless, federal rules concerning the medical use of analyte specific reagents require that the following disclaimer be attached to the report: This test was developed and its performance characteristics determined by the Surgical Pathology Department [facility]. It has not been cleared or approved by the U. S. Food and Drug Administration. Note for decalcified specimens: This assay has not been validated on decalcified tissues. Results should be interpreted with caution given the possibility of false negativity on decalcified specimens us George Martinez MD LAB PATHOLOGY ORDERABLES Final R esult PATHOLOGY [address] [place] [address] * Prepare RBC: 1 Units (06/04/2024 8:20 AM CDT) Product code [id number] Unit Number [id number] 5-N [facility] Product Blood Type APOS ANNE Dispense Status RETURNED [facility] Blood 06/04/2024 8:20 AM CDT 06/04/2024 8:20 AM CDT Narrative ANNE - 06/05/2024 12:18 AM CDT Are special requirements needed? (All products are leukoreduced and CMV- safe)- >No Date required:-[id number] LRRBC # of Ergef-[id number] Reasons:-Intra-op transfusion} us George Martinez MD BLOOD BANK PRODUCT ORDERABLES [facility] Result [facility] [address] Department [place] [address] * Peripheral IV Catheter (06/04/2024 8:09 AM CDT) Narrative Nikita Joy AA - 06/04/2024 8:09 AM CDT Nikita Joy AA 06/04/2024 8:09 AM Peripheral IV Catheter Patient location: OR Staff: Placed by: AA: Nikita Joy AA Preprocedure prep: Prep solution: alcohol PPE: provider hat/mask and gloves PIV line: Laterality: right Site: forearm Catheter size: 18 g Technique: direct visualization and anatomical landmarks Procedure details: good blood return Number of attempts: 1 Assessment: Events: patient tolerated procedure well with no complications us Margarita Cooper MD ANESTHESIA ORDERABLES Final Resu lt * Arterial Line (06/04/2024 8:09 AM CDT) Narrative Nikita Joy AA - 06/04/2024 8:09 AM CDT Nikita Joy AA 06/04/2024 8:09 AM Arterial Line Patient location: OR Indication: continuous blood pressure monitoring and blood sampling needed Staff: Supervising provider: Margarita Cooper MD Placed by: AA: Nikita Joy AA Procedure prep: Prep solution: chlorhexadine/alcohol Prep: provider hat/mask and sterile gloves Skin infiltrated with lidocaine 1%: yes Arterial line: Catheter size: 20 gauge Catheter length: 1 and 3/4 inch Catheter type: wire-guided catheter Seldinger technique: yes Laterality: left Site: radial artery Line secured: Tegaderm and tape Results: good waveform and good blood return Number of attempts: 2 Assessment: Events: patient tolerated procedure well with no complications us Margarita Cooper MD ANESTHESIA ORDERABLES Final Resu lt * ID AN ELECTIVE ENDOTRACHEAL AIRWAY (06/04/2024 8:08 AM CDT) Narrative Nikita Joy AA - 06/04/2024 8:08 AM CDT Nikita Joy AA 06/04/2024 8:08 AM Airway Patient location: OR Urgency: elective Date/time: 06/04/2024 7:53 AM Indications for airway management: anesthesia Difficult airway: no Staff: Supervising provider: Margarita Cooper MD Placed by: AA: Nikita Joy AA Emergent airway documentation: Risks and benefits discussed: yes Consent obtained: yes Consent given by: patient Airway prep: Preoxygenated: yes Patient position: sniffing Mask difficulty assessment: 2 - vent by mask + OA or adjuvant Spontaneous ventilation during airway: absent Sedation level during airway: GA Final airway details: Final airway type: endotracheal airway Tube type: ETT - double lumen left ETT double lumen: 39 fr Cuffed: yes Technique used for successful ETT placement: video laryngoscopy Insertion site: oral Blade type: Chris Video blade type: Kapadia Blade size: 4 Cormack-Lehane (video): grade I - full view of glottis Cuff inflated with: air Placement verified by: auscultation and CO2 detection Airway secured with: silk tape Number of attempts: 1 Additional comments: Atraumatic. Teeth as before. us Margarita Cooper MD ANESTHESIA ORDERABLES Final Resu lt * Prepare RBC: 1 Units (06/04/2024 7:00 AM CDT) Product code [id number] Unit Number [id number] 4-M [facility] Product Blood Type APOS CERNER CH Dispense Status RETURNED CERNER Blood 06/04/2024 7:00 AM CDT Narrative NANE - 06/05/2024 12:18 AM CDT Specify Procedure:->robotic lobectomy Are special requirements needed? (All products are leukoreduced and CMV- safe)- >No Date required:-[id number] LRRBC # of [id number]-[id number] Reasons:-Hold for procedure (specify procedure)} us Monserrat Ibarra [employer]KER APPRENTICE BLOOD BANK PRODUCT ORDERA BLES Final Result Performing Organization Address [facility] Co de Phone Number ANNE BANUELOS [id number] [employer] [place] [address] * Check Sample (06/04/2024 6:47 AM CDT) ABO Rh A Positive CH HCLL OTHER 06/04/2024 6:47 AM CDT 06/04/2024 7:56 AM CDT us George Martinez MD LAB BLOOD ORDERABLES Final Resul t Performing Organization Address [facility] de Phone Number ANNE BANUELOS [address] [address] [employer] [place] [address] CH * (ABNORMAL) eGFR (05/27/2024 12:19 PM CDT) eGFR 49(L) >=60 mL/min/1. 73 m2 Comment: Interpretive Data Reference Interval Normal >/= 90 mL/min/1.73m2 Mildly decreased* 60 - 89 mL/min/1.73m2 Mildly to moderately decreased 45 - 59 mL/min/1.73m2 Moderately to severely decreased 30 - 44 mL/min/1.73m2 Severely decreased 15 - 29 mL/min/1.73m2 Kidney Failure < 15 mL/min/1.73m2 *Relative to young adult level Estimated glomerular filtration rate is determined by the 2020 CKD-EPI equation recommended by the National Kidney Foundation (A Unifying Approach to GFR Estimation: Recommendations of the NKF-ASK Task Force on Reassessing the Inclusion of Race in Diagnosing Kidney Disease, JASN 2020). The CKD-EPI equation should not be used for patients with unstable renal function and has not been validated in children and those over 70. Current interpretive data was last reviewed 2021. Blood 05/27/2024 12:1 9 PM CDT 05/27/2024 12:19 PM CDT us George Martinez MD LAB BLOOD ORDERABLES Final Resul t ANNE [address] Department [place] [address] * Differential, auto (05/27/2024 12:19 PM CDT) Neutrophil abs 4.9 1.5 - 6.5 K/cumm Imm gran abs 0.1 0.0 - 0.1 K/cumm [facility] Lymphocyte abs 1.8 0.8 - 3.3 K/cumm [facility] Monocyte abs 0.6 0.2 - 0.8 K/cumm [facility] Eosinophil abs 0.0 0.0 - 0.5 K/cumm [facility] Basophil abs 0.0 0.0 - 0.1 K/cumm [facility] Neutrophil pct 65.9 % [facility] Comment: Interpretive Data Percent cell count reference ranges are not reported, since discordance with absolute values may lead to misinterpretation of CBC data. Current Interpretive Data was last revised on 2017. Imm gran pct 1.1 % [facility] Comment: Interpretive Data Percent cell count reference ranges are not reported, since discordance with absolute values may lead to misinterpretation of CBC data. Current Interpretive Data was last revised on 2017. Lymphocyte pct 24.6 % [facility] Comment: Interpretive Data Percent cell count reference ranges are not reported, since discordance with absolute values may lead to misinterpretation of CBC data. Current Interpretive Data was last revised on 2017. Monocyte pct 7.8 % [facility] Comment: Interpretive Data Percent cell count reference ranges are not reported, since discordance with absolute values may lead to misinterpretation of CBC data. Current Interpretive Data was last revised on 2017. Eosinophil pct 0.1 % [facility] Comment: Interpretive Data Percent cell count reference ranges are not reported, since discordance with absolute values may lead to misinterpretation of CBC data. Current Interpretive Data was last revised on 2017. Basophil pct 0.5 % [facility] Comment: Interpretive Data Percent cell count reference ranges are not reported, since discordance with absolute values may lead to misinterpretation of CBC data. Current Interpretive Data was last revised on 2017. Blood 05/27/2024 12:1 9 PM CDT 05/27/2024 12:19 PM CDT George Martinez MD LAB BLOOD ORDERABLES Final Resul t Performing Organization Address [facility] Co de Phone Number ANNE BANUELOS [id number] [place] [address] * (ABNORMAL) CBC with auto differential (05/27/2024 12:19 PM CDT) Pathologist [facility] WBC 7.5 3.8 - 9.9 K/cumm Hgb 17.2 13.0 - 17.5 g/dL [facility] Hct 52.7(H) 38.9 - 50.3 % [facility] Plt 174 150 - 400 K/cumm [facility] MPV 11.2 9.1 - 12.3 fL [facility] RBC 5.83(H) 4.30 - 5.80 M/cumm [facility] MCV 90.4 81.3 - 96.4 fL [facility] MCH 29.5 27.1 - 33.[address] [facility] MCHC 32.6 32.3 - 35.7 g/dL [facility] RDW CV 14.1 11.1 - 14.9 % [facility] RDW SD 46.4 35.7 - 48.1 fL [facility] NRBC abs 0.00 0.00 - 0.01 K/cumm [facility] Blood 05/27/2024 12:1 9 PM CDT 05/27/2024 12:19 PM CDT George Martinez MD LAB BLOOD ORDERABLES Final Resul t Performing Organization Address [facility] Co de Phone Number ANNE BANUELOS [phone] [employer] [place], [place] [id number] * (ABNORMAL) Comprehensive metabolic panel (05/27/2024 12:19 PM CDT) Sodium 143 135 - 145 mmol/L Potassium, pl 3.8 3.3 - 4.9 mmol/L [facility] Chloride 106 97 - 110 mmol/L [facility] CO2 25 22 - 32 mmol/L [facility] Anion gap 12 2 - 15 mmol/L [facility] BUN 24 6 - 25 mg/dL [facility] Creatinine 1.52(H) 0.80 - 1.30 mg/dL [facility] Glucose 80 70 - 199 mg/dL [facility] Comment: Interpretive Data Fasting glucose >/= 126 mg/dl is diagnostic for diabetes. Fasting is defined as no caloric intake for at least 8 hours. Fasting glucose between 100 mg/dl to 125 mg/dl is diagnostic of prediabetes. In a patient with classic symptoms of hyperglycemia or hyperglycemic crisis, a random glucose >/= 200 mg/dl is diagnostic for diabetes. In the absence of unequivocal hyperglycemia, results should be confirmed by repeat testing. The classification and Diagnosis of Diabetes Diabetes Care 2021; 46: S19-S40. Current interpretive data was last revised 2022. Calcium 9.3 8.5 - 10.3 mg/dL [facility] Bilirubin, total 0.5 0.1 - 1.2 mg/dL [facility] Protein, pl 7.5 6.5 - 8.5 g/dL [facility] Albumin 4.4 3.5 - 5.0 g/dL [facility] Alk phos 101 40 - 130 Units/L [facility] ALT 23 7 - 55 Units/L [facility] AST 15 10 - 50 Units/L [facility] Blood 05/27/2024 12:1 9 PM CDT 05/27/2024 12:19 PM CDT us George Martinez MD LAB BLOOD ORDERABLES Final Resul t ANNE [address] Department [place] [address] * (ABNORMAL) Urinalysis reflex to microscopic and culture Urine, clean voided (05/27/2024 11:59 AM CDT) Color, ur Yellow Yellow Clarity, ur Clear Clear [facility] Specific gravity, ur 1.011 1.003 - 1.030 [facility] pH, urine 5.5 [facility] Comment: Interpretive Data U rine pH is affected by diet, medications, systemic acid-base disturbances, and renal tubular function. pH may affect urinary stone formation. For example, urine pH below 6.0 may help reduce the tendency for calcium phosphate stones and pH greater than 6.0 may reduce the tendency for uric acid stone formation. Source: [facility] Current Interpretive Data was last revised on 2017 Protein, ur ql Negative Negative [facility] Glucose, ur ql 4+(A) Negative [facility] Ketones, ur Negative Negative [facility] Bilirubin, ur Negative Negative [facility] Blood, ur Negative Negative [facility] Urobilinogen, ur <2.0 <2.0 mg/dL [facility] Nitrite, ur Negative Negative [facility] Leukocyte esterase, ur Negative Negative [facility] UA reflex comment Reflex conditions for microscopic UA and culture not met. [facility] Urine, clean voided 05/27/2024 11:59 AM CDT 05/27/2024 1:23 PM CDT George Martinez MD LAB MICROBIOLOGY - GENERAL ORDER KAILEY Final Result Performing Organization Address [facility] de Phone Number ANNE [address] [place] [address] * Type and screen (05/27/2024 11:59 AM CDT) ABO Rh A Positive Neymar, indirect Negative [facility] Blood 05/27/2024 11:5 9 AM CDT 05/27/2024 12:31 PM CDT Narrative [facility] - 05/27/2024 1:45 PM CDT Has the patient had Daratumumab or Isatuximab in the past 6 months?->Unknown us George Martinez MD LAB BLOOD BANK TEST ORDERABLES F inal Result Performing Organization Address [facility] Co de Phone Number ANNE [address] [address] [employer] [place], [place] [id number] * ECG 12 lead (05/27/2024 11:45 AM CDT) 05/27/2024 11:4 5 AM CDT Narrative [facility] - 05/27/2024 3:19 PM CDT Vent Rate: 77 bpm RR Interval: 771 msec ID Interval: 166 msec QRS Duration: 91 msec QT Interval: 366 msec QTC Interval: 398 msec P-R-T [place]: 39 - -25 - -7 degrees IMPRESSION: SINUS RHYTHM WITH OCCASIONAL VENTRICULAR PREMATURE COMPLEXES WITH OCCASIONAL SUPRAVENTRICULAR PREMATURE COMPLEXES BORDERLINE LEFT AXIS DEVIATION LOW QRS VOLTAGE IN PRECORDIAL LEADS PATTERN CONSISTENT WITH PULMONARY DISEASE ABNORMAL ECG Electronically Signed By: Carson Aguila MD, [facility] us George Martinez MD ECG ORDERABLES Final Result [facility] * X-ray chest 2 views (05/27/2024 11:16 AM CDT) Anatomical Region Laterality Modality Body, Chest N/A Computed Radiogr aphy 05/27/2024 2:10 PM CDT Impressions 05/27/2024 2:10 PM CDT NO ACUTE PULMONARY CHANGE. Electronically signed by: Isidro Alcantar M.D. Narrative 05/27/2024 2:10 PM CDT EXAMINATION: XR CHEST PA LATERAL 2 VIEWS HISTORY: Exam preoperatively ORDER DATE: 05/27/2024 11:05 AM FINDINGS: The lungs are clear of infiltrate. The cardiac and mediastinal outlines are unremarkable. There are no significant pleural effusions . No significant abnormalities are noted in the spine or remainder of the bony thorax. Procedure Note Isidro Alcantar MD - 05/27/2024 EXAMINATION: XR CHEST PA LATERAL 2 VIEWS HISTORY: Exam preoperatively ORDER DATE: 05/27/2024 11:05 AM FINDINGS: The lungs are clear of infiltrate. The cardiac and mediastinal outlines are unremarkable. There are no significant pleural effusions . No significant abnormalities are noted in the spine or remainder of the bony thorax. IMPRESSION: NO ACUTE PULMONARY CHANGE. Electronically signed by: Isidro Alcantar M.D. us George Martinez MD IMG XR PROCEDURES Final Result * CT Body Outside Reference (05/20/2024 12:20 PM DATA SME) Narrative [id number] - 05/22/2024 11:13 AM DATA SME This order has been auto-finalized and does not contain a result. us Provider Transcribed Order IMG CT PROCEDURES Fin al Result HECTOR_[email or web address] * XR Chest PA Lateral 2 Views (04/11/2024 12:16 PM DATA SME) Anatomical Region Laterality Modality Body, Chest N/A Computed Radiogr aphy 04/11/2024 12:2 9 PM DATA SME Narrative 04/11/2024 12:31 PM DATA SME EXAM DESCRIPTION: XR CHEST PA LATERAL 2 VIEWS REASON FOR STUDY: abnormal cxr OPS pt, physician requested 2vw chest xray due to abnormal cxr TECHNIQUE: Frontal and lateral radiographic view(s) of the chest. COMPARISON: 04/11/2024 FINDINGS: LUNGS: There is mild elevation of the right hemidiaphragm. No focal opacity, pleural effusion, or pneumothorax. HEART/MEDIASTINUM: Cardiac silhouette normal in size. Mediastinal and hilar contours appear normal. LINES/TUBES: None. BONES: No acute osseous abnormality. IMPRESSION: No acute cardiopulmonary abnormality. No pneumothorax appreciated. THIS IS AN ELECTRONICALLY VERIFIED FINAL REPORT 04/11/2024 12:31 PM - Electronically signed by Jez Rahman M.D. AM T: Report ID: [id number] Reading Location: [id number] Procedure Note Jez Rahman MD - 04/11/2024 EXAM DESCRIPTION: XR CHEST PA LATERAL 2 VIEWS REASON FOR STUDY: abnormal cxr OPS pt, physician requested 2vw chest xray due to abnormal cxr TECHNIQUE: Frontal and lateral radiographic view(s) of the chest. COMPARISON: 04/11/2024 FINDINGS: LUNGS: There is mild elevation of the right hemidiaphragm. No focal opacity, pleural effusion, or pneumothorax. HEART/MEDIASTINUM: Cardiac silhouette normal in size. Mediastinal andhilar contours appear normal. LINES/TUBES: None. BONES: No acute osseous abnormality. IMPRESSION: No acute cardiopulmonary abnormality. No pneumothorax appreciated. THIS IS AN ELECTRONICALLY VERIFIED FINAL REPORT 04/11/2024 12:31 PM - Electronically signed by Jez Rahman M.D. AM T: Report ID: [id number] Reading Location: [id number] Jag Tobar MD IMG XR PROCEDURES Final Resu lt * XR Chest 1 View (04/11/2024 10:17 AM DATA SME) Anatomical Region Laterality Modality Body, Chest N/A Computed Radiogr aphy 04/11/2024 11:0 2 AM DATA SME Narrative 04/11/2024 11:31 AM DATA SME EXAM DESCRIPTION: XR CHEST 1 VIEW REASON FOR STUDY: post bronchoscopy TECHNIQUE: Single radiographic view(s) of the chest. COMPARISON: CT chest 03/25/2024 FINDINGS: LUNGS: There is no focal consolidation. No sizable pleural effusion appreciated. There appears to be a deep sulcus sign in the left lung, which can be a secondary sign of pneumothorax. HEART/MEDIASTINUM: Cardiac silhouette normal in size. Mediastinal and hilar contours appear normal. LINES/TUBES: There is a right-sided dialysis catheter with the tip near the superior cavoatrial junction. Extraneous devices overlie the patient. BONES: No acute osseous abnormality. IMPRESSION: There is the appearance of a deep sulcus sign in the left lung, which can be a secondary sign of pneumothorax. Consider full upright PA and lateral radiographs or a CT chest for further evaluation. These significant findings were reported by telephone to Dr. Tobar's nurse, Elayne Maki on 04/11/2024 at 11:21 a.m. nurse states that she will immediately relay the findings to Dr. Tobar who is currently with the patient. THIS IS AN ELECTRONICALLY VERIFIED FINAL REPORT 04/11/2024 11:31 AM - Electronically signed by Jez Rahman M.D. AM T: Report ID: [id number] Reading Location: [id number] Procedure Note Jez Rahman MD - 04/11/2024 EXAM DESCRIPTION: XR CHEST 1 VIEW REASON FOR STUDY: post bronchoscopy TECHNIQUE: Single radiographic view(s) of the chest. COMPARISON: CT chest 03/25/2024 FINDINGS: LUNGS: There is no focal consolidation. No sizable pleural effusion appreciated. There appears to be a deep sulcus sign in the left lung, which can be a secondary sign of pneumothorax. HEART/MEDIASTINUM: Cardiac silhouette normal in size. Mediastinal andhilar contours appear normal. LINES/TUBES: There is a right-sided dialysis catheter with the tip nearthe superior cavoatrial junction. Extraneous devices overlie the patient. BONES: No acute osseous abnormality. IMPRESSION: There is the appearance of a deep sulcus sign in the leftlung, which can be a secondary sign of pneumothorax. Consider full upright PAand lateral radiographs or a CT chest for further evaluation. These significant findings were reported by telephone to Dr. Tobar's nurse, Elayne Maki on 04/11/2024 at 11:21 a.m. nurse states thatshe will immediately relay the findings to Dr. Tobar who is currently withthe patient. THIS IS AN ELECTRONICALLY VERIFIED FINAL REPORT 04/11/2024 11:31 AM - Electronically signed by Jez Rahman M.D. AM T: Report ID: [id number] Reading Location: [id number] us Jag Tobar MD IMG XR PROCEDURES Final Resu lt * FL Fluoroscopy < 1 Hour (04/11/2024 9:41 AM DATA SME) Narrative RAD_JENNIFER_OC_MHE - 04/11/2024 9:42 AM DATA SME The images from this study are not interpreted by Radiology. Please refer to the physician's procedure / OR operative note. us Jag Tobar MD IMG FLUOROSCOPY PROCEDURES F inal Result RAD_JENNIFER_MHB_MHE * Surgical pathology (04/11/2024 9:22 AM DATA SME) Tissue (Lung Biopsy) 04/11/2024 9:22 AM DATA SME Narrative PATHOLOGY [facility] - 04/14/2024 3:07 PM DATA SME [facility] Department of Pathology [address] [place] [id number] Note to Patients: This report may contain a detailed description of human tissue sent by a health care provider to the laboratory for pathologic evaluation. The content of this report is essential for diagnosis and may provide important critical findings. This information may be unfamiliar to patients to review without a medical professional present. It is advised that the patient review this report in the presence of a health care provider who can answer questions and explain the details. 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 Please correlate with the culture result for speciation. The result was communicated with Dr. Jag Tobar via [employer] message on 04/14/2024. Microscopic examination substantiates the above cited diagnosis. Please correlate with the culture result for speciation. The result was communicated with Dr. Jag Tobar via [employer] message on 04/14/2024. Clinical History: The patient is a 68-year-old man with a nodule of the right lung. Operative procedure: bronchoscopy with biopsy. Gross Description Received in formalin, labeled with the patient s identifiers and right lower lobe biopsies and consists of multiple gil-perez to perez-red, friable tissue fragments measuring 0.9 x 0.7 x 0.3 cm in aggregate. Filtered and entirely submitted. Labeled A1. Jar 0. jjb/04/11/2024 11:35 EVERETT Singleton, PA (ASCP) Microscopic slide review and interpretation for this case was performed at [facility], Department of Surgical Pathology, [address] [facility], [id number], [place] [address] CLIA # [id number] Jag Tobar MD LAB PATHOLOGY ORDERABLES Fin al Result Performing Organization Address City/State/[facility] Co de Phone Number PATHOLOGY [facility] * Cytology (04/11/2024 9:21 AM DATA SME) Fluid (Bronch Lavage (Cytology)) 04/11/2024 9:21 AM DATA SME Narrative PATHOLOGY [facility] - 04/15/2024 6:01 PM DATA SME EPIC results best viewed via link to PDF [facility] Ondina Guzman Laboratory [place] [address] Note to Patients: This report may contain a detailed description of human tissue sent by a health care provider to the laboratory for pathologic evaluation. The content of this report is essential for diagnosis and may provide important critical findings. This information may be unfamiliar to patients to review without a medical professional present. It is advised that the patient review this report in the presence of a health care provider who can answer questions and explain the details. CYTOPATHOLOGY REPORT FINAL Patient Name: WEST FOSTER Gender: M : 1955 (Age: 68) Address: [address] [address] [facility] #: [id number] Taken:04/11/2024 Received:04/11/2024 Reported: 04/15/2024 Patient Type: [facility] SDS OUTPATIENT Service: Surgery Location: Physician(s): MD Stephanie Rubio NP FINAL DIAGNOSIS A. Lung, right lower lobe, bronchoalveolar lavage: - Negative for malignancy - Alveolated macrophages, acute inflammation, and ciliated bronchial epithelial cells present B. Lung, right lower lobe brushing and brush tip: - Numerous septate fungal hyphae with pigment deposition present (see comment) - Negative for malignancy Comments A-B. Microscopic examination substantiates the above cited diagnosis. Please note, in part B there are numerous septate fungal hyphae some with light brown pigmentation noted. 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 Please correlate with concurrent cultures for further characterization. sucr/04/15/2024 18:01 By this signature, I attest that the above diagnosis is based upon my personal examination of the slides(and/or other material indicated in the diagnosis). Kristina Haynes M.D. Report Electronically Reviewed and Signed Out By Kristina Haynes M.D. 04/15/2024 18:01:32 Monika Hassan [facility]) Gross Description A. BAL right lower lobe: 25 ml cloudy fluid - 1 Pap stained ThinPrep. (vo) B. Right lower lobe brushing and brush tip: 1 brush tip received in 80 mL - 1 CB . (vo) Clinical Diagnosis and History The patient is a 68 year old male with nodule of right lung. Microscopic slide review and interpretation for this case was performed at [facility], Department of Surgical Pathology, [address] [facility] [place], [id number], [place] [address] IA # [id number] REPORT IMAGES AND SCANNED DOCUMENTS, IF INCLUDED, ONLY VIEWABLE IN PDF VERSION OF REPORT The performance characteristics of some immunohistochemical stains, in-situ hybridization and fluorescence in-situ hybridization tests and immunophenotyping by flow cytometry cited in this report (if any) were determined by the Surgical Pathology and Flow Cytometry Departments at [facility] as part of an ongoing senior manager quality assurance program and in compliance with federally mandated regulations drawn from the Clinical Laboratory Improvement Act of 1988 (CLIA '88). Some of these tests rely on the use of analyte specific reagents and are subject to specific labeling requirements by the US Food and Drug Administration. Such diagnostic tests may only be performed in a facility that is certified by the Department of Health and Human Services as a high complexity laboratory under CLIA '88. The FDA has determined that such clearance or approval is not necessary. This test is used for clinical purposes. It should not be regarded as investigational or for research. Nevertheless, federal rules concerning the medical use of analyte specific reagents require that the following disclaimer be attached to the report: This test was developed and its performance characteristics determined by the Surgical Pathology and Flow Cytometry Departments of [facility]. It has not been cleared or approved by the U. S. Food and Drug Administration. Jag Tobar MD LAB CYTOLOGY ORDERABLES Joya l Result PATHOLOGY [facility] * ID AN ELECTIVE ENDOTRACHEAL AIRWAY, ID AN PROCEDURE PLACEHOLDER (04/11/2024 9:20 AM DATA SME) Narrative Devon Garcia CRNA - 04/11/2024 9:20 AM DATA SME Devon Garcia CRNA 04/11/2024 9:20 AM Airway Patient location: OR Urgency: elective Indications for airway management: anesthesia Difficult airway: no Staff: Supervising provider: Sandra Mensah MD Placed by: CAKE PRESS OPERATOR: Devon Garcia CRNA Emergent airway documentation: Risks and benefits discussed: yes Consent obtained: yes Consent given by: patient Airway prep: Preoxygenated: yes Patient position: sniffing Mask difficulty assessment: 1 - vent by mask Spontaneous ventilation during airway: absent Sedation level during airway: deep Final airway details: Final airway type: endotracheal airway Tube type: ETT ETT size: 8.0 mm Cuffed: yes Technique used for successful ETT placement: direct laryngoscopy Devices/Methods used in placement: intubating stylet and LTA Insertion site: oral Blade type: Loco Blade size: 2 Cormack-Lehane (direct): grade I - full view of glottis Cuff volume: 6 mL Cuff inflated with: air ETT to gums: 22 cm Placement verified by: auscultation and CO2 detection Airway secured with: other (pink tape) Number of attempts: 1 us Sandra Mensah MD ANESTHESIA ORDERABLES Final Re sult * (ABNORMAL) Aerobic culture and gram stain Bronchoalveolar lavage Lobe, right lower (04/11/2024 9:19AM DATA SME) Direct Specimen Exam Stain: Cytospin Gram stain shows: Rare polymorphonuclear leukocytes seen. No organisms seen. Comment:Testing performed by : [facility], [address] [place]., [address] Report Final Report: Curvularia species Plus growth of clinically insignificant bacterial lucian. (.) ANNE Comment:Testing performed by : [facility], [address] [place] [address]., [address] Organism PLUS GROWTH OF CLINICALLY INSIGNIFICANT LUCIAN. ANNE Organism CURVULARIA SPECIES ANNE Bronchoalveolar lavage (Lobe, right lower) 04/11/2024 9:19 AM DATA SME 04/11/2024 11:24 AM DATA SME Narrative [facility] - 04/27/2024 3:12 PM DATA SME Testing performed by [facility] Microbiology Laboratory ([phone]) Specimens submitted from normally sterile body sites will have all bacterial morphotypes identified. Specimens that contain grossly mixed lucian and/or are from body sites that are not normally sterile will be examined for Staphylococcus aureus, Pseudomonas aeruginosa, beta-hemolytic strep, vancomycin-resistant Enterococcus and fungus. If any of these are isolated, the organism will be reported. Current interpretive data was last revised on 2016. us Jag Tobar MD LAB MICROBIOLOGY - GENERAL O RDERABLES Final Result [facility] [address] [facility] Department [place] [address] * (ABNORMAL) Mycology (fungal) culture Bronchoalveolar lavage Lobe, right lower (04/11/2024 9:19 AM DATA SME) Report Final Report: Curvularia species (.) Comment:Testing performed by : [facility], [address] [place]., [address] Organism CURVULARIA SPECIES ANNE Bronchoalveolar lavage (Lobe, right lower) 04/11/2024 9:19 AM DATA SME 04/11/2024 11:24 AM DATA SME Narrative ANNE - 05/09/2024 8:28 AM DATA SME Testing performed by [facility] Microbiology Laboratory ([phone]). Jag Tobar MD LAB MICROBIOLOGY - GENERAL O RDERABLES Final Result Performing Organization Address City/[facility]/ZIP Co de Phone Number ANNE [address] [place] [address] * Mycobacteriology (AFB) culture and acid-fast stain Bronchoalveolar lavage Lobe, right lower (04/11/2024 9:19 AM DATA SME) Direct Specimen Exam Stain: No Acid-fast bacilli seen Comment:Testing performed by : [facility], [address] [place]., [address] Report Final Report: No growth of acid-fast bacilli ANNE Comment:Testing performed by : [facility], [address] [place]., [address] Bronchoalveolar lavage (Lobe, right lower) 04/11/2024 9:19 AM DATA SME 04/11/2024 11:24 AM DATA SME Narrative ANNE - 06/09/2024 8:08 AM CDT Testing performed by [facility] Microbiology Laboratory ([phone]). Jag Tobar MD LAB MICROBIOLOGY - GENERAL O RDERABLES Final Result ANNE [address] [place] [address] * Bronchoscopy (04/11/2024 8:47 AM DATA SME) Anatomical Region Laterality Modality Other Narrative Procedure Note Jag Tobar MD - 04/11/2024 8:47 AM CST [facility] Pulmonary Patient Name: West Foster Procedure Date: 04/11/2024 8:47 AM Date of : 1955 Admit Type: Outpatient Age: 68 Room: [facility] RO[facility] 25 Gender: Male Note Status: Finalized Attending MD: Jag Tobar M.D. Procedure: Bronchoscopy Providers: Jag Tobar M.D. Referring MD: Requesting Physician: Procedure: After obtaining informed consent, the [id number] bronchoscope was introduced through the rightnostril and advanced to the. Findings: Jaki Tobar M.D. Jag Tobar M.D. 04/11/2024 9:53:56 AM . Number of Addenda: 0 Note Initiated On: 04/11/2024 8:47 AM us Jag Tobar MD ENDOSCOPY PROCEDURES Final R esult * (ABNORMAL) eGFR (04/11/2024 7:30 AM DATA SME) eGFR 46(L) >=60 mL/min/1. 73 m2 Comment: Interpretive Data Reference Interval Normal >/= 90 mL/min/1.73m2 Mildly decreased* 60 - 89 mL/min/1.73m2 Mildly to moderately decreased 45 - 59 mL/min/1.73m2 Moderately to severely decreased 30 - 44 mL/min/1.73m2 Severely decreased 15 - 29 mL/min/1.73m2 Kidney Failure < 15 mL/min/1.73m2 *Relative to young adult level Estimated glomerular filtration rate is determined by the 2020 CKD-EPI equation recommended by the National Kidney Foundation (A Unifying Approach to GFR Estimation: Recommendations of the NKF-ASK Task Force on Reassessing the Inclusion of Race in Diagnosing Kidney Disease, JASN 2020). The CKD-EPI equation should not be used for patients with unstable renal function and has not been validated in children and those over 70. Current interpretive data was last reviewed 2021. Blood 04/11/2024 7:30 AM DATA SME 04/11/2024 7:34 AM DATA SME Jag Tobar MD LAB BLOOD ORDERABLES Final R esult [facility] [address] [facility] Department [place] [address] * Differential, auto (04/11/2024 7:30 AM DATA SME) Pathologist [facility] Neutrophil abs 3.6 1.5 - 6.5 K/cumm Imm gran abs 0.0 0.0 - 0.1 K/cumm [facility] Lymphocyte abs 1.8 0.8 - 3.3 K/cumm [facility] Monocyte abs 0.5 0.2 - 0.8 K/cumm [facility] Eosinophil abs 0.2 0.0 - 0.5 K/cumm [facility] Basophil abs 0.0 0.0 - 0.1 K/cumm [facility] Neutrophil pct 58.8 % [facility] Comment: Interpretive Data Percent cell count reference ranges are not reported, since discordance with absolute values may lead to misinterpretation of CBC data. Current Interpretive Data was last revised on 2017. Imm gran pct 0.3 % [facility] Comment: Interpretive Data Percent cell count reference ranges are not reported, since discordance with absolute values may lead to misinterpretation of CBC data. Current Interpretive Data was last revised on 2017. Lymphocyte pct 29.9 % [facility] Comment: Interpretive Data Percent cell count reference ranges are not reported, since discordance with absolute values may lead to misinterpretation of CBC data. Current Interpretive Data was last revised on 2017. Monocyte pct 7.7 % [facility] Comment: Interpretive Data Percent cell count reference ranges are not reported, since discordance with absolute values may lead to misinterpretation of CBC data. Current Interpretive Data was last revised on 2017. Eosinophil pct 2.6 % [facility] Comment: Interpretive Data Percent cell count reference ranges are not reported, since discordance with absolute values may lead to misinterpretation of CBC data. Current Interpretive Data was last revised on 2017. Basophil pct 0.7 % [facility] Comment: Interpretive Data Percent cell count reference ranges are not reported, since discordance with absolute values may lead to misinterpretation of CBC data. Current Interpretive Data was last revised on 2017. Blood 04/11/2024 7:30 AM DATA SME 04/11/2024 7:34 AM DATA SME us Jag Tobar MD LAB BLOOD ORDERABLES Final R esult [facility] [address] [facility] Department [place] [address] * CBC with auto differential (04/11/2024 7:30 AM DATA SME) WBC 6.1 3.8 - 9.9 K/cumm Hgb 16.4 13.0 - 17.5 g/dL [facility] Hct 49.4 38.9 - 50.3 % [facility] Plt 184 150 - 400 K/cumm [facility] MPV 11.3 9.1 - 12.3 fL [facility] RBC 5.55 4.30 - 5.80 M/cumm [facility] MCV 89.0 81.3 - 96.4 fL [facility] MCH 29.5 27.1 - 33.3 pg [facility] MCHC 33.2 32.3 - 35.7 g/dL [facility] RDW CV 13.7 11.1 - 14.9 % [facility] RDW SD 44.6 35.7 - 48.1 fL [facility] NRBC abs 0.00 0.00 - 0.01 K/cumm [facility] Blood 04/11/2024 7:30 AM DATA SME 04/11/2024 7:34 AM DATA SME Jag Tobar MD LAB BLOOD ORDERABLES Final R esult Performing Organization Address [facility] Co de Phone Number [address] [employer] [place] [address] * aPTT (04/11/2024 7:30 AM DATA SME) aPTT 31 22 - 37 sec Comment: Interpretive data aPTT test has not been evaluated for monitoring heparin therapy. The anti-Xa is the preferred test. Current interpretive data was last revised on 2019. Blood 04/11/2024 7:30 AM DATA SME 04/11/2024 7:34 AM DATA SME Jag Tobar MD LAB BLOOD ORDERABLES Final R [facility] Performing Organization Address [facility] de Phone Number [address] [employer] [place] [address] * Protime-INR (04/11/2024 7:30 AM DATA SME) PT 14.2 12.0 - 14.6 sec INR 1.1 0.9 - 1.2 [facility] Comment: Ref Range High Interpretive data Oral anticoagulant therapeutic ranges: Venous thromboembolism prophylaxis or treatment: 2.0-3.0 CARDIOLOGY Standard range: 2.0-3.0 High-intensity range: 2.5-3.5 Refer to indication-specific guidelines for appropriate target ranges for prosthetic heart valve replacement. Current interpretive data was last revised on 2019. Blood 04/11/2024 7:30 AM DATA SME 04/11/2024 7:34 AM DATA SME Jag Tobar MD LAB BLOOD ORDERABLES Final R esult ANNE [address] [facility] Department [place] [address] * (ABNORMAL) Basic metabolic panel (04/11/2024 7:30 AM DATA SME) Sodium 142 135 - 145 mmol/L Potassium, pl 4.1 3.3 - 4.9 mmol/L [facility] Chloride 109 97 - 110 mmol/L [facility] CO2 23 22 - 32 mmol/L [facility] Anion gap 10 2 - 15 mmol/L [facility] BUN 20 6 - 25 mg/dL [facility] Creatinine 1.61(H) 0.80 - 1.30 mg/dL [facility] Glucose 115 70 - 199 mg/dL [facility] Comment: Interpretive Data Fasting glucose >/= 126 mg/dl is diagnostic for diabetes. Fasting is defined as no caloric intake for at least 8 hours. Fasting glucose between 100 mg/dl to 125 mg/dl is diagnostic of prediabetes. In a patient with classic symptoms of hyperglycemia or hyperglycemic crisis, a random glucose >/= 200 mg/dl is diagnostic for diabetes. In the absence of unequivocal hyperglycemia, results should be confirmed by repeat testing. The classification and Diagnosis of Diabetes Diabetes Care 202; 46: S19-S40. Current interpretive data was last revised 2022. Calcium 9.0 8.5 - 10.3 mg/dL [facility] Blood 04/11/2024 7:30 AM DATA SME 04/11/2024 7:34 AM DATA SME Jag Tobar MD LAB BLOOD ORDERABLES Final R esult ANNE [address] [facility] Department [place] [address] * PET/CT FDG Skull to Thigh (04/10/2024 12:12 PM DATA SME) Anatomical Region Laterality Modality N/A Positron Emissio n Tomography (PET) 04/10/2024 2:18 PM DATA SME Impressions 04/10/2024 2:44 PM DATA SME 1. Moderately FDG-avid right lower lobe nodule is increased in size and suspicious for malignant involvement. This may may represent a primary malignancy versus metastatic disease. 2. Additional pulmonary nodules are relatively stable from 2021 and are too small to fully characterize on PET/CT. Recommend attention on follow-up imaging. 3. Focal marked FDG-avidity, likely at the ascending colon. Recommend attention on follow-up imaging and correlation with colonoscopy if clinically indicated. Dictated by: Chan Sweet MD The radiology attending physician has personally reviewed this study, and had reviewed and/or edited this written report and agrees with it. Electronically signed by: Jose Luis Walker M.D. Narrative 04/10/2024 2:44 PM DATA SME EXAMINATION: TUMOR FDG-PET/CT IMAGING DATE OF STUDY: 04/10/2024 SCANNER: [facility] Create (NV1). This is a high-resolution scanner, which can result in higher SUVs (and even detection of new small lesions) compared to older scanners. RADIOPHARMACEUTICAL: 89 mCi F-18 Fluorodeoxyglucose (FDG) i.v. Injection site: Right antecubital HISTORY: 68-year-old man with right renal cell carcinoma status post right nephrectomy in 2007 and partial left nephrectomy in 2012. Undergoing evaluation for right lower lobe pulmonary nodule initially seen on 03/25/2024 and new from 12/05/2023. Multiple additional subcentimeter pulmonary nodules were reported, some of which have increased in size from 02/06/2022. The study is requested for diagnosis. Initial treatment strategy. TECHNIQUE: The patient's fasting blood glucose level, measured by glucometer before injection of FDG, was 89 mg/dL. After intravenous administration of FDG, noncontrast CT images were obtained for attenuation correction and for fusion with emission PET images to allow for anatomical localization of PET findings. Emission PET images were then obtained. The study was interpreted on the [employer] workstation. The mean liver SUV (reported for quality systems engineer purposes) is 2.5. The total scanned area was skull base to proximal thighs. Images of the body were obtained starting 59 minutes after injection of tracer. All reported SUVs are maximum SUVs, unless otherwise specified. COMPARISON: Multiple prior CT chests, most recently 04/04/2024 DESCRIPTORS OF LESION FDG AVIDITY: Minimal: <= blood pool Mild: > blood pool and <= liver Moderate: > liver and <= 2x SUVmax liver Moderate to marked: >2x SUVmax liver and <= 3x SUVmax liver Marked: > 3x SUVmax liver FINDINGS: There is a multilobular soft tissue mass within the right lower lobe with extension to the adjacent bronchus, measuring approximately 4.7 x 2.7 cm in greatest axial dimensions with a focus of moderate FDG avidity along the posterior aspect of the mass demonstrating an SUV of 5.4 (image 110). This is increased in size from 12/06/2023. There are multiple additional pulmonary nodules which are below the resolution for PET/CT evaluation. For example, there is a right middle lobe 8 mm pulmonary nodule (image 108). There is a 7 mm left lower lobe pulmonary nodule (image 107). Additional tiny pulmonary nodules such as a left upper lobe 5 mm nodule (image 83) are noted. There is a markedly FDG-avid focus within the mesentery of the right lower quadrant of the abdomen in close proximity to the ascending colon with an SUV of 8.1 (image 175 of 320) without definite CT correlate. This may be related to misregistration of bowel activity. No suspicious osseous lesion. Focal FDG uptake in the distal esophagus likely secondary to reflux esophagitis. Additional CT findings: Multiple gallstones in the distended gallbladder. Hepatic cyst. Fatty atrophy of the pancreas. Right radical nephrectomy. Partial left nephrectomy changes. Degenerative changes along the spine noted. Procedure Note Jose Luis Walker MD - 04/10/2024 EXAMINATION: TUMOR FDG-PET/CT IMAGING DATE OF STUDY: 04/10/2024 SCANNER: [facility] N CIHI ([id number]). This is a high-resolution scanner, which can result in higher SUVs (and even detection of new small lesions) compared to older scanners. RADIOPHARMACEUTICAL: 89 mCi F-18 Fluorodeoxyglucose (FDG) i.v. Injection site: Right antecubital HISTORY: 68-year-old man with right renal cell carcinoma status post right nephrectomy in 2007 and partial left nephrectomy in 2012. Undergoing evaluation for right lower lobe pulmonary nodule initially seen on 03/25/2024 and new from 12/05/2023. Multiple additional subcentimeter pulmonary nodules were reported, some of which have increased in size from 02/06/2022. The study is requested for diagnosis. Initial treatment strategy. TECHNIQUE: The patient's fasting blood glucose level, measured by glucometer before injection of FDG, was 89 mg/dL. After intravenous administration of FDG, noncontrast CT images were obtained for attenuation correction and for fusion with emission PET images to allow for anatomical localization of PET findings. Emission PET images were then obtained. The study was interpreted on the [employer] workstation. The mean liver SUV (reported for quality systems engineer purposes) is 2.5. The total scanned area was skull base to proximal thighs. Images of the body were obtained starting 59 minutes after injection of tracer. All reported SUVs are maximum SUVs, unless otherwise specified. COMPARISON: Multiple prior CT chests, most recently 04/04/2024 DESCRIPTORS OF LESION FDG AVIDITY: Minimal: <= blood pool Mild: > blood pool and <= liver Moderate: > liver and <= 2x SUVmax liver Moderate to marked: >2x SUVmax liver and <= 3x SUVmax liver Marked: > 3x SUVmax liver FINDINGS: There is a multilobular soft tissue mass within the right lower lobe with extension to the adjacent bronchus, measuring approximately 4.7 x 2.7 cm in greatest axial dimensions with a focus of moderate FDG avidity along the posterior aspect of the mass demonstrating an SUV of 5.4 (image 110). This is increased in size from 12/06/2023. There are multiple additional pulmonary nodules which are below the resolution for PET/CT evaluation. For example, there is a right middle lobe 8 mm pulmonary nodule (image 108). There is a 7 mm left lower lobe pulmonary nodule (image 107). Additional tiny pulmonary nodules such as a left upper lobe 5 mm nodule (image 83) are noted. There is a markedly FDG-avid focus within the mesentery of the right lower quadrant of the abdomen in close proximity to the ascending colon with an SUV of 8.1 (image 175 of 320) without definite CT correlate. This may be related to misregistration of bowel activity. No suspicious osseous lesion. Focal FDG uptake in the distal esophagus likely secondary to reflux esophagitis. Additional CT findings: Multiple gallstones in the distended gallbladder. Hepatic cyst. Fatty atrophy of the pancreas. Right radical nephrectomy. Partial left nephrectomy changes. Degenerative changes along the spine noted. IMPRESSION: 1. Moderately FDG-avid right lower lobe nodule is increased in size and suspicious for malignant involvement. This may may represent a primary malignancy versus metastatic disease. 2. Additional pulmonary nodules are relatively stable from 2021 and are too small to fully characterize on PET/CT. Recommend attention on follow-up imaging. 3. Focal marked FDG-avidity, likely at the ascending colon. Recommend attention on follow-up imaging and correlation with colonoscopy if clinically indicated. Dictated by: Chan Sweet MD The radiology attending physician has personally reviewed this study, and had reviewed and/or edited this written report and agrees with it. Electronically signed by: Jose Luis Walker M.D. George Martinez MD IM PET PROCEDURES Final Result * (ABNORMAL) Pulmonary Function Test - (04/07/2024 2:59 PM DATA SME) FVC PRE 3.92 3.12 - 5.33 L [facility] FEV1 PRE 3.21 2.29 - 4.02 L [facility] [id number] 81.76 62.34 - 87.83 % [facility] VMU10-28% PRE 4.38(A) 1.03 - 4.35 L/s [facility] PEF PRE 9.97 6.07 - 10.05 L/s [facility] DLCOc SB 23.77 20.26 - 34.11 ml/(min*mm Hg) [facility] DLCO/VA PRE 4.53 2.66 - 4.97 ml/(min*mm Hg*L) [facility] VA 5.25(A) 6.98 - 6.98 L [facility] TLC PRE 5.92(A) 5.97 - 8.28 L [facility] VC PRE 3.92 3.31 - 5.16 L [facility] IC PRE 2.95(A) 3.17 - 3.17 L [facility] FRC PL PRE 2.97 2.71 - 4.69 L [facility] ERV PRE 0.97(A) 1.06 - 1.06 L [facility] RV PRE 2.00 1.96 - 3.31 L [facility] VTG 3.01 L [facility] RAW PRE 1.15(A) 3.06 - 3.06 cmH2O*s/L [facility] Anatomical Region Laterality Modality PFT 04/07/2024 2:30 PM DATA SME Impressions 04/08/2024 8:38 AM DATA SME 1. Normal spirometry. Total lung capacity is approaching the lower limit of normal and may reflect a mild restrictive ventilatory limitation 2. Normal diffusion capacity Electronically signed by Isidro Tabor MD Pulmonary & Critical Care Narrative 04/08/2024 8:38 AM DATA SME PULMONARY FUNCTION TESTS [place] Cristian 68 y.o. 04/08/2024 INTERPRETATION Please see technologist's comments mentioned in attached results report. SPIROMETRY: Pre bronchodilator FEV1 is 101 % predicted, FVC is 93 % predicted, FEV1/FVC is 0.82 Bronchodilator response: Not performed Inspection of the patient's flow-volume loops shows: Possible flattening of the inspiratory limb with normal appearance of the expiratory limbs. LUNG VOLUMES: Lung volumes by body plethysmography: TLC is 83 % predicted, RV is 76 % predicted DLCO: Unadjusted for hemoglobin and carboxyhemoglobin DLCO is 87 % predicted George Martinez MD PFT ORDERABLES Final Result * ECG 12 lead (04/07/2024 2:06 PM DATA SME) Ventricular Rate EKG/Min 66 BPM [facility] Atrial Rate 66 BPM [facility] ID-Interval (MSEC) 160 ms [facility] QRS-Interval (MSEC) 92 ms [facility] QT-Interval (MSEC) 376 ms [facility] QTc 394 ms [facility] P [place] 38 degrees [facility] R [place] 38 degrees [facility] T [place] 6 degrees [facility] Diagnosis Sinus rhythm with marked sinus arrhythmia Possible Inferior infarct , age undetermined Abnormal ECG No previous ECGs available Confirmed by MONIKA REDDY M.D. ([id number]) on 04/08/2024 7:48:19 AM [facility] 04/07/2024 2:06 PM DATA SME 04/08/2024 7:48 AM DATA SME Vito Guerrero MD ECG ORDERABLES Final Result [facility] * (ABNORMAL) eGFR (04/04/2024 12:28 PM DATA SME) eGFR 44(L) >=60 mL/min/1. 73 m2 Comment: Interpretive Data Reference Interval Normal >/= 90 mL/min/1.73m2 Mildly decreased* 60 - 89 mL/min/1.73m2 Mildly to moderately decreased 45 - 59 mL/min/1.73m2 Moderately to severely decreased 30 - 44 mL/min/1.73m2 Severely decreased 15 - 29 mL/min/1.73m2 Kidney Failure < 15 mL/min/1.73m2 *Relative to young adult level Estimated glomerular filtration rate is determined by the 2020 CKD-EPI equation recommended by the National Kid[employer] (A Unifying Approach to GFR Estimation: Recommendations of the NKF-ASK Task Force on Reassessing the Inclusion of Race in Diagnosing Kidney Disease, JASN 2020). The CKD-EPI equation should not be used for patients with unstable renal function and has not been validated in children and those over 70. Current interpretive data was last reviewed 2021. Blood 04/04/2024 12:2 8 PM DATA SME 04/04/2024 12:52 PM DATA SME Jag Tobar MD LAB BLOOD ORDERABLES Final R esult Performing Organization Address City/[facility]/ZIP Co de Phone Number ANNE [address] [facility] Department [place] [address] * Differential, auto (04/04/2024 12:28 PM DATA SME) Pathologist [facility] Neutrophil abs 3.7 1.5 - 6.5 K/cumm Imm gran abs 0.0 0.0 - 0.1 K/cumm [facility] Lymphocyte abs 1.9 0.8 - 3.3 K/cumm [facility] Monocyte abs 0.5 0.2 - 0.8 K/cumm [facility] Eosinophil abs 0.1 0.0 - 0.5 K/cumm [facility] Basophil abs 0.0 0.0 - 0.1 K/cumm [facility] Neutrophil pct 59.4 % [facility] Comment: Interpretive Data Percent cell count reference ranges are not reported, since discordance with absolute values may lead to misinterpretation of CBC data. Current Interpretive Data was last revised on 2017. Imm gran pct 0.3 % [facility] Comment: Interpretive Data Percent cell count reference ranges are not reported, since discordance with absolute values may lead to misinterpretation of CBC data. Current Interpretive Data was last revised on 2017. Lymphocyte pct 30.5 % [facility] Comment: Interpretive Data Percent cell count reference ranges are not reported, since discordance with absolute values may lead to misinterpretation of CBC data. Current Interpretive Data was last revised on 2017. Monocyte pct 7.6 % [facility] Comment: Interpretive Data Percent cell count reference ranges are not reported, since discordance with absolute values may lead to misinterpretation of CBC data. Current Interpretive Data was last revised on 2017. Eosinophil pct 1.7 % [facility] Comment: Interpretive Data Percent cell count reference ranges are not reported, since discordance with absolute values may lead to misinterpretation of CBC data. Current Interpretive Data was last revised on 2017. Basophil pct 0.5 % [facility] Comment: Interpretive Data Percent cell count reference ranges are not reported, since discordance with absolute values may lead to misinterpretation of CBC data. Current Interpretive Data was last revised on 2017. Blood 04/04/2024 12:2 8 PM DATA SME 04/04/2024 12:52 PM DATA SME Jag Tobar MD LAB BLOOD ORDERABLES Final R esult [facility] [id number] [facility] Department [place] [address] * (ABNORMAL) CBC with auto differential (04/04/2024 12:28 PM DATA SME) WBC 6.3 3.8 - 9.9 K/cumm Hgb 16.6 13.0 - 17.5 g/dL [facility] Hct 50.4(H) 38.9 - 50.3 % [facility] Plt 183 150 - 400 K/cumm [facility] MPV 11.3 9.1 - 12.3 fL [facility] RBC 5.56 4.30 - 5.80 M/cumm [facility] MCV 90.6 81.3 - 96.4 fL [facility] MCH 29.9 27.1 - 33.3 pg [facility] MCHC 32.9 32.3 - 35.7 g/dL [facility] RDW CV 13.6 11.1 - 14.9 % [facility] RDW SD 45.5 35.7 - 48.1 fL [facility] NRBC abs 0.00 0.00 - 0.01 K/cumm [facility] Blood 04/04/2024 12:2 8 PM DATA SME 04/04/2024 12:52 PM DATA SME Narrative [facility] - 04/04/2024 1:03 PM DATA SME Please perform CBC with manual differential. Jag Tobar MD LAB BLOOD ORDERABLES Final R esult Performing Organization Address [facility] de Phone Number [address] [place] [address] * Protime-INR (04/04/2024 12:28 PM DATA SME) PT 13.6 12.0 - 14.6 sec INR 1.0 0.9 - 1.2 [facility] Comment: Ref Range High Interpretive data Oral anticoagulant therapeutic ranges: Venous thromboembolism prophylaxis or treatment: 2.0-3.0 CARDIOLOGY Standard range: 2.0-3.0 High-intensity range: 2.5-3.5 Refer to indication-specific guidelines for appropriate target ranges for prosthetic heart valve replacement. Current interpretive data was last revised on 2019. Blood 04/04/2024 12:2 8 PM DATA SME 04/04/2024 12:52 PM DATA SME Jag Tobar MD LAB BLOOD ORDERABLES Final R esult Performing Organization Address [facility] Co de Phone Number [address] [place] [address] * (ABNORMAL) Basic metabolic panel (04/04/2024 12:28 PM DATA SME) [facility] Sodium 145 135 - 145 mmol/L Potassium, pl 4.5 3.3 - 4.9 mmol/L [facility] Chloride 109 97 - 110 mmol/L [facility] CO2 26 22 - 32 mmol/L [facility] Anion gap 10 2 - 15 mmol/L [facility] BUN 21 6 - 25 mg/dL [facility] Creatinine 1.65(H) 0.80 - 1.30 mg/dL [facility] Glucose 87 70 - 199 mg/dL [facility] Comment: Interpretive Data Fasting glucose >/= 126 mg/dl is diagnostic for diabetes. Fasting is defined as no caloric intake for at least 8 hours. Fasting glucose between 100 mg/dl to 125 mg/dl is diagnostic of prediabetes. In a patient with classic symptoms of hyperglycemia or hyperglycemic crisis, a random glucose >/= 200 mg/dl is diagnostic for diabetes. In the absence of unequivocal hyperglycemia, results should be confirmed by repeat testing. The classification and Diagnosis of Diabetes Diabetes Care 2021; 46: S19-S40. Current interpretive data was last revised 2022. Calcium 10.0 8.5 - 10.3 mg/dL [facility] Blood 04/04/2024 12:2 8 PM DATA SME 04/04/2024 12:52 PM DATA SME Narrative [facility] - 04/04/2024 1:21 PM DATA SME Has the patient fasted?->No Jag Tobar MD LAB BLOOD ORDERABLES Final R esult [facility]NE [address] [facility] Department [place] [address] * (ABNORMAL) POCT creatinine for contrast evaluation (03/25/2024 12:35 PM DATA SME) [facility] Creatinine POC 1.90(H) 0.80 - 1.30 mg/dL Comment:Testing performed by : [facility], [address] [place] [address]., [id number] Blood 03/25/2024 12:3 5 PM DATA SME 03/25/2024 12:35 PM DATA SME us George Martinez MD POINT OF CARE TEST ORDERABLES Fi nal Result ANNE [facility] [address] [facility] Department [place] [address] * CT Chest W Contrast (03/25/2024 12:35 PM DATA SME) Anatomical Region Laterality Modality Body N/A Computed Tomogra phy 03/25/2024 12:4 0 PM DATA SME Narrative 03/25/2024 1:40 PM DATA SME EXAM DESCRIPTION: CT CHEST W CONTRAST REASON FOR STUDY: Lung nodule 3 month lung nodule f/u. No complaints. Hx of kidney cancer, right nephrectomy, left partial nephrectomy. TECHNIQUE: CT scan of the chest performed with intravenous contrast using helical scanning technique with dynamic intravenous contrast injection. Reconstructed coronal and sagittal MPR images reviewed. All images stored on PACS. Automated exposure control was used as a dose optimization technique for this examination. CONTRAST TYPE/DOSE: 100mL of IOVERSOL 350 MG IODINE/ML INTRAVENOUS SYRINGE injected via intravenous COMPARISON: 12/06/2023 FINDINGS: LUNGS: There is no definite evidence of a pneumothorax. The major central airways are grossly patent. There is scattered mild subsegmental atelectasis and scarring, which is most significant in the lung bases. There is no definite evidence of a focal consolidation or pleural effusion. There is interval development of a heterogeneous lobulated nodule in the central right lower lobe measuring 2.5 cm in the transverse dimension by 1.7 cm in the AP dimension by 2.1 cm in the craniocaudal dimension. This nodule appears to extend to a segmental branch of the right lower lobe bronchus with associated mucous plugging of multiple right lower lobe bronchi distally. There are multiple additional pulmonary nodules, which are overall grossly similar in size in comparison to the prior study, however have increased in comparison to prior CT dated 12/06/2023. For example, there is a 0.8 cm pulmonary nodule in the medial right upper lobe, which previously measured 0.[address] dated 02/06/2022 (axial image 44). There is a 0.6 cm left lower lobe pulmonary nodule, which previously measured 0.[address] dated 02/06/2022. There is subpleural 0.6 cm left lower lobe pulmonary nodule, which previously measured 0.[address] dated 02/06/2022. There are several additional smaller nodules noted, which are overall grossly unchanged since 11/16/2022. Example, there is stable 0.3 cm pulmonary nodule in the anterior right middle lobe (axial image 48). There is a stable 0.4 cm pulmonary nodule in the medial left upper lobe (axial image 20). There is a stable 0.3 cm pulmonary nodule in the lateral left upper lobe (axial image 52). MEDIASTINUM/DL: The heart size is stable. There is no definite evidence of a pericardial effusion. There is no definite evidence of mediastinal, hilar, or axillary lymphadenopathy. CHEST WALL: No masses. No subcutaneous air. HARDWARE/LINES/TUBES: None. UPPER ABDOMEN: There is a small amount of ingested debris noted in the mid esophagus, which is compatible with gastroesophageal reflux. There is a small hiatal hernia. The right adrenal gland is surgically absent. The left adrenal gland is grossly stable and unremarkable. There is diffuse hepatic steatosis with a stable cyst in the right hepatic lobe measuring 2.9 cm, which does not require follow-up imaging. There is cholelithiasis. MUSCULOSKELETAL: There is a mild dextroscoliotic curvature of the spine with degenerative changes. OTHER: No other significant abnormality. IMPRESSION: Interval development of a heterogeneous lobulated nodule in the central right lower lobe, which is concerning for malignancy as described above. Further evaluation with bronchoscopy/tissue sampling versus PET-CT is recommended as clinically indicated. Multiple additional pulmonary nodules, which are overall grossly similar to the prior study, however mildly increased in size in comparison to prior CT dated 02/06/2022, and therefore these nodules are suspicious. Continued attention on the aforementioned follow-up PET-CT is recommended as clinically indicated. Additional scattered small pulmonary nodules measuring up to 0.4 cm, which are overall grossly unchanged since 11/16/2022. Continued attention on follow-up imaging is recommended as clinically indicated. Scattered mild subsegmental atelectasis and scarring, which is most significant the lung bases. No definite evidence of focal consolidation. Small amount of ingested debris noted in the mid esophagus, which is compatible with gastroesophageal reflux. Diffuse hepatic steatosis. Cholelithiasis. Findings were discussed with Dr. Martinez By Dr. Ghotra at 13:36 hours on 03/25/2024 . THIS IS AN ELECTRONICALLY VERIFIED FINAL REPORT 03/25/2024 1:40 PM - Electronically signed by Madhavi Ghotra D.O. PS: PS Report ID: [id number] Reading Location: [id number] Procedure Note Madhavi Ghotra, DO - 03/25/2024 EXAM DESCRIPTION: CT CHEST W CONTRAST REASON FOR STUDY: Lung nodule 3 month lung nodule f/u. No complaints. Hx of kidney cancer, right nephrectomy, left partial nephrectomy. TECHNIQUE: CT scan of the chest performed with intravenous contrast using helical scanning technique with dynamic intravenous contrast injection. Reconstructed coronal and sagittal MPR images reviewed. All images storedon PACS. Automated exposure control was used as a dose optimizationtechnique for this examination. CONTRAST TYPE/DOSE: 100mL of IOVERSOL 350 MG IODINE/ML INTRAVENOUS SYRINGE injected via intravenous COMPARISON: 12/06/2023 FINDINGS: LUNGS: There is no definite evidence of a pneumothorax. Themajor central airways are grossly patent. There is scattered mild subsegmental atelectasis and scarring, which is most significant in the lung bases.There is no definite evidence of a focal consolidation or pleural effusion. There is interval development of a heterogeneous lobulated nodule in the central right lower lobe measuring 2.5 cm in the transverse dimension by1.7 cm in the AP dimension by 2.1 cm in the craniocaudal dimension. Thisnodule appears to extend to a segmental branch of the right lower lobe bronchuswith associated mucous plugging of multiple right lower lobe bronchidistally. There are multiple additional pulmonary nodules, which are overall grossly similar in size in comparison to the prior study, however have increasedin comparison to prior CT dated 12/06/2023. For example, there is a 0.8 cm pulmonary nodule in the medial right upper lobe, which previously measured0.[address] dated 02/06/2022 (axial image 44). There is a 0.6 cm left lower lobe pulmonary nodule, which previously measured 0.[address] dated 02/06/2022. There is subpleural 0.6 cm left lower lobe pulmonary nodule, which previously measured 0.[address] dated 02/06/2022. There are several additional smaller nodules noted, which are overallgrossly unchanged since 11/16/2022. Example, there is stable 0.3 cm pulmonarynodule in the anterior right middle lobe (axial image 48). There is a stable 0.4cm pulmonary nodule in the medial left upper lobe (axial image 20). There nikki stable 0.3 cm pulmonary nodule in the lateral left upper lobe (axial image 52). MEDIASTINUM/DL: The heart size is stable. There is no definiteevidence of a pericardial effusion. There is no definite evidence of mediastinal, hilar, or axillary lymphadenopathy. CHEST WALL: No masses. No subcutaneous air. HARDWARE/LINES/TUBES: None. UPPER ABDOMEN: There is a small amount of ingested debris noted in themid esophagus, which is compatible with gastroesophageal reflux. There is asmall hiatal hernia. The right adrenal gland is surgically absent. The left adrenal gland is grossly stable and unremarkable. There is diffusehepatic steatosis with a stable cyst in the right hepatic lobe measuring 2.9 cm,which does not require follow-up imaging. There is cholelithiasis. MUSCULOSKELETAL: There is a mild dextroscoliotic curvature of the spinewith degenerative changes. OTHER: No other significant abnormality. IMPRESSION: Interval development of a heterogeneous lobulated nodule in the centralright lower lobe, which is concerning for malignancy as described above.Further evaluation with bronchoscopy/tissue sampling versus PET-CT is recommendedas clinically indicated. Multiple additional pulmonary nodules, which are overall grossly similarto the prior study, however mildly increased in size in comparison to priorCT dated 02/06/2022, and therefore these nodules are suspicious. Continued attention on the aforementioned follow-up PET-CT is recommended asclinically indicated. Additional scattered small pulmonary nodules measuring up to 0.4 cm,which are overall grossly unchanged since 11/16/2022. Continued attention on follow-up imaging is recommended as clinically indicated. Scattered mild subsegmental atelectasis and scarring, which is most significant the lung bases. No definite evidence of focal consolidation. Small amount of ingested debris noted in the mid esophagus, which is compatible with gastroesophageal reflux. Diffuse hepatic steatosis. Cholelithiasis. Findings were discussed with Dr. Martinez By Dr. Ghotra at 13:36 hours on 03/25/2024 . THIS IS AN ELECTRONICALLY VERIFIED FINAL REPORT 03/25/2024 1:40 PM - Electronically signed by Madhavi Ghotra D.O. PS: PS Report ID: [id number] Reading Location: [place] [address] George Martinez MD IMG CT PROCEDURES Final Result from Last 3 Months Insurance MEDICARE [facility] Address: [facility] [address] [place] [address] [employer] MEDICARE FOR LIFE MEDICARE FOR LIFE Advance Directives For more information, please contact: [phone] * Full Code (Latest Code Status on File) Date Activated Date Inactivated Comments 06/04/2024 12:48 PM 06/09/2024 10:54 PM Care Teams Tire Installer Relationship Specialty Start Date End Date Stephanie Magana, TOOL AND DIE MAKER APPRENTICE [address] [place] [address] PCP - General Family Medicine 04/03/24 Torey Brunner DO [address] [facility] [address] [place] [address] Referring Physician Internal Medicine 05/09/24
--- OUTSIDE RECORDS SUMMARY | 2024-06-12 13:13 | XMS_ITS | Encounter Summary ---
Author Organization [facility] Address [address] [place] [address] Phone Care Team Providers Care Acute Specialist Name Role Phone Stephanie Magana NP Primary Care Provider [phone] Kannan Torey Cande DO Unavailable Encounter Details Date Type Department Care Team (Late st Contact Info) Description 06/12/2024 Orders Only [facility] Surgery [address] [facility] Floor 5 [place] [address] Janice Byrd, MARINE [address] [place], [place] [id number] Bloody stools (Primary Dx) Social History Tobacco Use Types Packs/Day Years Used Date Smoking Tobacco: Never Smokeless Tobacco: Never [facility] Utilities Answer Date Recorded In the past 12 months has [employer], gas, oil, or water [employer] threatened to shut off services in your [...] 06/09/2024 How often do you attend chur or gnosticist services? Never 06/09/2024 Do you belong to any clubs o r organizations such as mormonism groups, unions, fraternal or athletic groups, or [...] any time in the past 12 m [facility], were you homeless or living in a usp (including now)? No 06/09/2024 Personal Safety Answer Date Recorded Have you ever been in or are you currently in a harmful physical or emotional relationship or is someone making you feel afraid or unsafe? Denies 06/04/2024 Sex and Gender Information Value Date Recorded Sex Assigned at Not on file Legal Sex Male 3:43 PM CDT Gender Identity Male 05/17/2023 8:50 AM [employer]NAGEMENT [employer] Sexual Orientation Straight 05/17/2023 8: 50 AM MANAGEMENT INTER[employer] documented as of this encounter Plan of Treatment Scheduled Orders Name Type Priority Associated Diagnoses Orde r Schedule CBC without differential Lab Routine Bloody stools Expected: 06/15/2024, Expires: 06/12/2025 documented as of this encounter Visit Diagnoses Diagnosis Bloody stools- Primary documented in this encounter Care Teams Acute Specialist Relationship Specialty Start Date End Date Stephanie Magana, MARINE [address] [place] [address] PCP - General Family Medicine 04/03/24 Torey Brunner DO [address] [facility] [address] [place] [address] Referring Physician Internal Medicine 05/09/24 documented as of this encounter
--- OUTSIDE RECORDS SUMMARY | 2024-06-12 13:13 | XMS_ITS | Clinical Summary ---
Author Organization [facility] Address [address] [facility] [place] [address] Care Team Providers Care Digital Campaign Manager Name Role Phone Medhat Pierre Primary Care Provider Unavailabl e Source Comments [facility],non-owned Affiliates and Associated Physician Practices is amultiple site organization consisting of ambulatory clinics and hospital sitesin [place], [place], [place] and [place]. This disclosure is being madepursuant to the Care Everywhere program and may not contain all information available regarding this patient. Last updated 17.[facility] [employer] Allergies No known active allergies Medications * Be aware that medications may not be up to date on this document. Alwaysverify current medications with the patient. Medication Sig Dispensed Refills Start Date End Date Status alfuzosin CR 24hr (Uroxatral) 10 MG tablet 1 {tab} by oral route. 08/19/2022 Active Alfuzosin HCl (UROXATRAL PO) Active allopurinol (Zyloprim) 100 MG tablet 1 {tab} by oral route. Active ciprofloxacin (Cipro) 500 MG tablet Active DULoxetine (Cymbalta) 60 MG capsule 06/05/2022 Active empagliflozin (Jardiance) 10 MG tablet 07/18/2022 Active Active Problems No known active problems Social History Tobacco Use Types Packs/Day Years Used Date Smoking Tobacco: Never Smokeless Tobacco: Never Tobacco Cessation:Counseling Given: Not Answered Sex and Gender Information Value Date Recorded Sex Assigned at Not on file Gender Identity Not on file Sexual Orientation Not on file Plan of Treatment Upcoming Encounters Date Type Department Care Team (Late st Contact Info) Description 01/07/2025 12:50 PM CDT Office Visit [facility] - Dermatology [address] [facility] [place] [id number] Fredy Marie MD [address] [place], [place] [address] [address] [place] [address] Health Maintenance Due Date Last Done Comments COLOGUARD (AGES 45-75) - COL ON CA SCREENING 1953 COLON MONITORING 1953 COLONOSCOPY - COLON CA SCREENING 1953 CT COLONOGRAPHY - COLON CA SCREENING 1953 Colorectal Cancer Screening 1953 FIT - COLON CA SCREENING 1953 FLEX SIG - COLON CA SCREENING 1953 LIPID TESTING 1953 MEDICARE AWV 12 MONTHS 1953 HEPATITIS C SCREENING 05/09/1971 DTAP/TDAP/TD VACCINES (1 - Tdap) 1972 PNEUMOCOCCAL VACCINE 50+ (1 of 1 - PCV) 2003 ZOSTER VACCINE (1 of 2) 2003 Respiratory Syncytial Virus (RSV) Vaccine Pt: or over 60 yrs (1 - Risk 60-74 years 1-dose series) 2013 COVID-19 VACCINE ( - 2023-2 5 season) 2023 INFLUENZA VACCINE (#1) 2023 9, 01/18/2010 DEPRESSION SCREENING 03/19/2024 HEPATITIS B VACCINE Aged Out No longe r eligible based on patient's age to complete this topic HIB VACCINE Aged Out No longer eligi ble based on patient's age to complete this topic HPV VACCINE Aged Out No longer eligi ble based on patient's age to complete this topic MENINGOCOCCAL (Group B) VACCINE SHARED DECISION-MAKING Aged Out No longer eligible based on patient's age to complete this topic MENINGOCOCCAL GROUPS A/C/Y/W VACCINE Aged Out No longer eligible b ased on patient's age to complete this topic Care Teams Digital Campaign Manager Relationship Specialty Start Date End Date Medhat Pierre PCP - General 07/04/23
--- OUTSIDE RECORDS SUMMARY | 2024-06-12 13:13 | XMS_ITS | Encounter Summary ---
Author Organization [facility] Address [address] [place] [address] Phone Care Team Providers Care School Office Assistant Name Role Phone Stephanie Magana NP Primary Care Provider [phone] Kannan Torey Cande DO Unavailable [phone] Encounter Details Date Type Department Care Team (Late st Contact Info) Description 06/12/2024 Orders Only [facility] Surgery [address] [facility] Floor 5 [place] [address] Janice Byrd, MARINE [address] [place], [place] [phone] Bloody stools (Primary Dx) Social History Tobacco Use Types Packs/Day Years Used Date Smoking Tobacco: Never Smokeless Tobacco: Never [facility] Utilities Answer Date Recorded In the past 12 months has [employer] gas, oil, or water [employer] threatened to shut off services in your [...] How often do you attend chur or sikhism services? Never 06/09/2024 Do you belong to any clubs o r organizations such as taoism groups, unions, fraternal or athletic groups, or [...] any time in the past 12 m [facility], were you homeless or living in a chcf (including now)? No 06/09/2024 Personal Safety Answer Date Recorded Have you ever been in or are you currently in a harmful physical or emotional relationship or is someone making you feel afraid or unsafe? 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 Sexual Orientation Straight 05/17/2023 8: 50 AM ELECTRIC ORGAN ASSEMBLER documented as of this encounter Plan of Treatment Scheduled Orders Name Type Priority Associated Diagnoses Orde r Schedule Comprehensive metabolic panel Lab Routine Bloody stools Expected: 06/12/2024, Expires: 06/12/2025 documented as of this encounter Visit Diagnoses Diagnosis Bloody stools- Primary documented in this encounter Care Teams School Office Assistant Relationship Specialty Start Date End Date Stephanie Magana, MARINE [address] [place] [address] PCP - General Family Medicine 04/03/24 Torey Brunner DO [address] [facility] [address] [place] [address] Referring Physician Internal Medicine 05/09/24 documented as of this encounter
--- OUTSIDE RECORDS SUMMARY | 2024-06-12 13:13 | XMS_ITS ---
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 Past Treatment and Therapy Plans No past plan information found. Lifetime Dose Tracking * Chemical Lifetime Dose Automatic Entry Manual Entr y Fluoro Time 0.413 minutes 0.413 minutes 0 minutes Air kerma at the reference point (Ka,r) 3.61 mGy 3 .61 mGy 0 mGy
--- OUTSIDE RECORDS SUMMARY | 2024-06-12 13:13 | XMS_ITS | Referral Summary ---
Author Organization [facility] Address [address] [place] [phone] Care Team Providers [employer] Name Role Phone Stephanie Magana NP Primary Care Provider [phone] Torey Brunner Cande DO Unavailable [phone] Encounters Date Type Department Care Team Description 06/12/2024 Orders Only [facility] Surgery [address] [place] [phone] Janice Byrd NP Bloody stools (Primary Dx) 06/12/2024 Orders Only [facility] Surgery [address] [place] [phone] Janice Byrd NP Bloody stools (Primary Dx) 06/04/2024 6:47 AM CDT - 06/09/2024 4:30 PM CDT Hospital Encounter [address] [phone] George Martinez MD Lung nodule (Primary Dx); Nodule of lower lobe of right lung Discharge Disposition: Discharge to home or self care 06/04/2024 8:30 AM CDT - 06/04/2024 12:00 PM CDT Surgery [facility] Operating Room [address] [place] [phone] George Martinez MD XI ROBOTIC THORACIC RIGHT LOWER LOBE LOBECTOMY 06/04/2024 7:42 AM CDT Anesthesia Event [facility] Operating Room [address] [place] [address] Margarita Cooper MD Barnhart, Lynlee Jo, NP 05/27/2024 11:00 AM CDT - 05/27/2024 11:59 PM CDT Hospital Encounter [facility] Diagnostic Imaging [id number] [place] [address] Discharge Disposition: Discharge to home or self care 05/27/2024 10:45 AM CDT Pre-Admission Testing [facility] Pre Anesthesia Testing [address] [place] [address] Pre-operative exam (Primary Dx) 05/26/2024 Orders Only [facility] [address] [place] [phone] Janice Byrd, MARINE Gingivitis (Primary Dx) 05/21/2024 Orders Only [facility] Pulmonology [address] [place] [phone] Jag Tobar MD 05/20/2024 12:20 PM TRANSITIONS RN CARE COORDINATOR - 05/20/2024 11:59 PM TRANSITIONS RN CARE COORDINATOR Hospital Encounter [facility] [employer] [address] [place] [address] Discharge Disposition: Discharge to home or self care 05/20/2024 Telephone [facility] Surgery [address] [facility] [address] [place] [phone] Yadira Byrd RMA 05/20/2024 Orders Only [facility] Surgery [address] [facility] [address] [place] [phone] George Martinez MD Chest wall pain (Primary Dx) 05/20/2024 Telephone [facility] Surgery [address] [place] [address] [address] [place] [phone] Janice Byrd, MARINE 05/15/2024 10:45 AM TRANSITIONS RN CARE COORDINATOR Office Visit [facility] Pulmonology [address] [place] [phone] Jag Tobar MD Lung nodule (Primary Dx); ANJANA (obstructive sleep apnea); History of renal cell cancer 05/08/2024 9:30 AM TRANSITIONS RN CARE COORDINATOR Office Visit [facility] Surgery [address] [facility] [address] [place] [phone] George Martinez MD Lung nodule (Primary Dx) 05/08/2024 1:40 PM TRANSITIONS RN CARE COORDINATOR Office Visit [facility] Orthopaedic Surgery [address] [place] [address] Fredy Flanagan MD Lateral epicondylitis of right elbow (Primary Dx) 04/29/2024 Telephone [facility] Surgery [address] [facility] Floor 5 [place] [address] Octavio Herrera, MARINE 04/22/2024 Telephone [facility] Oncology [address] [place] [phone] Meenakshi Kohler, ANDRÉS 04/22/2024 Orders Only [facility] Pulmonology [address] [place] [address] [place] [phone] Jag Tobar MD Fungal infection (Primary Dx) 04/22/2024 Orders Only [facility] Pulmonology [address] [place] [address] [place] [phone] Jag Tobar MD 04/11/2024 9:15 AM TRANSITIONS RN CARE COORDINATOR - 04/11/2024 10:50 AM TRANSITIONS RN CARE COORDINATOR Surgery [facility] OR [address] [place] [address] Jag Tobar MD BRONCHOSCOPY,LAVAGE, BRUSHINGS,BIOPSY 04/11/2024 9:07 AM TRANSITIONS RN CARE COORDINATOR Anesthesia Event [facility] OR [address] [place] [address] Sandra Mensah MD Kuntz, Edward William, MD 04/11/2024 6:57 AM TRANSITIONS RN CARE COORDINATOR - 04/11/2024 12:59 PM TRANSITIONS RN CARE COORDINATOR Hospital Encounter [facility] OR [address] [place] [phone] Jag Tobar MD Nodule of right lung Discharge Disposition: Discharge to home or self care 04/10/2024 Telephone [facility] Oncology [address] [facility] [address] [place] [phone] Stephania Thomas ADAM 04/10/2024 Orders Only [facility] Surgery [address] [facility] Floor 5 [place] [address] Janice Byrd NP Lung nodule (Primary Dx) 04/10/2024 10:04 AM TRANSITIONS RN CARE COORDINATOR - 04/10/2024 11:59 PM TRANSITIONS RN CARE COORDINATOR Hospital Encounter [facility] [address] [place] [address] Discharge Disposition: Discharge to home or self care 04/10/2024 10:03 AM TRANSITIONS RN CARE COORDINATOR - 04/10/2024 11:59 PM TRANSITIONS RN CARE COORDINATOR Hospital Encounter [facility] [address] [place] [address] Lung nodule Discharge Disposition: Discharge to home or self care 04/08/2024 Telephone [facility] Surgery [address] [facility] [address] [place] [phone] Yadira Byrd RMA 04/07/2024 1:56 PM TRANSITIONS RN CARE COORDINATOR - 04/07/2024 11:59 PM TRANSITIONS RN CARE COORDINATOR Hospital Encounter [facility] Cardiac Testing [address] [place] [address] Preop testing Discharge Disposition: Discharge to home or self care 04/07/2024 Orders Only [facility] PreAdmission Testing [facility] [place] [address] Lianne Carlson RN Preop testing (Primary Dx) 04/07/2024 1:56 PM TRANSITIONS RN CARE COORDINATOR - 04/07/2024 11:59 PM TRANSITIONS RN CARE COORDINATOR Hospital Encounter [facility] Respiratory Therapy [address] [place] [address] Lung nodule Discharge Disposition: Discharge to home or self care 04/04/2024 12:15 PM TRANSITIONS RN CARE COORDINATOR Lab [facility] Lab [facility] [place] [address] Lung nodule; History of biopsy 04/04/2024 Orders Only [facility] Surgery [address] [facility] [address] [place] [address] George Martinez MD Lung nodule (Primary Dx) 04/04/2024 11:45 AM TRANSITIONS RN CARE COORDINATOR Office Visit [facility] Pulmonology [address] [facility] [address] [place] [phone] Jag Tobar MD Lung nodule (Primary Dx); ANJANA (obstructive sleep apnea); History of renal cell cancer; History of biopsy 04/03/2024 8:45 AM TRANSITIONS RN CARE COORDINATOR Office Visit [facility] Phys[facility] Surgery [address] [facility] [address] [place] [phone] George Martinez MD Lung nodule (Primary Dx) 03/27/2024 2:20 PM TRANSITIONS RN CARE COORDINATOR Office Visit [facility] Orthopaedic Surgery [address] [facility] [address] [place] [address] Fredy Flanagan MD Lateral epicondylitis of right elbow (Primary Dx) 03/25/2024 12:15 PM TRANSITIONS RN CARE COORDINATOR - 03/25/2024 11:59 PM TRANSITIONS RN CARE COORDINATOR Hospital Encounter 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 Never 06/09/2024 Do you belong to any clubs o r organizations such as hoahaoism groups, unions, fraternal or athletic groups, or [...] any time in the past 12 m [facility], were you homeless or living in a residential (including now)? No 06/09/2024 Personal Safety Answer Date Recorded Have you ever been in or are you currently in a harmful physical or emotional relationship or is someone making you feel afraid or unsafe? Denies 06/04/2024 Sex and Gender Information Value Date Recorded Sex Assigned at Not on file Legal Sex Male 3:43 PM CDT Gender Identity Male 05/17/2023 8:50 AM TRANSITIONS RN CARE COORDINATOR Sexual Orientation Straight 05/17/2023 8: 50 AM TRANSITIONS RN CARE COORDINATOR Last Filed Vital Signs Vital Sign Reading [...] 06/04/2024 7:02 AM CDT Plan of Treatment Not on file Medical Devices Implanted Type Area Pot Pusher Device Identifier Shelf Expiration Date Model / Serial / Lot [employer] Suture Ignacio Knotless Fibertak Resorbable [id number] - [id number] Implanted:Qty: 1 on 02/18/2024 by Fredy Flanagan MD at [facility] Right: Elbow [employer] [id number] 10/16/2028 [id number] / / [id number] Procedures Procedure Name Priority Date/Time Associated Diagnosis [...] LINE PLACEMENT Routine 06/04/2024 8:09 AM CDT NJ AN ELECTIVE ENDOTRACHEAL AIRWAY Routine 06/04/2024 8:08 [...] BODY OUTSIDE REFERENCE Routine 05/20/2024 12:20 PM TRANSITIONS RN CARE COORDINATOR XR CHEST PA LATERAL 2 VIEWS ED Urgent/IP Urgent 04/11/2024 12:16 PM TRANSITIONS RN CARE COORDINATOR XR CHEST 1 VIEW ED 04/11/2024 10:17 AM TRANSITIONS RN CARE COORDINATOR FL FLUOROSCOPY < 1 HOUR IP Routine 04/11/19 9:41 AM TRANSITIONS RN CARE COORDINATOR SURGICAL PATHOLOGY Routine 04/11/2024 9: 22 AM TRANSITIONS RN CARE COORDINATOR Nodule of right lung CYTOLOGY Routine 04/11/2024 9:21 AM TRANSITIONS RN CARE COORDINATOR Nodule of right lung NJ AN PROCEDURE PLACEHOLDER Routine 04/11/2024 9:20 AM TRANSITIONS RN CARE COORDINATOR NJ AN ELECTIVE ENDOTRACHEAL AIRWAY Routine 04/11/2024 9:20 AM TRANSITIONS RN CARE COORDINATOR AEROBIC CULTURE AND GRAM STAIN Routine 04/11/2024 9:19 AM TRANSITIONS RN CARE COORDINATOR MYCOLOGY (FUNGAL) CULTURE Routine 04/11/2024 9:19 AM TRANSITIONS RN CARE COORDINATOR MYCOBACTERIOLOGY AFB CULTURE AND ACID-FAST STAIN Routine 04/11/2024 9:19 AM TRANSITIONS RN CARE COORDINATOR BRONCHOSCOPY 04/11/2024 9:08 AM TRANSITIONS RN CARE COORDINATOR Nodule of right lung BRONCHOSCOPY 04/11/2024 8:47 AM TRANSITIONS RN CARE COORDINATOR EGFR STAT 04/11/2024 7:30 AM TRANSITIONS RN CARE COORDINATOR DIFFERENTIAL AUTO STAT 04/11/2024 7:3 0 AM TRANSITIONS RN CARE COORDINATOR PROTIME-INR STAT 04/11/2024 7:30 AM TRANSITIONS RN CARE COORDINATOR CBC WITH AUTO DIFFERENTIAL STAT 04/11/2024 7:30 AM TRANSITIONS RN CARE COORDINATOR BASIC METABOLIC PANEL STAT 04/11/2024 7:30 AM TRANSITIONS RN CARE COORDINATOR APTT STAT 04/11/2024 7:30 AM TRANSITIONS RN CARE COORDINATOR PET/CT FDG SKULL TO THIGH Schedule Routine, Read Routine (OP Routine) 04/10/2024 12:12 PM TRANSITIONS RN CARE COORDINATOR Lung nodule PULMONARY FUNCTION TEST (PFT) Routine 04/07/2024 2:59 PM TRANSITIONS RN CARE COORDINATOR Lung nodule ECG 12-LEAD Routine 04/07/2024 2:06 PM TRANSITIONS RN CARE COORDINATOR Preop testing EGFR Routine 04/04/2024 12:28 PM TRANSITIONS RN CARE COORDINATOR Lung nodule DIFFERENTIAL AUTO Routine 04/04/2024 12:28 PM TRANSITIONS RN CARE COORDINATOR Lung nodule CBC WITH AUTO DIFFERENTIAL Routine 04/04/2024 12:28 PM TRANSITIONS RN CARE COORDINATOR Lung nodule BASIC METABOLIC PANEL Routine 04/04/2024 12:28 PM TRANSITIONS RN CARE COORDINATOR Lung nodule PROTIME-INR Routine 04/04/2024 12:28 PM TRANSITIONS RN CARE COORDINATOR Lung nodule History of biopsy POCT CREATININE FOR CONTRAST EVALUATION Routine 03/25/2024 12:35 PM TRANSITIONS RN CARE COORDINATOR CT CHEST W CONTRAST Schedule Routine, Read Routine (OP Routine) 03/25/2024 12:35 PM TRANSITIONS RN CARE COORDINATOR Lung nodule from Last 3 Months Results * Protime-INR (06/09/2024 11:37 AM CDT) PT 12.0 9.7 - 13.0 sec INR 1.11 0.90 - 1.20 [facility] Comment: Interpretive data Oral anticoagulant therapeutic ranges: Venous thromboembolism prophylaxis or treatment: 2.0-3.0 CARDIOLOGY Standard range: 2.0-3.0 High-intensity range: 2.5-3.5 Refer to indication-specific guidelines for appropriate target ranges for prosthetic heart valve replacement. Current interpretive data was last revised on 2019. Blood 06/09/2024 11:3 7 AM CDT 06/09/2024 11:45 AM CDT Narrative [facility] - 06/09/2024 12:02 PM CDT Baseline prior to apixaban initiation. Monserrat Ibarra [employer] LAB BLOOD ORDERABLES Joya l Result Performing Organization Address [facility] Co de Phone Number ANNE [phone] [address] * Hepatic function panel (06/09/2024 11:37 AM CDT) Bilirubin, total 0.7 0.1 - 1.2 mg/dL Bilirubin, direct 0.3 0.1 - 0.3 mg/dL [facility] Protein, pl 6.5 6.5 - 8.5 g/dL [facility] CH Albumin 3.5 3.5 - 5.0 g/dL [facility] Alk phos 101 40 - 130 Units/L [facility] ALT 33 7 - 55 Units/L [facility] AST 27 10 - 50 Units/L [facility] Blood 06/09/2024 11:3 7 AM CDT 06/09/2024 11:45 AM CDT Narrative [facility] - 06/09/2024 12:14 PM CDT Baseline prior to apixaban initiation. Monserrat Ibarra NP LAB BLOOD ORDERABLES Joya l Result Performing Organization Address [facility] Co de Phone Number ANNE BANUELOS [address] Department [place] [address] * (ABNORMAL) eGFR (06/09/2024 4:19 AM CDT) [...] 4:19 AM CDT 06/09/2024 5:16 AM CDT Jeferson George NP LAB BLOOD ORDERABLES Final Result ANNE BANUELOS [address] Department [place] [address] * (ABNORMAL) Differential, auto (06/09/2024 4:19 AM CDT) Neutrophil abs 10.7(H) 1.5 - 6.5 K/cumm Imm gran abs 0.1 0.0 - 0.1 K/cumm [facility] Lymphocyte abs 1.6 0.8 - 3.3 K/cumm [facility] Monocyte abs 0.9(H) 0.2 - 0.8 [facility] Eosinophil abs 0.1 0.0 - 0.5 K/cumm [facility] Basophil abs 0.0 0.0 - 0.1 K/cumm [facility] Neutrophil pct 80.3 % [facility] Comment: Interpretive Data Percent cell count [...] revised on 2017. Monocyte pct 6.8 % ANNE Comment: Interpretive Data Percent cell count reference ranges are not reported, since discordance with absolute values may lead to misinterpretation of CBC data. Current Interpretive Data was last revised on 2017. Eosinophil pct 0.4 % ANNE Comment: Interpretive Data Percent cell count reference ranges are not reported, since discordance with absolute values may lead to misinterpretation of CBC data. Current Interpretive Data was last revised on 2017. Basophil pct 0.2 % [facility] Comment: Interpretive Data Percent cell count reference ranges are not reported, since discordance with absolute values may lead to misinterpretation of CBC data. Current Interpretive Data was last revised on 2017. Blood 06/09/2024 4:19 AM CDT 06/09/2024 5:15 AM CDT Charles Dorantes MD LAB BLOOD ORDERABLES Fin al Result [facility] [address] Department [place] [address] * (ABNORMAL) CBC with auto differential (06/09/2024 4:19 AM CDT) WBC 13.4(H) 3.8 - 9.9 K/cumm Hgb 15.6 13.0 - 17.5 g/dL [facility] Hct 48.0 38.9 - 50.3 % [facility] Plt 196 150 - 400 K/cumm [facility] MPV 11.2 9.1 - 12.3 fL [facility] RBC 5.30 4.30 - 5.80 M/cumm [facility] MCV 90.6 81.3 - 96.4 fL [facility] MCH 29.4 27.1 - 33.3 pg [facility] MCHC 32.5 32.3 - 35.7 g/dL [facility] RDW CV 14.4 11.1 - 14.9 % [facility] RDW SD 47.6 35.7 - 48.1 fL [facility] NRBC abs 0.00 0.00 - 0.01 K/cumm [facility] Blood 06/09/2024 4:19 AM CDT 06/09/2024 5:15 AM CDT Charles Dorantes MD LAB BLOOD ORDERABLES Fin al Result [facility] [address] [address] Department [place] [address] * (ABNORMAL) Basic metabolic panel (06/09/2024 4:19 AM CDT) Sodium 140 135 - 145 mmol/L Potassium, pl 4.0 3.3 - 4.9 mmol/L [facility] Chloride 103 97 - 110 mmol/L [facility] CO2 25 22 - 32 mmol/L [facility] Anion gap 12 2 - 15 mmol/L [facility] BUN 25 6 - 25 mg/dL [facility] Creatinine 1.60(H) 0.80 - 1.30 mg/dL [facility] Glucose 141 70 - 199 mg/dL [facility] Comment: Interpretive Data Fasting glucose >/= [...] 2022. Calcium 9.1 8.5 - 10.3 mg/dL ANNE BANUELOS Blood 06/09/2024 4:19 AM CDT 06/09/2024 5:16 AM CDT Jeferson George [employer] LAB BLOOD ORDERABLES Final Result ANNE BANUELOS [address] Department [place] [address] * XR Chest 1 View (06/09/2024 4:17 [...] place. Electronically signed by: Yael Avitia M.D. George Martinez MD IMG XR PROCEDURES [...] George NP LAB BLOOD ORDERABLES Final Result [facility] [address] Department [place] [address] * Differential, auto (06/08/2024 3:43 AM CDT) Neutrophil abs 6.0 1.5 - 6.5 K/cumm Imm gran abs 0.1 0.0 - 0.1 K/cumm [facility] Lymphocyte abs 2.0 0.8 - 3.3 K/cumm [facility] Monocyte abs 0.7 0.2 - 0.8 K/cumm [facility] Eosinophil abs 0.3 0.0 - 0.5 K/cumm [facility] Basophil abs 0.0 0.0 - 0.1 K/cumm [facility] Neutrophil pct 66.1 % [facility] Comment: Interpretive Data Percent cell count reference ranges are not reported, since discordance with absolute values may lead to misinterpretation of CBC data. Current Interpretive Data was last revised on 2017. Imm gran pct 0.8 % [facility] Comment: Interpretive Data Percent cell count reference ranges are not reported, since discordance with absolute values may lead to misinterpretation of CBC data. Current Interpretive Data was last revised on 2017. Lymphocyte pct 21.6 % [facility] Comment: Interpretive Data Percent cell count reference ranges are not reported, since discordance with absolute values may lead to misinterpretation of CBC data. Current Interpretive Data was last revised on 2017. Monocyte pct 7.5 % [facility] Comment: Interpretive Data Percent cell count reference ranges are not reported, since discordance with absolute values may lead to misinterpretation of CBC data. Current Interpretive Data was last revised on 2017. Eosinophil pct 3.7 % [facility] Comment: Interpretive Data Percent cell count reference ranges are not reported, since discordance with absolute values may lead to misinterpretation of CBC data. Current Interpretive Data was last revised on 2017. Basophil pct 0.3 % [facility] Comment: Interpretive Data Percent cell count reference ranges are not reported, since discordance with absolute values may lead to misinterpretation of CBC data. Current Interpretive Data was last revised on 2017. Blood 06/08/2024 3:43 AM CDT 06/08/2024 3:47 AM CDT us Charles Dorantes MD LAB BLOOD ORDERABLES Fin al Result [facility] [address] Department of Laboratories [place], [place] [id number] * CBC with auto differential (06/08/2024 3:43 AM CDT) WBC 9.1 3.8 - 9.9 K/cumm Hgb 15.5 13.0 - 17.5 g/dL [facility] Hct 46.7 38.9 - 50.3 % [facility] Plt 185 150 - 400 K/cumm [facility] MPV 11.0 9.1 - 12.[address] [facility] RBC 5.18 4.30 - 5.80 M/cumm [facility] MCV 90.2 81.3 - 96.[address] [facility] MCH 29.9 27.1 - 33.[address] [facility] MCHC 33.2 32.3 - 35.7 g/dL [facility] RDW CV 14.3 11.1 - 14.9 % [facility] RDW SD 47.0 35.7 - 48.[address] [facility] NRBC abs 0.00 0.00 - 0.01 K/cumm [facility] Blood 06/08/2024 3:43 AM CDT 06/08/2024 3:47 AM CDT us Charles Dorantes MD LAB BLOOD ORDERABLES Fin al Result ANNE BANUELOS [address] Department [place] [address] * (ABNORMAL) Basic metabolic panel (06/08/2024 3:43 AM CDT) Sodium 139 135 - 145 mmol/L Potassium, pl 3.9 3.3 - 4.9 mmol/L [facility] Chloride 105 97 - 110 mmol/L [facility] CO2 24 22 - 32 mmol/L [facility] Anion gap 10 2 - 15 mmol/L [facility] BUN 21 6 - 25 mg/dL [facility] Creatinine 1.35(H) 0.80 - 1.30 mg/dL [facility] Glucose 144 70 - 199 mg/dL [facility] Comment: [...] 2022. Calcium 8.6 8.5 - 10.3 mg/dL [facility] Blood 06/08/2024 3:43 AM CDT 06/08/2024 3:47 AM CDT us Jeferson George NP LAB BLOOD ORDERABLES Final Result ANNE BANUELOS [address] Department [place] [address] * CT Chest WO Contrast (06/07/2024 11:19 [...] by: Yael Avitia M.D. us Monserrat Ibarra NP IMG CT PROCEDURES Final R esult * [...] by: Yael Avitia M.D. us Monserrat Ibarra [employer] IMG XR PROCEDURES Final R esult * [...] George NP LAB BLOOD ORDERABLES Final Result [facility] [address] [address] Department [place] [address] * (ABNORMAL) Differential, auto (06/07/2024 4:39 AM CDT) Neutrophil abs 6.1 1.5 - 6.5 K/cumm Imm gran abs 0.1 0.0 - 0.1 K/cumm [facility] Lymphocyte abs 1.8 0.8 - 3.3 K/cumm [facility] Monocyte abs 0.9(H) 0.2 - 0.8 K/cumm [facility] Eosinophil abs 0.3 0.0 - 0.5 K/cumm [facility] Basophil abs 0.0 0.0 - 0.1 K/cumm [facility] Neutrophil pct 66.7 % [facility] Comment: Interpretive Data Percent cell count reference ranges are not reported, since discordance with absolute values may lead to misinterpretation of CBC data. Current Interpretive Data was last revised on 2017. Imm gran pct 0.6 % [facility] Comment: Interpretive Data Percent cell count reference ranges are not reported, since discordance with absolute values may lead to misinterpretation of CBC data. Current Interpretive Data was last revised on 2017. Lymphocyte pct 19.8 % [facility] Comment: Interpretive Data Percent cell count reference ranges are not reported, since discordance with absolute values may lead to misinterpretation of CBC data. Current Interpretive Data was last revised on 2017. Monocyte pct 9.5 % [facility] Comment: Interpretive Data Percent cell count reference ranges are not reported, since discordance with absolute values may lead to misinterpretation of CBC data. Current Interpretive Data was last revised on 2017. Eosinophil pct 3.0 % [facility] Comment: Interpretive Data Percent cell count reference ranges are not reported, since discordance with absolute values may lead to misinterpretation of CBC data. Current Interpretive Data was last revised on 2017. Basophil pct 0.4 % [facility] Comment: Interpretive Data Percent cell count reference ranges are not reported, since discordance with absolute values may lead to misinterpretation of CBC data. Current Interpretive Data was last revised on 2017. Blood 06/07/2024 4:39 AM CDT 06/07/2024 6:04 AM CDT Charles Dorantes MD LAB BLOOD ORDERABLES Fin al Result Performing Organization Address City/[facility]/ZIP Co de Phone Number ANNE BANUELOS [address] [place] [address] * (ABNORMAL) CBC with auto differential (06/07/2024 4:39 AM CDT) WBC 9.1 3.8 - 9.9 K/cumm Hgb 15.1 13.0 - 17.5 g/dL [facility] Hct 46.5 38.9 - 50.3 % [facility] Plt 165 150 - 400 K/cumm [facility] MPV 11.5 9.1 - 12.3 fL [facility] RBC 5.02 4.30 - 5.80 M/cumm [facility] MCV 92.6 81.3 - 96.4 fL [facility] MCH 30.1 27.1 - 33.3 pg [facility] MCHC 32.5 32.3 - 35.7 g/dL [facility] RDW CV 14.6 11.1 - 14.9 % [facility] RDW SD 49.5(H) 35.7 - 48.1 fL [facility] NRBC abs 0.00 0.00 - 0.01 K/cumm [facility] Blood 06/07/2024 4:39 AM CDT 06/07/2024 6:04 AM CDT Charles Dorantes MD LAB BLOOD ORDERABLES Fin al Result Performing Organization Address City/[facility] Co de Phone Number ANNE BANUELOS [address] Department of [employer] [place], [place] [id number] * (ABNORMAL) Basic metabolic panel (06/07/2024 4:39 AM CDT) Sodium 141 135 - 145 mmol/L Potassium, pl 3.9 3.3 - 4.9 mmol/L [facility] Chloride 104 97 - 110 mmol/L [facility] CO2 26 22 - 32 mmol/L [facility] Anion gap 11 2 - 15 mmol/L [facility] BUN 24 6 - 25 mg/dL [facility] Creatinine 1.47(H) 0.80 - 1.30 mg/dL [facility] Glucose 111 70 - 199 mg/dL [facility] Comment: Interpretive Data Fasting glucose >/= [...] 2022. Calcium 8.7 8.5 - 10.3 mg/dL [facility] Blood 06/07/2024 4:39 AM CDT 06/07/2024 6:06 AM CDT us Jeferson George NP LAB BLOOD ORDERABLES Final Result Performing Organization Address City/[facility] Co de Phone Number [facility] [address] [place] [address] * ECG 12 lead (06/06/2024 6:18 PM CDT) 06/06/2024 6:18 PM CDT Narrative [facility] - 06/06/2024 11:56 PM CDT Vent Rate: 96 bpm RR Interval: 622 msec [place] Interval: 0 msec QRS Duration: 112 msec QT Interval: 356 msec QTC Interval: 410 msec P-R-T [place]: 0 - 20 - -10 degrees IMPRESSION: ATRIAL FIBRILLATION WITH ABERRANT CONDUCTION OR VENTRICULAR PREMATURE COMPLEXES MODERATE INTRAVENTRICULAR CONDUCTION DELAY ABNORMAL RHYTHM ECG Compared to prior EKG, atrial fibrillation replaced sinus rhythm Electronically Signed By: Damaso Brock MD us George Martinez MD ECG ORDERABLES Final Result Performing Organization Address [facility] Co de Phone Number [facility] [employer] [facility] * CT Limited Localized Follow Up [...] and informed consent was obtained and documented. [place] protocol was performed to confirm the patient's [...] and informed consent was obtained and documented. [place] protocol was performed to confirm the patient's [...] signed by: Lena Harris M.D. Jeferson George [employer] IMG CT PROCEDURES Final Res ult * aPTT (06/06/2024 8:35 AM CDT) aPTT 33 28 - 38 sec Comment: Interpretive Data Heparin therapeutic range: 66.0 - 100.0 seconds. Range based on correlation with therapeutic heparin activity range of 0.3 - 0.7 Units/mL. Current interpretive data was last revised on 2022. Blood 06/06/2024 8:35 AM CDT 06/06/2024 8:42 AM CDT Jeferson George [employer] LAB BLOOD ORDERABLES Final Result Performing Organization Address [facility] de Phone Number ANNE [address] [place] [address] * Protime-INR (06/06/2024 8:35 AM CDT) PT [...] CDT 06/06/2024 8:42 AM CDT Jeferson George NP LAB BLOOD ORDERABLES Final Result Performing Organization Address [facility] Co de Phone Number [facility] [address] [facility] [address] [place], [place] [id number] * Critical Care (06/06/2024 8:27 AM CDT) [...] plan with the patient's team and other medical/benefits sales consultant staff. This time was in addition [...] 122 70 - 199 mg/dL POC Performer [id number] ANNE BANUELOS Blood 06/06/2024 7:48 AM CDT 06/06/2024 7:48 AM CDT us George Martinez MD LAB POCT ORDERABLES - DEVICE Fin al Result [facility] [address] Department [place] [address] * XR Chest 1 View (06/06/2024 5:04 [...] tension. Electronically signed by: Dylan Hendrickson M.D. George Martinez MD IMG XR PROCEDURES [...] MD LAB BLOOD ORDERABLES Fin al Result [facility] [address] [place] [address] * (ABNORMAL) Differential, auto (06/06/2024 5:00 AM CDT) Neutrophil abs 9.7(H) 1.5 - 6.5 K/cumm Imm gran abs 0.1 0.0 - 0.1 K/cumm [facility] Lymphocyte abs 1.7 0.8 - 3.3 K/cumm [facility] Monocyte abs 1.0(H) 0.2 - 0.8 K/cumm [facility] Eosinophil abs 0.1 0.0 - 0.5 K/cumm [facility] Basophil abs 0.0 0.0 - 0.1 K/cumm [facility] Neutrophil pct 77.1 % [facility] Comment: Interpretive Data Percent cell count reference ranges are not reported, since discordance with absolute values may lead to misinterpretation of CBC data. Current Interpretive Data was last revised on 2017. Imm gran pct 0.5 % [facility] Comment: Interpretive Data Percent cell count reference ranges are not reported, since discordance with absolute values may lead to misinterpretation of CBC data. Current Interpretive Data was last revised on 2017. Lymphocyte pct 13.2 % [facility] Comment: Interpretive Data Percent cell count reference ranges are not reported, since discordance with absolute values may lead to misinterpretation of CBC data. Current Interpretive Data was last revised on 2017. Monocyte pct 8.1 % [facility] Comment: Interpretive Data Percent cell count reference ranges are not reported, since discordance with absolute values may lead to misinterpretation of CBC data. Current Interpretive Data was last revised on 2017. Eosinophil pct 0.9 % [facility] Comment: Interpretive Data Percent cell count reference ranges are not reported, since discordance with absolute values may lead to misinterpretation of CBC data. Current Interpretive Data was last revised on 2017. Basophil pct 0.2 % [facility] Comment: Interpretive Data Percent cell count reference ranges are not reported, since discordance with absolute values may lead to misinterpretation of CBC data. Current Interpretive Data was last revised on 2017. Blood 06/06/2024 5:00 AM CDT 06/06/2024 5:04 AM CDT Charles Dorantes MD LAB BLOOD ORDERABLES Fin al Result Performing Organization Address City/[facility]/ZIP Co de Phone Number ANNE BANUELOS [address] [place] [address] * (ABNORMAL) CBC with auto differential (06/06/2024 5:00 AM CDT) WBC 12.6(H) 3.8 - 9.9 K/cumm Hgb 15.1 13.0 - 17.5 g/dL [facility] Hct 46.2 38.9 - 50.3 % [facility] Plt 143(L) 150 - 400 K/cumm [facility] MPV 11.2 9.1 - 12.3 fL [facility] RBC 5.12 4.30 - 5.80 M/cumm [facility] MCV 90.2 81.3 - 96.[address] [facility] MCH 29.5 27.1 - 33.[address] [facility] MCHC 32.7 32.3 - 35.7 g/dL [facility] RDW CV 14.5 11.1 - 14.9 % [facility] RDW SD 48.2(H) 35.7 - 48.[address] [facility] NRBC abs 0.00 0.00 - 0.01 K/cumm [facility] Blood 06/06/2024 5:00 AM CDT 06/06/2024 5:04 AM CDT Charles Dorantes MD LAB BLOOD ORDERABLES Fin al Result Performing Organization Address City/[facility]/ZIP Co de Phone Number ANNE BANUELOS [address] Department [place] [address] * (ABNORMAL) Phosphorus (06/06/2024 5:00 AM CDT) Phosphorus, pl 1.8(L) 2.3 - 4.5 mg/dL Blood 06/06/2024 5:00 AM CDT 06/06/2024 5:05 AM CDT Charles Dorantes MD LAB BLOOD ORDERABLES [facility] al Result [facility] [address] Department [place] [address] * (ABNORMAL) Comprehensive metabolic panel (06/06/2024 5:00 [...] BLOOD ORDERABLES Fin al Result ANNE BANUELOS [address] [place] [address] * Critical Care (06/05/2024 11:57 PM CDT) [...] plan with the patient's team and other medical/benefits sales consultant staff. This time was in addition [...] 112 70 - 199 mg/dL POC Performer [id number] [facility] Blood 06/05/2024 9:22 PM CDT 06/05/2024 9:22 PM CDT us George Martinez MD LAB POCT ORDERABLES - DEVICE Fin al Result ANNE BANUELOS [address] Department [place] [address] * XR Chest 1 Vw Portable (06/05/2024 [...] * POCT glucose (06/05/2024 4:27 PM CDT) Glucose, POC 98 70 - 199 mg/dL POC Performer [id number] ANNE VIN Blood 06/05/2024 4:27 PM CDT 06/05/2024 4:27 PM CDT us George Martinez MD LAB POCT ORDERABLES - DEVICE Fin al Result ANNE [address] Department [place] [address] * XR Chest 1 View (06/05/2024 4:19 PM CDT) Anatomical Region Laterality Modality Body, Chest N/A Computed Radiogr aphy 06/05/2024 4:36 PM CDT Impressions 06/05/2024 4:36 PM CDT Basilar oriented right thoracostomy tube appears appropriately positioned. No definitive pneumothorax. Bandlike opacity in the left lower lobe suggestive of atelectasis. Cardiomediastinal silhouette within normal limits. No consolidation. Electronically signed by: Alexander Watkins II DAliciaOAlciia Narrative 06/05/2024 4:36 PM CDT EXAMINATION: XR [...] No consolidation. Electronically signed by: Alexander Watkins II D.O. us Monserrat Ibarra [employer] IMG XR PROCEDURES Final R esult * POCT glucose (06/05/2024 11:35 AM CDT) Glucose, POC 122 70 - 199 mg/dL POC Performer [id number] ANNE BANUELOS Blood 06/05/2024 11:3 5 AM CDT 06/05/2024 11:35 AM CDT George Martinez MD LAB POCT ORDERABLES - DEVICE Fin al Result Performing Organization Address [facility] Co de Phone Number ANNE [address] [place] [address] * Critical Care (06/05/2024 7:29 AM CDT) [...] plan with the patient's team and other medical/benefits sales consultant staff. This time was in addition [...] spent time documenting in the medical record Charles Dorantes MD IN CLINIC/BEDSIDE ORDERA BLES Final Result * POCT glucose (06/05/2024 7:02 AM CDT) Glucose, POC 111 70 - 199 mg/dL POC Performer [id number] ANNE BANUELOS Blood 06/05/2024 7:02 AM CDT 06/05/2024 7:02 AM CDT George Martinez MD LAB POCT ORDERABLES - DEVICE Fin al Result Performing Organization Address [facility] Co de Phone Number [facility] [address] Department [place] [address] * XR Chest 1 View (06/05/2024 4:53 [...] Cardiomegaly. Electronically signed by: Dylan Hendrickson M.D. George Martinez MD IMG XR PROCEDURES [...] MD LAB BLOOD ORDERABLES Fin al Result [facility] [address] Department [place] [address] * (ABNORMAL) Differential, auto (06/05/2024 3:10 AM CDT) Neutrophil abs 12.7(H) 1.5 - 6.5 K/cumm Imm gran abs 0.1 0.0 - 0.1 K/cumm [facility] Lymphocyte abs 0.8 0.8 - 3.3 K/cumm [facility] Monocyte abs 0.9(H) 0.2 - 0.8 K/cumm [facility] Eosinophil abs 0.0 0.0 - 0.5 K/cumm [facility] Basophil abs 0.0 0.0 - 0.1 K/cumm [facility] Neutrophil pct 88.1 % [facility] Comment: Interpretive Data Percent cell count reference ranges are not reported, since discordance with absolute values may lead to misinterpretation of CBC data. Current Interpretive Data was last revised on 2017. Imm gran pct 0.5 % [facility] Comment: Interpretive Data Percent cell count reference ranges are not reported, since discordance with absolute values may lead to misinterpretation of CBC data. Current Interpretive Data was last revised on 2017. Lymphocyte pct 5.4 % [facility] Comment: Interpretive Data Percent cell count reference ranges are not reported, since discordance with absolute values may lead to misinterpretation of CBC data. Current Interpretive Data was last revised on 2017. Monocyte pct 5.9 % [facility] Comment: Interpretive Data Percent cell count reference ranges are not reported, since discordance with absolute values may lead to misinterpretation of CBC data. Current Interpretive Data was last revised on 2017. Eosinophil pct 0.0 % [facility] Comment: Interpretive Data Percent cell count reference ranges are not reported, since discordance with absolute values may lead to misinterpretation of CBC data. Current Interpretive Data was last revised on 2017. Basophil pct 0.1 % [facility] Comment: Interpretive Data Percent cell count reference ranges are not reported, since discordance with absolute values may lead to misinterpretation of CBC data. Current Interpretive Data was last revised on 2017. Blood 06/05/2024 3:10 AM CDT 06/05/2024 3:15 AM CDT Charles Dorantes MD LAB BLOOD ORDERABLES Fin al Result [facility] [address] Department [place] [address] * (ABNORMAL) CBC with auto differential (06/05/2024 3:10 AM CDT) WBC 14.4(H) 3.8 - 9.9 K/cumm Hgb 13.7 13.0 - 17.5 g/dL [facility] Hct 41.3 38.9 - 50.3 % [facility] Plt 151 150 - 400 K/cumm [facility] MPV 11.0 9.1 - 12.[address] [facility] RBC 4.63 4.30 - 5.80 M/cumm [facility] MCV 89.2 81.3 - 96.[address] [facility] MCH 29.6 27.1 - 33.[address] [facility] MCHC 33.2 32.3 - 35.7 g/dL [facility] RDW CV 14.2 11.1 - 14.9 % [facility] RDW SD 45.8 35.7 - 48.[address] [facility] NRBC abs 0.00 0.00 - 0.01 K/cumm [facility] Blood 06/05/2024 3:10 AM CDT 06/05/2024 3:15 AM CDT Charles Doratnes MD LAB BLOOD ORDERABLES Fin al Result Performing Organization Address City/[facility]/ZIP Co de Phone Number ANNE BANUELOS [address] [facility] [place] [address] * Phosphorus (06/05/2024 3:10 AM CDT) Phosphorus, pl 3.0 2.3 - 4.5 mg/dL Blood 06/05/2024 3:10 AM CDT 06/05/2024 3:15 AM CDT Charles Dorantes MD LAB BLOOD ORDERABLES Fin al Result Performing Organization Address [facility] de Phone Number ANNE BANUELOS [address] [place] [address] * Magnesium (06/05/2024 3:10 AM CDT) Pathologist [facility] Magnesium 2.4 1.4 - 2.5 mg/dL Blood 06/05/2024 3:10 AM CDT 06/05/2024 3:15 AM CDT Charles Dorantes MD LAB BLOOD ORDERABLES Fin al Result Performing Organization Address [facility] de Phone Number ANNE BANUELOS [address] [place] [address] * (ABNORMAL) Comprehensive metabolic panel (06/05/2024 3:10 AM CDT) Sodium 141 135 - 145 mmol/L Potassium, pl 4.5 3.3 - 4.9 mmol/L [facility] Chloride 111(H) 97 - 110 mmol/L [facility] CO2 21(L) 22 - 32 mmol/L [facility] Anion gap 9 2 - 15 mmol/L [facility] BUN 22 6 - 25 mg/dL [facility] Creatinine 1.49(H) 0.80 - 1.30 mg/dL [facility] Glucose 128 70 - 199 mg/dL [facility] Comment: [...] CDT Charles Dorantes MD LAB BLOOD ORDERABLES [facility] al Result ANNE [address] Department [place] [address] * (ABNORMAL) eGFR (06/04/2024 11:02 PM CDT) [...] 2 PM CDT 06/04/2024 11:14 PM CDT George Martinez MD LAB BLOOD ORDERABLES Final Resul t Performing Organization Address City/[facility]/ZIP Co de Phone Number ANNE [address] [place] [address] * (ABNORMAL) CBC without differential (06/04/2024 11:02 PM CDT) WBC 13.2(H) 3.8 - 9.9 K/cumm Hgb 13.3 13.0 - 17.5 g/dL [facility] Hct 40.4 38.9 - 50.3 % [facility] Plt 134(L) 150 - 400 K/cumm [facility] MPV 11.3 9.1 - 12.[address] [facility] RBC 4.52 4.30 - 5.80 M/cumm [facility] MCV 89.4 81.3 - 96.[address] [facility] MCH 29.4 27.1 - 33.[address] [facility] MCHC 32.9 32.3 - 35.7 g/dL [facility] RDW CV 14.1 11.1 - 14.9 % [facility] RDW SD 46.2 35.7 - 48.[address] [facility] NRBC abs 0.00 0.00 - 0.01 K/cumm [facility] Blood 06/04/2024 11:0 2 PM CDT 06/04/2024 11:14 PM CDT us George Martinez MD LAB BLOOD ORDERABLES Final Resul t Performing Organization Address City/[facility]/ZIP Co de Phone Number ANNE [address] Department [place] [address] * (ABNORMAL) Basic metabolic panel (06/04/2024 11:02 PM CDT) Sodium 142 135 - 145 mmol/L Potassium, pl 4.4 3.3 - 4.9 mmol/L [facility] Chloride 111(H) 97 - 110 mmol/L [facility] [...] LAB BLOOD ORDERABLES Final Resul t ANNE [address] Department [place] [address] * POCT glucose (06/04/2024 7:55 PM CDT) Glucose, POC 176 70 - 199 mg/dL POC Performer [id number] [facility] Blood 06/04/2024 7:55 PM CDT 06/04/2024 7:55 PM CDT us George Martinez MD LAB POCT ORDERABLES - DEVICE Fin al Result Performing Organization Address [facility]/ZIP Co de Phone Number ANNE BANUELOS [address] [facility] [employer] [place], [place] [id number] * (ABNORMAL) POCT glucose (06/04/2024 7:55 PM CDT) Glucose, POC 224(H) 70 - 199 mg/dL POC Performer [id number] [facility] Blood 06/04/2024 7:55 PM CDT 06/04/2024 7:55 PM CDT George Martinez MD LAB POCT ORDERABLES - DEVICE Fin al Result Performing Organization Address [facility] Co de Phone Number ANNE BANUELOS [address] [place] [address] * POCT glucose (06/04/2024 5:47 PM CDT) [facility] Glucose, POC 131 70 - 199 mg/dL POC Performer [id number] [facility] Blood 06/04/2024 5:47 PM CDT 06/04/2024 5:47 PM CDT George Martinez MD LAB POCT ORDERABLES - DEVICE Fin al Result Performing Organization Address [facility] Co de Phone Number ANNE BANUELOS [address] [employer] [place], [place] [id number] * (ABNORMAL) eGFR (06/04/2024 1:26 PM CDT) eGFR 54(L) >=60 mL/min/1. 73 m2 Comment: [...] LAB BLOOD ORDERABLES Fin al Result ANNE [address] Department [place] [address] * (ABNORMAL) Differential, auto (06/04/2024 1:26 PM CDT) Neutrophil abs 10.7(H) 1.5 - 6.5 K/cumm Imm gran abs 0.1 0.0 - 0.1 K/cumm [facility] Lymphocyte abs 0.3(L) 0.8 - 3.3 K/cumm [facility] Monocyte abs 0.1(L) 0.2 - 0.8 K/cumm [facility] Eosinophil abs 0.0 0.0 - 0.5 K/cumm [facility] Basophil abs 0.0 0.0 - 0.1 K/cumm [facility] Neutrophil pct 95.7 % [facility] Comment: Interpretive Data Percent cell count reference ranges are not reported, since discordance with absolute values may lead to misinterpretation of CBC data. Current Interpretive Data was last revised on 2017. Imm gran pct 0.6 % ANNE Comment: Interpretive Data Percent cell count reference ranges are not reported, since discordance with absolute values may lead to misinterpretation of CBC data. Current Interpretive Data was last revised on 2017. Lymphocyte pct 2.3 % ANNE Comment: Interpretive Data Percent cell count reference ranges are not reported, since discordance with absolute values may lead to misinterpretation of CBC data. Current Interpretive Data was last revised on 2017. Monocyte pct 1.2 % [facility] Comment: Interpretive Data Percent cell count reference ranges are not reported, since discordance with absolute values may lead to misinterpretation of CBC data. Current Interpretive Data was last revised on 2017. Eosinophil pct 0.1 % [facility] Comment: Interpretive Data Percent cell count reference ranges are not reported, since discordance with absolute values may lead to misinterpretation of CBC data. Current Interpretive Data was last revised on 2017. Basophil pct 0.1 % [facility] Comment: Interpretive Data Percent cell count reference ranges are not reported, since discordance with absolute values may lead to misinterpretation of CBC data. Current Interpretive Data was last revised on 2017. Blood 06/04/2024 1:26 PM CDT 06/04/2024 1:38 PM CDT Charles Dorantes MD LAB BLOOD ORDERABLES Fin al Result [facility] [address] [place] [address] * (ABNORMAL) CBC with auto differential (06/04/2024 1:26 PM CDT) WBC 11.1(H) 3.8 - 9.9 K/cumm Hgb 14.5 13.0 - 17.5 g/dL [facility] Hct 43.7 38.9 - 50.3 % [facility] Plt 150 150 - 400 K/cumm [facility] MPV 10.8 9.1 - 12.[address] [facility] RBC 4.93 4.30 - 5.80 M/cumm [facility] MCV 88.6 81.3 - 96.[address] [facility] MCH 29.4 27.1 - 33.[address] [facility] MCHC 33.2 32.3 - 35.7 g/dL [facility] RDW CV 14.0 11.1 - 14.9 % [facility] RDW SD 45.3 35.7 - 48.[address] [facility] NRBC abs 0.00 0.00 - 0.01 K/cumm [facility] Blood 06/04/2024 1:26 PM CDT 06/04/2024 1:38 PM CDT Charles Dorantes MD LAB BLOOD ORDERABLES Fin al Result Performing Organization Address [facility] de Phone Number ANNE BANUELOS [address] [facility] [employer] [place], [place] [id number] * (ABNORMAL) Phosphorus (06/04/2024 1:26 PM CDT) Phosphorus, pl 1.9(L) 2.3 - 4.5 mg/dL Blood 06/04/2024 1:26 PM CDT 06/04/2024 1:32 PM CDT Charles Dorantes MD LAB BLOOD ORDERABLES Fin al Result Performing Organization Address [facility] de Phone Number ANNE BANUELOS [address] [place] [address] * Magnesium (06/04/2024 1:26 PM CDT) Pathologist [facility] Magnesium 1.9 1.4 - 2.5 mg/dL Blood 06/04/2024 1:26 PM CDT 06/04/2024 1:32 PM CDT Charles Dorantes MD LAB BLOOD ORDERABLES Fin al Result Performing Organization Address [facility] de Phone Number ANNE BANUELOS [address] [address] [place] [address] * (ABNORMAL) Basic metabolic panel (06/04/2024 1:26 PM CDT) Sodium 143 135 - 145 mmol/L Potassium, pl 3.7 3.3 - 4.9 mmol/L [facility] Chloride 112(H) 97 - 110 mmol/L [facility] CO2 20(L) 22 - 32 mmol/L [facility] Anion gap 11 2 - 15 mmol/L [facility] BUN 26(H) 6 - 25 mg/dL [facility] Creatinine 1.40(H) 0.80 - 1.30 mg/dL [facility] Glucose 134 70 - 199 mg/dL [facility] Comment: Interpretive Data Fasting glucose >/= [...] 2022. Calcium 8.0(L) 8.5 - 10.3 mg/dL [facility] Blood 06/04/2024 1:26 PM CDT 06/04/2024 1:32 PM CDT us Charles Dorantes MD LAB BLOOD ORDERABLES Fin al Result Performing Organization Address [facility] Co de Phone Number [facility] [address] [place] [address] * POCT glucose (06/04/2024 1:10 PM CDT) [facility] Glucose, POC 122 70 - 199 mg/dL POC Performer [phone] [facility] Blood 06/04/2024 1:10 PM CDT 06/04/2024 1:10 PM CDT us George Martinez MD LAB POCT ORDERABLES - DEVICE Fin al Result Performing Organization Address City/[facility] Co de Phone Number [facility] [address] [place] [place], [place] [phone] * Critical Care (06/04/2024 1:06 PM CDT) [...] plan with the ICU team and other medical/benefits sales consultant staff, making frequent assessments and decisions [...] spent time documenting in the medical record Charles Dorantes MD IN CLINIC/BEDSIDE ORDERA BLES [...] non-tumor) 06/04/2024 10:06 AM CDT Narrative PATHOLOGY CH - 06/06/2024 2:43 PM CDT EPIC results best viewed via link to PDF [facility] Department of Pathology [address] [place] [id number] Note to Patients: This report may contain [...] Final Report Patient Name: WEST FOSTER Address: [address] [address] Gender: M : 1955 (Age: 69) Service: Cardiothoracic Location: Hospital #: [id number] Patient Type: [facility] Taken: 06/04/2024 Received: 06/04/2024 Accessioned: 06/04/2024 Reported: [...] Diagnosis: K Right lower lobe - 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 It is 1 gil-peerz lymph node measuring 1.2 cm. Entirely in [...] tissue embedded in cassette K1 and K2. Facilities Engineer sections are submitted: Vascular margin K 3, [...] determined by the Surgical Pathology Department at [facility] as part of an ongoing quality engineer medical device program and in compliance with federally mandated [...] characteristics determined by the Surgical Pathology Department [facility]. It has not been cleared or approved by the U. S. Food and Drug Administration. Note for decalcified specimens: This assay has not been validated on decalcified tissues. Results should be interpreted with caution given the possibility of false negativity on decalcified specimens George Martinez MD LAB PATHOLOGY ORDERABLES Final R esult Performing Organization Address [facility] Co de Phone Number PATHOLOGY [address] [place] [address] * Prepare RBC: 1 Units (06/04/2024 8:20 AM CDT) Product code [id number] Unit Number [id number] 5-N [facility] Product Blood Type APOS [facility] Dispense Status RETURNED [facility] Blood 06/04/2024 8:20 AM CDT 06/04/2024 8:20 AM CDT Narrative [facility] - 06/05/2024 12:18 AM CDT Are special requirements needed? (All products are leukoreduced and CMV- safe)- >No Date required:-[id number] LRRBC # of [id number] Reasons:-Intra-op transfusion} George Martinez MD BLOOD BANK PRODUCT ORDERABLES Fi nal Result Performing Organization Address [facility] Co de Phone Number [facility] [address] [facility] Department [place] [address] * Peripheral IV Catheter (06/04/2024 8:09 AM [...] patient tolerated procedure well with no complications Margarita Cooper MD ANESTHESIA ORDERABLES Final Resu [...] MD ANESTHESIA ORDERABLES Final Resu lt * [place] AN ELECTIVE ENDOTRACHEAL AIRWAY (06/04/2024 8:08 AM [...] oral Blade type: Chris Video blade type: Cronote Blade size: 4 Cormack-Lehane (video): grade I - full view of glottis Cuff inflated with: air Placement verified by: auscultation and CO2 detection Airway secured with: silk tape Number of attempts: 1 Additional comments: Atraumatic. Teeth as before. us Margarita Cooper MD ANESTHESIA ORDERABLES Final Resu lt * Prepare RBC: 1 Units (06/04/2024 7:00 AM CDT) Product code [id number] Unit Number [id number] 4-M [facility] Product Blood Type APOS [facility] Dispense Status RETURNED [facility] Blood 06/04/2024 7:00 AM CDT Narrative [facility] - 06/05/2024 12:18 AM CDT Specify Procedure:->robotic lobectomy Are special requirements needed? (All products are leukoreduced and CMV- safe)- >No Date required:-[id number] LRRBC # of Zmcuw-[id number] Reasons:-Hold for procedure (specify procedure)} us Monserrat Ibarra NP BLOOD BANK PRODUCT ORDERA BLES Final Result Performing Organization Address [facility] Co de Phone Number [facility] [address] Department of [employer] [place], [place] [phone] * Check Sample (06/04/2024 6:47 AM CDT) Pathologist [facility] ABO Rh A Positive [facility] HCLL OTHER 06/04/2024 6:47 AM CDT 06/04/2024 7:56 AM CDT us George Martinez MD LAB BLOOD ORDERABLES Final Resul t Performing Organization Address [facility] de Phone Number [facility] [address] [place] [address] CH * (ABNORMAL) eGFR (05/27/2024 12:19 PM [...] MD LAB BLOOD ORDERABLES Final Resul t [facility] [address] Department of Laboratories [place], [place] [phone] * Differential, auto (05/27/2024 12:19 PM CDT) Neutrophil abs 4.9 1.5 - 6.5 K/cumm Imm gran abs 0.1 0.0 - 0.1 K/cumm [facility] Lymphocyte abs 1.8 0.8 - 3.3 K/cumm [facility] Monocyte abs 0.6 0.2 - 0.8 K/cumm [facility] Eosinophil abs 0.0 0.0 - 0.5 K/cumm [facility] Basophil abs 0.0 0.0 - 0.1 K/cumm [facility] Neutrophil pct 65.9 % [facility] Comment: Interpretive Data Percent cell count reference ranges are not reported, since discordance with absolute values may lead to misinterpretation of CBC data. Current Interpretive Data was last revised on 2017. Imm gran pct 1.1 % [facility] Comment: Interpretive Data Percent cell count reference ranges are not reported, since discordance with absolute values may lead to misinterpretation of CBC data. Current Interpretive Data was last revised on 2017. Lymphocyte pct 24.6 % [facility] Comment: Interpretive Data Percent cell count reference ranges are not reported, since discordance with absolute values may lead to misinterpretation of CBC data. Current Interpretive Data was last revised on 2017. Monocyte pct 7.8 % [facility] Comment: Interpretive Data Percent cell count reference ranges are not reported, since discordance with absolute values may lead to misinterpretation of CBC data. Current Interpretive Data was last revised on 2017. Eosinophil pct 0.1 % [facility] Comment: Interpretive Data Percent cell count reference ranges are not reported, since discordance with absolute values may lead to misinterpretation of CBC data. Current Interpretive Data was last revised on 2017. Basophil pct 0.5 % [facility] Comment: Interpretive Data Percent cell count reference ranges are not reported, since discordance with absolute values may lead to misinterpretation of CBC data. Current Interpretive Data was last revised on 2017. Blood 05/27/2024 12:1 9 PM CDT 05/27/2024 12:19 PM CDT us George Martinez MD LAB BLOOD ORDERABLES Final Resul t [facility] [address] Department [place] [address] * (ABNORMAL) CBC with auto differential (05/27/2024 12:19 PM CDT) WBC 7.5 3.8 - 9.9 K/cumm Hgb 17.2 13.0 - 17.5 g/dL [facility] Hct 52.7(H) 38.9 - 50.3 % [facility] Plt 174 150 - 400 K/cumm [facility] MPV 11.2 9.1 - 12.[address] [facility] RBC 5.83(H) 4.30 - 5.80 M/cumm [facility] MCV 90.4 81.3 - 96.[address] [facility] MCH 29.5 27.1 - 33.[address] [facility] MCHC 32.6 32.3 - 35.7 g/dL [facility] RDW CV 14.1 11.1 - 14.9 % [facility] RDW SD 46.4 35.7 - 48.1 fL [facility] NRBC abs 0.00 0.00 - 0.01 K/cumm [facility] Blood 05/27/2024 12:1 9 PM CDT 05/27/2024 12:19 PM CDT us George Martinez MD LAB [place] [address] [address] Department [place] [address] * (ABNORMAL) Comprehensive metabolic panel (05/27/2024 12:19 [...] ORDERABLES Final Resul t Performing Organization Address [facility] Co de Phone Number ANNE BANUELOS [address] Department [place] [address] * (ABNORMAL) Urinalysis reflex to microscopic and [...] tendency for uric acid stone formation. Source: [facility] Current Interpretive Data was last revised on [...] 11:59 AM CDT 05/27/2024 1:23 PM CDT us George Martinez MD LAB MICROBIOLOGY - GENERAL ORDER KAILEY Final Result Performing Organization Address City/[facility]/ZIP Co de Phone Number ANNE [address] Department [place] [address] * Type and screen (05/27/2024 11:59 AM CDT) ABO Rh A Positive Neymar, indirect Negative [facility] Blood 05/27/2024 11:5 9 AM CDT 05/27/2024 12:31 PM CDT Narrative ANNE - 05/27/2024 1:45 PM CDT Has the patient had Daratumumab or Isatuximab in the past 6 months?->Unknown George Martinez MD LAB BLOOD BANK TEST ORDERABLES F inal Result Performing Organization Address [facility] Co de Phone Number ANNE [address] Department [place] [address] * ECG 12 lead (05/27/2024 11:45 AM CDT) 05/27/2024 11:4 5 AM CDT Narrative [facility] - 05/27/2024 3:19 PM CDT Vent Rate: 77 bpm RR Interval: 771 msec [place] Interval: 166 msec QRS Duration: 91 msec QT Interval: 366 msec QTC Interval: 398 msec P-R-T [place]: 39 - -25 - -7 degrees IMPRESSION: SINUS RHYTHM WITH OCCASIONAL VENTRICULAR PREMATURE COMPLEXES WITH OCCASIONAL SUPRAVENTRICULAR PREMATURE COMPLEXES BORDERLINE LEFT AXIS DEVIATION LOW QRS VOLTAGE IN PRECORDIAL LEADS PATTERN CONSISTENT WITH PULMONARY DISEASE ABNORMAL ECG Electronically Signed By: Carson Aguila MD, [facility] George Martinez MD ECG ORDERABLES Final Result Performing Organization Address [facility] Co de Phone Number [facility] [employer] [facility] * X-ray chest 2 views (05/27/2024 11:16 [...] CHANGE. Electronically signed by: Isidro Alcantar M.D. George Martinez MD IMG XR PROCEDURES Final Result * CT Body Outside Reference (05/20/2024 12:20 PM TRANSITIONS RN CARE COORDINATOR) Narrative HECTOR_JENNIFER_MHB_MHE - 05/22/2024 11:13 AM TRANSITIONS RN CARE COORDINATOR This order has been auto-finalized and does not contain a result. us Provider Transcribed Order IMG CT PROCEDURES Fin al Result RAD_CLARIO_MHB_MHE * XR Chest PA Lateral 2 Views (04/11/2024 12:16 PM TRANSITIONS RN CARE COORDINATOR) Anatomical Region Laterality Modality Body, Chest N/A Computed Radiogr aphy 04/11/2024 12:2 9 PM TRANSITIONS RN CARE COORDINATOR Narrative 04/11/2024 12:31 PM TRANSITIONS RN CARE COORDINATOR EXAM DESCRIPTION: XR CHEST PA LATERAL 2 [...] Jez Rahman M.D. AM T: Report ID: [id number] Reading Location: [id number] Procedure Note Jez Rahman MD - 04/11/2024 [...] Jez Rahman M.D. AM T: Report ID: [id number] Reading Location: [id number] Jag Tobar MD IMG XR PROCEDURES Final Resu lt * XR Chest 1 View (04/11/2024 10:17 AM TRANSITIONS RN CARE COORDINATOR) Anatomical Region Laterality Modality Body, Chest N/A Computed Radiogr aphy 04/11/2024 11:0 2 AM TRANSITIONS RN CARE COORDINATOR Narrative 04/11/2024 11:31 AM TRANSITIONS RN CARE COORDINATOR EXAM DESCRIPTION: XR CHEST 1 VIEW REASON [...] will immediately relay the findings to Dr. Tobra who is currently with the patient. THIS IS AN ELECTRONICALLY VERIFIED FINAL REPORT 04/11/2024 11:31 AM - Electronically signed by Jez Rahman M.D. AM T: Report ID: [id number] Reading Location: [place] [address] Procedure Note Jez Rahman MD - 04/11/2024 [...] Jez Rahman M.D. AM T: Report ID: [id number] Reading Location: [id number] us Jag Tobar MD IMG XR PROCEDURES Final Resu lt * FL Fluoroscopy < 1 Hour (04/11/2024 9:41 AM TRANSITIONS RN CARE COORDINATOR) Narrative RAD_JENNIFER_OC_MHE - 04/11/2024 9:42 AM TRANSITIONS RN CARE COORDINATOR The images from this study are not interpreted by Radiology. Please refer to the physician's procedure / OR operative note. us Jag Tobar MD IMG FLUOROSCOPY PROCEDURES F inal Result RAD_JENNIFER_MHB_MHE * Surgical pathology (04/11/2024 9:22 AM TRANSITIONS RN CARE COORDINATOR) Tissue (Lung Biopsy) 04/11/2024 9:22 AM TRANSITIONS RN CARE COORDINATOR Narrative PATHOLOGY [facility] - 04/14/2024 3:07 PM TRANSITIONS RN CARE COORDINATOR [facility] Department of Pathology [address] [place] [address] Note to Patients: This report may contain [...] : 1955 (Age: 68) Gender: M Address: [address] [address] Hospital #: [id number] Service: Surgery Location: Patient Type: [facility] OUTPATIENT Taken: 04/11/2024 Received: 04/11/2024 Accessioned: 04/11/2024 [...] was communicated with Dr. Jag Tobar via [employer] message on 04/14/2024. Microscopic examination substantiates the above cited diagnosis. Please correlate with the culture result for speciation. The result was communicated with Dr. Jag Tobar via [employer] message on 04/14/2024. Clinical History: The patient [...] and entirely submitted. Labeled A1. Jar 0. [facility]/04/11/2024 11:35 [place], [place] [facility] Microscopic slide review and interpretation for this case was performed at [facility], Department of Surgical Pathology, [address] [facility], [id number], [place] [address] CLIA # [id number] us Jag Tobar MD LAB PATHOLOGY ORDERABLES Fin al Result PATHOLOGY [facility] * Cytology (04/11/2024 9:21 AM TRANSITIONS RN CARE COORDINATOR) Fluid (Bronch Lavage (Cytology)) 04/11/2024 9:21 AM TRANSITIONS RN CARE COORDINATOR Narrative PATHOLOGY [facility] - 04/15/2024 6:01 PM TRANSITIONS RN CARE COORDINATOR [facility] results best viewed via link to PDF [facility] Laboratory [place] [address] Note to Patients: This report may contain [...] Gender: M : 1955 (Age: 68) Address: [place] [address] Hospital #: [id number] Taken:04/11/2024 Received:04/11/2024 Reported: 04/15/2024 Patient Type: [facility] OUTPATIENT Service: Surgery Location: Physician(s): MD Stephanie [...] Kristina Haynes M.D. 04/15/2024 18:01:32 Monika Hassan [facility](ASCP) Gross Description A. BAL right lower lobe: [...] interpretation for this case was performed at [facility], Department of Surgical Pathology, [address] [facility] [address], [id number], [place] [address] CLIA # [id number] REPORT IMAGES AND SCANNED DOCUMENTS, IF INCLUDED, ONLY VIEWABLE IN PDF VERSION OF REPORT The performance characteristics of some immunohistochemical stains, in-situ hybridization and fluorescence in-situ hybridization tests and immunophenotyping by flow cytometry cited in this report (if any) were determined by the Surgical Pathology and Flow Cytometry Departments at [facility] as part of an ongoing quality engineer medical device program and in compliance with federally mandated [...] Surgical Pathology and Flow Cytometry Departments of [facility]. It has not been cleared or approved by the U. S. Food and Drug Administration. Jag Tobar MD LAB CYTOLOGY ORDERABLES Joya l Result PATHOLOGY [facility] * [place] AN ELECTIVE ENDOTRACHEAL AIRWAY, NJ AN PROCEDURE PLACEHOLDER (04/11/2024 9:20 AM TRANSITIONS RN CARE COORDINATOR) Devon Pillai CRNA - 04/11/2024 9:20 AM TRANSITIONS RN CARE COORDINATOR Devon Garcia CRNA 04/11/2024 9:20 AM Airway Patient location: OR Urgency: elective Indications for airway management: anesthesia Difficult airway: no Staff: Supervising provider: Sandra Mensah MD Placed by: VENEER SPLICER: Devon Garcia CRNA Emergent airway documentation: Risks [...] Bronchoalveolar lavage Lobe, right lower (04/11/2024 9:19AM TRANSITIONS RN CARE COORDINATOR) Direct Specimen Exam Stain: Cytospin Gram stain shows: Rare polymorphonuclear leukocytes seen. No organisms seen. Comment:Testing performed by : [facility], [address] [place]., [address] Report Final Report: Curvularia species Plus growth of clinically insignificant bacterial lucian. (.) ANNE BEDOLLA Comment:Testing performed by : [facility], [address] [place]., [address] Organism PLUS GROWTH OF CLINICALLY INSIGNIFICANT LUCIAN. ANNE Organism CURVULARIA SPECIES ANNE Bronchoalveolar lavage (Lobe, right lower) 04/11/2024 9:19 AM TRANSITIONS RN CARE COORDINATOR 04/11/2024 11:24 AM TRANSITIONS RN CARE COORDINATOR Narrative ANNE BEDOLLA - 04/27/2024 3:12 PM TRANSITIONS RN CARE COORDINATOR Testing performed by [facility] ([phone]) Specimens submitted from normally sterile body sites will have all bacterial morphotypes identified. Specimens that contain grossly mixed lucian and/or are from body sites that are not normally sterile will be examined for Staphylococcus aureus, Pseudomonas aeruginosa, beta-hemolytic strep, vancomycin-resistant Enterococcus and fungus. If any of these are isolated, the organism will be reported. Current interpretive data was last revised on 2016. Jag Tobar MD LAB MICROBIOLOGY - GENERAL O RDERABLES Final Result Performing Organization Address [facility] Co de Phone Number [address] [place] [address] * (ABNORMAL) Mycology (fungal) culture Bronchoalveolar lavage Lobe, right lower (04/11/2024 9:19 AM TRANSITIONS RN CARE COORDINATOR) Report Final Report: Curvularia species (.) Comment:Testing performed by : [facility], [address] [place] [address]., [phone] Organism CURVULARIA SPECIES ANNE Bronchoalveolar lavage (Lobe, right lower) 04/11/2024 9:19 AM TRANSITIONS RN CARE COORDINATOR 04/11/2024 11:24 AM TRANSITIONS RN CARE COORDINATOR Narrative ANNE - 05/09/2024 8:28 AM TRANSITIONS RN CARE COORDINATOR Testing performed by [facility] ([phone]). Jag Tobar MD LAB MICROBIOLOGY - GENERAL O RDERABLES Final Result Performing Organization Address [facility] de Phone Number [address] [address] * Mycobacteriology (AFB) culture and acid-fast stain Bronchoalveolar lavage Lobe, right lower (04/11/2024 9:19 AM TRANSITIONS RN CARE COORDINATOR) Direct Specimen Exam Stain: No Acid-fast bacilli seen Comment:Testing performed by : [facility], [address] [place] [address], [place]., [address] Report Final Report: No growth of acid-fast bacilli ANNE Comment:Testing performed by : [facility], [address] [place] [address], [place] [address] Bronchoalveolar lavage (Lobe, right lower) 04/11/2024 9:19 AM TRANSITIONS RN CARE COORDINATOR 04/11/2024 11:24 AM TRANSITIONS RN CARE COORDINATOR Narrative ANNE - 06/09/2024 8:08 AM CDT Testing performed by [facility] ([phone]). us Jag Tobar MD LAB MICROBIOLOGY - GENERAL O RDERABLES Final Result ANNE [address] [facility] Department of Laboratories [place], [place] [id number] * Bronchoscopy (04/11/2024 8:47 AM TRANSITIONS RN CARE COORDINATOR) Anatomical Region Laterality Modality Other Narrative Procedure Note Jag Tobar MD - 04/11/2024 8:47 AM CST [facility] Patient Name: West Foster Procedure Date: 04/11/2024 8:47 AM Date of : 1955 Admit Type: Outpatient Age: 68 Room: [facility] OPERATING ROOM 25 Gender: Male Note Status: Finalized Attending MD: Jag Tobar M.D. Procedure: Bronchoscopy Providers: Jag Tobar M.D. Referring MD: Requesting Physician: Procedure: After obtaining informed consent, the [id number] bronchoscope was introduced through the rightnostril and advanced to the. Findings: Jaki Tobar M.D. Jag Tobar M.D. 04/11/2024 9:53:56 AM . Number of Addenda: 0 Note Initiated On: 04/11/2024 8:47 AM Jag Tobar MD ENDOSCOPY PROCEDURES Final R esult * (ABNORMAL) eGFR (04/11/2024 7:30 AM TRANSITIONS RN CARE COORDINATOR) eGFR 46(L) >=60 mL/min/1. 73 m2 Comment: [...] last reviewed 2021. Blood 04/11/2024 7:30 AM TRANSITIONS RN CARE COORDINATOR 04/11/2024 7:34 AM TRANSITIONS RN CARE COORDINATOR Jag Tobar MD LAB BLOOD ORDERABLES Final R esult [facility] [address] [facility] [place] [address] * Differential, auto (04/11/2024 7:30 AM TRANSITIONS RN CARE COORDINATOR) Neutrophil abs 3.6 1.5 - 6.5 K/cumm Imm gran abs 0.0 0.0 - 0.1 K/cumm [facility] Lymphocyte abs 1.8 0.8 - 3.3 K/cumm [facility] Monocyte abs 0.5 0.2 - 0.8 K/cumm [facility] Eosinophil abs 0.2 0.0 - 0.5 K/cumm [facility] Basophil abs 0.0 0.0 - 0.1 K/cumm [facility] Neutrophil pct 58.8 % [facility] Comment: Interpretive Data Percent cell count reference ranges are not reported, since discordance with absolute values may lead to misinterpretation of CBC data. Current Interpretive Data was last revised on 2017. Imm gran pct 0.3 % [facility] Comment: Interpretive Data Percent cell count reference ranges are not reported, since discordance with absolute values may lead to misinterpretation of CBC data. Current Interpretive Data was last revised on 2017. Lymphocyte pct 29.9 % [facility] Comment: Interpretive Data Percent cell count reference ranges are not reported, since discordance with absolute values may lead to misinterpretation of CBC data. Current Interpretive Data was last revised on 2017. Monocyte pct 7.7 % [facility] Comment: Interpretive Data Percent cell count reference ranges are not reported, since discordance with absolute values may lead to misinterpretation of CBC data. Current Interpretive Data was last revised on 2017. Eosinophil pct 2.6 % [facility] Comment: Interpretive Data Percent cell count reference ranges are not reported, since discordance with absolute values may lead to misinterpretation of CBC data. Current Interpretive Data was last revised on 2017. Basophil pct 0.7 % [facility] Comment: Interpretive Data Percent cell count reference ranges are not reported, since discordance with absolute values may lead to misinterpretation of CBC data. Current Interpretive Data was last revised on 2017. Blood 04/11/2024 7:30 AM TRANSITIONS RN CARE COORDINATOR 04/11/2024 7:34 AM TRANSITIONS RN CARE COORDINATOR us Jag Tobar MD LAB BLOOD ORDERABLES Final R esult ANNE [address] [facility] [place] [address] * CBC with auto differential (04/11/2024 7:30 AM TRANSITIONS RN CARE COORDINATOR) [facility] WBC 6.1 3.8 - 9.9 K/cumm Hgb 16.4 13.0 - 17.5 g/dL [facility] Hct 49.4 38.9 - 50.3 % [facility] Plt 184 150 - 400 K/cumm [facility] MPV 11.3 9.1 - 12.3 fL [facility] RBC 5.55 4.30 - 5.80 M/cumm [facility] MCV 89.0 81.3 - 96.4 fL [facility] MCH 29.5 27.1 - 33.3 pg [facility] MCHC 33.2 32.3 - 35.7 g/dL [facility] RDW CV 13.7 11.1 - 14.9 % [facility] RDW SD 44.6 35.7 - 48.1 fL [facility] NRBC abs 0.00 0.00 - 0.01 K/cumm [facility] Blood 04/11/2024 7:30 AM TRANSITIONS RN CARE COORDINATOR 04/11/2024 7:34 AM TRANSITIONS RN CARE COORDINATOR Jag Tobar MD LAB BLOOD ORDERABLES Final R esult Performing Organization Address [facility] Co de Phone Number [address] [place] [address] * aPTT (04/11/2024 7:30 AM TRANSITIONS RN CARE COORDINATOR) [facility] aPTT 31 22 - 37 sec Comment: Interpretive data aPTT test has not been evaluated for monitoring heparin therapy. The anti-Xa is the preferred test. Current interpretive data was last revised on 2019. Blood 04/11/2024 7:3 0 AM TRANSITIONS RN CARE COORDINATOR 04/11/2024 7:34 AM TRANSITIONS RN CARE COORDINATOR Jag Tobar MD LAB BLOOD ORDERABLES Final R esult Performing Organization Address [facility] Co de Phone Number [address] [place] [address] * Protime-INR (04/11/2024 7:30 AM TRANSITIONS RN CARE COORDINATOR) PT 14.2 12.0 - 14.6 sec INR 1.1 0.9 - 1.2 [facility] Comment: Ref Range High Interpretive data Oral anticoagulant therapeutic ranges: Venous thromboembolism prophylaxis or treatment: 2.0-3.0 CARDIOLOGY Standard range: 2.0-3.0 High-intensity range: 2.5-3.5 Refer to indication-specific guidelines for appropriate target ranges for prosthetic heart valve replacement. Current interpretive data was last revised on 2019. Blood 04/11/2024 7:30 AM TRANSITIONS RN CARE COORDINATOR 04/11/2024 7:34 AM TRANSITIONS RN CARE COORDINATOR Jag Tobar MD LAB BLOOD ORDERABLES Final R esult [facility] [address] [facility] [place] [address] * (ABNORMAL) Basic metabolic panel (04/11/2024 7:30 AM TRANSITIONS RN CARE COORDINATOR) Sodium 142 135 - 145 mmol/L Potassium, pl 4.1 3.3 - 4.9 mmol/L [facility] Chloride 109 97 - 110 mmol/L [facility] CO2 23 22 - 32 mmol/L [facility] Anion gap 10 2 - 15 mmol/L [facility] BUN 20 6 - 25 mg/dL [facility] Creatinine 1.61(H) 0.80 - 1.30 mg/dL [facility] Glucose 115 70 - 199 mg/dL [facility] Comment: Interpretive Data Fasting glucose >/= [...] classification and Diagnosis of Diabetes Diabetes Care 2022; 46: S19-S40. Current interpretive data was last revised 2022. Calcium 9.0 8.5 - 10.3 mg/dL [facility] Blood 04/11/2024 7:30 AM TRANSITIONS RN CARE COORDINATOR 04/11/2024 7:34 AM TRANSITIONS RN CARE COORDINATOR us Jag Tobar MD LAB BLOOD ORDERABLES Final R esult [facility] [address] [facility] Department [place] [address] * PET/CT FDG Skull to Thigh (04/10/2024 12:12 PM TRANSITIONS RN CARE COORDINATOR) Anatomical Region Laterality Modality N/A Positron Emissio n Tomography (PET) 04/10/2024 2:18 PM TRANSITIONS RN CARE COORDINATOR Impressions 04/10/2024 2:44 PM TRANSITIONS RN CARE COORDINATOR 1. Moderately FDG-avid right lower lobe nodule [...] Luis Walker M.D. Narrative 04/10/2024 2:44 PM TRANSITIONS RN CARE COORDINATOR EXAMINATION: TUMOR FDG-PET/CT IMAGING DATE OF STUDY: 04/10/2024 SCANNER: [facility] N PET Vision (NV1). This is a high-resolution scanner, which [...] obtained. The study was interpreted on the [employer] workstation. The mean liver SUV (reported for it quality analyst purposes) is 2.5. The total scanned area [...] FDG-PET/CT IMAGING DATE OF STUDY: 04/10/2024 SCANNER: [facility] StrongLoop (NV1). This is a high-resolution scanner, which [...] obtained. The study was interpreted on the [employer] workstation. The mean liver SUV (reported for it quality analyst purposes) is 2.5. The total scanned area [...] Jose Luis Walker M.D. George Martinez MD [facility] PET PROCEDURES Final Result * (ABNORMAL) Pulmonary Function Test - (04/07/2024 2:59 PM TRANSITIONS RN CARE COORDINATOR) FVC PRE 3.92 3.12 - 5.33 L [facility] FEV1 PRE 3.21 2.29 - 4.02 L [facility] [id number] 81.76 62.34 - 87.83 % [facility] LAS74-55% PRE 4.38(A) 1.03 - 4.35 L/s [facility] PEF PRE 9.97 6.07 - 10.05 L/s [facility] DLCOc SB 23.77 20.26 - 34.11 ml/(min*mm Hg) [facility] DLCO/VA PRE 4.53 2.66 - 4.97 ml/(min*mm Hg*L) [facility] VA 5.25(A) 6.98 - 6.98 L [facility] TLC PRE 5.92(A) 5.97 - 8.28 L [facility] VC PRE 3.92 3.31 - 5.16 L [facility] IC PRE 2.95(A) 3.17 - 3.17 L [facility] FRC PL PRE 2.97 2.71 - 4.69 L [facility] ERV PRE 0.97(A) 1.06 - 1.06 L [facility] RV PRE 2.00 1.96 - 3.31 L [facility] VTG 3.01 L [facility] RAW PRE 1.15(A) 3.06 - 3.06 cmH2O*s/L [facility] Anatomical Region Laterality Modality PFT 04/07/2024 2:30 PM TRANSITIONS RN CARE COORDINATOR Impressions 04/08/2024 8:38 AM TRANSITIONS RN CARE COORDINATOR 1. Normal spirometry. Total lung capacity is approaching the lower limit of normal and may reflect a mild restrictive ventilatory limitation 2. Normal diffusion capacity Electronically signed by Isidro Tabor MD Pulmonary & Critical Care Narrative 04/08/2024 8:38 AM TRANSITIONS RN CARE COORDINATOR PULMONARY FUNCTION TESTS [place] 68 y.o. 04/08/2024 INTERPRETATION Please see technologist's [...] and carboxyhemoglobin DLCO is 87 % predicted us George Martinez MD PFT ORDERABLES Final Result * ECG 12 lead (04/07/2024 2:06 PM TRANSITIONS RN CARE COORDINATOR) Ventricular Rate EKG/Min 66 BPM [facility] Atrial Rate 66 BPM [facility] [place]-Interval (MSEC) 160 ms [facility] QRS-Interval (MSEC) 92 ms [facility] QT-Interval (MSEC) 376 ms [facility] QTc 394 ms [facility] P [place] 38 degrees [facility] R [place] 38 degrees [facility] T [place] 6 degrees [facility] Diagnosis Sinus rhythm with marked sinus arrhythmia Possible Inferior infarct , age undetermined Abnormal ECG No previous ECGs available Confirmed by MONIKA REDDY M.D. ([id number]) on 04/08/2024 7:48:19 AM [facility] 04/07/2024 2:06 PM TRANSITIONS RN CARE COORDINATOR 04/08/2024 7:48 AM TRANSITIONS RN CARE COORDINATOR us Vito Guerrero MD ECG ORDERABLES Final Result Performing Organization Address [facility] Co de Phone Number [facility] * (ABNORMAL) eGFR (04/04/2024 12:28 PM TRANSITIONS RN CARE COORDINATOR) eGFR 44(L) >=60 mL/min/1. 73 m2 Comment: [...] reviewed 2021. Blood 04/04/2024 12:2 8 PM TRANSITIONS RN CARE COORDINATOR 04/04/2024 12:52 PM TRANSITIONS RN CARE COORDINATOR Jag Tobar MD LAB BLOOD ORDERABLES Final R esult [facility] [address] [place] [address] * Differential, auto (04/04/2024 12:28 PM TRANSITIONS RN CARE COORDINATOR) Neutrophil abs 3.7 1.5 - 6.5 K/cumm Imm gran abs 0.0 0.0 - 0.1 K/cumm [facility] Lymphocyte abs 1.9 0.8 - 3.3 K/cumm [facility] Monocyte abs 0.5 0.2 - 0.8 K/cumm [facility] Eosinophil abs 0.1 0.0 - 0.5 K/cumm [facility] Basophil abs 0.0 0.0 - 0.1 K/cumm [facility] Neutrophil pct 59.4 % [facility] Comment: Interpretive Data Percent cell count reference ranges are not reported, since discordance with absolute values may lead to misinterpretation of CBC data. Current Interpretive Data was last revised on 2017. Imm gran pct 0.3 % [facility] Comment: Interpretive Data Percent cell count reference ranges are not reported, since discordance with absolute values may lead to misinterpretation of CBC data. Current Interpretive Data was last revised on 2017. Lymphocyte pct 30.5 % [facility] Comment: Interpretive Data Percent cell count reference ranges are not reported, since discordance with absolute values may lead to misinterpretation of CBC data. Current Interpretive Data was last revised on 2017. Monocyte pct 7.6 % [facility] Comment: Interpretive Data Percent cell count reference ranges are not reported, since discordance with absolute values may lead to misinterpretation of CBC data. Current Interpretive Data was last revised on 2017. Eosinophil pct 1.7 % [facility] Comment: Interpretive Data Percent cell count reference ranges are not reported, since discordance with absolute values may lead to misinterpretation of CBC data. Current Interpretive Data was last revised on 2017. Basophil pct 0.5 % [facility] Comment: Interpretive Data Percent cell count reference ranges are not reported, since discordance with absolute values may lead to misinterpretation of CBC data. Current Interpretive Data was last revised on 2017. Blood 04/04/2024 12:2 8 PM TRANSITIONS RN CARE COORDINATOR 04/04/2024 12:52 PM TRANSITIONS RN CARE COORDINATOR Jag Tobar MD LAB BLOOD ORDERABLES Final R esult [facility] [address] [place] [address] * (ABNORMAL) CBC with auto differential (04/04/2024 12:28 PM TRANSITIONS RN CARE COORDINATOR) WBC 6.3 3.8 - 9.9 K/cumm Hgb 16.6 13.0 - 17.5 g/dL [facility] Hct 50.4(H) 38.9 - 50.3 % [facility] Plt 183 150 - 400 K/cumm [facility] MPV 11.3 9.1 - 12.3 fL [facility] RBC 5.56 4.30 - 5.80 M/cumm [facility] MCV 90.6 81.3 - 96.4 fL [facility] MCH 29.9 27.1 - 33.3 pg [facility] MCHC 32.9 32.3 - 35.7 g/dL [facility] RDW CV 13.6 11.1 - 14.9 % [facility] RDW SD 45.5 35.7 - 48.1 fL [facility] NRBC abs 0.00 0.00 - 0.01 K/cumm [facility] Blood 04/04/2024 12:2 8 PM TRANSITIONS RN CARE COORDINATOR 04/04/2024 12:52 PM TRANSITIONS RN CARE COORDINATOR Narrative [facility] - 04/04/2024 1:03 PM TRANSITIONS RN CARE COORDINATOR Please perform CBC with manual differential. Jag Tobar MD LAB BLOOD ORDERABLES Final R esult [facility]NE [address] [place] [address] * Protime-INR (04/04/2024 12:28 PM TRANSITIONS RN CARE COORDINATOR) PT 13.6 12.0 - 14.6 sec INR 1.0 0.9 - 1.2 [facility] Comment: Ref Range High Interpretive data Oral anticoagulant therapeutic ranges: Venous thromboembolism prophylaxis or treatment: 2.0-3.0 CARDIOLOGY Standard range: 2.0-3.0 High-intensity range: 2.5-3.5 Refer to indication-specific guidelines for appropriate target ranges for prosthetic heart valve replacement. Current interpretive data was last revised on 2019. Blood 04/04/2024 12:2 8 PM TRANSITIONS RN CARE COORDINATOR 04/04/2024 12:52 PM TRANSITIONS RN CARE COORDINATOR Jag Tobar MD LAB BLOOD ORDERABLES Final R esult [facility] [address] [facility] [place] [address] * (ABNORMAL) Basic metabolic panel (04/04/2024 12:28 PM TRANSITIONS RN CARE COORDINATOR) Sodium 145 135 - 145 mmol/L Potassium, pl 4.5 3.3 - 4.9 mmol/L [facility] Chloride 109 97 - 110 mmol/L [facility] CO2 26 22 - 32 mmol/L [facility] Anion gap 10 2 - 15 mmol/L [facility] BUN 21 6 - 25 mg/dL [facility] Creatinine 1.65(H) 0.80 - 1.30 mg/dL [facility] Glucose 87 70 - 199 mg/dL [facility] Comment: Interpretive Data Fasting glucose >/= [...] 2022. Calcium 10.0 8.5 - 10.3 mg/dL [facility] Blood 04/04/2024 12:2 8 PM TRANSITIONS RN CARE COORDINATOR 04/04/2024 12:52 PM TRANSITIONS RN CARE COORDINATOR Narrative [facility] - 04/04/2024 1:21 PM TRANSITIONS RN CARE COORDINATOR Has the patient fasted?->No Jag Tobar MD LAB BLOOD ORDERABLES Final R esult Performing Organization Address [facility] Co de Phone Number [facility] [address] [facility] [place] [address] * (ABNORMAL) POCT creatinine for contrast evaluation (03/25/2024 12:35 PM TRANSITIONS RN CARE COORDINATOR) Creatinine POC 1.90(H) 0.80 - 1.30 mg/dL Comment:Testing performed by : [facility], [address] [place] [address]., [id number] Blood 03/25/2024 12:3 5 PM TRANSITIONS RN CARE COORDINATOR 03/25/2024 12:35 PM TRANSITIONS RN CARE COORDINATOR George Martinez MD POINT OF CARE TEST ORDERABLES Fi nal Result Performing Organization Address [facility] Phone Number ANNE [address] [place] [address] * CT Chest W Contrast (03/25/2024 12:35 PM TRANSITIONS RN CARE COORDINATOR) Anatomical Region Laterality Modality Body N/A Computed Tomogra phy 03/25/2024 12:4 0 PM TRANSITIONS RN CARE COORDINATOR Narrative 03/25/2024 1:40 PM TRANSITIONS RN CARE COORDINATOR EXAM DESCRIPTION: CT CHEST W CONTRAST REASON [...] Madhavi Ghotra D.O. PS: PS Report ID: [id number] Reading Location: [id number] Procedure Note Madhavi Ghotra, DO - 03/25/2024 [...] Madhavi Ghotra D.O. PS: PS Report ID: [id number] Reading Location: [place] [address] George Martinez MD IMG CT PROCEDURES Final Result from Last 3 Months Insurance MEDICARE [employer] MEDICARE FOR LIFE MEDICARE FOR LIFE Advance Directives For more information, please contact: [phone] * Full Code (Latest Code Status on File) Date Activated Date Inactivated Comments 06/04/2024 12:48 PM 06/09/2024 10:54 PM Care Teams [employer] T[employer] Relationship Specialty Start Date End Date Stephanie Magana NP [address] [place] [address] PCP - General Family Medicine 04/03/24 Torey Brunner DO [address] [address] Referring Physician Internal Medicine 05/09/24
--- OUTSIDE RECORDS SUMMARY | 2024-06-12 13:13 | XMS_ITS | Patient Health Record ---
Author Organization [facility], [facility] Office Address [address] [facility] [address] [place], [place] [id number] Care Team Providers Care Butcher Name Role Phone Carroll HOWE, Cm Primary Care Provider Unavailab Greer Rodriguez Unavailable [phone] Stefani HOWE, Lancing Unavailable Unavailabl e Allergies Allergen (clinical drug ingredient) Drug/Non Drug Allergy documented on EMR Reaction Allergy Type Onset Date Status ACEi (uncoded) cough Allergy Activ e Reason For Referral No Information Medications Medication SIG (Take, Route, Frequency, Duration) Notes Start Date End Date Status VESIcare 10 mg 1 tab(s) orally once a day Active Proscar 5 mg orally qd Active Protonix 40 mg 1 tab(s) orally once a day Active Myrbetriq 50 mg 1 tab(s) orally qd Active olmesartan 5 mg 1 tablet orally once a day/ patient needs to find a new provider to refill in the future for 30 days Active Pepcid 40 mg 1 tab(s) orally once a day (at bedtime) Active Cymbalta 60 mg 1 cap(s) orally once a day Active Multivitamin 1 tab once a day Active allopurinol 100 mg 1 tab(s) orally once a day for 90 days Active alfuzosin 10 mg orally qd Acti ve Vitamin D3 1000 intl units 1 cap(s) oral ly once a day for 30 day(s) 02/25/2016 Active Problems Problem Type SNOMED Code ICD Code Onset Dates Problem Status W/U Status Risk Notes Problem single functional kidney (finding) (388671520) Solitary Kidney (753.0) Active confirmed post surgery Problem Chronic kidney disease stage 3 (disorder) (660222331) Chronic kidney disease, stage 3 (moderate) (N18.30) Active confirmed Stable. B/p still lowish. Asymptomatic . 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 No gross blood. No urinary sx's. Followed by Urology Problem Overweight (782646160) Overweight (E66.3) Active confirmed BMI>30 Problem Vitamin D deficiency (44339460) Vitamin D deficiency, unspecified (E55.9) Active confirmed Ca/phos stable. On Vitamin D3 Problem Secondary hyperparathyroidism of renal origin (31455915) Secondary hyperparathyroidi sm of renal origin (N25.81) Active confirmed Pending. On Vitamin D3 Problem Chronic kidney disease due to hypertension (545146581353668) Hypertensive chronic kidney disease with stage 1 through stage 4 chronic kidney disease, or unspecified chronic kidney disease (I12.9) Active confirmed Controlled, DBP elevated, ANJANA? Problem Gastro-esophageal reflux disease without esophagitis (188855561) Gastro-esophageal reflux disease without esophagitis (K21.9) Active confirmed on PPI. Previously unable to tolerate without Problem Obesity (722614065) Obesity, unspecified (E66.9) Active confirmed BMI > 30 Problem Cardiac arrhythmia (292362994) Cardiac arrhythmia, unspecified (I49.9) Active confirmed irregular HR on exam, seen by cardio, w/u wnl Problem Absent kidney (775613205) Acquired absence of kidney (Z90.5) Active confirmed s/p partia l L nephrectomy and total R nephrectomy - RCC Problem Chronic kidney disease stage 3B (disorder) (287399602) CKD 3 Stage 3B (N18.32) Active confirmed Problem Chronic kidney disease stage 3A (disorder) (931243548) Chronic kidney disease, stage 3a (N18.31) Active confirmed Stable Plan Of Treatment Pending Test Test Name Order Date (LIS) Urinalysis without Scope (LIS) Vitamin D,25-OH 02/15/2021 (LIS) Vitamin D,25-OH 06/14/2021 (LIS) Urinalysis without Scope 9 Insurance Providers Payer Name Payer Address Payer Phone Subscriber Number Group Number Insured Name Patient Relationship to Insured Coverage Start Date Coverage End Date Roselyn LUCIAA Mail Code AG-[id number] [address] [place] [address] [id number] [place] Self - patient is the insured 9 [employer] [address] [place] [phone] [id number] [place] Self - patient is the insured Human HMO/POS [address] [address] [place] [address] [phone] [id number] [place] Self - patient is the insured 6 Medical (General) History Medical History History ICD Code CKD Hx of RCC x 2 (Dr Ko / Dr Barba) Hypertension BPH Headaches Osteoarthritis GERD Hyperuricemia Lumbar DDD Vitamin D def Urinary frequency / urgency / incontinen ce Surgical History Surgery Date(Month/Year) Status post partial left nephrectomy 201 4 Status post left sholder surgery x 2 - D r Kacy 2009 Status post right nephrectomy (RCC) - Dr Barba in [place] 2006 Status post right knee surgery (scope) 1 991 Status post left thumb surgery 1985 Status post endoscopy (Dr. Warren) 06/05 16 Status post endoscopy ( Dr Warren) 09/05 16
[2024-06-12 13:28] LABS: Basophils Percent Auto 0.6 % (0.2-1.2); Eosinophils Absolute Auto 0.4 K/mm3 (0-0.3); Eosinophils Percent Auto 5.6 % (0-4.4); Hematocrit 45.8 % (42.0-52.0); Hemoglobin 14.9 g/dL (14.0-18.0); Immature Granulocyte Absolute 0.06 K/mm3 (0.00-0.031); Lymphocytes Absolute Auto 1.05 K/mm3 (0.9-3.2); Lymphocytes Percent Auto 16.9 % (18.3-44.2); Mean Corpuscular HGB Conc 32.5 g/dl (32-36); Mean Corpuscular Hemoglobin 30.1 pg (26-34); Mean Corpuscular Volume 92.5 fl (80-100); Mean Platelet Volume 10.6 fl (7.4-10.4); Monocytes Absolute Auto 0.5 K/mm3 (0.1-0.6); Monocytes Percent Auto 7.2 % (2.6-8.5); Neutrophils Absolute Auto 4.3 K/mm3 (1.3-6.7); Neutrophils Percent Auto 68.7 % (45.5-73.1); Platelet Count Result 186 k/mm3 (150-375); Red Blood Count 4.95 M/mm3 (4.6-6.20); Red Cell Distribution Width 14.6 % (11.5-14.5); White Blood Count 6.2 K/mm3 (4.5-10.0)
[2024-06-12 13:38] LABS: Alanine Aminotransferase 35 U/L (6-50); Albumin Level 3.8 g/dL (3.5-5.1); Alkaline Phosphatase 87 U/L (38-126); Anion Gap 10 mmol/L (4-12); Aspartate Amino Transferase 24 U/L (17-59); Bilirubin,Total 0.6 mg/dL (0.2-1.3); Blood Urea Nitrogen 14 mg/dL (9-20); Calcium 8.9 mg/dL (8.4-10.2); Carbon Dioxide 28 mmol/L (22-30); Chloride 104 mmol/L (98-107); Estimated Glomerular Filt Rate 42; Glucose 96 mg/dL (65-110); Potassium 4.5 mmol/L (3.4-5.0); Sodium 142 mmol/L (137-145)
== END 2024-06-12 12:21 | disposition home or self-care (01) ==
PROVIDERS: PCP Nurse Practitioner Family
DX: K92.1 Melena (principal)
CPT/HCPCS: 36415; 80053; 85025

== ENCOUNTER 2024-06-20 09:02 | Outpatient (CLI) | payer MEDICARE, OTHER, SELFPAY ==
--- OUTSIDE RECORDS SUMMARY | 2024-06-20 09:10 | XMS_ITS | Encounter Summary ---
Author Organization [facility] Healthcare Address [address] [place] [address] Care Team Providers Care Counseling Case Manager Name Role Phone Stephanie Magana NP Primary Care Provider [phone] Torey Brunner Cande DO Unavailable [phone] Encounter Details Date Type Department Care Team (Latest Contact Info) Description 06/19/2024 9:58 AM CDT - 06/19/2024 11:59 PM CDT Hospital Encounter [facility] 1 DIAG IMG [address] [place] [address] Lung nodule Discharge Disposition: Discharge to home or self care Social History Tobacco Use Types Packs/Day Years Used Date Smoking Tobacco: Never Smokeless Tobacco: Never [facility] Utilities Answer Date Recorded In the past 12 months has [employer] electric, gas, oil, or water company threatened [...] often do you attend chur ch or zoroastrian services? 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 Sexual Orientation Straight 05/17/2023 8: 50 AM TERRAZZO JOURNEYMAN documented as of this encounter Medications at Time of Discharge acetaminophen 500 mg capsuleIndication s:Pain Take 2 capsules (1,000 mg total) by mouth every 6 (six) hours 06/09/2024 alfuzosin ER (UROXATRAL) 10 mg 24 hr tablet Take 1 tablet (10 mg total) by mouth daily after dinner 08/19/2022 allopurinoL (ZYLOPRIM) 100 mg tablet Take 1 tablet (100 mg total) by mouth daily after dinner amiodarone (PACERONE) 200 mg tabletIndications :Prevention of Recurrent Atrial Fibrillation Take 2 tablets (400 mg total) by mouth 2 (two) times a day for 3 days, THEN 2 tablets (400 mg total) daily for 20 days. 52 tablet 06/09/2024 5 apixaban (ELIQUIS) 5 mg tabletIndications :atrial fibrillation Take 1 tablet (5 mg total) by mouth every 12 (twelve) hours 60 tablet 06/09/2024 5 cholecalciferol (VITAMIN D-3) 25 mcg (1,000 unit) tablet Take 1 tablet (1,000 Units total) by mouth every morning DULoxetine DR (CYMBALTA) 60 mg capsule Take 1 capsule (60 mg total) by mouth nightly 06/05/2022 famotidine (PEPCID) 40 mg tablet Take 1 tablet (40 mg total) by mouth nightly 07/02/2022 finasteride (PROSCAR) 5 mg tablet Take 1 tablet (5 mg total) by mouth nightly gabapentin (NEURONTIN) 300 mg capsule Take 1 capsule (300 mg total) by mouth 3 (three) times a day 90 capsule 1 06/09/2024 5 Jardiance 10 mg tablet Take 1 tablet (10 mg total) by mouth every morning 07/18/2022 lidocaine (ASPERCREME) 4 % adhesive patch,medicated Place 2 patches on the skin daily for 12 hours 06/09/2024 methocarbamoL (ROBAXIN) 750 mg tablet Take 1 tablet (750 mg total) by mouth 3 (three) times a day as needed 05/21/2024 multivitamin tablet Take 1 tablet by mouth every morning Myrbetriq 50 mg tablet extended release 24 hr Take 1 tablet (50 mg total) by mouth daily after dinner 07/19/2022 olmesartan (BENICAR) 5 mg tablet Take 1 tablet (5 mg total) by mouth nightly pantoprazole DR (PROTONIX) 40 mg EC tablet Take 1 tablet (40 mg total) by mouth every morning 08/07/2022 polyethylene glycol (MIRALAX) 17 gram packetIndications :constipation Take 1 packet (17 g total) by mouth daily 30 packet 06/09/2024 5 senna-docusate (PERICOLACE) 8.6-50 mg Take 2 tablets by mouth 2 (two) times a day as needed for constipation 60 tablet 06/09/2024 5 solifenacin (VESIcare) 10 mg tablet Take 1 tablet (10 mg total) by mouth daily after dinner 07/18/2022 documented as of this encounter Discharge Disposition Disposition Code Departure Means Destination Discharge to home or self care documented in this encounter Plan of Treatment Pending Results Name Type Priority Associated Diagnoses Date /Time X-ray chest 2 views Imaging Schedule Routine, Read Routine (OP Routine) Lung nodule 06/19/2024 10:10 AM CDT Scheduled Orders Name Type Priority Associated Diagnoses Orde r Schedule X-ray chest 2 views Imaging Schedule Routine, Read Routine (OP Routine) Lung nodule Once for 1 Occurrences starting 06/19/2024 until 06/19/2024 documented as of this encounter Visit Diagnoses Diagnosis Lung nodule Other diseases of lung, not elsewhere classified documented in this encounter Care Teams Counseling Case Manager Relationship Specialty Start Date End Date Stephanie Magana NP [address] [place] [address] PCP - General Family Medicine 04/03/24 Torey Brunner DO [address] [facility] [address] [place], [place] [id number] Referring Physician Internal Medicine 05/09/24 documented as of this encounter
--- OUTSIDE RECORDS SUMMARY | 2024-06-20 09:10 | XMS_ITS | Encounter Summary ---
Author Organization [facility] Address [address] [place] [address] Phone Care Team Providers Care It Lead Name Role Phone Stephanie Magana NP Primary Care Provider [phone] Kannan Torey Cande DO Unavailable [phone] Reason for Referral * Consultation (Routine) - Authorized Specialty Diagnoses / Procedures Referred By Alfred t Referred To Contact Oncology Diagnoses Metastatic renal cell carcinoma, unspecified laterality (HCC) Janice Byrd NP [address] [place] [address] Phone: tel: fax: Je Loving MD [address] [address] Phone: tel: fax: Referral ID Status Reason Start Date Expiration Date Visits Requested Visits Authorized [id number] Authorized Specialty Services Required 06/19/2024 07/19/2025 1 1 Question Answer Please select the performing region: [facility] (All Locations) [[id number]] Please select the performing department: [facility] IM ONC MHE2 [id number] [[id number]] Is this referral for Breast Health Multi-Disciplinary Clinic? No Does the patient have a diagnosis of a Head and Neck cancer? No To provider: JE LOVING [[id number]] # of visits: 1 Encounter Details Date Type Department Care Team (Late st Contact Info) Description 06/19/2024 Orders Only [facility] Surgery [address] [facility] [address] [place] [address] Janice Byrd, MARINE [address] [place] [address] Metastatic renal cell carcinoma, unspecified laterality (HCC) (Primary Dx) Social History Tobacco Use Types Packs/Day Years Used Date Smoking Tobacco: Never Smokeless Tobacco: Never [facility] Utilities Answer Date Recorded In the past 12 months has [employer] electric, gas, oil, or water company threatened [...] often do you attend chur ch or lutheran services? Never 06/09/2024 Do you belong to any clubs o r organizations such as quaker groups, unions, fraternal or athletic groups, or [...] any time in the past 12 m onths, were you homeless or living in a long-term (including now)? No 06/09/2024 Personal Safety Answer Date Recorded Have you ever been in or are you currently in a harmful physical or emotional relationship or is someone making you feel afraid or unsafe? 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 Sexual Orientation Straight 05/17/2023 8: 50 AM CLOTH CUTTING MACHINE OPERATOR documented as of this encounter Plan of Treatment Scheduled Referrals Name Type Priority Associated Diagnoses Order Schedule Ambulatory referral to Oncology Outpatient Referral Routine Metastatic renal cell carcinoma, unspecified laterality (HCC) 1 Occurrences starting 06/19/2024 until 06/19/2025 documented as of this encounter Visit Diagnoses Diagnosis Metastatic renal cell carcinoma, unspecified laterality (HCC)- Primary documented in this encounter Care Teams It Lead Relationship Specialty Start Date End Date Stephanie Magana MILK HANDLER [address] [place] [address] PCP - General Family Medicine 04/03/24 Torey Brunner DO [address] [address] Referring Physician Internal Medicine 05/09/24 documented as of this encounter
--- OUTSIDE RECORDS SUMMARY | 2024-06-20 09:10 | XMS_ITS | Patient Health Record ---
Author Organization [facility] Billing Info Address [address] [place] [address] Care Team Providers Care Pediatric Oncologist Name Role Phone Cm Hodges Primary Care Provider CYRUS Maldonado [phone] Reason For Referral No Information Medications Medication [...] Problem Status W/U Status Risk Notes Problem [id number] 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, unspecified laterality (C64.9) Active confirmed Problem [id number] Benign prostatic hyperplasia with lower urinary tract symptoms, symptom details unspecified (N40.1) Active confirmed Plan Of Treatment Pending Test Test Name Order Date XRAY-CHEST, 2 VIEWS, FRONTAL & LATERAL ( [id number]) 01/31/2018 MRI-ABDOMEN; W/O CONTRAST MA TL(S) FOLLOWED BY CONTRAST MATL(S) & FURTHER SEQUENCES (67476) 01/31/2018 BUN + Creat ([id number]) 01/31/2018 BUN + Creat ([id number]) 03/10/2020 Insurance Providers Payer Name Payer Address Payer Phone Subscriber Number Group Number Insured Name Patient Relationship to Insured Coverage Start Date Coverage End Date [place] [address] [address] [place], [place] [id number] [place] S Self - patient is the insured 9 9 [facility] [address] [place], [place] [id number] [place] S Self - patient is [...]
--- OUTSIDE RECORDS SUMMARY | 2024-06-20 09:10 | XMS_ITS | Clinical Summary ---
Author Organization [facility] Address [facility] [place] [address] Care Team Providers Care Assistant Offset Press Operator Name Role Phone Stephanie Magana NP Primary Care Provider [phone] Torey Brunner DO Unavailable [phone] Allergies No known active allergies Medications alfuzosin [...] (three) times a day as needed 05/22/19 25 Active acetaminophen 500 mg capsuleIndicatio ns:Pain Take [...] constipation 60 tablet 06/10/19 25 025 Active apixaban (ELIQUIS) [...] 08/31/19 24 025 Discontinu ed(Alterna te therapy) oxyCODONE (ROXICODONE) 5 mg immediate release tabletIndication s:Pain Take 1 tablet (5 mg total) by mouth every 4 (four) hours as needed for pain for up to 7 days 24 tablet 06/10/19 25 025 Active Problems Patient Care Coordination No te [...] Encounters Date Type Department Care Team Description 06/19/2024 10:45 AM CDT Office Visit [facility] [facility] [address] [place] [phone] George Martinez MD Lung nodule (Primary Dx) 06/19/2024 9:58 AM CDT - 06/19/2024 11:59 PM CDT Hospital Encounter [facility] MOB 1 DIAG IMG [address] [place] [address] Lung nodule Discharge Disposition: Discharge to home or self care 06/19/2024 Orders Only [facility] Floor 5 [place] [address] Janice Byrd, MARINE Metastatic renal cell carcinoma, unspecified laterality (HCC) (Primary Dx) 06/16/2024 [facility] Post Discharge Follow up phone call [address] [address] Marj Wing 06/13/2024 Telephone [facility] Surgery [address] [place] [address] Janice Byrd NP 06/12/2024 Orders Only [facility] Surgery [address] [place] [address] Janice Byrd, MARINE Bloody stools (Primary Dx) 06/12/2024 Orders Only [address] [address] Janice Byrd, MARINE Bloody stools (Primary Dx) 06/04/2024 8:30 AM CDT - 06/04/2024 12:00 PM CDT Surgery [facility] Operating Room [address] [place] [address] George Martinez MD XI ROBOTIC THORACIC RIGHT LOWER LOBE LOBECTOMY 06/04/2024 7:42 AM CDT Anesthesia Event [facility] Operating Room [address] [place] [address] Margarita Cooper MD Barnhart, Lynlee Jo, NP 06/04/2024 6:47 AM CDT - 06/09/2024 4:30 PM CDT Hospital Encounter [address] [address] George Martinez MD Lung nodule (Primary Dx); Nodule of lower lobe of right lung Discharge Disposition: Discharge to home or self care 05/27/2024 11:00 AM CDT - 05/27/2024 11:59 PM CDT Hospital Encounter [facility] Diagnostic Imaging [address] [place] [address] Discharge Disposition: Discharge to home or self care 05/27/2024 10:45 AM CDT Pre-Admission Testing [facility] Pre Anesthesia Testing [address] [place] [address] Pre-operative exam (Primary Dx) 05/26/2024 Orders Only [facility] Surgery [address] [place] [address] 5 [place] [phone] Janice Byrd NP Gingivitis (Primary Dx) 05/21/2024 Orders Only [facility] Medical Group Pulmonology [address] [facility] [address] [place] [address] Jag Tobar MD 05/20/2024 12:20 PM CHRONIC SPECIALIST - 05/20/2024 11:59 PM CHRONIC SPECIALIST Hospital Encounter [facility] [place] [address] Discharge Disposition: Discharge to home or self care 05/20/2024 Telephone [facility] Surgery [address] [facility] [address] [place] [phone] Yadira Byrd RMA 05/20/2024 Orders Only [facility] Surgery [address] [facility] [address] [place] [address] George Martinez MD Chest wall pain (Primary Dx) 05/20/2024 Telephone [facility] Floor 5 [place] [phone] Janice Byrd, MARINE 05/15/2024 10:45 AM CHRONIC SPECIALIST Office Visit [facility] Medical Group Pulmonology [address] [place] [address] [address] [place] [address] Jag Tobar MD Lung nodule (Primary Dx); ANJANA (obstructive sleep apnea); History of renal cell cancer 05/08/2024 1:40 PM CHRONIC SPECIALIST Office Visit [facility] Orthopaedic Surgery [address] [facility] 1st Floor [address] [place] [address] Fredy Flanagan MD Lateral epicondylitis of right elbow (Primary Dx) 05/08/2024 9:30 AM CHRONIC SPECIALIST Office Visit [facility] [address] [facility] [address] [place] [phone] George Martinez MD Lung nodule (Primary Dx) 04/29/2024 Telephone [facility] Floor 5 [place] [phone] Octavio Herrera NP 04/22/2024 Telephone [facility] [address] [place] [address] Meenakshi Kohler RN 04/22/2024 Orders Only [facility] Medical Group Pulmonology [address] [facility] [address] [place] [address] Jag Tobar MD Fungal infection (Primary Dx) 04/22/2024 Orders Only [facility] Medical Group Pulmonology [address] [facility] [address] [place] [address] Jag Tobar MD 04/11/2024 9:15 AM CHRONIC SPECIALIST - 04/11/2024 10:50 AM CHRONIC SPECIALIST Surgery [facility] OR [address] [place] [address] Jag Tobar MD BRONCHOSCOPY,LAVAGE, BRUSHINGS,BIOPSY 04/11/2024 9:07 AM CHRONIC SPECIALIST Anesthesia Event [facility] OR [address] [place] [address] Sandra Mensah MD Kuntz, Edward William, MD 04/11/2024 6:57 AM CHRONIC SPECIALIST - 04/11/2024 12:59 PM CHRONIC SPECIALIST Hospital Encounter [facility] OR [address] [place] [address] Jag Tobar MD Nodule of right lung Discharge Disposition: Discharge to home or self care 04/10/2024 10:04 AM CHRONIC SPECIALIST - 04/10/2024 11:59 PM CHRONIC SPECIALIST Hospital Encounter [facility] [address] [place] [address] Discharge Disposition: Discharge to home or self care 04/10/2024 10:03 AM CHRONIC SPECIALIST - 04/10/2024 11:59 PM CHRONIC SPECIALIST Hospital Encounter [facility] [address] [place] [address] Lung nodule Discharge Disposition: Discharge to home or self care 04/10/2024 Telephone [facility] [address] [place] [phone] Stephania Thomas, ADAM 04/10/2024 Orders Only [facility] Surgery [address] [facility] Floor 5 [place] [phone] Janice Byrd NP Lung nodule (Primary Dx) 04/08/2024 Telephone [facility] Surgery [address] [facility] [address] [place] [phone] Yadira Byrd RMA 04/07/2024 1:56 PM CHRONIC SPECIALIST - 04/07/2024 11:59 PM CHRONIC SPECIALIST Hospital Encounter [facility] Cardiac Testing [address] [place] [address] Preop testing Discharge Disposition: Discharge to home or self care 04/07/2024 1:56 PM CHRONIC SPECIALIST - 04/07/2024 11:59 PM CHRONIC SPECIALIST Hospital Encounter [facility] Respiratory Therapy [address] [place] [address] Lung nodule Discharge Disposition: Discharge to home or self care 04/07/2024 Orders Only [facility] PreAdmission Testing [address] [place] [address] Lianne Carlson, ANDRÉS Preop testing (Primary Dx) 04/04/2024 12:15 PM CHRONIC SPECIALIST Lab [facility] [address] [place] [address] Lung nodule; History of biopsy 04/04/2024 11:45 AM CHRONIC SPECIALIST Office Visit [facility] Medical Group Pulmonology [address] [facility] 200 [place] [phone] Jag Tobar MD Lung nodule (Primary Dx); ANJANA (obstructive sleep apnea); History of renal cell cancer; History of biopsy 04/04/2024 Orders Only [facility] Surgery [address] [facility] [address] [place] [phone] George Martinez MD Lung nodule (Primary Dx) 04/03/2024 8:45 AM CHRONIC SPECIALIST Office Visit [facility] [address] [facility] [address] [place] [phone] George Martinez MD Lung nodule (Primary Dx) 03/27/2024 2:20 PM CHRONIC SPECIALIST Office Visit [facility] Orthopaedic Surgery [address] 1[address] [place] [address] Fredy Flanagan MD Lateral epicondylitis of right elbow (Primary Dx) 03/25/2024 12:15 PM CHRONIC SPECIALIST - 03/25/2024 11:59 PM CHRONIC SPECIALIST Hospital Encounter [facility] Medical Office Building [address] [address] Lung nodule Discharge Disposition: Discharge to home [...] uses CPAP divya e Multiple pulmonary nodules bronc h scheuled for 04/11/24 for evaluation Wears glasses Family History Medical History Relation Name Comments Stomach cancer Maternal Grandmother Breast cancer Mother Breast cancer Sister Anesthesia problems Neg Hx Relation Name Status Comments Father Maternal Grandmother Mother Sister Social History Tobacco Use Types Packs/Day Years Used Date Smoking Tobacco: Never Smokeless Tobacco: Never Tobacco Cessation:Counseling Given: Not Answered [facility] Utilities Answer Date Recorded In the past 12 months has th e [employer], gas, oil, or water [employer] threatened to shut off services in your [...] week 06/09/2024 How often do you attend [facility] or scientologist services? Never 06/09/2024 Do you belong to any clubs o r organizations such as advent groups, unions, fraternal or athletic groups, or [...] any time in the past 12 m [facility], were you homeless or living in a group home (including now)? No 06/09/2024 Personal Safety Answer Date Recorded Have you ever been in or are you currently in a harmful physical or emotional relationship or is someone making you feel afraid or unsafe? Denies 06/04/2024 Sex and Gender Information Value Date Recorded Sex Assigned at Not on file Legal Sex Male 3:43 PM CDT Gender Identity Male 05/17/2023 8:50 AM CHRONIC SPECIALIST Sexual Orientation Straight 05/17/2023 8: 50 AM CHRONIC SPECIALIST Obstetrics History Last Filed Vital Signs Vital Sign Reading Time Taken Comments Blood Pressure 118/79 06/19/2024 10:24 AM CDT Pulse 96 06/19/2024 10:24 AM CDT Temperature 36.3 C (97.3 F) 06/19/2024 10:24 AM CDT Respiratory Rate 16 06/19/2024 10:24 AM CDT Oxygen Saturation 96% 06/19/2024 10:24 AM CDT Inhaled Oxygen Concentration - - Weight 99.2 kg (218 lb 9.6 oz) 06/19/2024 10:24 AM CDT Height 175.3 cm (5' 9 ) 06/19/2024 10:24 AM CDT Body Mass Index 32.28 06/19/2024 10:24 AM CDT Plan of Treatment Health Maintenance Due Date Last Done Comments Colon Cancer Screening-Colonoscopy 1955 Depression Screening 1955 Hepatitis C Screening 1953 Hepatitis B Screening 1971 Pneumococcal vaccine 65+ (1 of 2 - PCV) 1972 Zoster Vaccine (1 of 2) 1972 Well Visit 65+ 2018 Influenza Vaccine (Season Ended) 2024 01/19/2022, 12/18/2018, 01/18/2010 Fall Risk Assessment 06/09/2025 06/09/2024 DTaP/Tdap/Td Vaccine (2 - Td or Tdap) 10/07/2031 Medical Devices Implanted Type Area Simulation Engineer Device Identifier Shelf Expiration Date Model / Serial / Lot [employer] Suture [place] Knotless Fibertak Resorbable [id number] - [id number] Implanted:Qty: 1 on 02/18/2024 by Fredy Flanagan MD at [facility] Right: Elbow [employer] [id number] 10/16/2028 [id number] / / [id number] Procedures Procedure Name Priority Date/Time Associated Diagnosis [...] LINE PLACEMENT Routine 06/04/2024 8:09 AM CDT OK AN ELECTIVE ENDOTRACHEAL AIRWAY Routine 06/04/2024 8:08 [...] BODY OUTSIDE REFERENCE Routine 05/20/2024 12:20 PM CHRONIC SPECIALIST XR CHEST PA LATERAL 2 VIEWS ED Urgent/IP Urgent 04/11/2024 12:16 PM CHRONIC SPECIALIST XR CHEST 1 VIEW ED 04/11/2024 10:17 AM CHRONIC SPECIALIST FL FLUOROSCOPY < 1 HOUR IP Routine 04/11/19 9:41 AM CHRONIC SPECIALIST SURGICAL PATHOLOGY Routine 04/11/2024 9: 22 AM CHRONIC SPECIALIST Nodule of right lung CYTOLOGY Routine 04/11/2024 9:21 AM CHRONIC SPECIALIST Nodule of right lung OK AN PROCEDURE PLACEHOLDER Routine 04/11/2024 9:20 AM CHRONIC SPECIALIST OK AN ELECTIVE ENDOTRACHEAL AIRWAY Routine 04/11/2024 9:20 AM CHRONIC SPECIALIST AEROBIC CULTURE AND GRAM STAIN Routine 04/11/2024 9:19 AM CHRONIC SPECIALIST MYCOLOGY (FUNGAL) CULTURE Routine 04/11/2024 9:19 AM CHRONIC SPECIALIST MYCOBACTERIOLOGY AFB CULTURE AND ACID-FAST STAIN Routine 04/11/2024 9:19 AM CHRONIC SPECIALIST BRONCHOSCOPY 04/11/2024 9:08 AM CHRONIC SPECIALIST Nodule of right lung BRONCHOSCOPY 04/11/2024 8:47 AM CHRONIC SPECIALIST EGFR STAT 04/11/2024 7:30 AM CHRONIC SPECIALIST DIFFERENTIAL AUTO STAT 04/11/2024 7:3 0 AM CHRONIC SPECIALIST PROTIME-INR STAT 04/11/2024 7:30 AM CHRONIC SPECIALIST CBC WITH AUTO DIFFERENTIAL STAT 04/11/2024 7:30 AM CHRONIC SPECIALIST BASIC METABOLIC PANEL STAT 04/11/2024 7:30 AM CHRONIC SPECIALIST APTT STAT 04/11/2024 7:30 AM CHRONIC SPECIALIST PET/CT FDG SKULL TO THIGH Schedule Routine, Read Routine (OP Routine) 04/10/2024 12:12 PM CHRONIC SPECIALIST Lung nodule PULMONARY FUNCTION TEST (PFT) Routine 04/07/2024 2:59 PM CHRONIC SPECIALIST Lung nodule ECG 12-LEAD Routine 04/07/2024 2:06 PM CHRONIC SPECIALIST Preop testing EGFR Routine 04/04/2024 12:28 PM CHRONIC SPECIALIST Lung nodule DIFFERENTIAL AUTO Routine 04/04/2024 12:28 PM CHRONIC SPECIALIST Lung nodule CBC WITH AUTO DIFFERENTIAL Routine 04/04/2024 12:28 PM CHRONIC SPECIALIST Lung nodule BASIC METABOLIC PANEL Routine 04/04/2024 12:28 PM CHRONIC SPECIALIST Lung nodule PROTIME-INR Routine 04/04/2024 12:28 PM CHRONIC SPECIALIST Lung nodule History of biopsy POCT CREATININE FOR CONTRAST EVALUATION Routine 03/25/2024 12:[address] CHEST W CONTRAST Schedule Routine, Read Routine (OP Routine) 03/25/2024 12:35 PM CHRONIC SPECIALIST Lung nodule from Last 3 Months Results * Protime-INR (06/09/2024 11:37 AM CDT) PT 12.0 9.7 - 13.0 sec INR 1.11 0.90 - 1.20 [facility] Comment: Interpretive data Oral anticoagulant therapeutic ranges: [...] PM CDT Baseline prior to apixaban initiation. us Monserrat Ibarra LAMP WIRER LAB BLOOD ORDERABLES Joya deluca Result [facility] [address] Department of Laboratories [place], [place] [id number] * Hepatic function panel (06/09/2024 11:37 AM [...] AM CDT 06/09/2024 11:45 AM CDT Narrative ANNE BANUELOS - 06/09/2024 12:14 PM CDT Baseline prior to apixaban initiation. us Monserrat Shell Fred LAMP WIRER LAB BLOOD ORDERABLES Joya l Result Performing Organization Address [facility] Co de Phone Number ANNE BANUELOS [address] Department of Diabetica [place], [place] [id number] * (ABNORMAL) eGFR (06/09/2024 4:19 AM CDT) [...] 06/09/2024 5:16 AM CDT us Jeferson George LAMP WIRER LAB BLOOD ORDERABLES Final Result Performing Organization Address [facility]/ZIP Co de Phone Number ANNE BANUELOS [address] Department [employer] [place], [place] [id number] * (ABNORMAL) Differential, auto (06/09/2024 4:19 AM CDT) Neutrophil abs 10.7(H) 1.5 - 6.5 K/cumm Imm gran abs 0.1 0.0 - 0.1 K/cumm [facility] Lymphocyte abs 1.6 0.8 - 3.3 K/cumm [facility] Monocyte abs 0.9(H) 0.2 - 0.8 K/cumm [facility] Eosinophil abs 0.1 0.0 - 0.5 K/cumm [facility] Basophil abs 0.0 0.0 - 0.1 K/cumm [facility] Neutrophil pct 80.3 % [facility] Comment: Interpretive Data Percent cell count reference ranges are not reported, since discordance with absolute values may lead to misinterpretation of CBC data. Current Interpretive Data was last revised on 2017. Imm gran pct 0.5 % [facility] Comment: Interpretive Data Percent cell count reference ranges are not reported, since discordance with absolute values may lead to misinterpretation of CBC data. Current Interpretive Data was last revised on 2017. Lymphocyte pct 11.8 % [facility] Comment: Interpretive Data Percent cell count reference ranges are not reported, since discordance with absolute values may lead to misinterpretation of CBC data. Current Interpretive Data was last revised on 2017. Monocyte pct 6.8 % [facility] Comment: Interpretive Data Percent cell count reference ranges are not reported, since discordance with absolute values may lead to misinterpretation of CBC data. Current Interpretive Data was last revised on 2017. Eosinophil pct 0.4 % [facility] Comment: Interpretive Data Percent cell count reference ranges are not reported, since discordance with absolute values may lead to misinterpretation of CBC data. Current Interpretive Data was last revised on 2017. Basophil pct 0.2 % [facility] Comment: Interpretive Data Percent cell count reference ranges are not reported, since discordance with absolute values may lead to misinterpretation of CBC data. Current Interpretive Data was last revised on 2017. Blood 06/09/2024 4:19 AM CDT 06/09/2024 5:15 AM CDT us Charles Dorantes MD LAB BLOOD ORDERABLES Fin al Result [facility] [address] Department [place] [address] * (ABNORMAL) CBC with auto differential (06/09/2024 4:19 AM CDT) Pathologist [facility] WBC 13.4(H) 3.8 - 9.9 K/cumm Hgb 15.6 13.0 - 17.5 g/dL [facility] Hct 48.0 38.9 - 50.3 % [facility] Plt 196 150 - 400 K/cumm [facility] MPV 11.2 9.1 - 12.3 fL [facility] RBC 5.30 4.30 - 5.80 M/cumm [facility] MCV 90.6 81.3 - 96.4 fL [facility] MCH 29.4 27.1 - 33.3 pg [facility] MCHC 32.5 32.3 - 35.7 g/dL [facility] RDW CV 14.4 11.1 - 14.9 % [facility] RDW SD 47.6 35.7 - 48.1 fL [facility] NRBC abs 0.00 0.00 - 0.01 K/cumm [facility] Blood 06/09/2024 4:19 AM CDT 06/09/2024 5:15 AM CDT Charles Dorantes MD LAB BLOOD ORDERABLES Fin al Result [facility] [address] Department [place] [address] * (ABNORMAL) Basic metabolic panel (06/09/2024 4:19 AM CDT) [facility] Sodium 140 135 - 145 mmol/L Potassium, pl 4.0 3.3 - 4.9 mmol/L [facility] Chloride 103 97 - 110 mmol/L [facility] CO2 25 22 - 32 mmol/L [facility] Anion gap 12 2 - 15 mmol/L [facility] BUN 25 6 - 25 mg/dL [facility] Creatinine 1.60(H) 0.80 - 1.30 mg/dL [facility] Glucose 141 70 - 199 mg/dL [facility] Comment: Interpretive Data Fasting glucose >/= [...] NP LAB BLOOD ORDERABLES Final Result ANNE [address] Department [place] [address] * XR Chest 1 View (06/09/2024 4:17 [...] by: Lena Harris M.D. George Martinez MD [facility] XR PROCEDURES Final Result * XR Chest [...] by: Yael Avitia M.D. George Martinez MD [facility] XR PROCEDURES Final Result * (ABNORMAL) eGFR [...] LAB BLOOD ORDERABLES Final Result [facility] [address] Department [place] [address] * Differential, auto (06/08/2024 3:43 AM CDT) Pathologist [facility] Neutrophil abs 6.0 1.5 - 6.5 K/cumm Imm gran abs 0.1 0.0 - 0.1 K/cumm [facility] Lymphocyte abs 2.0 0.8 - 3.3 K/cumm [facility] Monocyte abs 0.7 0.2 - 0.8 K/cumm [facility] Eosinophil abs 0.3 0.0 - 0.5 K/cumm [facility] Basophil abs 0.0 0.0 - 0.1 K/cumm [facility] Neutrophil pct 66.1 % [facility] Comment: Interpretive Data Percent cell count reference ranges are not reported, since discordance with absolute values may lead to misinterpretation of CBC data. Current Interpretive Data was last revised on 2017. Imm gran pct 0.8 % [facility] Comment: Interpretive Data Percent cell count reference ranges are not reported, since discordance with absolute values may lead to misinterpretation of CBC data. Current Interpretive Data was last revised on 2017. Lymphocyte pct 21.6 % [facility] Comment: Interpretive Data Percent cell count reference ranges are not reported, since discordance with absolute values may lead to misinterpretation of CBC data. Current Interpretive Data was last revised on 2017. Monocyte pct 7.5 % [facility] Comment: Interpretive Data Percent cell count reference ranges are not reported, since discordance with absolute values may lead to misinterpretation of CBC data. Current Interpretive Data was last revised on 2017. Eosinophil pct 3.7 % [facility] Comment: Interpretive Data Percent cell count reference ranges are not reported, since discordance with absolute values may lead to misinterpretation of CBC data. Current Interpretive Data was last revised on 2017. Basophil pct 0.3 % [facility] Comment: Interpretive Data Percent cell count reference ranges are not reported, since discordance with absolute values may lead to misinterpretation of CBC data. Current Interpretive Data was last revised on 2017. Blood 06/08/2024 3:43 AM CDT 06/08/2024 3:47 AM CDT Charles Dorantes MD LAB BLOOD ORDERABLES Fin al Result [facility] [address] Department [place] [address] * CBC with auto differential (06/08/2024 3:43 AM CDT) WBC 9.1 3.8 - 9.9 K/cumm Hgb 15.5 13.0 - 17.5 g/dL [facility] Hct 46.7 38.9 - 50.3 % [facility] Plt 185 150 - 400 K/cumm [facility] MPV 11.0 9.1 - 12.3 fL [facility] RBC 5.18 4.30 - 5.80 M/cumm [facility] MCV 90.2 81.3 - 96.4 fL [facility] MCH 29.9 27.1 - 33.3 pg CERNER [...] BLOOD ORDERABLES Fin al Result [facility] [address] Department [place] [address] * (ABNORMAL) Basic metabolic panel (06/08/2024 3:43 AM CDT) Sodium 139 135 - 145 mmol/L Potassium, pl 3.9 3.3 - 4.9 mmol/L [facility] Chloride 105 97 - 110 mmol/L [facility] CO2 24 22 - 32 mmol/L [facility] Anion gap 10 2 - 15 mmol/L [facility] BUN 21 6 - 25 mg/dL [facility] Creatinine 1.35(H) 0.80 - 1.30 mg/dL [...] 2022. Calcium 8.6 8.5 - 10.3 mg/dL [facility] Blood 06/08/2024 3:43 AM CDT 06/08/2024 3:47 AM CDT us Jeferson Villarrealn LAMP WIRER LAB BLOOD ORDERABLES Final Result ANNE BANUELOS [address] Department [place] [address] * CT Chest WO Contrast (06/07/2024 11:19 [...] AM. Electronically signed by: Yael Avitia M.D. Monserrat Ibarra LAMP WIRER IMG XR PROCEDURES Final R esult * [...] size. Electronically signed by: Yael Avitia M.D. George [...] LAB BLOOD ORDERABLES Final Result [facility] [address] Department [place] [address] * (ABNORMAL) Differential, auto (06/07/2024 4:39 AM CDT) Neutrophil abs 6.1 1.5 - 6.5 K/cumm Imm gran abs 0.1 0.0 - 0.1 K/cumm [facility] Lymphocyte abs 1.8 0.8 - 3.3 K/cumm [facility] Monocyte abs 0.9(H) 0.2 - 0.8 K/cumm [facility] Eosinophil abs 0.3 0.0 - 0.5 K/cumm [facility] Basophil abs 0.0 0.0 - 0.1 K/cumm [facility] Neutrophil pct 66.7 % [facility] Comment: Interpretive Data Percent cell count reference ranges are not reported, since discordance with absolute values may lead to misinterpretation of CBC data. Current Interpretive Data was last revised on 2017. Imm gran pct 0.6 % [facility] Comment: Interpretive Data Percent cell count reference ranges are not reported, since discordance with absolute values may lead to misinterpretation of CBC data. Current Interpretive Data was last revised on 2017. Lymphocyte pct 19.8 % [facility] Comment: Interpretive Data Percent cell count reference ranges are not reported, since discordance with absolute values may lead to misinterpretation of CBC data. Current Interpretive Data was last revised on 2017. Monocyte pct 9.5 % [facility] Comment: Interpretive Data Percent cell count reference ranges are not reported, since discordance with absolute values may lead to misinterpretation of CBC data. Current Interpretive Data was last revised on 2017. Eosinophil pct 3.0 % [facility] Comment: Interpretive Data Percent cell count reference ranges are not reported, since discordance with absolute values may lead to misinterpretation of CBC data. Current Interpretive Data was last revised on 2017. Basophil pct 0.4 % [facility] Comment: Interpretive Data Percent cell count reference ranges are not reported, since discordance with absolute values may lead to misinterpretation of CBC data. Current Interpretive Data was last revised on 2017. Blood 06/07/2024 4:39 AM CDT 06/07/2024 6:04 AM CDT Charles Dorantes MD LAB BLOOD ORDERABLES Fin al Result Performing Organization Address City/[facility] Co de Phone Number ANNE [address] [address] [place] [address] * (ABNORMAL) CBC with auto differential (06/07/2024 4:39 AM CDT) WBC 9.1 3.8 - 9.9 K/cumm Hgb 15.1 13.0 - 17.5 g/dL [facility] Hct 46.5 38.9 - 50.3 % [facility] Plt 165 150 - 400 K/cumm [facility] MPV 11.5 9.1 - 12.3 fL [facility] RBC 5.02 4.30 - 5.80 M/cumm [facility] MCV 92.6 81.3 - 96.4 fL [facility] MCH 30.1 27.1 - 33.3 pg [facility] MCHC 32.5 32.3 - 35.7 g/dL [facility] RDW CV 14.6 11.1 - 14.9 % [facility] RDW SD 49.5(H) 35.7 - 48.1 fL [facility] NRBC abs 0.00 0.00 - 0.01 K/cumm [facility] Blood 06/07/2024 4:39 AM CDT 06/07/2024 6:04 AM CDT Charles Dorantes MD LAB BLOOD ORDERABLES Fin al Result Performing Organization Address City/[facility] Co de Phone Number ANNE BANUELOS [address] [address] [facility] [place] [address] * (ABNORMAL) Basic metabolic panel (06/07/2024 4:39 AM CDT) Sodium 141 135 - 145 mmol/L Potassium, pl 3.9 3.3 - 4.9 mmol/L [facility] Chloride 104 97 - 110 mmol/L [facility] CO2 26 22 - 32 mmol/L [facility] Anion gap 11 2 - 15 mmol/L [facility] BUN 24 6 - 25 mg/dL [facility] Creatinine 1.47(H) 0.80 - 1.30 mg/dL [facility] Glucose 111 70 - 199 mg/dL [facility] Comment: [...] 2022. Calcium 8.7 8.5 - 10.3 mg/dL [facility] Blood 06/07/2024 4:39 AM CDT 06/07/2024 6:06 AM CDT us Jeferson George NP LAB BLOOD ORDERABLES Final Result ANNE [address] [address] Department [place] [address] * ECG 12 lead (06/06/2024 6:18 PM CDT) 06/06/2024 6:18 PM CDT Narrative [facility] - 06/06/2024 11:56 PM CDT Vent Rate: 96 bpm RR Interval: 622 msec OK Interval: 0 msec QRS Duration: 112 msec QT Interval: 356 msec QTC Interval: 410 msec P-R-T Forsan: 0 - 20 - -10 degrees IMPRESSION: ATRIAL FIBRILLATION WITH ABERRANT CONDUCTION OR VENTRICULAR PREMATURE COMPLEXES MODERATE INTRAVENTRICULAR CONDUCTION DELAY ABNORMAL RHYTHM ECG Compared to prior EKG, atrial fibrillation replaced sinus rhythm Electronically Signed By: Damaso Brock MD us George Martinez MD ECG ORDERABLES Final Result [facility] * CT Limited Localized Follow Up Study [...] and informed consent was obtained and documented. Faison protocol was performed to confirm the patient's [...] and informed consent was obtained and documented. Faison protocol was performed to confirm the patient's [...] signed by: Lena Harris M.D. Jeferson George LAMP WIRER IMG CT PROCEDURES Final Res ult * [...] NP LAB BLOOD ORDERABLES Final Result ANNE [address] [facility] Department [place] [address] * Protime-INR (06/06/2024 8:35 AM CDT) PT 12.4 9.7 - 13.0 sec INR 1.14 0.90 - 1.20 ANNE BANUELOS Comment: Interpretive data Oral anticoagulant therapeutic ranges: Venous thromboembolism prophylaxis or treatment: 2.0-3.0 CARDIOLOGY Standard range: 2.0-3.0 High-intensity range: 2.5-3.5 Refer to indication-specific guidelines for appropriate target ranges for prosthetic heart valve replacement. Current interpretive data was last revised on 2019. Blood 06/06/2024 8:35 AM CDT 06/06/2024 8:42 AM CDT Jeferson Elizaldesaundra George LAMP WIRER LAB BLOOD ORDERABLES Final Result Performing Organization Address City/[facility]/ZIP Co de Phone Number ANNE BANUELOS [address] [address] [place] [address] * Critical Care (06/06/2024 8:27 AM CDT) [...] plan with the patient's team and other medical/groundwater consultant staff. This time was in addition [...] 122 70 - 199 mg/dL POC Performer [phone] ANNE BANUELOS Blood 06/06/2024 7:48 AM CDT 06/06/2024 7:48 AM CDT George Martinez MD LAB POCT ORDERABLES - DEVICE Fin al Result Performing Organization Address City/[facility]/ZIP Co de Phone Number ANNE BANUELOS [address] [address] Department [place] [address] * XR Chest 1 View (06/06/2024 5:04 [...] BLOOD ORDERABLES Fin al Result [facility] [address] [address] Department [place] [address] * (ABNORMAL) Differential, auto (06/06/2024 5:00 AM CDT) Neutrophil abs 9.7(H) 1.5 - 6.5 K/cumm Imm gran abs 0.1 0.0 - 0.1 K/cumm [facility] Lymphocyte abs 1.7 0.8 - 3.3 K/cumm [facility] Monocyte abs 1.0(H) 0.2 - 0.8 K/cumm [facility] Eosinophil abs 0.1 0.0 - 0.5 K/cumm [facility] Basophil abs 0.0 0.0 - 0.1 K/cumm [facility] Neutrophil pct 77.1 % [facility] Comment: Interpretive Data Percent cell count reference ranges are not reported, since discordance with absolute values may lead to misinterpretation of CBC data. Current Interpretive Data was last revised on 2017. Imm gran pct 0.5 % [facility] Comment: Interpretive Data Percent cell count reference ranges are not reported, since discordance with absolute values may lead to misinterpretation of CBC data. Current Interpretive Data was last revised on 2017. Lymphocyte pct 13.2 % [facility] Comment: Interpretive Data Percent cell count reference ranges are not reported, since discordance with absolute values may lead to misinterpretation of CBC data. Current Interpretive Data was last revised on 2017. Monocyte pct 8.1 % [facility] Comment: Interpretive Data Percent cell count reference ranges are not reported, since discordance with absolute values may lead to misinterpretation of CBC data. Current Interpretive Data was last revised on 2017. Eosinophil pct 0.9 % [facility] Comment: Interpretive Data Percent cell count reference ranges are not reported, since discordance with absolute values may lead to misinterpretation of CBC data. Current Interpretive Data was last revised on 2017. Basophil pct 0.2 % [facility] Comment: Interpretive Data Percent cell count reference ranges are not reported, since discordance with absolute values may lead to misinterpretation of CBC data. Current Interpretive Data was last revised on 2017. Blood 06/06/2024 5:00 AM CDT 06/06/2024 5:04 AM CDT Charles Dorantes MD LAB BLOOD ORDERABLES Fin al Result [facility] [address] [address] Department of Laboratories [place], [place] [id number] * (ABNORMAL) CBC with auto differential (06/06/2024 5:00 AM CDT) WBC 12.6(H) 3.8 - 9.9 K/cumm Hgb 15.1 13.0 - 17.5 g/dL [facility] Hct 46.2 38.9 - 50.3 % [facility] Plt 143(L) 150 - 400 K/cumm [facility] MPV 11.2 9.1 - 12.3 fL [facility] RBC 5.12 4.30 - 5.80 M/cumm [facility] MCV 90.2 81.3 - 96.4 fL [facility] MCH 29.5 27.1 - 33.3 pg [facility] MCHC 32.7 32.3 - 35.7 g/dL [facility] RDW CV 14.5 11.1 - 14.9 % [facility] RDW SD 48.2(H) 35.7 - 48.1 fL [facility] NRBC abs 0.00 0.00 - 0.01 K/cumm [facility] Blood 06/06/2024 5:00 AM CDT 06/06/2024 5:04 AM CDT Charles Dorantes MD LAB BLOOD ORDERABLES Fin al Result Performing Organization Address [facility] Co de Phone Number ANNE BANUELOS [address] [address] [place] [address] * (ABNORMAL) Phosphorus (06/06/2024 5:00 AM CDT) Phosphorus, pl 1.8(L) 2.3 - 4.5 mg/dL Blood 06/06/2024 5:00 AM CDT 06/06/2024 5:05 AM CDT Charles Dorantes MD LAB BLOOD ORDERABLES Fin al Result Performing Organization Address [facility] de Phone Number ANNE [address] [address] [place] [address] * (ABNORMAL) Comprehensive metabolic panel (06/06/2024 5:00 AM CDT) Sodium 141 135 - 145 mmol/L Potassium, pl 4.1 3.3 - 4.9 mmol/L [facility] Chloride 109 97 - 110 mmol/L [facility] CO2 22 22 - 32 mmol/L [facility] Anion gap 10 2 - 15 mmol/L [facility] BUN 20 6 - 25 mg/dL [facility] Creatinine 1.45(H) 0.80 - 1.30 mg/dL [facility] Glucose 135 70 - 199 mg/dL [facility] Comment: Interpretive Data Fasting glucose >/= [...] BLOOD ORDERABLES Fin al Result [facility] [address] [address] Department [place] [address] * Critical Care (06/05/2024 11:57 PM CDT) Narrative Trae Guerrero MD - 06/05/2024 11:57 PM CDT Trae Guerrero MD 06/06/2024 5:35 AM Critical Care Performed by: Trae Guerrero MD Authorized by: Trae Guerrero MD CRITICAL CARE: Team: NE Shift: PM Level of Billing: Subsequent Hospital [...] plan with the patient's team and other medical/groundwater consultant staff. This time was in addition [...] spent time documenting in the medical record Trae Guerrero MD IN CLINIC/BEDSIDE ORDERABLES Fi nal Result * POCT glucose (06/05/2024 9:22 PM CDT) Glucose, POC 112 70 - 199 mg/dL POC Performer [id number] ANNE VIN Blood 06/05/2024 9:22 PM CDT 06/05/2024 9:22 PM CDT George Martinez MD LAB POCT ORDERABLES - DEVICE Fin al Result ANNE [address] [address] Department [place] [address] * XR Chest 1 Vw Portable (06/05/2024 [...] Cardiomegaly. Electronically signed by: Lena Harris M.D. Trae Guerrero MD IMG XR PROCEDURES Final Result * POCT glucose (06/05/2024 4:27 PM CDT) Glucose, POC 98 70 - 199 mg/dL POC Performer [id number] ANNE BANUELOS Blood 06/05/2024 4:27 PM CDT 06/05/2024 4:27 PM CDT us George Martinez MD LAB POCT ORDERABLES - DEVICE Fin al Result ANNE [address] [address] Department [place] [address] * XR Chest 1 View (06/05/2024 4:19 [...] signed by: Alexander Watkins II, D.O. us Chanelle Ibarra LAMP WIRER IMG XR PROCEDURES Final R esult * POCT glucose (06/05/2024 11:35 AM CDT) Glucose, POC 122 70 - 199 mg/dL POC Performer [id number] ANNE BANUELOS Blood 06/05/2024 11:3 5 AM CDT 06/05/2024 11:35 AM CDT George Martinez MD LAB POCT ORDERABLES - DEVICE Fin al Result ANNE [address] [address] Department [place] [address] * Critical Care (06/05/2024 7:29 AM CDT) [...] plan with the patient's team and other medical/groundwater consultant staff. This time was in addition [...] 111 70 - 199 mg/dL POC Performer [phone] ANNE VIN Blood 06/05/2024 7:02 AM CDT 06/05/2024 7:02 AM CDT us George Martinez MD LAB POCT ORDERABLES - DEVICE Fin al Result ANNE [address] [facility] Department [place] [address] * XR Chest 1 View (06/05/2024 4:53 [...] CDT Charles Dorantes MD LAB BLOOD ORDERABLES [facility] al Result [facility] [address] [address] Department [place] [address] * (ABNORMAL) Differential, auto (06/05/2024 3:10 AM CDT) Neutrophil abs 12.7(H) 1.5 - 6.5 K/cumm Imm gran abs 0.1 0.0 - 0.1 K/cumm [facility] Lymphocyte abs 0.8 0.8 - 3.3 K/cumm [facility] Monocyte abs 0.9(H) 0.2 - 0.8 K/cumm [facility] Eosinophil abs 0.0 0.0 - 0.5 K/cumm [facility] Basophil abs 0.0 0.0 - 0.1 K/cumm [facility] Neutrophil pct 88.1 % [facility] Comment: Interpretive Data Percent cell count [...] BLOOD ORDERABLES Fin al Result [facility] [address] [address] Department [place] [address] * (ABNORMAL) CBC with auto differential (06/05/2024 3:10 AM CDT) WBC 14.4(H) 3.8 - 9.9 K/cumm Hgb 13.7 13.0 - 17.5 g/dL [facility] Hct 41.3 38.9 - 50.3 % [facility] Plt 151 150 - 400 K/cumm [facility] MPV 11.0 9.1 - 12.3 fL [facility] RBC 4.63 4.30 - 5.80 M/cumm [facility] MCV 89.2 81.3 - 96.4 fL [facility] MCH 29.6 27.1 - 33.3 pg [facility] MCHC 33.2 32.3 - 35.7 g/dL [facility] RDW CV 14.2 11.1 - 14.9 % [facility] RDW SD 45.8 35.7 - 48.1 fL [facility] NRBC abs 0.00 0.00 - 0.01 K/cumm [facility] Blood 06/05/2024 3:10 AM CDT 06/05/2024 3:15 AM CDT Charles Dorantes MD LAB BLOOD ORDERABLES Fin al Result Performing Organization Address City/[facility] Co de Phone Number SUNSHINEANEESH [address] [address] [facility] [place] [address] * Phosphorus (06/05/2024 3:10 AM CDT) Phosphorus, pl 3.0 2.3 - 4.5 mg/dL Blood 06/05/2024 3:10 AM CDT 06/05/2024 3:15 AM CDT Charles Dorantes MD LAB BLOOD ORDERABLES Fin al Result Performing Organization Address [facility] de Phone Number [facility] [address] [address] [facility] [place] [address] * Magnesium (06/05/2024 3:10 AM CDT) Magnesium 2.4 1.4 - 2.5 mg/dL Blood 06/05/2024 3:10 AM CDT 06/05/2024 3:15 AM CDT Charles Dorantes MD LAB BLOOD ORDERABLES Fin al Result Performing Organization Address [facility] Co de Phone Number [facility] [address] [address] [facility] [place], [place] [id number] * (ABNORMAL) Comprehensive metabolic panel (06/05/2024 3:10 AM CDT) Sodium 141 135 - 145 mmol/L Potassium, pl 4.5 3.3 - 4.9 mmol/L [facility] Chloride 111(H) 97 - 110 mmol/L [facility] CO2 21(L) 22 - 32 mmol/L [facility] Anion gap 9 2 - 15 mmol/L [facility] BUN 22 6 - 25 mg/dL [facility] Creatinine 1.49(H) 0.80 - 1.30 mg/dL [facility] [...] MD LAB BLOOD ORDERABLES Fin al Result [facility] [address] [address] Department [place] [address] * (ABNORMAL) eGFR (06/04/2024 11:02 [...] MD LAB BLOOD ORDERABLES Final Resul t [facility] [address] [address] Department [place] [address] * (ABNORMAL) CBC without differential (06/04/2024 11:02 PM CDT) WBC 13.2(H) 3.8 - 9.9 K/cumm Hgb 13.3 13.0 - 17.5 g/dL [facility] Hct 40.4 38.9 - 50.3 % [facility] Plt 134(L) 150 - 400 K/cumm [facility] MPV 11.3 9.1 - 12.3 fL [facility] RBC 4.52 4.30 - 5.80 M/cumm [facility] MCV 89.4 81.3 - 96.4 fL [facility] MCH 29.4 27.1 - 33.3 pg [facility] MCHC 32.9 32.3 - 35.7 g/dL [facility] RDW CV 14.1 11.1 - 14.9 % [facility] RDW SD 46.2 35.7 - 48.1 fL [facility] NRBC abs 0.00 0.00 - 0.01 K/cumm [facility] Blood 06/04/2024 11:0 2 PM CDT 06/04/2024 11:14 PM CDT George Martinez MD LAB BLOOD ORDERABLES Final Resul t Performing Organization Address [facility] Co de Phone Number ANNE [address] [address] Department [place] [address] * (ABNORMAL) Basic metabolic panel (06/04/2024 11:02 PM CDT) Pathologist [facility] Sodium 142 135 - 145 mmol/L Potassium, pl 4.4 3.3 - 4.9 mmol/L [facility] Chloride 111(H) 97 - 110 mmol/L [facility] CO2 19(L) 22 - 32 mmol/L [facility] Anion gap 12 2 - 15 mmol/L [facility] BUN 22 6 - 25 mg/dL [facility] Creatinine 1.35(H) 0.80 - 1.30 mg/dL [facility] Glucose 126 70 - 199 mg/dL [facility] Comment: Interpretive Data Fasting glucose >/= [...] 2022. Calcium 7.6(L) 8.5 - 10.3 mg/dL [facility] Blood 06/04/2024 11:0 2 PM CDT 06/04/2024 11:14 PM CDT George Martinez MD LAB BLOOD ORDERABLES Final Resul t Performing Organization Address [facility] Co de Phone Number [facility] [address] [address] Department [place] [address] * POCT glucose (06/04/2024 7:55 PM CDT) Glucose, POC 176 70 - 199 mg/dL POC Performer [phone] [facility] Blood 06/04/2024 7:55 PM CDT 06/04/2024 7:55 PM CDT George Martinez MD LAB POCT ORDERABLES - DEVICE Fin al Result Performing Organization Address [facility] Co de Phone Number ANNE [address] [address] [facility] [place] [address] * (ABNORMAL) POCT glucose (06/04/2024 7:55 PM CDT) Glucose, POC 224(H) 70 - 199 mg/dL POC Performer [phone] [facility] Blood 06/04/2024 7:55 PM CDT 06/04/2024 7:55 PM CDT George Martinez MD LAB POCT ORDERABLES - DEVICE Fin al Result Performing Organization Address [facility] de Phone Number SUNSHINEANEESH BANUELOS [address] [address] [facility] [place] [address] * POCT glucose (06/04/2024 5:47 PM CDT) Glucose, POC 131 70 - 199 mg/dL POC Performer [id number] [facility] Blood 06/04/2024 5:47 PM CDT 06/04/2024 5:47 PM CDT George Martinez MD LAB POCT ORDERABLES - DEVICE Fin al Result Performing Organization Address [facility] Co de Phone Number ANNE BANUELOS [address] [address] [facility] [place] [address] * (ABNORMAL) eGFR (06/04/2024 1:26 PM CDT) [...] BLOOD ORDERABLES Fin al Result [facility] [address] [address] Department [place] [address] * (ABNORMAL) Differential, auto (06/04/2024 1:26 PM CDT) Neutrophil abs 10.7(H) 1.5 - 6.5 K/cumm Imm gran abs 0.1 0.0 - 0.1 K/cumm [facility] Lymphocyte abs 0.3(L) 0.8 - 3.3 K/cumm [facility] Monocyte abs 0.1(L) 0.2 - 0.8 K/cumm [facility] Eosinophil abs 0.0 0.0 - 0.5 K/cumm [facility] Basophil abs 0.0 0.0 - 0.1 K/cumm [facility] Neutrophil pct 95.7 % [facility] Comment: Interpretive Data Percent cell count reference ranges are not reported, since discordance with absolute values may lead to misinterpretation of CBC data. Current Interpretive Data was last revised on 2017. Imm gran pct 0.6 % [facility] Comment: Interpretive Data Percent cell count [...] revised on 2017. Monocyte pct 1.2 % [facility] Comment: Interpretive Data Percent cell [...] revised on 2017. Basophil pct 0.1 % [facility] Comment: Interpretive Data Percent cell count reference ranges are not reported, since discordance with absolute values may lead to misinterpretation of CBC data. Current Interpretive Data was last revised on 2017. Blood 06/04/2024 1:26 PM CDT 06/04/2024 1:38 PM CDT us Charles Dorantes MD LAB BLOOD ORDERABLES Fin al Result [facility] [address] [address] Department [place] [address] * (ABNORMAL) CBC with auto differential (06/04/2024 1:26 PM CDT) WBC 11.1(H) 3.8 - 9.9 K/cumm Hgb 14.5 13.0 - 17.5 g/dL [facility] Hct 43.7 38.9 - 50.3 % [facility] Plt 150 150 - 400 K/cumm [facility] MPV 10.8 9.1 - 12.3 fL [facility] RBC 4.93 4.30 - 5.80 M/cumm [facility] MCV 88.6 81.3 - 96.4 fL [facility] MCH 29.4 27.1 - 33.3 pg [facility] MCHC 33.2 32.3 - 35.7 g/dL [facility] RDW CV 14.0 11.1 - 14.9 % [facility] RDW SD 45.3 35.7 - 48.1 fL [facility] NRBC abs 0.00 0.00 - 0.01 K/cumm [facility] Blood 06/04/2024 1:26 PM CDT 06/04/2024 1:38 PM CDT Charles Dorantes MD LAB BLOOD ORDERABLES Fin al Result Performing Organization Address City/[facility] Co de Phone Number ANNE [address] [address] [facility] [place] [address] * (ABNORMAL) Phosphorus (06/04/2024 1:26 PM CDT) Phosphorus, pl 1.9(L) 2.3 - 4.5 mg/dL Blood 06/04/2024 1:26 PM CDT 06/04/2024 1:32 PM CDT Charles Dorantes MD LAB BLOOD ORDERABLES Fin al Result Performing Organization Address [facility] de Phone Number [facility] [address] [address] Department [facility] [place], [place] [id number] * Magnesium (06/04/2024 1:26 PM CDT) Magnesium 1.9 1.4 - 2.5 mg/dL Blood 06/04/2024 1:26 PM CDT 06/04/2024 1:32 PM CDT Charles Dorantes MD LAB BLOOD ORDERABLES Fin al Result Performing Organization Address [facility] Co de Phone Number [facility] [address] [address] Department [facility] [place], [place] [id number] * (ABNORMAL) Basic metabolic panel (06/04/2024 1:26 PM CDT) Sodium 143 135 - 145 mmol/L Potassium, pl 3.7 3.3 - 4.9 mmol/L [facility] Chloride 112(H) 97 - 110 mmol/L [facility] CO2 20(L) 22 - 32 mmol/L [facility] Anion gap 11 2 - 15 mmol/L [facility] BUN 26(H) 6 - 25 mg/dL [facility] Creatinine 1.40(H) 0.80 - 1.30 mg/dL [facility] Glucose 134 70 - 199 mg/dL [facility] Comment: [...] 2022. Calcium 8.0(L) 8.5 - 10.3 mg/dL [facility] Blood 06/04/2024 1:26 PM CDT 06/04/2024 1:32 PM CDT us Charles Dorantes MD LAB BLOOD ORDERABLES Fin al Result Performing Organization Address City/State/[facility] Co de Phone Number [facility] [address] Department [place] [address] * POCT glucose (06/04/2024 1:10 PM CDT) Glucose, POC 122 70 - 199 mg/dL POC Performer [phone] [facility] Blood 06/04/2024 1:10 PM CDT 06/04/2024 1:10 PM CDT George Martinez MD LAB POCT ORDERABLES - [place] [address] [address] Department [place] [address] * Critical Care (06/04/2024 1:06 PM CDT) Narrative Charles Dorantes MD - 06/04/2024 1:06 PM CDT Charles Dorantes MD 06/04/2024 6:26 PM Critical Care Performed by: Charles Dorantes MD Authorized by: Charles Dorantes MD CRITICAL CARE: Team: CORTEZ Shift: AM Level of Billing: Critical Care [...] plan with the ICU team and other medical/groundwater consultant staff, making frequent assessments and decisions [...] Surgical pathology (06/04/2024 11:23 AM CDT) Tissue specimen (specimen) (Lymph Node, Single excision) 06/04/2024 8:36 AM CDT Tissue specimen (specimen) (Lymph Node, Single excision) 06/04/2024 8:42 AM CDT Tissue specimen (specimen) (Lymph Node, Single excision) 06/04/2024 8:47 AM CDT Tissue specimen (specimen) (Lymph Node, Single excision) 06/04/2024 8:54 AM CDT Tissue specimen (specimen) (Lymph Node, Single excision) 06/04/2024 9:07 AM CDT Tissue specimen (specimen) (Lymph Node, Single excision) 06/04/2024 9:07 AM CDT Tissue specimen (specimen) (Lymph Node, Single excision) 06/04/2024 9:18 AM CDT Tissue specimen (specimen) (Lymph Node, Single excision) 06/04/2024 9:43 AM CDT Tissue specimen (specimen) (Lymph Node, Single excision) 06/04/2024 9:44 AM CDT Tissue specimen (specimen) (Lymph Node, Single excision) 06/04/2024 10:01 AM CDT Tissue specimen (specimen) (Lung - Total / Lobe / Segment Resection non-tumor) 06/04/2024 10:06 AM CDT Narrative PATHOLOGY - 06/06/2024 2:43 PM CDT EPIC results best viewed via link to PDF [facility] Department of Pathology [address] [place] [id number] Note to Patients: This report may [...] Final Report Patient Name: WEST FOSTER Address: [place] [id number] Gender: M : 1955 (Age: 69) Service: Cardiothoracic Location: Hospital #: [id number] Patient Type: [facility] Taken: 06/04/2024 Received: 06/04/2024 Accessioned: 06/04/2024 [...] Diagnosis: K 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 The pleural surface is pink-peerz and smooth. A suture is present at the base. Deep to the suture is a preez lesion that appears to be predominantly located [...] tissue embedded in cassette K1 and K2. [employer] sections are submitted: Vascular margin K 3, [...] determined by the Surgical Pathology Department at [facility] as part of an ongoing quality technician fiberglass program and in compliance with federally mandated [...] characteristics determined by the Surgical Pathology Department [facility]. It has not been cleared or approved by the U. S. Food and Drug Administration. Note for decalcified specimens: This assay has not been validated on decalcified tissues. Results should be interpreted with caution given the possibility of false negativity on decalcified specimens George Martinez MD LAB PATHOLOGY ORDERABLES Final R esult Performing Organization Address [facility] de Phone Number PATHOLOGY [address] [place] [address] * Prepare RBC: 1 Units (06/04/2024 8:20 AM CDT) Product code [id number] Unit Number [id number] 5-N [facility] Product Blood Type APOS [facility] Dispense Status RETURNED [facility] Blood 06/04/2024 8:20 AM CDT 06/04/2024 8:20 AM CDT Narrative [facility] - 06/05/2024 12:18 AM CDT Are special requirements needed? (All products are leukoreduced and CMV- safe)- >No Date required:-[id number] LRRBC # of Xchhm-6-[id number] Reasons:-Intra-op transfusion} George Martinez MD BLOOD BANK PRODUCT ORDERABLES Fi nal Result Performing Organization Address [facility] de Phone Number [facility] [address] Department [place] [address] * Peripheral IV Catheter (06/04/2024 8:09 AM [...] * Arterial Line (06/04/2024 8:09 AM CDT) Nikita Mccord AA - 06/04/2024 8:09 AM CDT Nikita [...] MD ANESTHESIA ORDERABLES Final Resu lt * OK AN ELECTIVE ENDOTRACHEAL AIRWAY (06/04/2024 8:08 AM [...] Units (06/04/2024 7:00 AM CDT) Product code [id number] Unit Number [id number] 4-M [facility] Product Blood Type APOS [facility] Blood 06/04/2024 7:00 AM CDT Narrative [facility] - 06/05/2024 12:18 AM CDT Specify Procedure:->robotic lobectomy Are special requirements needed? (All products are leukoreduced and CMV- safe)- >No Date required:-[id number] LRRBC # of Mvuuo-9-Sgmbu Reasons:-Hold for procedure (specify procedure)} us Monserrat Ibarra NP BLOOD BANK PRODUCT ORDERA BLES Final Result [facility] [address] Department [place] [address] * Check Sample (06/04/2024 6:47 AM CDT) ABO Rh A Positive CH HCLL OTHER 06/04/2024 6:47 AM CDT 06/04/2024 7:56 AM CDT us George Martinez MD LAB BLOOD ORDERABLES Final Resul t Performing Organization Address [facility] de Phone Number ANNE BANUELOS [address] Department [place] [address] * (ABNORMAL) eGFR (05/27/2024 12:19 PM CDT) [...] PM CDT 05/27/2024 12:19 PM CDT George Martienz MD LAB BLOOD ORDERABLES Final Resul t Performing Organization Address [facility] Co de Phone Number ANNE BANUELOS [address] Department [place] [address] * Differential, auto (05/27/2024 12:19 PM CDT) Neutrophil abs 4.9 1.5 - 6.5 K/cumm Imm gran abs 0.1 0.0 - 0.1 K/cumm [facility] Lymphocyte abs 1.8 0.8 - 3.3 K/cumm [facility] Monocyte abs 0.6 0.2 - 0.8 K/cumm [facility] Eosinophil abs 0.0 0.0 - 0.5 K/cumm [facility] Basophil abs 0.0 0.0 - 0.1 K/cumm [facility] Neutrophil pct 65.9 % [facility] Comment: Interpretive Data Percent cell count reference ranges are not reported, since discordance with absolute values may lead to misinterpretation of CBC data. Current Interpretive Data was last revised on 2017. Imm gran pct 1.1 % [facility] Comment: Interpretive Data Percent cell count reference ranges are not reported, since discordance with absolute values may lead to misinterpretation of CBC data. Current Interpretive Data was last revised on 2017. Lymphocyte pct 24.6 % [facility] Comment: Interpretive Data Percent cell count reference ranges are not reported, since discordance with absolute values may lead to misinterpretation of CBC data. Current Interpretive Data was last revised on 2017. Monocyte pct 7.8 % [facility] Comment: Interpretive Data Percent cell count reference ranges are not reported, since discordance with absolute values may lead to misinterpretation of CBC data. Current Interpretive Data was last revised on 2017. Eosinophil pct 0.1 % [facility] Comment: Interpretive Data Percent cell count reference ranges are not reported, since discordance with absolute values may lead to misinterpretation of CBC data. Current Interpretive Data was last revised on 2017. Basophil pct 0.5 % [facility] Comment: Interpretive Data Percent cell count reference ranges are not reported, since discordance with absolute values may lead to misinterpretation of CBC data. Current Interpretive Data was last revised on 2017. Blood 05/27/2024 12:1 9 PM CDT 05/27/2024 12:19 PM CDT us George Martinez MD LAB BLOOD ORDERABLES Final Resul t ANNE [address] Department [place] [address] * (ABNORMAL) CBC with auto differential (05/27/2024 12:19 PM CDT) WBC 7.5 3.8 - 9.9 K/cumm Hgb 17.2 13.0 - 17.5 g/dL [facility] Hct 52.7(H) 38.9 - 50.3 % [facility] Plt 174 150 - 400 K/cumm [facility] MPV 11.2 9.1 - 12.3 fL [facility] RBC 5.83(H) 4.30 - 5.80 M/cumm [facility] MCV 90.4 81.3 - 96.4 fL [facility] MCH 29.5 27.1 - 33.3 pg [facility] MCHC 32.6 32.3 - 35.7 g/dL [facility] RDW CV 14.1 11.1 - 14.9 % [facility] RDW SD 46.4 35.7 - 48.1 fL [facility] NRBC abs 0.00 0.00 - 0.01 K/cumm [facility] Blood 05/27/2024 12:1 9 PM CDT 05/27/2024 12:19 PM CDT us George aMrtinez MD LAB BLOOD ORDERABLES Final Resul t [place]NE [address] Department of Laboratories [place], [place] [id number] * (ABNORMAL) Comprehensive metabolic panel (05/27/2024 12:19 PM CDT) Sodium 143 135 - 145 mmol/L Potassium, pl 3.8 3.3 - 4.9 mmol/L [facility] Chloride 106 97 - 110 mmol/L [facility] CO2 25 22 - 32 mmol/L [facility] Anion gap 12 2 - 15 mmol/L [facility] BUN 24 6 - 25 mg/dL [facility] Creatinine 1.52(H) 0.80 - 1.30 mg/dL [facility] Glucose 80 70 - 199 mg/dL [facility] Comment: Interpretive Data Fasting glucose >/= [...] BLOOD ORDERABLES Final Resul t [facility] [address] Department [place] [address] * (ABNORMAL) Urinalysis reflex to microscopic and [...] tendency for uric acid stone formation. Source: [facility] Diabetica Current Interpretive Data was last revised on [...] for microscopic UA and culture not met. [facility] Urine, clean voided 05/27/2024 11:59 AM CDT 05/27/2024 1:23 PM CDT us George Martinez MD LAB MICROBIOLOGY - GENERAL ORDER KAILEY Final Result Performing Organization Address [facility] Co de Phone Number ANNE [address] Department [place] [address] * Type and screen (05/27/2024 11:59 AM CDT) ABO Rh A Positive Neymar, indirect Negative [facility] Blood 05/27/2024 11:5 9 AM CDT 05/27/2024 12:31 PM CDT Narrative [facility] - 05/27/2024 1:45 PM CDT Has the patient had Daratumumab or Isatuximab in the past 6 months?->Unknown George Martinez MD LAB BLOOD BANK TEST ORDERABLES F inal Result Performing Organization Address [facility] de Phone Number [facility] [address] Department [place] [address] * ECG 12 lead (05/27/2024 11:45 AM CDT) 05/27/2024 11:4 5 AM CDT Narrative [facility] - 05/27/2024 3:19 PM CDT Vent Rate: 77 bpm RR Interval: 771 msec OK Interval: 166 msec QRS Duration: 91 msec QT Interval: 366 msec QTC Interval: 398 msec P-R-T Forsan: 39 - -25 - -7 degrees IMPRESSION: SINUS RHYTHM WITH OCCASIONAL VENTRICULAR PREMATURE COMPLEXES WITH OCCASIONAL SUPRAVENTRICULAR PREMATURE COMPLEXES BORDERLINE LEFT AXIS DEVIATION LOW QRS VOLTAGE IN PRECORDIAL LEADS PATTERN CONSISTENT WITH PULMONARY DISEASE ABNORMAL ECG Electronically Signed By: Carson Aguila MD, [facility] us George Martinez MD ECG ORDERABLES Final Result Performing Organization Address [facility] Co de Phone Number [facility] * X-ray chest 2 views (05/27/2024 11:16 [...] Electronically signed by: Isidro Alcantar M.D. George JACINTOG XR PROCEDURES Final Result * CT Body Outside Reference (05/20/2024 12:20 PM CHRONIC SPECIALIST) Narrative HECTOR_JENNIFER_MHB_MHE - 05/22/2024 11:13 AM CHRONIC SPECIALIST This order has been auto-finalized and does not contain a result. us Provider Transcribed Order IMG CT PROCEDURES Fin al Result RAD_CLARIO_MHB_MHE * XR Chest PA Lateral 2 Views (04/11/2024 12:16 PM CHRONIC SPECIALIST) Anatomical Region Laterality Modality Body, Chest N/A Computed Radiogr aphy 04/11/2024 12:2 9 PM CHRONIC SPECIALIST Narrative 04/11/2024 12:31 PM CHRONIC SPECIALIST EXAM DESCRIPTION: XR CHEST PA LATERAL 2 [...] Jez Rahman M.D. AM T: Report ID: [id number] Reading Location: [id number] Procedure Note Jez Rahman MD - 04/11/2024 [...] Jez Rahman M.D. AM T: Report ID: [id number] Reading Location: [id number] Jag Tobar MD IMG XR PROCEDURES Final Resu lt * XR Chest 1 View (04/11/2024 10:17 AM CHRONIC SPECIALIST) Anatomical Region Laterality Modality Body, Chest N/A Computed Radiogr aphy 04/11/2024 11:0 2 AM CHRONIC SPECIALIST Narrative 04/11/2024 11:31 AM CHRONIC SPECIALIST EXAM DESCRIPTION: XR CHEST 1 VIEW REASON [...] 11:31 AM - Electronically signed by Jez Rahmna M.D. AM T: Report ID: [id number] Reading Location: [id number] Procedure Note Jez Rahman MD - 04/11/2024 [...] Jez Rahman M.D. AM T: Report ID: [id number] Reading Location: [id number] us Jag Tobar MD IMG XR PROCEDURES Final Resu lt * FL Fluoroscopy < 1 Hour (04/11/2024 9:41 AM CHRONIC SPECIALIST) Narrative HECTOR_JENNIFER_OC_MHE - 04/11/2024 9:42 AM CHRONIC SPECIALIST The images from this study are not interpreted by Radiology. Please refer to the physician's procedure / OR operative note. us Jag JACINTOG FLUOROSCOPY PROCEDURES F inal Result RAD_CLARIO_MHB_MHE * Surgical pathology (04/11/2024 9:22 AM CHRONIC SPECIALIST) Tissue specimen (specimen) (Lung Biopsy) 04/11/2024 9:22 AM CHRONIC SPECIALIST Narrative PATHOLOGY [facility] - 04/14/2024 3:07 PM CHRONIC SPECIALIST [facility] Department of Pathology [address] [place] [address] Note to Patients: This report may contain [...] : 1955 (Age: 68) Gender: M Address: [address] [address] Hospital #: [id number] Service: Surgery Location: Patient Type: [facility] OUTPATIENT Taken: 04/11/2024 Received: 04/11/2024 Accessioned: [...] was communicated with Dr. Jag Tobar via [employer] message on 04/14/2024. Microscopic examination substantiates the above cited diagnosis. Please correlate with the culture result for speciation. The result was communicated with Dr. Jag Tobar via [employer] message on 04/14/2024. Clinical History: The patient [...] interpretation for this case was performed at [facility], Department of Surgical Pathology, [address] [facility], [place] [id number], [place] [address] CLIA # [id number] us Jag Tobar MD LAB PATHOLOGY ORDERABLES Fin al Result PATHOLOGY [facility] * Cytology (04/11/2024 9:21 AM CHRONIC SPECIALIST) Fluid (Bronch Lavage (Cytology)) 04/11/2024 9:21 AM CHRONIC SPECIALIST Narrative PATHOLOGY [facility] - 04/15/2024 6:01 PM CHRONIC SPECIALIST EPIC results best viewed via link to PDF [facility] Laboratory [place] [address] Note to Patients: This report may contain [...] Gender: M : 1955 (Age: 68) Address: [place] [address] Hospital #: [id number] Taken:04/11/2024 Received:04/11/2024 Reported: 04/15/2024 Patient Type: [facility] OUTPATIENT Service: Surgery Location: Physician(s): MD Stephanie [...] Kristina Haynes M.D. 04/15/2024 18:01:32 Monika Hassan [facility](ASCP) Gross Description A. BAL right lower lobe: [...] interpretation for this case was performed at [facility], Department of Surgical Pathology, [address] [facility], [place] [id number], [place] [address] CLIA # [id number] REPORT IMAGES AND SCANNED DOCUMENTS, IF INCLUDED, ONLY VIEWABLE IN PDF VERSION OF REPORT The performance characteristics of some immunohistochemical stains, in-situ hybridization and fluorescence in-situ hybridization tests and immunophenotyping by flow cytometry cited in this report (if any) were determined by the Surgical Pathology and Flow Cytometry Departments at [facility] as part of an ongoing quality technician fiberglass program and in compliance with federally mandated [...] Surgical Pathology and Flow Cytometry Departments of [facility]. It has not been cleared or approved by the U. S. Food and Drug Administration. us Jag Tobar MD LAB CYTOLOGY ORDERABLES Joya l Result PATHOLOGY [facility] * OK AN ELECTIVE ENDOTRACHEAL AIRWAY, OK AN PROCEDURE PLACEHOLDER (04/11/2024 9:20 AM CHRONIC SPECIALIST) Narrative Devon Garcia CRNA - 04/11/2024 9:20 AM CHRONIC SPECIALIST Devon Garcai CRNA 04/11/2024 9:20 AM Airway Patient location: OR Urgency: elective Indications for airway management: anesthesia Difficult airway: no Staff: Supervising provider: Sandra Mensah MD Placed by: ARTIST'S REPRESENTATIVE: Devon Garcia CRNA Emergent airway documentation: Risks [...] other (pink tape) Number of attempts: 1 Sandra Mensah MD ANESTHESIA ORDERABLES Final Re sult * (ABNORMAL) Aerobic culture and gram stain Bronchoalveolar lavage Lobe, right lower (04/11/2024 9:19AM CHRONIC SPECIALIST) Direct Specimen Exam Stain: Cytospin Gram stain shows: Rare polymorphonuclear leukocytes seen. No organisms seen. Comment:Testing performed by : [facility], [address] [place] [address], [place] [address] Report Final Report: Curvularia species Plus growth of clinically insignificant bacterial lucian. (.) ANNE BEDOLLA Comment:Testing performed by : [facility], [address] [place] [address], [place] [address] Organism PLUS GROWTH OF CLINICALLY INSIGNIFICANT LUCIAN. [facility] Organism CURVULARIA SPECIES [facility] Bronchoalveolar lavage (Lobe, right lower) 04/11/2024 9:19 AM CHRONIC SPECIALIST 04/11/2024 11:24 AM CHRONIC SPECIALIST Narrative ANNE - 04/27/2024 3:12 PM CHRONIC SPECIALIST Testing performed by [facility] Microbiology Laboratory ([phone]) Specimens submitted from normally sterile body sites [...] O RDERABLES Final Result Performing Organization Address City/[facility] Co de Phone Number [address] [place] [address] * (ABNORMAL) Mycology (fungal) culture Bronchoalveolar lavage Lobe, right lower (04/11/2024 9:19 AM CHRONIC SPECIALIST) Report Final Report: Curvularia species (.) Comment:Testing performed by : [facility], [address] [place]., [address] Organism CURVULARIA SPECIES [facility] Bronchoalveolar lavage (Lobe, right lower) 04/11/2024 9:19 AM CHRONIC SPECIALIST 04/11/2024 11:24 AM CHRONIC SPECIALIST Narrative [facility] - 05/09/2024 8:28 AM CHRONIC SPECIALIST Testing performed by [facility] Microbiology Laboratory ([phone]). Jag Tobar MD LAB MICROBIOLOGY - GENERAL O RDERABLES Final Result Performing Organization Address City/[facility]/ZIP Co de Phone Number [address] [place] [address] * Mycobacteriology (AFB) culture and acid-fast stain Bronchoalveolar lavage Lobe, right lower (04/11/2024 9:19 AM CHRONIC SPECIALIST) Direct Specimen Exam Stain: No Acid-fast bacilli seen Comment:Testing performed by : [facility], [address] [facility], [address] Report Final Report: No growth of acid-fast bacilli ANNE Comment:Testing performed by : [facility], [address] [place]., [address] Bronchoalveolar lavage (Lobe, right lower) 04/11/2024 9:19 AM CHRONIC SPECIALIST 04/11/2024 11:24 AM CHRONIC SPECIALIST Narrative ANNE - 06/09/2024 8:08 AM CDT Testing performed by [facility] Microbiology Laboratory ([phone]). Jag Tobar MD LAB MICROBIOLOGY - GENERAL O RDERABLES Final Result ANNE [address] [facility] [place] [address] * Bronchoscopy (04/11/2024 8:47 AM CHRONIC SPECIALIST) Anatomical Region Laterality Modality Other Narrative Procedure Note Jag Tobar MD - 04/11/2024 8:47 AM CST [facility] Pulmonary Patient Name: [place] Procedure Date: 04/11/2024 8:47 AM Date of : 1955 Admit Type: Outpatient Age: 68 Room: [facility] 25 Gender: Male Note Status: Finalized Attending MD: Jag Tobar M.D. Procedure: Bronchoscopy Providers: Jag Tobar M.D. Referring MD: Requesting Physician: Procedure: After obtaining informed consent, the [id number] bronchoscope was introduced through the rightnostril and advanced to the. Findings: Jaki Tobar M.D. Jag Tobar M.D. 04/11/2024 9:53:56 AM . Number of Addenda: 0 Note Initiated On: 04/11/2024 8:47 AM us Jag Tobar MD ENDOSCOPY PROCEDURES Final R esult * (ABNORMAL) eGFR (04/11/2024 7:30 AM CHRONIC SPECIALIST) eGFR 46(L) >=60 mL/min/1. 73 m2 Comment: [...] last reviewed 2021. Blood 04/11/2024 7:30 AM CHRONIC SPECIALIST 04/11/2024 7:34 AM CHRONIC SPECIALIST us Jag Tobar MD LAB BLOOD ORDERABLES Final R esult ANNE [address] [facility] [place] [address] * Differential, auto (04/11/2024 7:30 AM CHRONIC SPECIALIST) Pathologist [facility] Neutrophil abs 3.6 1.5 - 6.5 K/cumm Imm gran abs 0.0 0.0 - 0.1 K/cumm [facility] Lymphocyte abs 1.8 0.8 - 3.3 K/cumm [facility] Monocyte abs 0.5 0.2 - 0.8 K/cumm [facility] Eosinophil abs 0.2 0.0 - 0.5 K/cumm [facility] Basophil abs 0.0 0.0 - 0.1 K/cumm [facility] Neutrophil pct 58.8 % [facility] Comment: Interpretive Data Percent cell count reference ranges are not reported, since discordance with absolute values may lead to misinterpretation of CBC data. Current Interpretive Data was last revised on 2017. Imm gran pct 0.3 % [facility] Comment: Interpretive Data Percent cell count reference ranges are not reported, since discordance with absolute values may lead to misinterpretation of CBC data. Current Interpretive Data was last revised on 2017. Lymphocyte pct 29.9 % [facility] Comment: Interpretive Data Percent cell count reference ranges are not reported, since discordance with absolute values may lead to misinterpretation of CBC data. Current Interpretive Data was last revised on 2017. Monocyte pct 7.7 % [facility] Comment: Interpretive Data Percent cell count reference ranges are not reported, since discordance with absolute values may lead to misinterpretation of CBC data. Current Interpretive Data was last revised on 2017. Eosinophil pct 2.6 % [facility] Comment: Interpretive Data Percent cell count reference ranges are not reported, since discordance with absolute values may lead to misinterpretation of CBC data. Current Interpretive Data was last revised on 2017. Basophil pct 0.7 % [facility] Comment: Interpretive Data Percent cell count reference ranges are not reported, since discordance with absolute values may lead to misinterpretation of CBC data. Current Interpretive Data was last revised on 2017. Blood 04/11/2024 7:30 AM CHRONIC SPECIALIST 04/11/2024 7:34 AM CHRONIC SPECIALIST Jag Tobar MD LAB BLOOD ORDERABLES Final R esult Performing Organization Address City/[facility] Co de Phone Number [facility] [address] [place] [address] * CBC with auto differential (04/11/2024 7:30 AM CHRONIC SPECIALIST) [facility] WBC 6.1 3.8 - 9.9 K/cumm Hgb 16.4 13.0 - 17.5 g/dL [facility] Hct 49.4 38.9 - 50.3 % [facility] Plt 184 150 - 400 K/cumm [facility] MPV 11.3 9.1 - 12.3 fL [facility] RBC 5.55 4.30 - 5.80 M/cumm [facility] MCV 89.0 81.3 - 96.4 fL [facility] MCH 29.5 27.1 - 33.3 pg [facility] MCHC 33.2 32.3 - 35.7 g/dL [facility] RDW CV 13.7 11.1 - 14.9 % [facility] RDW SD 44.6 35.7 - 48.1 fL [facility] NRBC abs 0.00 0.00 - 0.01 K/cumm [facility] Blood 04/11/2024 7:30 AM CHRONIC SPECIALIST 04/11/2024 7:34 AM CHRONIC SPECIALIST Jag Tobar MD LAB BLOOD ORDERABLES Final R esult Performing Organization Address City/[facility] Co de Phone Number ANNE [address] [address] * aPTT (04/11/2024 7:30 AM CHRONIC SPECIALIST) [facility] aPTT 31 22 - 37 sec Comment: Interpretive data aPTT test has not been evaluated for monitoring heparin therapy. The anti-Xa is the preferred test. Current interpretive data was last revised on 2019. Blood 04/11/2024 7:30 AM CHRONIC SPECIALIST 04/11/2024 7:34 AM CHRONIC SPECIALIST Jag Tobar MD LAB BLOOD ORDERABLES Final R [facility] Performing Organization Address [facility] de Phone Number [address] [place] [address] * Protime-INR (04/11/2024 7:30 AM CHRONIC SPECIALIST) [facility] PT 14.2 12.0 - 14.6 sec INR 1.1 0.9 - 1.2 [facility] Comment: Ref Range High Interpretive data Oral anticoagulant therapeutic ranges: Venous thromboembolism prophylaxis or treatment: 2.0-3.0 CARDIOLOGY Standard range: 2.0-3.0 High-intensity range: 2.5-3.5 Refer to indication-specific guidelines for appropriate target ranges for prosthetic heart valve replacement. Current interpretive data was last revised on 2019. Blood 04/11/2024 7:30 AM CHRONIC SPECIALIST 04/11/2024 7:34 AM CHRONIC SPECIALIST Jag Tobar MD LAB BLOOD ORDERABLES Final [facility] Performing Organization Address [facility] de Phone Number [address] [address] * (ABNORMAL) Basic metabolic panel (04/11/2024 7:30 AM CHRONIC SPECIALIST) [facility] Sodium 142 135 - 145 mmol/L Potassium, pl 4.1 3.3 - 4.9 mmol/L [facility] Chloride 109 97 - 110 mmol/L [facility] CO2 23 22 - 32 mmol/L [facility] Anion gap 10 2 - 15 mmol/L [facility] BUN 20 6 - 25 mg/dL [facility] Creatinine 1.61(H) 0.80 - 1.30 mg/dL [facility] Glucose 115 70 - 199 mg/dL [facility] Comment: Interpretive Data Fasting [...] Calcium 9.0 8.5 - 10.3 mg/dL [facility] Blood 04/11/2024 7:30 AM CHRONIC SPECIALIST 04/11/2024 7:34 AM CHRONIC SPECIALIST us Jag Tobar MD LAB BLOOD ORDERABLES Final R esult [facility] [address] [facility] [place] [address] * PET/CT FDG Skull to Thigh (04/10/2024 12:12 PM CHRONIC SPECIALIST) Anatomical Region Laterality Modality N/A Positron Emissio n Tomography (PET) 04/10/2024 2:18 PM CHRONIC SPECIALIST Impressions 04/10/2024 2:44 PM CHRONIC SPECIALIST 1. Moderately FDG-avid right lower lobe nodule [...] Luis Walker M.D. Narrative 04/10/2024 2:44 PM CHRONIC SPECIALIST EXAMINATION: TUMOR FDG-PET/CT IMAGING DATE OF STUDY: 04/10/2024 SCANNER: [facility] N LinQpay Vision (NV1). This is a high-resolution scanner, [...] obtained. The study was interpreted on the [employer] workstation. The mean liver SUV (reported for vice president quality assurance purposes) is 2.5. The total scanned area [...] FDG-PET/CT IMAGING DATE OF STUDY: 04/10/2024 SCANNER: [facility] A-Gas (NV1). This is a high-resolution scanner, which [...] obtained. The study was interpreted on the [employer] workstation. The mean liver SUV (reported for vice president quality assurance purposes) is 2.5. The total scanned area [...] Pulmonary Function Test - (04/07/2024 2:59 PM CHRONIC SPECIALIST) FVC PRE 3.92 3.12 - 5.33 L [facility] FEV1 PRE 3.21 2.29 - 4.02 L [facility] [id number] 81.76 62.34 - 87.83 % [facility] VXP36-50% PRE 4.38(A) 1.03 - 4.35 L/s [facility] PEF PRE 9.97 6.07 - 10.05 L/s [facility] DLCOc SB 23.77 20.26 - 34.11 ml/(min*mm Hg) [facility] DLCO/VA PRE 4.53 2.66 - 4.97 ml/(min*mm Hg*L) [facility] VA 5.25(A) 6.98 - 6.98 L [facility] TLC PRE 5.92(A) 5.97 - 8.28 L [facility] VC PRE 3.92 3.31 - 5.16 L [facility] IC PRE 2.95(A) 3.17 - 3.17 L [facility] FRC PL PRE 2.97 2.71 - 4.69 L [facility] ERV PRE 0.97(A) 1.06 - 1.06 L [facility] RV PRE 2.00 1.96 - 3.31 L [facility] VTG 3.01 L [facility] RAW PRE 1.15(A) 3.06 - 3.06 cmH2O*s/L [facility] Anatomical Region Laterality Modality PFT 04/07/2024 2:30 PM CHRONIC SPECIALIST Impressions 04/08/2024 8:38 AM CHRONIC SPECIALIST 1. Normal spirometry. Total lung capacity is approaching the lower limit of normal and may reflect a mild restrictive ventilatory limitation 2. Normal diffusion capacity Electronically signed by Isidro Tabor MD Pulmonary & Critical Care Narrative 04/08/2024 8:38 AM CHRONIC SPECIALIST PULMONARY FUNCTION TESTS [place] 68 y.o. [...] * ECG 12 lead (04/07/2024 2:06 PM CHRONIC SPECIALIST) Pathologist [facility] Ventricular Rate EKG/Min 66 BPM [facility] Atrial Rate 66 BPM [facility] OK-Interval (MSEC) 160 ms [facility] QRS-Interval (MSEC) 92 ms [facility] QT-Interval (MSEC) 376 ms [facility] QTc 394 ms [facility] P Forsan 38 degrees [facility] R Forsan 38 degrees [facility] T Forsan 6 degrees [facility] Diagnosis Sinus rhythm with marked sinus arrhythmia Possible Inferior infarct , age undetermined Abnormal ECG No previous ECGs available Confirmed by MONIKA REDDY M.D. ([id number]) on 04/08/2024 7:48:19 AM [facility] 04/07/2024 2:06 PM CHRONIC SPECIALIST 04/08/2024 7:48 AM CHRONIC SPECIALIST Vito Guerrero MD ECG ORDERABLES Final Result [facility] * (ABNORMAL) eGFR (04/04/2024 12:28 PM CHRONIC SPECIALIST) eGFR 44(L) >=60 mL/min/1. 73 m2 Comment: [...] Inclusion of Race in Diagnosing Kidney Disease, DYLANSN 2020). The CKD-EPI equation should not be used for patients with unstable renal function and has not been validated in children and those over 70. Current interpretive data was last reviewed 2021. Blood 04/04/2024 12:2 8 PM CHRONIC SPECIALIST 04/04/2024 12:52 PM CHRONIC SPECIALIST Jag Tobar MD LAB BLOOD ORDERABLES Final R esult [facility] [address] [facility] [place] [address] * Differential, auto (04/04/2024 12:28 PM CHRONIC SPECIALIST) Pathologist [facility] Neutrophil abs 3.7 1.5 - 6.5 K/cumm Imm gran abs 0.0 0.0 - 0.1 K/cumm [facility] Lymphocyte abs 1.9 0.8 - 3.3 K/cumm [facility] Monocyte abs 0.5 0.2 - 0.8 K/cumm [facility] Eosinophil abs 0.1 0.0 - 0.5 K/cumm [facility] Basophil abs 0.0 0.0 - 0.1 K/cumm [facility] Neutrophil pct 59.4 % [facility] Comment: Interpretive Data Percent cell count reference ranges are not reported, since discordance with absolute values may lead to misinterpretation of CBC data. Current Interpretive Data was last revised on 2017. Imm gran pct 0.3 % [facility] Comment: Interpretive Data Percent cell count reference ranges are not reported, since discordance with absolute values may lead to misinterpretation of CBC data. Current Interpretive Data was last revised on 2017. Lymphocyte pct 30.5 % [facility] Comment: Interpretive Data Percent cell count reference ranges are not reported, since discordance with absolute values may lead to misinterpretation of CBC data. Current Interpretive Data was last revised on 2017. Monocyte pct 7.6 % [facility] Comment: Interpretive Data Percent cell count reference ranges are not reported, since discordance with absolute values may lead to misinterpretation of CBC data. Current Interpretive Data was last revised on 2017. Eosinophil pct 1.7 % [facility] Comment: Interpretive Data Percent cell count reference ranges are not reported, since discordance with absolute values may lead to misinterpretation of CBC data. Current Interpretive Data was last revised on 2017. Basophil pct 0.5 % [facility] Comment: Interpretive Data Percent cell count reference ranges are not reported, since discordance with absolute values may lead to misinterpretation of CBC data. Current Interpretive Data was last revised on 2017. Blood 04/04/2024 12:2 8 PM CHRONIC SPECIALIST 04/04/2024 12:52 PM CHRONIC SPECIALIST Jag Tobar MD LAB BLOOD ORDERABLES Final R esult [place] [id number] [facility] Department of Laboratories [place], [place] [id number] * (ABNORMAL) CBC with auto differential (04/04/2024 12:28 PM CHRONIC SPECIALIST) WBC 6.3 3.8 - 9.9 K/cumm Hgb 16.6 13.0 - 17.5 g/dL [facility] Hct 50.4(H) 38.9 - 50.3 % [facility] Plt 183 150 - 400 K/cumm [facility] MPV 11.3 9.1 - 12.3 fL [facility] RBC 5.56 4.30 - 5.80 M/cumm [facility] MCV 90.6 81.3 - 96.4 fL [facility] MCH 29.9 27.1 - 33.3 pg [facility] MCHC 32.9 32.3 - 35.7 g/dL [facility] RDW CV 13.6 11.1 - 14.9 % [facility] RDW SD 45.5 35.7 - 48.1 fL [facility] NRBC abs 0.00 0.00 - 0.01 K/cumm [facility] Blood 04/04/2024 12:2 8 PM CHRONIC SPECIALIST 04/04/2024 12:52 PM CHRONIC SPECIALIST Narrative [facility] - 04/04/2024 1:03 PM CHRONIC SPECIALIST Please perform CBC with manual differential. Jag Tobar MD LAB BLOOD ORDERABLES Final R esult Performing Organization Address [facility] Co de Phone Number ANNE [address] [address] * Protime-INR (04/04/2024 12:28 PM CHRONIC SPECIALIST) Pathologist [facility] PT 13.6 12.0 - 14.6 sec INR 1.0 0.9 - 1.2 [facility] Comment: Ref Range High Interpretive data Oral anticoagulant therapeutic ranges: Venous thromboembolism prophylaxis or treatment: 2.0-3.0 CARDIOLOGY Standard range: 2.0-3.0 High-intensity range: 2.5-3.5 Refer to indication-specific guidelines for appropriate target ranges for prosthetic heart valve replacement. Current interpretive data was last revised on 2019. Blood 04/04/2024 12:2 8 PM CHRONIC SPECIALIST 04/04/2024 12:52 PM CHRONIC SPECIALIST Jag Tobar MD LAB BLOOD ORDERABLES Final R esult Performing Organization Address [facility] Co de Phone Number ANNE [address] [address] * (ABNORMAL) Basic metabolic panel (04/04/2024 12:28 PM CHRONIC SPECIALIST) Pathologist [facility] Sodium 145 135 - 145 mmol/L Potassium, pl 4.5 3.3 - 4.9 mmol/L [facility] Chloride 109 97 - 110 mmol/L [facility] CO2 26 22 - 32 mmol/L [facility] Anion gap 10 2 - 15 mmol/L [facility] BUN 21 6 - 25 mg/dL [facility] Creatinine 1.65(H) 0.80 - 1.30 mg/dL [facility] Glucose 87 70 - 199 mg/dL [facility] Comment: Interpretive Data Fasting [...] 2022. Calcium 10.0 8.5 - 10.3 mg/dL [facility] Blood 04/04/2024 12:2 8 PM CHRONIC SPECIALIST 04/04/2024 12:52 PM CHRONIC SPECIALIST Narrative [facility] - 04/04/2024 1:21 PM CHRONIC SPECIALIST Has the patient fasted?->No Jag Tobar MD LAB BLOOD ORDERABLES Final R esult Performing Organization Address [facility] Co de Phone Number [place] [address] [facility] [place] [address] * (ABNORMAL) POCT creatinine for contrast evaluation (03/25/2024 12:35 PM CHRONIC SPECIALIST) [facility] Creatinine POC 1.90(H) 0.80 - 1.30 mg/dL Comment:Testing performed by : [facility], [address] [place] [address]., [id number] Blood 03/25/2024 12:3 5 PM CHRONIC SPECIALIST 03/25/2024 12:35 PM CHRONIC SPECIALIST George Martinez MD POINT OF CARE TEST ORDERABLES Fi nal Result Performing Organization Address [facility] Co de Phone Number [address] [place] [address] * CT Chest W Contrast (03/25/2024 12:35 PM CHRONIC SPECIALIST) Anatomical Region Laterality Modality Body N/A Computed Tomogra phy 03/25/2024 12:4 0 PM CHRONIC SPECIALIST Narrative 03/25/2024 1:40 PM CHRONIC SPECIALIST EXAM DESCRIPTION: CT CHEST W CONTRAST REASON [...] Madhavi Ghotra D.O. PS: PS Report ID: [id number] Reading Location: [id number] Procedure Note Madhavi Ghotra, - 03/25/2024 EXAM DESCRIPTION: CT CHEST W [...] Madhavi Ghotra D.O. PS: PS Report ID: [id number] Reading Location: [place] [address] George Martinez MD IMG CT PROCEDURES Final Result from Last 3 Months Insurance MEDICARE FOR LIFE MEDICARE FOR LIFE MEDICARE FOR LIFE Advance Directives For more information, please contact: [phone] * Full Code (Latest Code Status on File) Date Activated Date Inactivated Comments 06/04/2024 12:48 PM 06/09/2024 10:54 PM Care Teams Assistant Offset Press Operator Relationship Specialty Start Date End Date Stephanie Magana NP [address] [place] [address] PCP - General Family Medicine 04/03/24 Torey Brunenr DO [address] [place], [place] [id number] Referring Physician Internal Medicine 05/09/24
--- OUTSIDE RECORDS SUMMARY | 2024-06-20 09:10 | XMS_ITS | Encounter Summary ---
Author Organization [facility] Address [address] [place] [address] Phone Care Team Providers Care Sanitation Director Name Role Phone Stephanie Magana NP Primary Care Provider [phone] Kannan Torey Cande DO Unavailable [phone] Reason for Referral * MRI/CAT/PET Scan (Routine) - Authorized Specialty Diagnoses / Procedures Referred By Alfred maldonado Referred To Contact Radiology Diagnoses Lung nodule Procedures CT Chest W Contrast George Martinez MD [address] [facility] [id number] [place] [address] Phone: tel: fax: [facility] [address] [place] [address] Referral ID Status Reason Start Date Expiration Date V isits Requested Visits Authorized [id number] Authorized 06/19/2024 07/19/2025 1 1 Encounter Details Date Type Department Care Team (Late st Contact Info) Description 06/19/2024 10:45 AM CDT Office Visit [facility] [address] [facility] [address] [place] [address] George Martinez MD [address] [facility] [id number] [place] [address] Lung nodule (Primary Dx) Social History Tobacco Use Types Packs/Day Years Used Date Smoking Tobacco: Never Smokeless Tobacco: Never [facility] Utilities Answer Date Recorded In the [...] often do you attend chur ch or gnosticism services? Never 06/09/2024 Do you belong to any clubs o r organizations such as sikh groups, unions, fraternal or athletic groups, or [...] any time in the past 12 [facility], were you homeless or living in a halfway (including now)? No 06/09/2024 Personal Safety Answer Date Recorded Have you ever been in or are you currently in a harmful physical or emotional relationship or is someone making you feel afraid or unsafe? 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 Sexual Orientation Straight 05/17/2023 8: 50 AM MIDDLEWARE DEVELOPER documented as of this encounter Last Filed Vital Signs Vital Sign Reading [...] Mass Index 32.28 06/19/2024 10:24 AM CDT documented in this encounter Plan of Treatment Pending Results Name Type Priority Associated Diagnoses Date /Time X-ray chest 2 views Imaging Schedule Routine, Read Routine (OP Routine) Lung nodule 06/19/2024 10:10 AM CDT Scheduled Orders Name Type Priority Associated Diagnoses Orde r Schedule X-ray chest 2 views Imaging Schedule Ammy rivas Read Routine (OP Routine) Lung nodule Expected: 06/19/2024, Expires: 06/13/2025 CT Chest W Contrast Imaging Schedule Renetta Cee Routine (OP Routine) Lung nodule Expected: 12/19/2024, Expires: 06/19/2025 documented as of this encounter Visit Diagnoses Diagnosis Lung nodule- Primary Other diseases of lung, not elsewhere classified documented in this encounter Orders Appointment Requests Count Last Ordered Date Fi rst Ordered Date ONCBCN CLINIC APPOINTMENT REQUEST 1 025 documented in this encounter Care Teams Sanitation Director Relationship Specialty Start Date End Date Stephanie Magana NP [address] [place] [address] PCP - General Family Medicine 04/03/24 Torey Brunner DO [address] [facility] [address] [place] [address] Referring Physician Internal Medicine 05/09/24 documented as of this encounter
--- OUTSIDE RECORDS SUMMARY | 2024-06-20 09:10 | XMS_ITS | Encounter Summary ---
Author Organization [facility] Healthcare Address [address] [place] [address] Care Team Providers Care Sales Agent Name Role Phone Stephanie Magana NP Primary Care Provider [phone] Kannan Torey Cande DO Unavailable [phone] Encounter Details Date Type Department Care Team (Late st Contact Info) Description 06/16/2024 [facility] Post Discharge Follow up phone call [address] [address] [place] Social History Tobacco Use Types Packs/Day Years Used Date Smoking Tobacco: Never Smokeless Tobacco: Never [facility] Utilities Answer Date Recorded In the past 12 months has [employer] electric, gas, oil, or water company threatened [...] often do you attend chur ch or evangelical services? Never 06/09/2024 Do you belong to any clubs o r organizations such as sikhism groups, unions, fraternal or athletic groups, or [...] any time in the past 12 m [facility], were you homeless or living in a nursing home (including now)? No 06/09/2024 Personal Safety Answer Date Recorded Have you ever been in or are you currently in a harmful physical or emotional relationship or is someone making you feel afraid or unsafe? Denies 06/04/2024 Sex and Gender Information Value Date Recorded Sex Assigned at Not on file Legal Sex Male 3:43 PM CDT Gender Identity Male 05/17/2023 8:50 AM REVENUE CYCLE ADMINISTRATOR Sexual Orientation Straight 05/17/2023 8: 50 AM REVENUE CYCLE ADMINISTRATOR documented as of this encounter Plan of Treatment Not on file documented as of this encounter Visit Diagnoses Not on filedocumented in this encounter Care Teams Sales Agent Relationship Specialty Start Date End Date Stephanie Magana, MARINE [address] [place] [address] PCP - General Family Medicine 04/03/24 Torey Brunner DO [address] [facility] [address] [place] [address] Referring Physician Internal Medicine 05/09/24 documented as of this encounter
--- OUTSIDE RECORDS SUMMARY | 2024-06-20 09:10 | XMS_ITS | Clinical Summary ---
Author Organization [facility] Cayla utieddie Address [address] [address] Phone Care Team Providers Care Selling Underwriter Name Role Phone Medhat Pierre MD Primary Care Provider [phone] Allergies No known active allergies Medications No [...] 1961 Influenza Vaccine (#1) 2023 Care Teams Selling Underwriter Relationship Specialty Start Date End Date Medhat Pierre MD PCP - General Family Medicine 11/01/21
--- OUTSIDE RECORDS SUMMARY | 2024-06-20 09:11 | XMS_ITS | Referral Summary ---
Author Organization [facility] Address [address] [place] [phone] Care Team Providers Care Meat Service Team Member Name Role Phone Stephanie Magana NP Primary Care Provider [phone] Torey Brunner Cande DO Unavailable [phone] Encounters Date Type Department Care Team Description 06/19/2024 Orders Only [facility] Surgery [address] [place] [phone] Janice Byrd NP Metastatic renal cell carcinoma, unspecified laterality (HCC) (Primary Dx) 06/19/2024 9:58 AM CDT - 06/19/2024 11:59 PM CDT Hospital Encounter [facility] MOB 1 DIAG IMG [address] [place] [address] Lung nodule Discharge Disposition: Discharge to home or self care 06/19/2024 10:45 AM CDT Office Visit [facility] Surgery [address] [place] [address] [address] [place] [address] George Martinez MD Lung nodule (Primary Dx) 06/16/2024 [facility] Post Discharge Follow up phone call [phone] [place] [address] Marj Wing 06/13/2024 Telephone [facility] Surgery [address] [place] [phone] Janice Byrd NP 06/12/2024 Orders Only [facility] Surgery [address] [place] [phone] Janice Byrd, MARINE Bloody stools (Primary Dx) 06/12/2024 Orders Only [facility] Floor 5 [place] [address] Janice Byrd, MARINE Bloody stools (Primary Dx) 06/04/2024 6:47 AM CDT - 06/09/2024 4:30 PM CDT Hospital Encounter [address] [address] George Martinez MD Lung nodule (Primary Dx); Nodule of lower lobe of right lung Discharge Disposition: Discharge to home or self care 06/04/2024 8:30 AM CDT - 06/04/2024 12:00 PM CDT Surgery [facility] [address] [place] [address] George Martinez MD XI ROBOTIC THORACIC RIGHT LOWER LOBE LOBECTOMY 06/04/2024 7:42 AM CDT Anesthesia Event [facility] [address] [place] [address] Margarita Cooper MD Barnhart, Lynlee Jo, NP 05/27/2024 11:00 AM CDT - 05/27/2024 11:59 PM CDT Hospital Encounter [facility] [address] [place] [address] Discharge Disposition: Discharge to home or self care 05/27/2024 10:45 AM CDT Pre-Admission Testing [facility] Pre Anesthesia Testing [address] [place] [address] Pre-operative exam (Primary Dx) 05/26/2024 Orders Only [facility] Floor 5 [place] [address] Janice Byrd NP Gingivitis (Primary Dx) 05/21/2024 Orders Only [facility] Pulmonology [address] [phone] Jag Tobar MD 05/20/2024 12:20 PM BULL WHEEL WORKER - 05/20/2024 11:59 PM BULL WHEEL WORKER Hospital Encounter [facility] [employer] [facility] [place] [address] Discharge Disposition: Discharge to home or self care 05/20/2024 Telephone [facility] Surgery [address] [facility] [address] [place] [phone] Yadira Byrd RMA 05/20/2024 Orders Only [facility] Surgery [address] [facility] [address] [place] [phone] George Martinez MD Chest wall pain (Primary Dx) 05/20/2024 Telephone [facility] Surgery [address] [facility] Floor 5 [place] [phone] Janice Byrd, MARINE 05/15/2024 10:45 AM BULL WHEEL WORKER Office Visit [facility] Pulmonology [facility] [address] [place] [phone] Jag Tobar MD Lung nodule (Primary Dx); ANJANA (obstructive sleep apnea); History of renal cell cancer 05/08/2024 9:30 AM BULL WHEEL WORKER Office Visit [facility] Surgery [address] [facility] [address] [place] [phone] George Martinez MD Lung nodule (Primary Dx) 05/08/2024 1:40 PM BULL WHEEL WORKER Office Visit [facility] Orthopaedic Surgery [address] [facility] 1st Floor [address] [place] [address] Fredy Flanagan MD Lateral epicondylitis of right elbow (Primary Dx) 04/29/2024 Telephone [facility] Surgery [address] [facility] Floor 5 [place] [phone] Octavio Herrera NP 04/22/2024 Telephone [facility] Oncology [address] [facility] [address] [place] [phone] Meenakshi Kohler, ANDRÉS 04/22/2024 Orders Only [facility] Pulmonology [address] [facility] [address] [place] [phone] Jag Tobar MD Fungal infection (Primary Dx) 04/22/2024 Orders Only [facility] Pulmonology [address] [facility] [address] [place] [address] Jag Tobar MD 04/11/2024 9:15 AM BULL WHEEL WORKER - 04/11/2024 10:50 AM BULL WHEEL WORKER Surgery [facility] OR [address] [place] [address] Jag Tobar MD BRONCHOSCOPY,LAVAGE, BRUSHINGS,BIOPSY 04/11/2024 9:07 AM BULL WHEEL WORKER Anesthesia Event [facility] OR [address] [place] [address] Sandra Mensah MD Kuntz, Edward William, MD 04/11/2024 6:57 AM BULL WHEEL WORKER - 04/11/2024 12:59 PM BULL WHEEL WORKER Hospital Encounter [facility] OR [address] [place] [address] Jag Tobar MD Nodule of right lung Discharge Disposition: Discharge to home or self care 04/10/2024 Telephone [facility] Oncology [address] [place] [address] [address] [place] [address] Stephania Thomas, ADAM 04/10/2024 Orders Only [facility] Surgery [address] [facility] Floor 5 [place] [address] Janice Byrd NP Lung nodule (Primary Dx) 04/10/2024 10:04 AM BULL WHEEL WORKER - 04/10/2024 11:59 PM BULL WHEEL WORKER Hospital Encounter [facility] [address] [place] [address] Discharge Disposition: Discharge to home or self care 04/10/2024 10:03 AM BULL WHEEL WORKER - 04/10/2024 11:59 PM BULL WHEEL WORKER Hospital Encounter [facility] [address] [place] [address] Lung nodule Discharge Disposition: Discharge to home or self care 04/08/2024 Telephone [facility] Surgery [address] [facility] [address] [place] [address] Yadira Byrd RMA 04/07/2024 1:56 PM BULL WHEEL WORKER - 04/07/2024 11:59 PM BULL WHEEL WORKER Hospital Encounter [facility] Cardiac Testing [address] [place] [address] Preop testing Discharge Disposition: Discharge to home or self care 04/07/2024 Orders Only [facility] PreAdmission Testing [address] [place] [address] Lianne Carlson RN Preop testing (Primary Dx) 04/07/2024 1:56 PM BULL WHEEL WORKER - 04/07/2024 11:59 PM BULL WHEEL WORKER Hospital Encounter [facility] Respiratory Therapy [address] [place] [address] Lung nodule Discharge Disposition: Discharge to home or self care 04/04/2024 12:15 PM BULL WHEEL WORKER Lab [facility] Lab [address] [place] [address] Lung nodule; History of biopsy 04/04/2024 Orders Only [facility] Surgery [address] [facility] [address] [place] [address] George Martinez MD Lung nodule (Primary Dx) 04/04/2024 11:45 AM BULL WHEEL WORKER Office Visit [facility] Pulmonology [address] [facility] [address] [place] [phone] Jag Tobar MD Lung nodule (Primary Dx); ANJANA (obstructive sleep apnea); History of renal cell cancer; History of biopsy 04/03/2024 8:45 AM BULL WHEEL WORKER Office Visit [facility] Surgery [address] [facility] [address] [place] [address] George Martinez MD Lung nodule (Primary Dx) 03/27/2024 2:20 PM BULL WHEEL WORKER Office Visit [facility] Orthopaedic Surgery [address] [facility] 1st Floor [address] [place] [address] Fredy Flanagan MD Lateral epicondylitis of right elbow (Primary Dx) 03/25/2024 12:15 PM BULL WHEEL WORKER - 03/25/2024 11:59 PM BULL WHEEL WORKER Hospital Encounter [facility] Medical Office Building [address] [place] [address] Lung nodule Discharge Disposition: Discharge to home [...] Tobacco: Never Tobacco Cessation:Counseling Given: Not Answered [facility] Utilities Answer Date Recorded In [...] often do you attend chur ch or holiness services? Never 06/09/2024 Do you belong to any clubs o r organizations such as hinduism groups, unions, fraternal or athletic groups, or [...] any time in the past [address] [facility], were you homeless or living in a retirement (including now)? No 06/09/2024 Personal Safety Answer Date Recorded Have you ever been in or are you currently in a harmful physical or emotional relationship or is someone making you feel afraid or unsafe? Denies 06/04/2024 Sex and Gender Information Value Date Recorded Sex Assigned at Not on file Legal Sex Male 3:43 PM CDT Gender Identity Male 05/17/2023 8:50 AM BULL WHEEL WORKER Sexual Orientation Straight 05/17/2023 8: 50 AM BULL WHEEL WORKER Last Filed Vital Signs Vital Sign Reading [...] 06/19/2024 10:24 AM CDT Plan of Treatment Not on file Medical Devices Implanted Type Area De Icer Element Winder Device Identifier Shelf Expiration Date Model / Serial / Lot [employer] Suture Dickinson Knotless Fibertak Resorbable [id number] - [id number] Implanted:Qty: 1 on 02/18/2024 by Fredy Flanagan MD at [facility] Right: Elbow [employer] [id number] 10/16/2028 [id number] / / [id number] Procedures Procedure Name Priority Date/Time Associated Diagnosis [...] LINE PLACEMENT Routine 06/04/2024 8:09 AM CDT LA AN ELECTIVE ENDOTRACHEAL AIRWAY Routine 06/04/2024 8:08 [...] BODY OUTSIDE REFERENCE Routine 05/20/2024 12:20 PM BULL WHEEL WORKER XR CHEST PA LATERAL 2 VIEWS ED Urgent/IP Urgent 04/11/2024 12:16 PM BULL WHEEL WORKER XR CHEST 1 VIEW ED 04/11/2024 10:17 AM BULL WHEEL WORKER FL FLUOROSCOPY < 1 HOUR IP Routine 04/11/19 9:41 AM BULL WHEEL WORKER SURGICAL PATHOLOGY Routine 04/11/2024 9: 22 AM BULL WHEEL WORKER Nodule of right lung CYTOLOGY Routine 04/11/2024 9:21 AM BULL WHEEL WORKER Nodule of right lung LA AN PROCEDURE PLACEHOLDER Routine 04/11/2024 9:20 AM BULL WHEEL WORKER LA AN ELECTIVE ENDOTRACHEAL AIRWAY Routine 04/11/2024 9:20 AM BULL WHEEL WORKER AEROBIC CULTURE AND GRAM STAIN Routine 04/11/2024 9:19 AM BULL WHEEL WORKER MYCOLOGY (FUNGAL) CULTURE Routine 04/11/2024 9:19 AM BULL WHEEL WORKER MYCOBACTERIOLOGY AFB CULTURE AND ACID-FAST STAIN Routine 04/11/2024 9:19 AM BULL WHEEL WORKER BRONCHOSCOPY 04/11/2024 9:08 AM BULL WHEEL WORKER Nodule of right lung BRONCHOSCOPY 04/11/2024 8:47 AM BULL WHEEL WORKER EGFR STAT 04/11/2024 7:30 AM BULL WHEEL WORKER DIFFERENTIAL AUTO STAT 04/11/2024 7:3 0 AM BULL WHEEL WORKER PROTIME-INR STAT 04/11/2024 7:30 AM BULL WHEEL WORKER CBC WITH AUTO DIFFERENTIAL STAT 04/11/2024 7:30 AM BULL WHEEL WORKER BASIC METABOLIC PANEL STAT 04/11/2024 7:30 AM BULL WHEEL WORKER APTT STAT 04/11/2024 7:30 AM BULL WHEEL WORKER PET/CT FDG SKULL TO THIGH Schedule Routine, Read Routine (OP Routine) 04/10/2024 12:12 PM BULL WHEEL WORKER Lung nodule PULMONARY FUNCTION TEST (PFT) Routine 04/07/2024 2:59 PM BULL WHEEL WORKER Lung nodule ECG 12-LEAD Routine 04/07/2024 2:06 PM BULL WHEEL WORKER Preop testing EGFR Routine 04/04/2024 12:28 PM BULL WHEEL WORKER Lung nodule DIFFERENTIAL AUTO Routine 04/04/2024 12:28 PM BULL WHEEL WORKER Lung nodule CBC WITH AUTO DIFFERENTIAL Routine 04/04/2024 12:28 PM BULL WHEEL WORKER Lung nodule BASIC METABOLIC PANEL Routine 04/04/2024 12:28 PM BULL WHEEL WORKER Lung nodule PROTIME-INR Routine 04/04/2024 12:28 PM BULL WHEEL WORKER Lung nodule History of biopsy POCT CREATININE FOR CONTRAST EVALUATION Routine 03/25/2024 12:35 [address] CT CHEST W CONTRAST Schedule Routine, Read Routine (OP Routine) 03/25/2024 12:35 PM BULL WHEEL WORKER Lung nodule from Last 3 Months Results [...] AM CDT Narrative ANNE BANUELOS - 06/09/2024 12:02 PM CDT Baseline prior to apixaban initiation. us Monserrat Ibarra NP LAB BLOOD ORDERABLES Joya deluca Result ANNE BANUELOS [address] [place] [address] * Hepatic function panel (06/09/2024 11:37 AM CDT) Pathologist [facility] Bilirubin, total 0.7 0.1 - 1.2 mg/dL Bilirubin, direct 0.3 0.1 - 0.3 mg/dL [facility] Protein, pl 6.5 6.5 - 8.5 g/dL [facility] Albumin 3.5 3.5 - 5.0 g/dL [facility] Alk phos 101 40 - 130 Units/L [facility] ALT 33 7 - 55 Units/L [facility] AST 27 10 - 50 Units/L [facility] Blood 06/09/2024 11:3 7 AM CDT 06/09/2024 11:45 AM CDT N[facility]ative [facility] - 06/09/2024 12:14 PM CDT Baseline prior to apixaban initiation. Monserrat Ibarra TRANSFERRER LAB BLOOD ORDERABLES Joya deluca Result [facility] [address] Department [place] [address] * (ABNORMAL) eGFR (06/09/2024 4:19 AM CDT) [facility] eGFR 46(L) >=60 mL/min/1. 73 m2 Comment: [...] LAB BLOOD ORDERABLES Final Result [facility] [address] Department [place] [address] * (ABNORMAL) Differential, auto (06/09/2024 4:19 AM CDT) Neutrophil abs 10.7(H) 1.5 - 6.5 K/cumm Imm gran abs 0.1 0.0 - 0.1 K/cumm [facility] Lymphocyte abs 1.6 0.8 - 3.3 K/cumm [facility] Monocyte abs 0.9(H) 0.2 - 0.8 K/cumm [facility] Eosinophil abs 0.1 0.0 - 0.5 K/cumm [facility] Basophil abs 0.0 0.0 - 0.1 K/cumm [facility] Neutrophil pct 80.3 % [facility] Comment: Interpretive Data Percent cell count reference ranges are not reported, since discordance with absolute values may lead to misinterpretation of CBC data. Current Interpretive Data was last revised on 2017. Imm gran pct 0.5 % [facility] Comment: Interpretive Data Percent cell count reference ranges are not reported, since discordance with absolute values may lead to misinterpretation of CBC data. Current Interpretive Data was last revised on 2017. Lymphocyte pct 11.8 % [facility] Comment: Interpretive Data Percent cell count reference ranges are not reported, since discordance with absolute values may lead to misinterpretation of CBC data. Current Interpretive Data was last revised on 2017. Monocyte pct 6.8 % [facility] Comment: Interpretive Data Percent cell count reference ranges are not reported, since discordance with absolute values may lead to misinterpretation of CBC data. Current Interpretive Data was last revised on 2017. Eosinophil pct 0.4 % [facility] Comment: Interpretive Data Percent cell count reference ranges are not reported, since discordance with absolute values may lead to misinterpretation of CBC data. Current Interpretive Data was last revised on 2017. Basophil pct 0.2 % [facility] Comment: Interpretive Data Percent cell count reference ranges are not reported, since discordance with absolute values may lead to misinterpretation of CBC data. Current Interpretive Data was last revised on 2017. Blood 06/09/2024 4:19 AM CDT 06/09/2024 5:15 AM CDT Charles Dorantes MD LAB BLOOD ORDERABLES Fin al Result Performing Organization Address City/[facility]/ZIP Co de Phone Number ANNE BANUELOS [address] [facility] [place] [employer] [place] [address] * (ABNORMAL) CBC with auto differential (06/09/2024 4:19 AM CDT) WBC 13.4(H) 3.8 - 9.9 K/cumm Hgb 15.6 13.0 - 17.5 g/dL [facility] Hct 48.0 38.9 - 50.3 % [facility] Plt 196 150 - 400 K/cumm [facility] MPV 11.2 9.1 - 12.3 fL [facility] RBC 5.30 4.30 - 5.80 M/cumm [facility] MCV 90.6 81.3 - 96.4 fL [facility] MCH 29.4 27.1 - 33.3 pg [facility] MCHC 32.5 32.3 - 35.7 g/dL [facility] RDW CV 14.4 11.1 - 14.9 % [facility] RDW SD 47.6 35.7 - 48.1 fL [facility] NRBC abs 0.00 0.00 - 0.01 K/cumm [facility] Blood 06/09/2024 4:19 AM CDT 06/09/2024 5:15 AM CDT Charles Dorantes MD LAB BLOOD ORDERABLES Fin al Result ANNE BANUELOS [address] Department [place] [address] * (ABNORMAL) Basic metabolic panel (06/09/2024 4:19 AM CDT) Sodium 140 135 - 145 mmol/L Potassium, pl 4.0 3.3 - 4.9 mmol/L [facility] Chloride 103 97 - 110 mmol/L [facility] CO2 25 22 - 32 mmol/L [facility] Anion gap 12 2 - 15 mmol/L [facility] BUN 25 6 - 25 mg/dL [facility] Creatinine 1.60(H) 0.80 - 1.30 mg/dL [facility] Glucose 141 70 - 199 mg/dL [facility] Comment: [...] 2022. Calcium 9.1 8.5 - 10.3 mg/dL [facility] Blood 06/09/2024 4:19 AM CDT 06/09/2024 5:16 AM CDT Jeferson George NP LAB BLOOD ORDERABLES Final Result [facility] [address] Department [place] [address] * XR Chest 1 View (06/09/2024 4:17 [...] NP LAB BLOOD ORDERABLES Final Result ANNE [address] Department [place] [address] * Differential, auto (06/08/2024 3:43 AM CDT) Neutrophil abs 6.0 1.5 - 6.5 K/cumm Imm gran abs 0.1 0.0 - 0.1 K/cumm [facility] Lymphocyte abs 2.0 0.8 - 3.3 K/cumm [facility] Monocyte abs 0.7 0.2 - 0.8 K/cumm [facility] Eosinophil abs 0.3 0.0 - 0.5 K/cumm [facility] Basophil abs 0.0 0.0 - 0.1 K/cumm [facility] Neutrophil pct 66.1 % [facility] Comment: Interpretive Data Percent cell count reference ranges are not reported, since discordance with absolute values may lead to misinterpretation of CBC data. Current Interpretive Data was last revised on 2017. Imm gran pct 0.8 % [facility] Comment: Interpretive Data Percent cell count reference ranges are not reported, since discordance with absolute values may lead to misinterpretation of CBC data. Current Interpretive Data was last revised on 2017. Lymphocyte pct 21.6 % [facility] Comment: Interpretive Data Percent cell count reference ranges are not reported, since discordance with absolute values may lead to misinterpretation of CBC data. Current Interpretive Data was last revised on 2017. Monocyte pct 7.5 % [facility] Comment: Interpretive Data Percent cell count reference ranges are not reported, since discordance with absolute values may lead to misinterpretation of CBC data. Current Interpretive Data was last revised on 2017. Eosinophil pct 3.7 % [facility] Comment: Interpretive Data Percent cell count reference ranges are not reported, since discordance with absolute values may lead to misinterpretation of CBC data. Current Interpretive Data was last revised on 2017. Basophil pct 0.3 % [facility] Comment: Interpretive Data Percent cell count reference ranges are not reported, since discordance with absolute values may lead to misinterpretation of CBC data. Current Interpretive Data was last revised on 2017. Blood 06/08/2024 3:43 AM CDT 06/08/2024 3:47 AM CDT us Charles Dorantes MD LAB BLOOD ORDERABLES Fin al Result ANNE [address] Department [place] [address] * CBC with auto differential (06/08/2024 3:43 AM CDT) Pathologist [facility] WBC 9.1 3.8 - 9.9 K/cumm Hgb 15.5 13.0 - 17.5 g/dL [facility] Hct 46.7 38.9 - 50.3 % [facility] Plt 185 150 - 400 K/cumm [facility] MPV 11.0 9.1 - 12.3 fL [facility] RBC 5.18 4.30 - 5.80 M/cumm [facility] MCV 90.2 81.3 - 96.4 fL [facility] MCH 29.9 27.1 - 33.3 pg [facility] MCHC 33.2 32.3 - 35.7 g/dL [facility] RDW CV 14.3 11.1 - 14.9 % [facility] RDW SD 47.0 35.7 - 48.1 fL [facility] NRBC abs 0.00 0.00 - 0.01 K/cumm [facility] Blood 06/08/2024 3:43 AM CDT 06/08/2024 3:47 AM CDT Charles Dorantes MD LAB BLOOD ORDERABLES Fin al Result [facility] [address] Department [place] [address] * (ABNORMAL) Basic metabolic panel (06/08/2024 3:43 AM CDT) [facility] Sodium 139 135 - 145 mmol/L Potassium, pl 3.9 3.3 - 4.9 mmol/L [facility] Chloride 105 97 - 110 mmol/L [facility] CO2 24 22 - 32 mmol/L [facility] Anion gap 10 2 - 15 mmol/L [facility] BUN 21 6 - 25 mg/dL [facility] Creatinine 1.35(H) 0.80 - 1.30 mg/dL [facility] Glucose 144 70 - 199 mg/dL [facility] Comment: Interpretive Data Fasting glucose >/= 126 [...] 2022. Calcium 8.6 8.5 - 10.3 mg/dL [facility]NE BANUELOS Blood 06/08/2024 3:43 AM CDT 06/08/2024 3:47 AM CDT us Jeferson George NP LAB BLOOD ORDERABLES Final Result ANNE [address] Department [place] [address] * CT Chest WO Contrast (06/07/2024 11:19 [...] by: Yael Avitia M.D. us Monserrat Ibarra TRANSFERRER IMG CT PROCEDURES Final R esult * [...] Critical results were discussed with the patient's nurseTorrie by Dr. Avitia on 06/07/2024 at 10:22 [...] Critical results were discussed with the patient's nurseTorrie by Dr. Avitia on 06/07/2024 at 10:22 AM. Electronically signed by: Yael Avitia M.D. Monserrat Ibarra NP IMG XR PROCEDURES Final R esult * [...] CDT 06/07/2024 6:06 AM CDT Jeferson George TRANSFERRER LAB BLOOD ORDERABLES Final Result [facility] [address] Department [place] [address] * (ABNORMAL) Differential, auto (06/07/2024 4:39 AM CDT) Neutrophil abs 6.1 1.5 - 6.5 K/cumm Imm gran abs 0.1 0.0 - 0.1 K/cumm [facility] Lymphocyte abs 1.8 0.8 - 3.3 K/cumm [facility] Monocyte abs 0.9(H) 0.2 - 0.8 K/cumm [facility] Eosinophil abs 0.3 0.0 - 0.5 K/cumm [facility] Basophil abs 0.0 0.0 - 0.1 K/cumm [facility] Neutrophil pct 66.7 % [facility] Comment: Interpretive Data Percent cell count reference ranges are not reported, since discordance with absolute values may lead to misinterpretation of CBC data. Current Interpretive Data was last revised on 2017. Imm gran pct 0.6 % [facility] Comment: Interpretive Data Percent cell count reference ranges are not reported, since discordance with absolute values may lead to misinterpretation of CBC data. Current Interpretive Data was last revised on 2017. Lymphocyte pct 19.8 % [facility] Comment: Interpretive Data Percent cell count reference ranges are not reported, since discordance with absolute values may lead to misinterpretation of CBC data. Current Interpretive Data was last revised on 2017. Monocyte pct 9.5 % [facility] Comment: Interpretive Data Percent cell count reference ranges are not reported, since discordance with absolute values may lead to misinterpretation of CBC data. Current Interpretive Data was last revised on 2017. Eosinophil pct 3.0 % [facility] Comment: Interpretive Data Percent cell [...] BLOOD ORDERABLES Fin al Result [facility] [address] Department [place] [address] * (ABNORMAL) CBC with auto differential (06/07/2024 4:39 AM CDT) WBC 9.1 3.8 - 9.9 K/cumm Hgb 15.1 13.0 - 17.5 g/dL [facility] Hct 46.5 38.9 - 50.3 % [facility] Plt 165 150 - 400 K/cumm [facility] MPV 11.5 9.1 - 12.3 fL [facility] RBC 5.02 4.30 - 5.80 M/cumm [facility] MCV 92.6 81.3 - 96.4 fL [facility] MCH 30.1 27.1 - 33.3 pg [facility] MCHC 32.5 32.3 - 35.7 g/dL [facility] RDW CV 14.6 11.1 - 14.9 % [facility] RDW SD 49.5(H) 35.7 - 48.1 fL [facility] NRBC abs 0.00 0.00 - 0.01 K/cumm [facility] Blood 06/07/2024 4:39 AM CDT 06/07/2024 6:04 AM CDT Charles Dorantes MD LAB BLOOD ORDERABLES Fin al Result [facility] [address] [place] [address] * (ABNORMAL) Basic metabolic panel (06/07/2024 4:39 [...] 2022. Calcium 8.7 8.5 - 10.3 mg/dL [facility] Blood 06/07/2024 4:39 AM CDT 06/07/2024 6:06 AM CDT us Jeferson George NP LAB BLOOD ORDERABLES Final Result Performing Organization Address [facility] Co de Phone Number ANNE [id number] [facility] [place] [address] * ECG 12 lead (06/06/2024 6:18 PM CDT) 06/06/2024 6:18 PM CDT Narrative [facility] - 06/06/2024 11:56 PM CDT Vent Rate: 96 bpm RR Interval: 622 msec LA Interval: 0 msec QRS Duration: 112 msec QT Interval: 356 msec QTC Interval: 410 msec P-R-T [place]: 0 - 20 - -10 degrees IMPRESSION: ATRIAL FIBRILLATION WITH ABERRANT CONDUCTION OR VENTRICULAR PREMATURE COMPLEXES MODERATE INTRAVENTRICULAR CONDUCTION DELAY ABNORMAL RHYTHM ECG Compared to prior EKG, atrial fibrillation replaced sinus rhythm Electronically Signed By: Damaso Brock MD George Martinez MD ECG ORDERABLES Final Result Performing Organization Address [facility] de Phone Number [facility] Adform [facility] * CT Limited Localized [...] and informed consent was obtained and documented. [place] protocol was performed to confirm the patient's [...] and informed consent was obtained and documented. [place] protocol was performed to confirm the patient's [...] signed by: Lena Harris M.D. Jeferson George NP IMG CT PROCEDURES Final Res ult * aPTT (06/06/2024 8:35 AM CDT) aPTT 33 28 - 38 sec Comment: Interpretive Data Heparin therapeutic range: 66.0 - 100.0 seconds. Range based on correlation with therapeutic heparin activity range of 0.3 - 0.7 Units/mL. Current interpretive data was last revised on 2022. Blood 06/06/2024 8:35 AM CDT 06/06/2024 8:42 AM CDT Jeferson Georeg NP LAB BLOOD ORDERABLES Final Result [facility] [address] [place] [address] * Protime-INR (06/06/2024 8:35 AM [...] 8:35 AM CDT 06/06/2024 8:42 AM CDT us Jeferson George NP LAB BLOOD ORDERABLES Final Result ANNE BANUELOS [address] Department [place] [address] * Critical Care (06/06/2024 8:27 AM CDT) [...] plan with the patient's team and other medical/consultant technology staff. This time was in addition to [...] 122 70 - 199 mg/dL POC Performer [id number] ANNE BANUELOS Blood 06/06/2024 7:48 AM CDT 06/06/2024 7:48 AM CDT us George Martinez MD LAB POCT ORDERABLES - DEVICE Fin al Result ANNE [address] [place] [address] * XR Chest 1 View (06/06/2024 5:04 [...] BLOOD ORDERABLES Fin al Result [facility] [address] Department of Laboratories [place], [place] [id number] * (ABNORMAL) Differential, auto (06/06/2024 5:00 AM CDT) Neutrophil abs 9.7(H) 1.5 - 6.5 K/cumm Imm gran abs 0.1 0.0 - 0.1 K/cumm [facility] Lymphocyte abs 1.7 0.8 - 3.3 K/cumm [facility] Monocyte abs 1.0(H) 0.2 - 0.8 K/cumm [facility] Eosinophil abs 0.1 0.0 - 0.5 K/cumm [facility] Basophil abs 0.0 0.0 - 0.1 K/cumm [facility] Neutrophil pct 77.1 % [facility] Comment: Interpretive Data Percent cell count reference ranges are not reported, since discordance with absolute values may lead to misinterpretation of CBC data. Current Interpretive Data was last revised on 2017. Imm gran pct 0.5 % [facility] Comment: Interpretive Data Percent cell count reference ranges are not reported, since discordance with absolute values may lead to misinterpretation of CBC data. Current Interpretive Data was last revised on 2017. Lymphocyte pct 13.2 % [facility] Comment: Interpretive Data Percent cell count reference ranges are not reported, since discordance with absolute values may lead to misinterpretation of CBC data. Current Interpretive Data was last revised on 2017. Monocyte pct 8.1 % [facility] Comment: Interpretive Data Percent cell count reference ranges are not reported, since discordance with absolute values may lead to misinterpretation of CBC data. Current Interpretive Data was last revised on 2017. Eosinophil pct 0.9 % [facility] Comment: Interpretive Data Percent cell count reference ranges are not reported, since discordance with absolute values may lead to misinterpretation of CBC data. Current Interpretive Data was last revised on 2017. Basophil pct 0.2 % [facility] Comment: Interpretive Data Percent cell count reference ranges are not reported, since discordance with absolute values may lead to misinterpretation of CBC data. Current Interpretive Data was last revised on 2017. Blood 06/06/2024 5:00 AM CDT 06/06/2024 5:04 AM CDT us Charles Dorantes MD LAB BLOOD ORDERABLES Fin al Result ANNE [address] Department [place] [address] * (ABNORMAL) CBC with auto differential (06/06/2024 5:00 AM CDT) WBC 12.6(H) 3.8 - 9.9 K/cumm Hgb 15.1 13.0 - 17.5 g/dL [facility] Hct 46.2 38.9 - 50.3 % [facility] Plt 143(L) 150 - 400 K/cumm [...] ORDERABLES Fin al Result Performing Organization Address [facility] Co de Phone Number ANNE [address] [facility] [place] [employer] [place] [address] * (ABNORMAL) Phosphorus (06/06/2024 5:00 AM CDT) Pathologist [facility] Phosphorus, pl 1.8(L) 2.3 - 4.5 mg/dL Blood 06/06/2024 5:00 AM CDT 06/06/2024 5:05 AM CDT Charles Dorantes MD LAB BLOOD ORDERABLES Fin al Result Performing Organization Address City/State/[facility] Co de Phone Number [facility] [address] [facility] [place] [place] [address] * (ABNORMAL) Comprehensive metabolic panel (06/06/2024 5:00 AM CDT) Sodium 141 135 - 145 mmol/L Potassium, pl 4.1 3.3 - 4.9 mmol/L [facility] Chloride 109 97 - 110 mmol/L [facility] [...] LAB BLOOD ORDERABLES Fin al Result ANNE [address] Department of Laboratories [place], [place] [id number] * Critical Care (06/05/2024 11:57 PM CDT) [...] plan with the patient's team and other medical/consultant technology staff. This time was in addition to [...] * POCT glucose (06/05/2024 9:22 PM CDT) [facility] Signature Glucose, POC 112 70 - 199 mg/dL POC Performer [id number] ANNE BANUELOS Blood 06/05/2024 9:22 PM CDT 06/05/2024 9:22 PM CDT George Martinez MD LAB POCT ORDERABLES - DEVICE Fin al Result [facility] [address] Department [place] [address] * XR Chest 1 Vw Portable (06/05/2024 [...] 98 70 - 199 mg/dL POC Performer [id number] ANNE Blood 06/05/2024 4:27 PM CDT 06/05/2024 4:27 PM CDT us George Martinez MD LAB POCT ORDERABLES - DEVICE Fin al Result ANNE [address] Department [place] [address] * XR Chest 1 View (06/05/2024 4:19 [...] Alexander Watkins II, D.O. us Monserrat Ibarra TRANSFERRER IMG XR PROCEDURES Final R esult * POCT glucose (06/05/2024 11:35 AM CDT) Glucose, POC 122 70 - 199 mg/dL POC Performer [id number] ANNE BANUELOS Blood 06/05/2024 11:3 5 AM CDT 06/05/2024 11:35 AM CDT us George Martinez MD LAB POCT ORDERABLES - DEVICE Fin al Result ANNE [address] [facility] Department [place] [address] * Critical Care (06/05/2024 7:29 AM CDT) [...] plan with the patient's team and other medical/consultant technology staff. This time was in addition to [...] 111 70 - 199 mg/dL POC Performer [id number] ANNE Blood 06/05/2024 7:02 AM CDT 06/05/2024 7:02 AM CDT us George Martinez MD LAB POCT ORDERABLES - DEVICE Fin al Result ANNE [address] Department [place] [address] * XR Chest 1 View (06/05/2024 4:53 [...] MD LAB BLOOD ORDERABLES Fin al Result [facility] [address] [place] [address] * (ABNORMAL) Differential, auto (06/05/2024 3:10 AM CDT) Neutrophil abs 12.7(H) 1.5 - 6.5 K/cumm Imm gran abs 0.1 0.0 - 0.1 K/cumm [facility] Lymphocyte abs 0.8 0.8 - 3.3 K/cumm [facility] Monocyte abs 0.9(H) 0.2 - 0.8 K/cumm [facility] Eosinophil abs 0.0 0.0 - 0.5 K/cumm [facility] Basophil abs 0.0 0.0 - 0.1 K/cumm [facility] Neutrophil pct 88.1 % [facility] Comment: Interpretive Data Percent cell count reference ranges are not reported, since discordance with absolute values may lead to misinterpretation of CBC data. Current Interpretive Data was last revised on 2017. Imm gran pct 0.5 % [facility] Comment: Interpretive Data Percent cell count reference ranges are not reported, since discordance with absolute values may lead to misinterpretation of CBC data. Current Interpretive Data was last revised on 2017. Lymphocyte pct 5.4 % [facility] Comment: Interpretive Data Percent cell count reference ranges are not reported, since discordance with absolute values may lead to misinterpretation of CBC data. Current Interpretive Data was last revised on 2017. Monocyte pct 5.9 % [facility] Comment: Interpretive Data Percent cell count reference ranges are not reported, since discordance with absolute values may lead to misinterpretation of CBC data. Current Interpretive Data was last revised on 2017. Eosinophil pct 0.0 % [facility] Comment: Interpretive Data Percent cell count reference ranges are not reported, since discordance with absolute values may lead to misinterpretation of CBC data. Current Interpretive Data was last revised on 2017. Basophil pct 0.1 % [facility] Comment: Interpretive Data Percent cell count reference ranges are not reported, since discordance with absolute values may lead to misinterpretation of CBC data. Current Interpretive Data was last revised on 2017. Blood 06/05/2024 3:10 AM CDT 06/05/2024 3:15 AM CDT us Charles Dorantes MD LAB BLOOD ORDERABLES Fin al Result ANNE [address] Department [place] [address] * (ABNORMAL) CBC with auto differential (06/05/2024 3:10 AM CDT) [facility] WBC 14.4(H) 3.8 - 9.9 K/cumm Hgb 13.7 13.0 - 17.5 g/dL [facility] Hct 41.3 38.9 - 50.3 % [facility] Plt 151 150 - 400 K/cumm [facility] MPV 11.0 9.1 - 12.3 fL [facility] RBC 4.63 4.30 - 5.80 M/cumm [facility] MCV 89.2 81.3 - 96.4 fL [facility] MCH 29.6 27.1 - 33.3 pg [facility] MCHC 33.2 32.3 - 35.7 g/dL [facility] RDW CV 14.2 11.1 - 14.9 % [facility] RDW SD 45.8 35.7 - 48.1 fL [facility] NRBC abs 0.00 0.00 - 0.01 K/cumm [facility] Blood 06/05/2024 3:10 AM CDT 06/05/2024 3:15 AM CDT Charles Dorantes MD LAB BLOOD ORDERABLES Fin al Result Performing Organization Address City/[facility] Co de Phone Number [facility] [address] [facility] [place] [address] * Phosphorus (06/05/2024 3:10 AM CDT) [facility] Phosphorus, pl 3.0 2.3 - 4.5 mg/dL Blood 06/05/2024 3:10 AM CDT 06/05/2024 3:15 AM CDT Charles Dorantes MD LAB BLOOD ORDERABLES Fin al Result Performing Organization Address City/State/[facility] Co de Phone Number [facility] [address] Department [place] [address] * Magnesium (06/05/2024 3:10 AM CDT) Magnesium 2.4 1.4 - 2.5 mg/dL Blood 06/05/2024 3:10 AM CDT 06/05/2024 3:15 AM CDT us Charles Dorantes MD LAB BLOOD ORDERABLES Fin al Result [facility] [address] Department [place] [address] * (ABNORMAL) Comprehensive metabolic panel (06/05/2024 3:10 [...] ORDERABLES Fin al Result Performing Organization Address [facility] Co de Phone Number [facility] [address] Department [place] [address] * (ABNORMAL) eGFR (06/04/2024 11:02 [...] ORDERABLES Final Resul t Performing Organization Address [facility]/ZIP Co de Phone Number [facility] [address] Department [place] [address] * (ABNORMAL) CBC without differential (06/04/2024 11:02 PM CDT) WBC 13.2(H) 3.8 - 9.9 K/cumm Hgb 13.3 13.0 - 17.5 g/dL [facility] Hct 40.4 38.9 - 50.3 % [facility] Plt 134(L) 150 - 400 K/cumm [facility] MPV 11.3 9.1 - 12.3 fL [facility] RBC 4.52 4.30 - 5.80 M/cumm [facility] MCV 89.4 81.3 - 96.4 fL [facility] MCH 29.4 27.1 - 33.3 pg [facility] MCHC 32.9 32.3 - 35.7 g/dL [facility] RDW CV 14.1 11.1 - 14.9 % [facility] RDW SD 46.2 35.7 - 48.1 fL [facility] NRBC abs 0.00 0.00 - 0.01 K/cumm [facility] Blood 06/04/2024 11:0 2 PM CDT 06/04/2024 11:14 PM CDT us George Martinez MD LAB BLOOD ORDERABLES Final Resul t [facility] [address] [address] Department [place] [address] * (ABNORMAL) Basic metabolic panel (06/04/2024 11:02 PM CDT) Sodium 142 135 - 145 mmol/L Potassium, pl 4.4 3.3 - 4.9 mmol/L [facility] Chloride 111(H) 97 - 110 mmol/L [facility] CO2 19(L) 22 - 32 mmol/L [facility] Anion gap 12 2 - 15 mmol/L [facility] BUN 22 6 - 25 mg/dL [facility] Creatinine 1.35(H) 0.80 - 1.30 mg/dL [facility] Glucose 126 70 - 199 mg/dL [facility] Comment: Interpretive Data Fasting glucose >/= 126 [...] ORDERABLES Final Resul t Performing Organization Address [facility] Co de Phone Number ANNE BANUELOS [address] [place] [address] * POCT glucose (06/04/2024 7:55 PM CDT) Glucose, POC 176 70 - 199 mg/dL POC Performer [id number] [facility] Blood 06/04/2024 7:55 PM CDT 06/04/2024 7:55 PM CDT us George Martinez MD LAB POCT ORDERABLES - DEVICE Fin al Result Performing Organization Address [facility] de Phone Number ANNE BANUELOS [address] [place] [address] * (ABNORMAL) POCT glucose (06/04/2024 7:55 PM CDT) Glucose, POC 224(H) 70 - 199 mg/dL POC Performer [id number] [facility] Blood 06/04/2024 7:55 PM CDT 06/04/2024 7:55 PM CDT us George Martinez MD LAB POCT ORDERABLES - DEVICE Fin al Result Performing Organization Address [facility] Co de Phone Number ANNE BANUELOS [address] Department of [employer] [place], [place] [id number] * POCT glucose (06/04/2024 5:47 PM CDT) Glucose, POC 131 70 - 199 mg/dL POC Performer [id number] [facility] Blood 06/04/2024 5:47 PM CDT 06/04/2024 5:47 PM CDT George Martinez MD LAB POCT ORDERABLES - DEVICE Fin al Result Performing Organization Address [facility] de Phone Number [facility] [address] [place] [place] [address] * (ABNORMAL) eGFR (06/04/2024 1:26 PM CDT) [facility] eGFR 54(L) >=60 mL/min/1. 73 m2 Comment: [...] ORDERABLES Fin al Result Performing Organization Address [facility]/ZIP Co de Phone Number [facility] [address] Department of [employer] [place], [place] [id number] * (ABNORMAL) Differential, auto (06/04/2024 1:26 PM CDT) Neutrophil abs 10.7(H) 1.5 - 6.5 K/cumm Imm gran abs 0.1 0.0 - 0.1 K/cumm [facility] Lymphocyte abs 0.3(L) 0.8 - 3.3 K/cumm [facility] Monocyte abs 0.1(L) 0.2 - 0.8 K/cumm [facility] Eosinophil abs 0.0 0.0 - 0.5 K/cumm [facility] Basophil abs 0.0 0.0 - 0.1 K/cumm [facility] Neutrophil pct 95.7 % [facility] Comment: Interpretive Data Percent cell count reference ranges are not reported, since discordance with absolute values may lead to misinterpretation of CBC data. Current Interpretive Data was last revised on 2017. Imm gran pct 0.6 % [facility] Comment: Interpretive Data Percent cell [...] ORDERABLES Fin al Result Performing Organization Address City/State/[facility] de Phone Number ANNE BANUELOS [address] [facility] [place] [address] * (ABNORMAL) CBC with auto differential (06/04/2024 1:26 PM CDT) WBC 11.1(H) 3.8 - 9.9 K/cumm Hgb 14.5 13.0 - 17.5 g/dL [facility] Hct 43.7 38.9 - 50.3 % [facility] Plt 150 150 - 400 K/cumm [facility] MPV 10.8 9.1 - 12.3 fL [facility] RBC 4.93 4.30 - 5.80 M/cumm [facility] MCV 88.6 81.3 - 96.4 fL [facility] MCH 29.4 27.1 - 33.3 pg [facility] MCHC 33.2 32.3 - 35.7 g/dL [facility] RDW CV 14.0 11.1 - 14.9 % [facility] RDW SD 45.3 35.7 - 48.1 fL [facility] NRBC abs 0.00 0.00 - 0.01 K/cumm [facility] Blood 06/04/2024 1:26 PM CDT 06/04/2024 1:38 PM CDT Charles Dorantes MD LAB BLOOD ORDERABLES Fin al Result Performing Organization Address [facility] de Phone Number [facility] [address] [place] [address] * (ABNORMAL) Phosphorus (06/04/2024 1:26 PM CDT) Phosphorus, pl 1.9(L) 2.3 - 4.5 mg/dL Blood 06/04/2024 1:26 PM CDT 06/04/2024 1:32 PM CDT Charles Dorantes MD LAB BLOOD ORDERABLES Fin al Result Performing Organization Address [facility] Co de Phone Number ANNE BANUELOS [address] [place] [address] * Magnesium (06/04/2024 1:26 PM CDT) Magnesium 1.9 1.4 - 2.5 mg/dL Blood 06/04/2024 1:26 PM CDT 06/04/2024 1:32 PM CDT Charles Dorantes MD LAB BLOOD ORDERABLES Fin al Result [facility] [address] [place] [address] * (ABNORMAL) Basic metabolic panel (06/04/2024 1:26 PM CDT) Sodium 143 135 - 145 mmol/L Potassium, pl 3.7 3.3 - 4.9 mmol/L [facility] Chloride 112(H) 97 - 110 mmol/L [facility] [...] Calcium 8.0(L) 8.5 - 10.3 mg/dL [facility] Blood 06/04/2024 1:26 PM CDT 06/04/2024 1:32 PM CDT Charles Dorantes MD LAB BLOOD ORDERABLES Fin al Result Performing Organization Address [facility] Co de Phone Number ANNE [address] [place] [address] * POCT glucose (06/04/2024 1:10 PM CDT) Glucose, POC 122 70 - 199 mg/dL POC Performer [id number] [facility] Blood 06/04/2024 1:10 PM CDT 06/04/2024 1:10 PM CDT George Martinez MD LAB POCT ORDERABLES - DEVICE Fin al Result Performing Organization Address [facility] Co de Phone Number ANNE BANUELOS [address] [place] [address] * Critical Care (06/04/2024 1:06 PM CDT) [...] plan with the ICU team and other medical/consultant technology staff, making frequent assessments and decisions regarding [...] results best viewed via link to PDF [facility] Department of Pathology [address] [place], [place] [id number] Note to Patients: This report may contain [...] Final Report Patient Name: WEST F[place]ER Address: [place] [address] Gender: M : 1955 (Age: 69) Service: Cardiothoracic Location: Hospital #: [id number] Patient Type: IP Taken: 06/04/2024 Received: 06/04/2024 Accessioned: 06/04/2024 Reported: [...] Diagnosis: 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 Parking Manager sections are submitted: Vascular margin K 3, [...] determined by the Surgical Pathology Department at [facility] as part of an ongoing water quality tester program and in compliance with federally mandated [...] determined by the Surgical Pathology Department [facility]. It has not been cleared or approved by the U. S. Food and Drug Administration. Note for decalcified specimens: This assay has not been validated on decalcified tissues. Results should be interpreted with caution given the possibility of false negativity on decalcified specimens us George Martinez MD LAB PATHOLOGY ORDERABLES Final R esult PATHOLOGY [address] [place] [address] * Prepare RBC: 1 Units (06/04/2024 8:20 AM CDT) Product code [id number] Unit Number [id number] 5-N [facility] Product Blood Type APOS [facility] Dispense Status RETURNED [facility] Blood 06/04/2024 8:20 AM CDT 06/04/2024 8:20 AM CDT Indira ANNE - 06/05/2024 12:18 AM CDT Are special requirements needed? (All products are leukoreduced and CMV- safe)- >No Date required:-[id number] LRRBC # of [id number] Reasons:-Intra-op transfusion} George Martinez MD BLOOD BANK PRODUCT ORDERABLES Fi nal Result ANNE [address] [place] [address] * Peripheral IV Catheter (06/04/2024 8:09 AM [...] MD ANESTHESIA ORDERABLES Final Resu lt * LA AN ELECTIVE ENDOTRACHEAL AIRWAY (06/04/2024 8:08 AM [...] Units (06/04/2024 7:00 AM CDT) Product code [id number] Unit Number [id number] 4-M [facility] Product Blood Type [facility] Dispense Status RETURNED [facility] Blood 06/04/2024 7:00 AM CDT Narrative ANNE - 06/05/2024 12:18 AM CDT Specify Procedure:->robotic lobectomy Are special requirements needed? (All products are leukoreduced and CMV- safe)- >No Date required:-[id number] LRRBC # of [id number] Reasons:-Hold for procedure (specify procedure)} Monserrat Ibarra TRANSFERRER BLOOD BANK PRODUCT ORDERA BLES Final Result Performing Organization Address City/[facility]/ZIP Co de Phone Number ANNE BANUELOS [address] [address] [facility] [place] [address] * Check Sample (06/04/2024 6:47 AM CDT) ABO Rh A Positive [facility] HC[facility] OTHER 06/04/2024 6:47 AM CDT 06/04/2024 7:56 AM CDT George Martinez MD LAB BLOOD ORDERABLES Final Resul t Performing Organization Address [facility] Co de Phone Number ANNE BANUELOS [address] Department [place] [address] CH * (ABNORMAL) eGFR (05/27/2024 12:19 PM [...] BLOOD ORDERABLES Final Resul t [facility] [address] [place] [address] * Differential, auto (05/27/2024 12:19 PM CDT) Neutrophil abs 4.9 1.5 - 6.5 K/cumm Imm gran abs 0.1 0.0 - 0.1 K/cumm [facility] CH Lymphocyte abs 1.8 0.8 - 3.3 K/cumm [facility] Monocyte abs 0.6 0.2 - 0.8 K/cumm [facility] Eosinophil abs 0.0 0.0 - 0.5 K/cumm [facility] Basophil abs 0.0 0.0 - 0.1 K/cumm [facility] Neutrophil pct 65.9 % [facility] Comment: Interpretive Data Percent cell count reference ranges are not reported, since discordance with absolute values may lead to misinterpretation of CBC data. Current Interpretive Data was last revised on 2017. Imm gran pct 1.1 % [facility] Comment: Interpretive Data Percent cell count reference ranges are not reported, since discordance with absolute values may lead to misinterpretation of CBC data. Current Interpretive Data was last revised on 2017. Lymphocyte pct 24.6 % [facility] Comment: Interpretive Data Percent cell count reference ranges are not reported, since discordance with absolute values may lead to misinterpretation of CBC data. Current Interpretive Data was last revised on 2017. Monocyte pct 7.8 % [facility] Comment: Interpretive Data Percent cell count reference ranges are not reported, since discordance with absolute values may lead to misinterpretation of CBC data. Current Interpretive Data was last revised on 2017. Eosinophil pct 0.1 % [facility] Comment: Interpretive Data Percent cell count reference ranges are not reported, since discordance with absolute values may lead to misinterpretation of CBC data. Current Interpretive Data was last revised on 2017. Basophil pct 0.5 % [facility] Comment: Interpretive Data Percent cell count reference ranges are not reported, since discordance with absolute values may lead to misinterpretation of CBC data. Current Interpretive Data was last revised on 2017. Blood 05/27/2024 12:1 9 PM CDT 05/27/2024 12:19 PM CDT George Martinez MD LAB BLOOD ORDERABLES Final Resul t Performing Organization Address City/[facility]/ZIP Co de Phone Number ANNE [address] [place] [address] * (ABNORMAL) CBC with auto [...] MCV 90.4 81.3 - 96.4 fL [facility] MCH 29.5 27.1 - 33.3 pg [facility] MCHC 32.6 32.3 - 35.7 g/dL [facility] RDW CV 14.1 11.1 - 14.9 % [facility] RDW SD 46.4 35.7 - 48.1 fL [facility] NRBC abs 0.00 0.00 - 0.01 K/cumm [facility] Blood 05/27/2024 12:1 9 PM CDT 05/27/2024 12:19 PM CDT George Martinez MD LAB BLOOD ORDERABLES Final Resul t ANNE [address] [place] [address] * (ABNORMAL) Comprehensive metabolic panel (05/27/2024 12:19 [...] MD LAB BLOOD ORDERABLES Final Resul t [facility] [address] [place] [address] * (ABNORMAL) Urinalysis reflex to [...] tendency for uric acid stone formation. Source: [facility] [employer] Current Interpretive Data was last revised on [...] ORDER KAILEY Final Result Performing Organization Address City/[facility] Co de Phone Number ANNE VIN [address] [place] [address] * Type and screen (05/27/2024 11:59 AM CDT) ABO Rh A Positive Neymar, indirect Negative [facility] Blood 05/27/2024 11:5 9 AM CDT 05/27/2024 12:31 PM CDT Narrative [facility] - 05/27/2024 1:45 PM CDT Has the patient had Daratumumab or Isatuximab in the past 6 months?->Unknown us George Martinez MD LAB BLOOD BANK TEST ORDERABLES F inal Result SUNSHINEANEESH BANUELOS [address] Department of [employer] [place], [place] [id number] * ECG 12 lead (05/27/2024 11:45 AM CDT) 05/27/2024 11:4 5 AM CDT Narrative [facility] - 05/27/2024 3:19 PM CDT Vent Rate: 77 bpm RR Interval: 771 msec LA Interval: 166 msec QRS Duration: 91 msec QT Interval: 366 msec QTC Interval: 398 msec P-R-T [place]: 39 - -25 - -7 degrees IMPRESSION: SINUS RHYTHM WITH OCCASIONAL VENTRICULAR PREMATURE COMPLEXES WITH OCCASIONAL SUPRAVENTRICULAR PREMATURE COMPLEXES BORDERLINE LEFT AXIS DEVIATION LOW QRS VOLTAGE IN PRECORDIAL LEADS PATTERN CONSISTENT WITH PULMONARY DISEASE ABNORMAL ECG Electronically Signed By: Carson Aguila MD, [facility] George Martinez MD ECG ORDERABLES Final Result [facility] * X-ray chest 2 [...] CT Body Outside Reference (05/20/2024 12:20 PM BULL WHEEL WORKER) Narrative KAMALA_MHB_MHE - 05/22/2024 11:13 AM BULL WHEEL WORKER This order has been auto-finalized and does not contain a result. us Provider Transcribed Order IMG CT PROCEDURES Fin al Result HECTOR_[email or web address] * XR Chest PA Lateral 2 Views (04/11/2024 12:16 PM BULL WHEEL WORKER) Anatomical Region Laterality Modality Body, Chest N/A Computed Radiogr aphy 04/11/2024 12:2 9 PM BULL WHEEL WORKER Narrative 04/11/2024 12:31 PM BULL WHEEL WORKER EXAM DESCRIPTION: XR CHEST PA LATERAL 2 [...] Jez Rahman M.D. AM T: Report ID: [id number] Reading Location: [id number] Procedure Note Jez Rahman MD - 04/11/2024 [...] Jez Rahman M.D. AM T: Report ID: [id number] Reading Location: [id number] Jag Tobar MD IMG XR PROCEDURES Final Resu lt * XR Chest 1 View (04/11/2024 10:17 AM BULL WHEEL WORKER) Anatomical Region Laterality Modality Body, Chest N/A Computed Radiogr aphy 04/11/2024 11:0 2 AM BULL WHEEL WORKER Narrative 04/11/2024 11:31 AM BULL WHEEL WORKER EXAM DESCRIPTION: XR CHEST 1 VIEW REASON [...] Jez Rahman M.D. AM T: Report ID: [id number] Reading Location: [id number] Procedure Note Jez Rahman MD - 04/11/2024 [...] Jez Rahman M.D. AM T: Report ID: [id number] Reading Location: [id number] us Jag Tobar MD IMG XR PROCEDURES Final Resu lt * FL Fluoroscopy < 1 Hour (04/11/2024 9:41 AM BULL WHEEL WORKER) Narrative HECTOR_[email or web address]_OC_MHE - 04/11/2024 9:42 AM BULL WHEEL WORKER The images from this study are not interpreted by Radiology. Please refer to the physician's procedure / OR operative note. us Jag [facility]WARD FLUOROSCOPY PROCEDURES F inal Result [email or web address] * Surgical pathology (04/11/2024 9:22 AM BULL WHEEL WORKER) Tissue specimen (specimen) (Lung Biopsy) 04/11/2024 9:22 AM BULL WHEEL WORKER Narrative PATHOLOGY [facility] - 04/14/2024 3:07 PM BULL WHEEL WORKER [facility] Department of Pathology [address] [place] [address] Note to Patients: This report may contain [...] : 1955 (Age: 68) Gender: M Address: [place] [id number] Hospital #: [id number] Service: Surgery Location: Patient Type: [facility] OUTPATIENT Taken: 04/11/2024 Received: 04/11/2024 Accessioned: [...] was communicated with Dr. Jag Tobar via [employer] Mail message on 04/14/2024. Microscopic examination substantiates the above cited diagnosis. Please correlate with the culture result for speciation. The result was communicated with Dr. Jag Tobar via [employer] Mail message on 04/14/2024. Clinical History: The patient [...] and entirely submitted. Labeled A1. Jar 0. jjssm rehab/04/11/2024 11:35 EVERETT Singleton, PA (ASCP) Microscopic slide review and interpretation for this case was performed at [facility], Department of Surgical Pathology, [address], [place] [id number], [place] [address] CLIA # [id number] us Jag Tobar MD LAB PATHOLOGY ORDERABLES Fin al Result PATHOLOGY [facility] * Cytology (04/11/2024 9:21 AM BULL WHEEL WORKER) Fluid (Bronch Lavage (Cytology)) 04/11/2024 9:21 AM BULL WHEEL WORKER Narrative PATHOLOGY [facility] - 04/15/2024 6:01 PM BULL WHEEL WORKER EPIC results best viewed via link to PDF [facility] Ondina Guzman Laboratory of [place] [address] Note to Patients: This report may contain [...] Gender: M : 1955 (Age: 68) Address: [place] [id number] [facility] #: [id number] Taken:04/11/2024 Received:04/11/2024 Reported: 04/15/2024 Patient Type: B [facility] OUTPATIENT Service: Surgery Location: Physician(s): MD Stephanie [...] Kristina Haynes M.D. 04/15/2024 18:01:32 Monika Hassan [facility](ASCP) Gross Description A. BAL right lower [...] interpretation for this case was performed at [facility], Department of Surgical Pathology, [address], [place] [id number], [place] [address] CLIA # [id number] REPORT IMAGES AND SCANNED DOCUMENTS, IF INCLUDED, ONLY VIEWABLE IN PDF VERSION OF REPORT The performance characteristics of some immunohistochemical stains, in-situ hybridization and fluorescence in-situ hybridization tests and immunophenotyping by flow cytometry cited in this report (if any) were determined by the Surgical Pathology and Flow Cytometry Departments at [facility] as part of an ongoing water quality tester program and in compliance with federally mandated [...] Surgical Pathology and Flow Cytometry Departments of [facility]. It has not been cleared or approved by the U. S. Food and Drug Administration. Jag Tobar MD LAB CYTOLOGY ORDERABLES Joya deluca Result PATHOLOGY [facility] * LA AN ELECTIVE ENDOTRACHEAL AIRWAY, LA AN PROCEDURE PLACEHOLDER (04/11/2024 9:20 AM BULL WHEEL WORKER) Narrative Devon Garcia CRNA - 04/11/2024 9:20 AM BULL WHEEL WORKER Devon Garcia CRNA 04/11/2024 9:20 AM Airway Patient location: OR Urgency: elective Indications for airway management: anesthesia Difficult airway: no Staff: Supervising provider: Sandra Mensah MD Placed by: DECK MOLDER: Devon Garcia CRNA Emergent airway documentation: Risks [...] Bronchoalveolar lavage Lobe, right lower (04/11/2024 9:19AM BULL WHEEL WORKER) Direct Specimen Exam Stain: Cytospin Gram stain shows: Rare polymorphonuclear leukocytes seen. No organisms seen. Comment:Testing performed by : [facility], [address] [place]., [address] Report Final Report: Curvularia species Plus growth of clinically insignificant bacterial lucian. (.) ANNE Comment:Testing performed by : [facility], [address] [place]., [address] Organism PLUS GROWTH OF CLINICALLY INSIGNIFICANT LUCIAN. [facility] Organism CURVULARIA SPECIES [facility] Bronchoalveolar lavage (Lobe, right lower) 04/11/2024 9:19 AM BULL WHEEL WORKER 04/11/2024 11:24 AM BULL WHEEL WORKER Narrative ANNE - 04/27/2024 3:12 PM BULL WHEEL WORKER Testing performed by [facility] Microbiology Laboratory ([phone]) Specimens submitted from normally sterile body sites [...] MICROBIOLOGY - GENERAL O RDERABLES Final Result [facility] [address] [facility] Department [place] [address] * (ABNORMAL) Mycology (fungal) culture Bronchoalveolar lavage Lobe, right lower (04/11/2024 9:19 AM BULL WHEEL WORKER) Report Final Report: Curvularia species (.) Comment:Testing performed by : [facility], [address] [place]., [address] Organism CURVULARIA SPECIES [facility] Bronchoalveolar lavage (Lobe, right lower) 04/11/2024 9:19 AM BULL WHEEL WORKER 04/11/2024 11:24 AM BULL WHEEL WORKER Narrative ANNE - 05/09/2024 8:28 AM BULL WHEEL WORKER Testing performed by [facility] Microbiology Laboratory ([phone]). Jag Tobar MD LAB MICROBIOLOGY - GENERAL O RDERABLES Final Result Performing Organization Address City/[facility]/ZIP Co de Phone Number ANNE [address] [place] [address] * Mycobacteriology (AFB) culture and acid-fast stain Bronchoalveolar lavage Lobe, right lower (04/11/2024 9:19 AM BULL WHEEL WORKER) Direct Specimen Exam Stain: No Acid-fast bacilli seen Comment:Testing performed by : [facility], [address] [place]., [address] Report Final Report: No growth of acid-fast bacilli ANNE Comment:Testing performed by : [facility], [address] [place]., [address] Bronchoalveolar lavage (Lobe, right lower) 04/11/2024 9:19 AM BULL WHEEL WORKER 04/11/2024 11:24 AM BULL WHEEL WORKER Narrative ANNE - 06/09/2024 8:08 AM CDT Testing performed by [facility] Microbiology Laboratory ([phone]). Jag Tobar MD LAB MICROBIOLOGY - GENERAL O RDERABLES Final Result Performing Organization Address City/[facility]/ZIP Co de Phone Number [id number] [place] [address] * Bronchoscopy (04/11/2024 8:47 AM BULL WHEEL WORKER) Anatomical Region Laterality Modality Other Narrative Procedure Note Jag Tobar MD - 04/11/2024 8:47 AM CST [facility] Pulmonary Patient Name: [place] Procedure Date: 04/11/2024 8:47 AM Date of : 1955 Admit Type: Outpatient Age: 68 Room: [facility] OPERATING ROOM 25 Gender: Male Note Status: Finalized Attending MD: Jag Tobar M.D. Procedure: Bronchoscopy Providers: Jag Tobar M.D. Referring MD: Requesting Physician: Procedure: After obtaining informed consent, the [id number] bronchoscope was introduced through the rightnostril and advanced to the. Findings: Jaki Tobar M.D. Jag Tobar M.D. 04/11/2024 9:53:56 AM . Number of Addenda: 0 Note Initiated On: 04/11/2024 8:47 AM us Jag Tobar MD ENDOSCOPY PROCEDURES Final R esult * (ABNORMAL) eGFR (04/11/2024 7:30 AM BULL WHEEL WORKER) eGFR 46(L) >=60 mL/min/1. 73 m2 Comment: [...] last reviewed 2021. Blood 04/11/2024 7:30 AM BULL WHEEL WORKER 04/11/2024 7:34 AM BULL WHEEL WORKER us Jag Tobar MD LAB BLOOD ORDERABLES Final R esult [place] [address] [facility] Department [place] [address] * Differential, auto (04/11/2024 7:30 AM BULL WHEEL WORKER) Pathologist [facility] Neutrophil abs 3.6 1.5 - 6.5 K/cumm Imm gran abs 0.0 0.0 - 0.1 K/cumm [facility] Lymphocyte abs 1.8 0.8 - 3.3 K/cumm [facility] Monocyte abs 0.5 0.2 - 0.8 K/cumm [facility] Eosinophil abs 0.2 0.0 - 0.5 K/cumm [facility] Basophil abs 0.0 0.0 - 0.1 K/cumm [facility] Neutrophil pct 58.8 % [facility] Comment: Interpretive Data Percent cell count reference ranges are not reported, since discordance with absolute values may lead to misinterpretation of CBC data. Current Interpretive Data was last revised on 2017. Imm gran pct 0.3 % [facility] Comment: Interpretive Data Percent cell count reference ranges are not reported, since discordance with absolute values may lead to misinterpretation of CBC data. Current Interpretive Data was last revised on 2017. Lymphocyte pct 29.9 % [facility] Comment: Interpretive Data Percent cell count reference ranges are not reported, since discordance with absolute values may lead to misinterpretation of CBC data. Current Interpretive Data was last revised on 2017. Monocyte pct 7.7 % [facility] Comment: Interpretive Data Percent cell count reference ranges are not reported, since discordance with absolute values may lead to misinterpretation of CBC data. Current Interpretive Data was last revised on 2017. Eosinophil pct 2.6 % [facility] Comment: Interpretive Data Percent cell count reference ranges are not reported, since discordance with absolute values may lead to misinterpretation of CBC data. Current Interpretive Data was last revised on 2017. Basophil pct 0.7 % [facility] Comment: Interpretive Data Percent cell count reference ranges are not reported, since discordance with absolute values may lead to misinterpretation of CBC data. Current Interpretive Data was last revised on 2017. Blood 04/11/2024 7:30 AM BULL WHEEL WORKER 04/11/2024 7:34 AM BULL WHEEL WORKER us Jag Tobar MD LAB BLOOD ORDERABLES Final R esult [facility] [address] [facility] Department [place] [address] * CBC with auto differential (04/11/2024 7:30 AM BULL WHEEL WORKER) WBC 6.1 3.8 - 9.9 K/cumm Hgb 16.4 13.0 - 17.5 g/dL [facility] Hct 49.4 38.9 - 50.3 % [facility] Plt 184 150 - 400 K/cumm [facility] MPV 11.3 9.1 - 12.3 fL [facility] RBC 5.55 4.30 - 5.80 M/cumm [facility] MCV 89.0 81.3 - 96.4 fL [facility] MCH 29.5 27.1 - 33.3 pg [facility] MCHC 33.2 32.3 - 35.7 g/dL [facility] RDW CV 13.7 11.1 - 14.9 % [facility] RDW SD 44.6 35.7 - 48.1 fL [facility] NRBC abs 0.00 0.00 - 0.01 K/cumm ANNE Blood 04/11/2024 7:30 AM BULL WHEEL WORKER 04/11/2024 7:34 AM BULL WHEEL WORKER Jag Tobar MD LAB BLOOD ORDERABLES Final R esult Performing Organization Address [facility] Co de Phone Number ANNE [address] [place] [address] * aPTT (04/11/2024 7:30 AM BULL WHEEL WORKER) aPTT 31 22 - 37 sec Comment: Interpretive data aPTT test has not been evaluated for monitoring heparin therapy. The anti-Xa is the preferred test. Current interpretive data was last revised on 2019. Blood 04/11/2024 7:30 AM BULL WHEEL WORKER 04/11/2024 7:34 AM BULL WHEEL WORKER Jag Tobar MD LAB BLOOD ORDERABLES Final R [facility] Performing Organization Address [facility] de Phone Number [address] [address] * Protime-INR (04/11/2024 7:30 AM BULL WHEEL WORKER) PT 14.2 12.0 - 14.6 sec INR 1.1 0.9 - 1.2 ANNE Comment: Ref Range High Interpretive data Oral anticoagulant therapeutic ranges: Venous thromboembolism prophylaxis or treatment: 2.0-3.0 CARDIOLOGY Standard range: 2.0-3.0 High-intensity range: 2.5-3.5 Refer to indication-specific guidelines for appropriate target ranges for prosthetic heart valve replacement. Current interpretive data was last revised on 2019. Blood 04/11/2024 7:30 AM BULL WHEEL WORKER 04/11/2024 7:34 AM BULL WHEEL WORKER Jag Tobar MD LAB BLOOD ORDERABLES Final R esult ANNE BEDOLLA [address] [facility] Department [place] [address] * (ABNORMAL) Basic metabolic panel (04/11/2024 7:30 AM BULL WHEEL WORKER) Sodium 142 135 - 145 mmol/L Potassium, pl 4.1 3.3 - 4.9 mmol/L [facility] Chloride 109 97 - 110 mmol/L [facility] CO2 23 22 - 32 mmol/L [facility] Anion gap 10 2 - 15 mmol/L [facility] BUN 20 6 - 25 mg/dL [facility] Creatinine 1.61(H) 0.80 - 1.30 mg/dL [facility] Glucose 115 70 - 199 mg/dL [facility] [...] 2022. Calcium 9.0 8.5 - 10.3 mg/dL [facility] Blood 04/11/2024 7:30 AM BULL WHEEL WORKER 04/11/2024 7:34 AM BULL WHEEL WORKER Jag Tobar MD LAB BLOOD ORDERABLES Final R esult ANNE [address] [facility] Department [place] [address] * PET/CT FDG Skull to Thigh (04/10/2024 12:12 PM BULL WHEEL WORKER) Anatomical Region Laterality Modality N/A Positron Emissio n Tomography (PET) 04/10/2024 2:18 PM BULL WHEEL WORKER Impressions 04/10/2024 2:44 PM BULL WHEEL WORKER 1. Moderately FDG-avid right lower lobe nodule [...] Luis Walker M.D. Narrative 04/10/2024 2:44 PM BULL WHEEL WORKER EXAMINATION: TUMOR FDG-PET/CT IMAGING DATE OF STUDY: 04/10/2024 SCANNER: [facility] Referral.IM (NV1). This is a high-resolution scanner, which [...] obtained. The study was interpreted on the [employer] workstation. The mean liver SUV (reported for quality inspector purposes) is 2.5. The total scanned area [...] FDG-PET/CT IMAGING DATE OF STUDY: 04/10/2024 SCANNER: [facility] Novus (NV1). This is a high-resolution scanner, which [...] obtained. The study was interpreted on the [employer] workstation. The mean liver SUV (reported for quality inspector purposes) is 2.5. The total scanned area [...] Pulmonary Function Test - (04/07/2024 2:59 PM BULL WHEEL WORKER) FVC PRE 3.92 3.12 - 5.33 L [facility] FEV1 PRE 3.21 2.29 - 4.02 L [facility] [id number] 81.76 62.34 - 87.83 % [facility] [id number]% PRE 4.38(A) 1.03 - 4.35 L/s [facility] PEF PRE 9.97 6.07 - 10.05 L/s [facility] DLCOc SB 23.77 20.26 - 34.11 ml/(min*mm Hg) [facility] DLCO/VA PRE 4.53 2.66 - 4.97 ml/(min*mm Hg*L) [facility] VA 5.25(A) 6.98 - 6.98 L [facility] TLC PRE 5.92(A) 5.97 - 8.28 L [facility] VC PRE 3.92 3.31 - 5.16 L [facility] IC PRE 2.95(A) 3.17 - 3.17 L [facility] FRC PL PRE 2.97 2.71 - 4.69 L [facility] ERV PRE 0.97(A) 1.06 - 1.06 L [facility] RV PRE 2.00 1.96 - 3.31 L [facility] VTG 3.01 L [facility] RAW PRE 1.15(A) 3.06 - 3.06 cmH2O*s/L [facility] Anatomical Region Laterality Modality PFT 04/07/2024 2:30 PM BULL WHEEL WORKER Impressions 04/08/2024 8:38 AM BULL WHEEL WORKER 1. Normal spirometry. Total lung capacity is approaching the lower limit of normal and may reflect a mild restrictive ventilatory limitation 2. Normal diffusion capacity Electronically signed by Isidro Tabor MD Pulmonary & Critical Care Narrative 04/08/2024 8:38 AM BULL WHEEL WORKER PULMONARY FUNCTION TESTS [place] 68 y.o. [...] * ECG 12 lead (04/07/2024 2:06 PM BULL WHEEL WORKER) Pathologist [facility] Ventricular Rate EKG/Min 66 BPM [facility] Atrial Rate 66 BPM [facility] LA-Interval (MSEC) 160 ms [facility] QRS-Interval (MSEC) 92 ms [facility] QT-Interval (MSEC) 376 ms [facility] QTc 394 ms [facility] P [place] 38 degrees [facility] R [place] 38 degrees [facility] T [place] 6 degrees [facility] Diagnosis Sinus rhythm with marked sinus arrhythmia Possible Inferior infarct , age undetermined Abnormal ECG No previous ECGs available Confirmed by MONIKA REDDY M.D. ([id number]) on 04/08/2024 7:48:19 AM [facility] 04/07/2024 2:06 PM BULL WHEEL WORKER 04/08/2024 7:48 AM BULL WHEEL WORKER Vito Guerrero MD ECG ORDERABLES Final Result [facility] * (ABNORMAL) eGFR (04/04/2024 12:28 PM BULL WHEEL WORKER) Pathologist [facility] eGFR 44(L) >=60 mL/min/1. 73 m2 Comment: [...] reviewed 2021. Blood 04/04/2024 12:2 8 PM BULL WHEEL WORKER 04/04/2024 12:52 PM BULL WHEEL WORKER us Jag Tobar MD LAB BLOOD ORDERABLES Final R esult ANNE [address] [facility] Department [place] [address] * Differential, auto (04/04/2024 12:28 PM BULL WHEEL WORKER) Pathologist [facility] Neutrophil abs 3.7 1.5 - 6.5 K/cumm Imm gran abs 0.0 0.0 - 0.1 K/cumm [facility] Lymphocyte abs 1.9 0.8 - 3.3 K/cumm [facility] Monocyte abs 0.5 0.2 - 0.8 K/cumm [facility] Eosinophil abs 0.1 0.0 - 0.5 K/cumm [facility] Basophil abs 0.0 0.0 - 0.1 K/cumm [facility] Neutrophil pct 59.4 % [facility] Comment: Interpretive Data Percent cell count reference ranges are not reported, since discordance with absolute values may lead to misinterpretation of CBC data. Current Interpretive Data was last revised on 2017. Imm gran pct 0.3 % [facility] Comment: Interpretive Data Percent cell count reference ranges are not reported, since discordance with absolute values may lead to misinterpretation of CBC data. Current Interpretive Data was last revised on 2017. Lymphocyte pct 30.5 % [facility] Comment: Interpretive Data Percent cell count reference ranges are not reported, since discordance with absolute values may lead to misinterpretation of CBC data. Current Interpretive Data was last revised on 2017. Monocyte pct 7.6 % [facility] Comment: Interpretive Data Percent cell count reference ranges are not reported, since discordance with absolute values may lead to misinterpretation of CBC data. Current Interpretive Data was last revised on 2017. Eosinophil pct 1.7 % [facility] Comment: [...] on 2017. Blood 04/04/2024 12:2 8 PM BULL WHEEL WORKER 04/04/2024 12:52 PM BULL WHEEL WORKER Jag Tobar MD LAB BLOOD ORDERABLES Final R esult [facility] [address] [facility] Department of Laboratories [address], [place] [id number] * (ABNORMAL) CBC with auto differential (04/04/2024 12:28 PM BULL WHEEL WORKER) WBC 6.3 3.8 - 9.9 K/cumm Hgb 16.6 13.0 - 17.5 g/dL [facility] Hct 50.4(H) 38.9 - 50.3 % [facility] Plt 183 150 - 400 K/cumm [facility] MPV 11.3 9.1 - 12.3 fL [facility] RBC 5.56 4.30 - 5.80 M/cumm [facility] MCV 90.6 81.3 - 96.4 fL [facility] MCH 29.9 27.1 - 33.3 pg [facility] MCHC 32.9 32.3 - 35.7 g/dL [facility] RDW CV 13.6 11.1 - 14.9 % [facility] RDW SD 45.5 35.7 - 48.1 fL [facility] NRBC abs 0.00 0.00 - 0.01 K/cumm [facility] Blood 04/04/2024 12:2 8 PM BULL WHEEL WORKER 04/04/2024 12:52 PM BULL WHEEL WORKER Narrative [facility] - 04/04/2024 1:03 PM BULL WHEEL WORKER Please perform CBC with manual differential. Jag Tobar MD LAB BLOOD ORDERABLES Final R TORIA Performing Organization Address City/[facility] Co de Phone Number ANNE [address] [place] [address] * Protime-INR (04/04/2024 12:28 PM BULL WHEEL WORKER) PT 13.6 12.0 - 14.6 sec INR 1.0 0.9 - 1.2 [facility] Comment: Ref Range High Interpretive data Oral anticoagulant therapeutic ranges: Venous thromboembolism prophylaxis or treatment: 2.0-3.0 CARDIOLOGY Standard range: 2.0-3.0 High-intensity range: 2.5-3.5 Refer to indication-specific guidelines for appropriate target ranges for prosthetic heart valve replacement. Current interpretive data was last revised on 2019. Blood 04/04/2024 12:2 8 PM BULL WHEEL WORKER 04/04/2024 12:52 PM BULL WHEEL WORKER Jag Tobar MD LAB BLOOD ORDERABLES Final R esult Performing Organization Address City/[facility] Co de Phone Number ANNE [address] [place] [address] * (ABNORMAL) Basic metabolic panel (04/04/2024 12:28 PM BULL WHEEL WORKER) Pathologist [facility] Sodium 145 135 - 145 mmol/L Potassium, pl 4.5 3.3 - 4.9 mmol/L [facility] Chloride 109 97 - 110 mmol/L [facility] CO2 26 22 - 32 mmol/L [facility] Anion gap 10 2 - 15 mmol/L [facility] BUN 21 6 - 25 mg/dL [facility] Creatinine 1.65(H) 0.80 - 1.30 mg/dL [facility] Glucose 87 70 - 199 mg/dL [facility] [...] 2022. Calcium 10.0 8.5 - 10.3 mg/dL [facility] Blood 04/04/2024 12:2 8 PM BULL WHEEL WORKER 04/04/2024 12:52 PM BULL WHEEL WORKER Narrative [facility] - 04/04/2024 1:21 PM BULL WHEEL WORKER Has the patient fasted?->No Jag Tobar MD LAB BLOOD ORDERABLES Final R esult [facility] [address] [facility] Department [place] [address] * (ABNORMAL) POCT creatinine for contrast evaluation (03/25/2024 12:35 PM BULL WHEEL WORKER) [facility] Creatinine POC 1.90(H) 0.80 - 1.30 mg/dL Comment:Testing performed by : [facility], [address] [place] [address]., [address] Blood 03/25/2024 12:3 5 PM BULL WHEEL WORKER 03/25/2024 12:35 PM BULL WHEEL WORKER us George Martinez MD POINT OF CARE TEST ORDERABLES Fi nal Result ANNE [address] [facility] Department [place] [address] * CT Chest W Contrast (03/25/2024 12:35 PM BULL WHEEL WORKER) Anatomical Region Laterality Modality Body N/A Computed Tomogra phy 03/25/2024 12:4 0 PM BULL WHEEL WORKER Narrative 03/25/2024 1:40 PM BULL WHEEL WORKER EXAM DESCRIPTION: CT CHEST W CONTRAST REASON [...] Madhavi Ghotra D.O. PS: PS Report ID: [id number] Reading Location: [place] [address] Procedure Note Madhavi Ghotra, DO - 03/25/2024 [...] Electronically signed by Madhavi Ghotra D.O. PS: YUMI Report ID: [id number] Reading Location: [place] [address] George Martinez MD IMG CT PROCEDURES Final Result from Last 3 Months Insurance MEDICARE [employer] LIFE MEDICARE FOR LIFE MEDICARE FOR LIFE Advance Directives For more information, please contact: [phone] * Full Code (Latest Code Status on File) Date Activated Date Inactivated Comments 06/04/2024 12:48 PM 06/09/2024 10:54 PM Care Teams Meat Service Team Member Relationship Specialty Start Date End Date Stephanie Magana NP [address] [place] [id number] PCP - General Family Medicine 04/03/24 Torey Brunner DO [address] [facility] [address] [place] [address] Referring Physician Internal Medicine 05/09/24
--- OUTSIDE RECORDS SUMMARY | 2024-06-20 09:11 | XMS_ITS ---
Author Organization [facility] Address [address] [place] [id number] Care Team Providers Care Executive Assistant Name Role Phone Stephanie Magana NP Primary Care Provider [phone] Kannan Torey Cande DO Unavailable Active Problems Patient Care Coordination No te [...]
--- OUTSIDE RECORDS SUMMARY | 2024-06-20 09:11 | XMS_ITS | Clinical Summary ---
Author Organization [facility] Address [address] [place] [address] Care Team Providers Care Bedspread Cutter Name Role Phone Medhat Pierre Primary Care Provider Unavailabl e Source Comments [facility],non-owned Affiliates and Associated Physician Practices is amultiple site organization consisting of ambulatory clinics and hospital sitesin [place], [place], [place] and [place]. This disclosure is being madepursuant to the Care Everywhere program and may not contain all information available regarding this patient. Last updated 17.[facility] MyNewFinancialAdvisor Allergies No known active allergies Medications * [...] Visit [facility] [address] [place] [id number] Fredy Marie MD [address] [place], [place] [address] [place] [address] Health Maintenance Due Date Last Done Comments [...] age to complete this topic Care Teams Bedspread Cutter Relationship Specialty Start Date End Date Medhat Pierre PCP - General 07/04/23
--- OUTSIDE RECORDS SUMMARY | 2024-06-20 09:11 | XMS_ITS | Patient Health Record ---
Author Organization [facility], [facility] Office Address [address] [facility] [address] [place], [place] [address] Care Team Providers Care Educational Audiologist Name Role Phone Carroll HOWE, Cm Primary Care Provider Unavailab Greer Rodriguez Unavailable [phone] Stefani HOWE, Lancing Unavailable Unavailabl e Allergies [...] Risk Notes Problem single functional kidney (finding) (676395062) Solitary Kidney (753.0) Active confirmed post surgery Problem Chronic kidney disease stage 3 (disorder) (346656503) Chronic kidney disease, stage 3 (moderate) (N18.30) Active confirmed Stable. B/p still lowish. Asymptomatic . 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 No gross blood. No urinary sx's. Followed by Urology Problem Overweight (582888552) Overweight (E66.3) Active confirmed BMI>30 Problem Vitamin D deficiency (06297814) Vitamin D deficiency, unspecified (E55.9) Active confirmed Ca/phos stable. On Vitamin D3 Problem Secondary hyperparathyroidism of renal origin (47242772) Secondary hyperparathyroidi sm of renal origin (N25.81) Active confirmed Pending. On Vitamin D3 Problem Chronic kidney disease due to hypertension (632517513323303) Hypertensive chronic kidney disease with stage 1 through stage 4 chronic kidney disease, or unspecified chronic kidney disease (I12.9) Active confirmed Controlled, DBP elevated, ANJANA? Problem Gastro-esophageal reflux disease without esophagitis (128397355) Gastro-esophageal reflux disease without esophagitis (K21.9) Active confirmed on PPI. Previously unable to tolerate without Problem Obesity (205504477) Obesity, unspecified (E66.9) Active confirmed BMI > 30 Problem Cardiac arrhythmia (467305610) Cardiac arrhythmia, unspecified (I49.9) Active confirmed irregular HR on exam, seen by cardio, w/u wnl Problem Absent kidney (919350775) Acquired absence of kidney (Z90.5) Active confirmed s/p partia l L nephrectomy and total R nephrectomy - RCC Problem Chronic kidney disease stage 3B (disorder) (143012489) CKD 3 Stage 3B (N18.32) Active confirmed Problem Chronic kidney disease stage 3A (disorder) (222329396) Chronic kidney disease, stage 3a (N18.31) Active [...] Roselyn LUCIAA Mail Code AG-600 [address] [place] [address] [id number] [place] Self - patient is the insured [employer] [address] [place] [address] [phone] [id number] [place] Self - patient is the insured Human HMO/POS [address] [address] [place] [address] [phone] [id number] [place] Self - patient is the [...] right nephrectomy (RCC) - Dr Barba in [place] 2006 Status post right knee surgery (scope) 1 991 Status post left thumb surgery 1985 Status post endoscopy (Dr. Warren) 06/05 16 Status post endoscopy ( Dr Warren) 09/05 16
[2024-06-20 14:02] LABS: Hematocrit 50.6 % (42.0-52.0); Hemoglobin 15.6 g/dL (14.0-18.0); Mean Corpuscular HGB Conc 30.8 g/dl (32-36); Mean Corpuscular Hemoglobin 29.2 pg (26-34); Mean Corpuscular Volume 94.6 fl (80-100); Mean Platelet Volume 10.5 fl (7.4-10.4); Platelet Count Result 298 k/mm3 (150-375); Red Blood Count 5.35 M/mm3 (4.6-6.20); Red Cell Distribution Width 14.2 % (11.5-14.5); White Blood Count 7.6 K/mm3 (4.5-10.0)
[2024-06-20 14:59] LABS: Creatinine Urine 90.8 mg/dL; Total Protein Urine Random 9 mg/dL
[2024-06-20 15:00] LABS: Albumin Level 4.1 g/dL (3.5-5.1); Anion Gap 7 mmol/L (4-12); Blood Urea Nitrogen 20 mg/dL (9-20); Calcium 8.9 mg/dL (8.4-10.2); Carbon Dioxide 30 mmol/L (22-30); Chloride 103 mmol/L (98-107); Estimated Glomerular Filt Rate 39; Glucose 118 mg/dL (65-110); Phosphorus 3.6 mg/dL (2.5-4.5); Potassium 4.4 mmol/L (3.4-5.0); Sodium 140 mmol/L (137-145)
[2024-06-20 15:03] LABS: Parathyroid Intact 61.3 pg/mL (14.5-75.2)
[2024-06-20 15:11] LABS: Cholesterol 123 mg/dL (0-200); HDL Direct 33 mg/dL; Triglycerides 148 mg/dL (<150)
[2024-06-20 15:23] LABS: LDL Cholesterol Direct 51 mg/dL
== END 2024-06-20 09:03 | disposition home or self-care (01) ==
PROVIDERS: Student in an Organized Health Care Education/Training Program; PCP Nurse Practitioner Family; Visit Provider Internal Medicine Nephrology
DX: E78.00 Pure hypercholesterolemia, unspecified (principal)
CPT/HCPCS: 36415; 80061; 80069; 82570; 83970; 84156; 85027

== ENCOUNTER 2024-06-24 10:15 | Outpatient (RCR) | payer MEDICARE, OTHER, SELFPAY ==
--- NOTE | 2024-05-26 09:52 | OPREHPOC ---
Outpatient Therapy Plan of Care This is a Multidisciplinary Plan of Care that may contain components documented by all disciplines (PT, OT, and ST.) PT Problem 1 PT Problem #1 Knowledge Deficit PT Goal 1 Goal / Goal Update 1. Pt to be IND with issued HEP Target Visit 8 PT Problem 2 PT Problem #2 Impaired Range of Motion PT Goal 1 Goal / Goal Update 1. Increased wrist flexion with elbow extension to 75 deg PT Problem 3 PT Problem #3 Impaired Strength PT Goal 1 Goal / Goal Update 1. Pt to improve R wrist strength to 4+/5 in all planes of motion
--- NOTE | 2024-05-26 09:52 | PTOPEVAL1 ---
Assessment and note entered by Angélica Barker, PT, DPT Evaluation Information Assessment Status Evaluation Diagnosis R elbow extensor tendon repair ICD-10 Condition Codes (PT) Pain in right elbow M25.521,Weakness R53.1, Encounter for other orthopedic aftercare Z47.89 Onset 02/18/24 Subjective Information Pt had a R elbow extensor tendon repair on 02/18/24 . Currently he reports tightness when straightening his elbow and when carrying something by his side. He states arm strength is him primary goal as he has been dealing with this for over 2 years. He would like to be able to ride his motorcycle without pain. Reported Pain Level Pain Score 0: Self Report Assessment PT Clinical Summary Pt presents to therapy today for his initial evaluation today with a diagnosis of a R elbow common extensor tendon repair. Today he demonstrates wrist and elbow ROM that is equal aside from wrist flexion. He demonstrates R wrist strength that is grossly 4-/5 throughout which is decreased compared to the L wrist that is 5/5 throughout. There is also tenderness to palpation at the common extensor tendon insertion. Skilled therapy services are indicated to address the deficits noted above, to improve strength, and to improve functional mobility. Plan of Care Interventions Electrical Stimulation,Hot Pack/Cold Pack,Manual Therapy,Neuro Re-education,Patient/Caregiver Education,Therapeutic Activities,Therapeutic Exercise PT Services Indicated Yes Treatment Frequency and 2x/wk for 8 visits Duration These treatments will address the objective and functional deficits as defined above. The patient will be advanced safely and appropriately in order for the patient to progress towards his/her prior level of function. Additional exercises will be introduced and as well as a comprehensive home exercise program upon discharge, if needed, ?to ensure carryover of functional gains achieved in the clinic. This treatment plan has been reviewed and agreement upon by the patient.
--- NOTE | 2024-06-24 11:00 | OPREHPOC ---
Outpatient Therapy Plan of Care This is a Multidisciplinary Plan of Care that may contain components documented by all disciplines (PT, OT, and ST.) PT Problem 1 PT Problem #1 Knowledge Deficit PT Goal 1 Goal / Goal Update 1. Pt to be IND with issued HEP Target Visit 8 Progress Met PT Problem 2 PT Problem #2 Impaired Range of Motion PT Goal 1 Goal / Goal Update 1. Increased wrist flexion with elbow extension to 75 deg Progress Met PT Problem 3 PT Problem #3 Impaired Strength PT Goal 1 Goal / Goal Update 1. Pt to improve R wrist strength to 4+/5 in all planes of motion Progress Met
--- NOTE | 2024-06-24 11:00 | PTOPDC ---
Assessment and note entered by Angélica Barker, PT, DPT Evaluation Information Assessment Status Discharge Diagnosis R elbow extensor tendon repair ICD-10 Condition Codes (PT) Pain in right elbow M25.521,Weakness R53.1, Encounter for other orthopedic aftercare Z47.89 Onset 02/18/24 Subjective Information Pt states he never has any pain at all now. States it feels like his strength is back to where it should be. He states he has no trouble lifting and carrying things, has not tried riding his motor cycle yet. Reported Pain Level Pain Score 0: Self Report Assessment PT Clinical Summary Pt presents to therapy today for his progress report following 7 visits of skilled therapy to treat the deficits following a R elbow common extensor tendon repair. Today he demonstrates improve elbow and wrist ROM as well as improved strength. He has met all of his therapy goals an no longer requires skilled services. he will be discharged at this time. Plan of Care PT Services Indicated No
== END 2024-06-24 11:41 | disposition home or self-care (01) ==
LOC: ANHGOSHPT 10:15
PROVIDERS: PCP Nurse Practitioner Family
DX: M77.11 Lateral epicondylitis, right elbow (principal)
CPT/HCPCS: 36415; 80061; 80069; 82570; 83970; 84156; 85027; 97110; 97140; 97161; 97530

== ENCOUNTER 2024-12-25 15:31 | Outpatient (CLI) | payer MEDICARE, OTHER, SELFPAY ==
[2024-12-25 18:29] LABS: Albumin Level 4.0 g/dL (3.5-5.1); Anion Gap 8 mmol/L (4-12); Blood Urea Nitrogen 18 mg/dL (9-20); Calcium 8.6 mg/dL (8.4-10.2); Carbon Dioxide 28 mmol/L (22-30); Chloride 104 mmol/L (98-107); Estimated Glomerular Filt Rate 45; Glucose 131 mg/dL (65-110); Potassium 4.3 mmol/L (3.4-5.0); Sodium 140 mmol/L (137-145)
[2024-12-25 18:34] LABS: Total Protein Urine Random 9 mg/dL; Ur Ttl Prot Creatinine Ratio 0.09 mg/mg (0-0.20)
[2024-12-25 18:42] LABS: Hematocrit 45.8 % (42.0-52.0); Hemoglobin 14.7 g/dL (14.0-18.0); Mean Corpuscular HGB Conc 32.1 g/dl (32-36); Mean Corpuscular Hemoglobin 28.1 pg (26-34); Mean Corpuscular Volume 87.6 fl (80-100); Platelet Count Result 194 k/mm3 (150-375); Red Blood Count 5.23 M/mm3 (4.6-6.20); White Blood Count 6.1 K/mm3 (4.5-10.0)
[2024-12-25 18:52] LABS: Parathyroid Intact 91.3 pg/mL (14.5-75.2)
== END 2024-12-25 15:32 | disposition home or self-care (01) ==
PROVIDERS: PCP Nurse Practitioner Family; Visit Provider Internal Medicine Nephrology
DX: N18.32 Chronic kidney disease, stage 3b (principal); Z85.528 Personal history of other malignant neoplasm of kidney
CPT/HCPCS: 36415; 80069; 82570; 83970; 84156; 85027

== ENCOUNTER 2025-03-09 14:16 | Outpatient (CLI) | payer MEDICARE, OTHER, SELFPAY ==
--- OUTSIDE RECORDS SUMMARY | 2024-11-15 15:30 | XMS_ITS ---
Author Organization [facility] tahir Singh Address [address] [id number] Care Team Providers Care Water Supervisor Name Role Phone JACQUELINE CAMPBELL MD Primary Care Provider Unavailab Todd Wagoner Unavailable Randi Dill Unavailable Unavailable Migration, Provider Unavailable Unavailable [facility]AS[facility] VISIT [facility] Encounter Medications Medication SIG (Take, Route, Frequency, Duration) Notes Start Date End Date Status Cymbalta 60 MG 1 CAP(S) ORALLY ONCE A DAY *Please review and pick correct strength-formulatio n from [facility] options. If intended option is not shown, discontinue and re-order from Quick Search* Active Alfuzosin HCl ER 10 MG 1 tab(s) orally once a day Active Pantoprazole Sodium 40 MG 1 tab(s) orally once a day Active Myrbetriq 50 MG 1 tab(s) orally once a day Active Proscar 5 MG 1 tab(s) orally once a day Active Multivitamin - 1 tab(s) orally once a day Active Allopurinol 100 MG 1 tab(s) orally once daily Active Vitamin D ONE BY MOUTH ONCE A DAY *Please review and pick correct strength-formulatio n from [facility] options. If intended option is not shown, discontinue and re-order from Quick Search* Active Olmesartan Medoxomil 20 MG 1 tab(s) orally once a day; Duration: 30 day(s) Active VESIcare 10 MG orally once a day Active Encounters Encounter Location Date Provider Diagnosis [facility] [address] [id number] 11/15/2024 Provider Migration Plan Of Treatment No Information Progress Notes * RAMANMURALI SDOB:[birth year] (69 yo M)Acc No.[id number]:11/15/2024 Patient: MURALI FROST Provider: Alexandra knox Migration :1955 A ge:69 Y S ex:Male Date:11/15/2024 Address:[address] [place] [address], [id number] Pcp:JACQUELINE CAMPBELL MD Subjective: * Chief Complaints: * 1 . Multum To [facility] Conversion Encounter. * Medical History: * Medications: T aking Multivitamin - Tablet 1 tab(s) orally once a day , Taking Vitamin D TABLET ONE BY MOUTH ONCE A DAY , Notes to Pharmacist: *Please review and pick correct strength-formulation from [facility] options. If intended option is not shown, discontinue and re-order from Quick Search*, Taking Allopurinol 100 MG Tablet 1 tab(s) orally once daily , Taking Alfuzosin HCl ER 10 MG Tablet Extended Release 24 Hour 1 tab(s) orally once a day , Taking Cymbalta 60 MG DELAYED RELEASE CAPSULE 1 CAP(S) ORALLY ONCE A DAY , Notes to Pharmacist: *Please review and pick correct strength-formulation from [facility] options. If intended option is not shown, discontinue and re-order from Quick Search*, Taking Myrbetriq 50 MG Tablet Extended Release 24 Hour 1 tab(s) orally once a day , Taking Pantoprazole Sodium 40 MG Tablet Delayed Release 1 tab(s) orally once a day , Taking Proscar 5 MG Tablet 1 tab(s) orally once a day , Taking Olmesartan Medoxomil 20 MG Tablet 1 tab(s) orally once a day , Taking VESIcare 10 MG Tablet orally once a day Objective: * Vitals: Assessment: Plan: * Treatment: * * Electronic signature of Prov ider Migration on 03/09/2025 at 05:07 PM EST Sign off status: Pending * Provider: Alexandra knox Migration Date: 0 11/15/2024 Generated for Kelsi leblanc/Omega/Aleisha on: 1 05/10/2024 05:07 PM EST
--- OUTSIDE RECORDS SUMMARY | 2024-11-22 15:00 | XMS_ITS ---
Author Organization [facility] Office Address [address] [facility] [address] [place], [place] [id number] Care Team Providers Care Audio/Visual Manager Name Role Phone Cm Hodges MD Primary Care Provider Unavailab Greer Rodriguez Unavailable [phone] Stefani HOWE, Lancing Unavailable Unavailabl e Migration, Provider Unavailable Unavailable Allergies Allergen (clinical drug ingredient) Drug/Non Drug Allergy documented on EMR Reaction Allergy Type Onset Date Status angiotensin-converting enzyme inhibitor (FN) ACEI (uncoded) cough Allergy Acti ve REASON FOR VISIT [facility] Conversion Encounter Medications Medication SIG (Take, Route, Frequency, Duration) Notes Start Date End Date Status Allopurinol 100 MG Tablet 1 tab(s) orally once a day; Duration: 90 days Active Olmesartan Medoxomil 5 MG TABLET 1 TABLET ORALLY ONCE A DAY/ PATIENT NEEDS TO FIND A NEW PROVIDER TO REFILL IN THE FUTURE; Duration: 30 DAYS *Please review and pick correct strength-formulatio n from [employer] options. If intended option is not shown, discontinue and re-order from Quick Search* Active Protonix 40 MG Tablet Delayed Release 1 tab(s) orally once a day Active VESIcare 10 MG Tablet 1 tab(s) orally once a day Active Vitamin D3 1000 UNIT Capsule 1 cap(s) orally once a day; Duration: 30 day(s) 02/25/2016 Active Cymbalta 60 MG Capsule Delayed Release Particles 1 cap(s) orally once a day Active Multi Vitamin 1 TAB ONCE A DAY *Please review and pick correct strength-formulatio n from [employer] options. If intended option is not shown, discontinue and re-order from Quick Search* Active Myrbetriq 50 MG Tablet Extended Release 24 Hour 1 tab(s) orally qd Active Pepcid 40 MG Tablet 1 tab(s) orally once a day (at bedtime) Active Proscar 5 MG Tablet orally qd Active Alfuzosin HCl ER 10 MG Tablet Extended Release 24 Hour orally qd Active Encounters Encounter Location Date Provider Diagnosis [facility] Office [address] [facility] [address] [place], [place] [id number] 11/22/2024 Provider Migration Plan Of Treatment Medication Medication Name Sig Start Date Stop Date Notes Olmesartan Medoxomil 5 MG TABLET 1 TABLET ORALLY ONCE A DAY/ PATIENT NEEDS TO FIND A NEW PROVIDER TO REFILL IN THE FUTURE; Duration: 30 DAYS *Please review and pick correct strength[facility]ulation from [facility] options. If intended option is not shown, discontinue and re-order from Quick Search* Progress Notes * West FOSTER SDOB:[birth year] (69 yo M)Acc No.[id number]:11/22/2024 UNLOCKED PROGRESS NOTE Patient: [place] Provider: Alexandra knox Migration :1955 A ge:69 Y S ex:Male Date:11/22/2024 Address:[facility] [place] Pcp:Cm Hodges MD Subjective: * Chief Complaints: * [facility] Encounter * Medications: T akingAlfuzosin HCl ER 10 MG Tablet Extended Release 24 Hour orally qd Cymbalta 60 MG Capsule Delayed Release Particles 1 cap(s) orally once a day Multi Vitamin 1 TAB ONCE A DAY , Notes to Pharmacist: *Please review and pick correct strength- formulation from [employer] options. If intended option is not shown, discontinue and re-order from Quick Search*Myrbetriq 50 MG Tablet Extended Release 24 Hour 1 tab(s) orally qd Pepcid 40 MG Tablet 1 tab(s) orally once a day (at bedtime) Proscar 5 MG Tablet orally qd Protonix 40 MG Tablet Delayed Release 1 tab(s) orally once a day VESIcare 10 MG Tablet 1 tab(s) orally once a day Vitamin D3 1000 UNIT Capsule 1 cap(s) orally once a day Allopurinol 100 MG Tablet 1 tab(s) orally once a day Taking Alfuzosin HCl ER 10 MG Tablet Extended Release 24 Hour orally qd Taking Cymbalta 60 MG Capsule Delayed Release Particles 1 cap(s) orally once a day Taking Multi Vitamin 1 TAB ONCE A DAY , Notes to Pharmacist: *Please review and pick correct strength- formulation from [employer] options. If intended option is not shown, discontinue and re-order from Quick Search*Taking Myrbetriq 50 MG Tablet Extended Release 24 Hour 1 tab(s) orally qd Taking Pepcid 40 MG Tablet 1 tab(s) orally once a day (at bedtime) Taking Proscar 5 MG Tablet orally qd Taking Protonix 40 MG Tablet Delayed Release 1 tab(s) orally once a day Taking VESIcare 10 MG Tablet 1 tab(s) orally once a day Taking Vitamin D3 1000 UNIT Capsule 1 cap(s) orally once a day Taking Allopurinol 100 MG Tablet 1 tab(s) orally once a day * Allergies: A CEI: cough Plan: * Treatment: * Electronic signature of Prov preethi Migration on 03/09/2025 at 05:08 PM EST Sign off status: Pending * Provider: Alexandra knox Migration Date: 0 11/22/2024 Generated for Kelsi leblanc/Omega/Aleisha on: 1 05/10/2024 05:08 PM EST
--- NOTE | ~2025-03-09 | XR_ITS ---
XR shoulder LT min 2V 03/09/2025 14:34 Indication: Left shoulder pain Procedure: 4 views left shoulder Comparison: No prior studies for comparison. Findings: There are changes of left clavicular osteotomy. There is mild osteoarthritis of the glenohumeral joint. No fracture, subluxation or dislocation. No soft tissue abnormality. Impression: 1: Mild glenohumeral joint osteoarthritis. Reviewed, dictated and finalized at location O. AD DRESSER Impression: 1: Mild glenohumeral joint osteoarthritis.
--- OUTSIDE RECORDS SUMMARY | 2025-03-09 16:07 | XMS_ITS | Encounter Summary ---
Author Organization [facility] Healthcare Address [address] [place] [address] Care Team Providers Care Wic Site Coordinator Name Role Phone Stephanie Magana NP Primary Care Provider [phone] Torey Brunner DO Unavailable [phone] Osvaldo Ramos DO Unavailable [phone] George Martinez MD Unavailable Stanley Almeida MD Unavailable [phone] Del Jackson MD Unavailable [phone] Medhat Pierre MD Unavailable [phone] Encounter Details Date Type Department Care Team (Late st Contact Info) Description 06/16/2024 [facility] Post Discharge Follow up phone call [place] [id number] [place] [address] Marj Wing Social History Tobacco Use Types Packs/Day Years Used Date Smoking Tobacco: Never Smokeless Tobacco: Never [facility] Utilities Answer Date Recorded In the past 12 months has [email or web address], gas, oil, or water Artwardly threatened to shut off services in your home? No 06/09/2024 Social Connection and Isolation Panel Answer Date Recorded In a typical week, how many times do you talk on the phone with family, friends, or neighbors? More than three times a week 06/09/2024 How often do you get togethe r with friends or relatives? More than three times a week 06/09/2024 How often do you attend [facility] or sikh services? Never 06/09/2024 Do you belong to any clubs o r organizations such as taoist groups, unions, fraternal or athletic groups, or [...] any time in the past 12 m [facility], were you homeless or living in a detention (including now)? No 06/09/2024 Personal Safety Answer Date Recorded Have you ever been in or are you currently in a harmful physical or emotional relationship or is someone making you feel afraid or unsafe? 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 DESIGNER Sexual Orientation Straight 05/17/2023 8: 50 AM CIRCUIT DESIGNER documented as of this encounter Plan of Treatment Not on file documented as of this encounter Visit Diagnoses Not on filedocumented in this encounter Care Teams Wic Site Coordinator Relationship Specialty Start Date End Date Stephanie Magana NP [address] [place], [place] [id number] PCP - General Family Medicine 04/03/24 Torey Brunner DO [address] [place] [address] [address] [facility] [address] [place], [place] [address] Referring Physician Internal Medicine 05/09/24 07/04/24 Osvaldo Ramos DO [address] [place] [address] MEDICAL ONCOLOGY, [address] [address] Medical Oncologist/Adhesive Primer Hematology and Oncology 06/20/24 George Martinez MD [address] [place] [address] MEDICAL ONCOLOGY, [address] [id number] Surgeon Thoracic Surgery 07/05/24 Stanley Almeida MD [address] [place] [address] [address] [facility] [address] [place], [place] [phone] Consulting Physician Urology 07/05/24 Del Jackson MD [address] [place] [address] [address] [facility] [address] [place] [address] Referring Physician Nephrology 07/05/24 Medhat Pierre MD [address] [place] [address] [address] [place] [address] Referring Physician Family Medicine 12/18/24 documented as of this encounter
--- OUTSIDE RECORDS SUMMARY | 2025-03-09 16:07 | XMS_ITS | Data Portability ---
Author Organization JENNIFER Arnold [facility] (In patient) Address [address] [place] [address] Care Team Providers Care Nurse Paralegal Name Role Phone SILVIO PERES Primary Care Provider [phone] SILVIO PERES Referring Provider JACQUELINE CAMPBELL Primary Care Provider Assessment Encounter Date Assessment Date Assessment LastModified by Organization Details LastModified Time 01/22/2020 01/22/2020 PROGRESS NOTE Visit #[id number] Authorization Dates: 12/02/19 to 03/02/20 S: Pt. still has some mild pain with certain activities such as using tools with his right hand. O: P t. 15 weeks post-op A1 morgan releases right thumb, index, and middle finger and excision of pisiform. A : Right wrist and finger AROM is WNL. Edema decreased. 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 Functionally he is improved on the Upper Extremity Functional Index. Goals met to satisfactory level. P : appt. 01/29/20. Anticipate d/c to indep. HEP. [email or web address] Not available 01/22/2020 18:05:21 01/29/2020 01/29/2020 64-year-old male 4 months status post right thumb, index, middle finger A1 morgan release as well as excision of pisiform bone for arthritis. He has improved motion after working with hand therapy to improve range of motion, scar tissue management, other modalities to treat his symptoms. he is doing very well from my perspective. He will follow up on an as-needed basis. I told him if he continues to have any soreness in this region and he can call to make an appointment for a cortisone injection. Not available 01/29/2020 15:29:30 06/14/2020 06/14/2020 Assessment: Internal derangement medial compartment right knee Plan: I have explained to him today that he is at increased risk from degenerative tear of the medial meniscus secondary to diffuse chondrocalcinosis present on plain films. Exam is consistent with medial meniscal tear as well. We will obtain an MRI scan of the right knee for evaluation of the medial compartment. Patient could very well require surgical remedy. He'll follow-up one such completed and results available for review. Not available 06/16/2020 10:47:37 06/23/2020 06/23/2020 assessment: Medi al meniscal tear of the right knee with mild extrusion Plan: Discussed treatment options to include observation, injection and definitive arthroscopy. The patient states that this right knee has been arthroscoped previously when he was in the service. He also states that he developed stiffness in the knee that required additional surgery to help regain his motion. He requested injection today and wishes to hold off on arthroscopy for now. Injection then performed as dictated tolerated well. Postinjection instructions given. Patient follow-up after 6 weeks p.r.n. Not available 06/23/2020 18:05:51 03/07/2021 03/07/2021 Assessment: Rece nt inflammation right knee medial meniscal tear, symptoms now resolved Plan: Patient states that he is leaving town on Sunday for approximately 10 days or so and is concerned about his knee flaring up. For this reason we will prescribe a Medrol Dosepak for him to take as needed. He is encouraged to avoid squats, stooping, kneeling, etc. He will otherwise follow-up as needed. Not available 03/07/2021 17:55:28 Plan of Treatment Reminders Order Date Submit Date Provider Last Modified By Organization Details Last Modified Time Details Appointments None recorded. Lab None recorded. Referral None recorded. Procedures None recorded. Surgeries None recorded. Imaging XR, knee, 3 view 2020 021 In-House Test, For Internal Use Only, Do Not Delete/merge, [id number] 15:08:07 MRI, knee, w/o contrast - MRI RT KNEE 2020 021 [facility] ([facility]), [address] [facility] [place], [address], 17:19:33 Medication Orders Medrol (Mo) 4 mg tablets in a dose pack 2020 021 Ltac, Located Within [facility] [id number], [address] [place], [address], 17:44:54 Patient TargetsNo targets recorded. Patient Instructions Encounter Date Encounter Id Patient Instructions Last Modified By Organization Details Last Modified Time 01/29/2020 [id number] trigger finger: care instructions [email or web address] Not available 01/29/2020 15:29:31 arthritis: care instructions [email or web address] Not available 01/29/2020 15:29:31 06/14/2020 [id number] This encounter was documented with the use of voice recognition software and may contain errors. [email or web address] Not available 06/14/2020 16:31:10 06/23/2020 [id number] This encounter was documented with the use of voice recognition software and may contain errors. [email or web address] Not available 06/23/2020 14:28:11 03/07/2021 [id number] This encounter was documented with the use of voice recognition software and may contain errors. [email or web address] Not available 03/07/2021 16:38:29 Reason for Referral None Reported. Results Created Date Observation Date Name Description Value Unit Range Abnormal Flag Note LastModifiedBy Organization Detail LastModifiedTime 06/15/19 21 XR, knee, 3 view No observ ation record ed. In-House Test For Internal Use Only, Do Not Delete/merge, [id number] 06/16/2020 10:48:01 06/19/19 21 06/17/2020 MRI, knee, w/o contr ast No observ ation record ed. [email or web address] [facility]) [address] [facility] [place], [address], 06/22/2020 09:16:04 Result Notes None recorded. Problems Name Problem SNOMED Code Status Onset Date Resolution Date Notes Provider Name and Address Organization Details Recorded Time Neuritis Active Yesi Forreston null, [place] - [facility] 0 13:14:03 Low back pain 372748851 Active Yesi Sosa null, [place] - [facility] 0 13:14:03 High risk drug monitoring status 953907696 Active Yesi Forreston null, [place] [facility] 0 13:14:03 Idiopathic osteoarthr itis 023967706 Active Yesi Forreston null, [place] [facility] 0 13:14:03 Long-term current use of drug therapy 852606260 Active Yesi Sosa null, [place] [facility] 0 13:14:03 Pain in limb 98528408 Active Yesi Sosa null, [place] [facility] 0 13:14:03 Ganglion cyst of tendon sheath 29533201 Active Yesi Sosa null, [place] [facility] 0 13:14:03 Synovitis/ tenosynovi tis - wrist 956873963 Active Yesi Sosa null, [place] [facility] 0 13:14:03 Joint derangemen t 765328047 Active Yesi Forreston null, [place] [facility] 0 13:14:03 Acquired trigger finger 1352699 Active 2019 Yesi Sosa null, [place] [facility] 0 13:14:42 Arthritis of wrist 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 Procedures Surgical History Date Name Laterality Status Provider Name and Address Organization Details Recorded Time 06/24/19 21 FS Injection - [place] [address] [place] [address], [phone], [place] [facility] 06/23/2020 18:04:46 01/22/20 31790: Ultrasound (1:1) completed Mireya Cutler OTR/L, T [address] [place] [address], [address], [place] [facility] 01/22/2020 09:19:12 01/22/20 11271: Therapeutic Exercise (1:1) completed Mireya Cutler OTR/L, T [address] [place] [address], [address], [place] [facility] 01/22/2020 09:19:12 01/22/20 16700: Therapeutic Activities - Direct 1:1 completed Mireya Cutler OTR/L, T [address] [place] [address], [address], [place] [facility] 01/22/2020 09:19:12 01/16/20 14830: Ultrasound (1:1) completed Mireya Cutler OTR/L, T [address] [place] [address], [address], [place] [facility] 01/16/2020 15:39:35 01/16/20 21575: Therapeutic Exercise (1:1) completed Mireya Cutler OTR/L, [address], [address], [place] [facility] 01/16/2020 15:39:35 01/16/20 88961: Therapeutic Activities - Direct 1:1 completed Mireya Cutler OTR/L, T [address] [place] [address], [address], [place] [facility] 01/16/2020 15:39:35 01/01/20 61779: Moist Heat completed Mireya Cutler, OTR/L, [address], [address], [place] [facility] 01/01/2020 15:21:55 01/01/20 70572: Ultrasound (1:1) completed Mireya Cutler OTR/L, [address], [address], [place] [facility] 01/01/2020 15:21:55 01/01/20 44832: Therapeutic Exercise (1:1) completed Mireya Solizisidra OTR/L, [address], [address], [place] [facility] 01/01/2020 15:21:55 01/01/20 71924: Therapeutic Activities - Direct 1:1 completed Mireya Solizisidra OTR/L, [address], [address], [place] [facility] 01/01/2020 15:21:55 12/25/19 56644: Moist Heat completed Mireya Solizisidra OTR/L, [address], [address], [place] [facility] 12/25/2019 15:28:53 12/25/19 92472: Ultrasound (1:1) completed Mireya Solizisidra OTR/L, [address], [address], [place] [facility] 12/25/2019 15:28:53 12/25/19 63810: Therapeutic Exercise (1:1) completed Mireya Solizisidra OTR/L, [address], [address], [place] [facility] 12/25/2019 15:28:53 12/25/19 62236: Therapeutic Activities - Direct 1:1 completed Mireya Solizisidra OTR/L, [address], [address], [place] [facility] 12/25/2019 15:28:53 12/18/19 65570: Moist Heat completed Mireya Solizisidra OTR/L, [address], [address], [place] [facility] 12/18/2019 17:48:58 12/18/19 48960: Ultrasound (1:1) completed Mireya Cutler OTR/L, [address], [address], [place] [facility] 12/18/2019 13:46:16 12/18/19 20 43188: Therapeutic Exercise (1:1) completed Mireya Cutler OTR/L, [address], [address], [place] [facility] 12/18/2019 13:46:16 12/18/19 20 76898: Therapeutic Activities - Direct 1:1 completed Mireya Cutler OTR/L, [address], [address], [place] [facility] 12/18/2019 13:46:16 12/16/19 20 93628: Ultrasound (1:1) completed Mireya Cutler OTR/L, [address], [address], [place] [facility] 12/16/2019 15:42:50 12/16/19 73336: Therapeutic Exercise (1:1) completed Mireya Cutler OTR/L, [address], [address], [place] [facility] 12/16/2019 17:19:37 12/16/19 70239: Therapeutic Activities - Direct 1:1 completed Mireya Cutler OTR/L, [address], [address], [place] [facility] 12/16/2019 17:36:56 12/11/19 20 76700: Ultrasound (1:1) completed Mireya Cutler OTR/L, [address], [address], [place] [facility] 12/11/2019 16:11:14 12/11/19 20 47434: Therapeutic Exercise (1:1) completed Mireya Cutler OTR/L, [address], [address], [place] [facility] 12/11/2019 16:11:14 12/09/19 20 79101: Ultrasound (1:1) completed Mireya Cutler OTR/L, [address], [address], [place] - [facility] 12/09/2019 12:56:23 12/09/19 20 63869: Therapeutic Exercise (1:1) completed Mireya Cutler OTR/L, [address], [address], [place] - [facility] 12/09/2019 13:34:32 12/04/19 20 32291: Iontophoresis completed Mireya Cutler OTR/L, [address], [address], [place] [facility] 12/04/2019 11:50:13 12/04/19 20 99273: Therapeutic Exercise (1:1) completed Mireya Cutler OTR/Cinthya, [address], [address], [place] [facility] 12/04/2019 11:49:55 12/02/19 20 01326: Therapeutic Exercise (1:1) completed Mireya Cutler OTR/L, [address], [address], [place] [facility] 12/02/2019 17:56:14 12/02/19 20 OT Evaluation completed Mireya Cutler OTR/Cinthya, [address], [address], [place] - [facility] 12/02/2019 17:56:02 09/30/19 20 release of trigger finger completed Danny Ashu [place] - [facility] 01/28/2020 15:34:21 09/30/19 20 wrist excision completed Yesi Swan [place] - [facility] 10/15/2019 09:50:34 09/18/19 18 FS Injection - Shoulder completed Canelo Mendoza Jr, MD [address] [place] [address], [address], [place] [facility] 09/18/2017 12:43:18 08/10/19 18 51582: Therapeutic Exercise (1:1) completed Mason Nath OTR/L, [address], [address], [place] [facility] 08/09/2017 15:53:29 08/01/19 18 73461: Therapeutic Exercise (1:1) completed Mason Nath OTR/L, [address], [address], [place] [facility] 07/31/2017 16:26:13 07/25/19 18 70791: ADL/Self Care Management completed Mason Nath OTR/L, [address], [address], [facility] - [facility] 07/24/2017 17:10:39 07/25/19 18 OT Evaluation completed Mason Nath OTR/L, [address], [address], [facility] - [facility] 07/24/2017 17:10:33 05/07/19 18 FS Injection - Shoulder completed Canelo Mendoza Jr, MD [address] [place] [address], [address], [facility] - [facility] 05/07/2017 13:54:37 HAND SURGERY [facility] [place] [facility] 09/23/2019 12:46:45 FOOT SURGERY completed [facility] [place] [facility] 09/23/2019 12:47:07 excision of right kidney completed [facility] [place] [facility] 09/23/2019 12:48:03 TONSILLECTOMY completed Danny [place] - [facility] 01/06/2013 13:31:25 KNEE SURGERY completed [facility]vall [place] [facility] 09/23/2019 12:46:18 SHOULDER SURGERY completed Yelena Duvall [place] - [facility] 09/23/2019 12:46:34 Imaging Results None recorded. Procedure Notes None recorded. Medical Equipment None Reported. Allergies No known drug allergies Medications Name Sig Start Date Stop Date Status Note LastModified by Organization Details LastModified Time losartan 50 mg tablet active Not Available Not Available No t Available cyclobenzap rine 10 mg tablet active Not Available Not Available Not Available amoxicillin 500 mg capsule 01/28 completed Not Available Not Available Not Available prednisone 10 mg tablet 03/07 completed Not Available Not Available Not Available ketoconazol e 2 % shampoo active Not Available Not Available Not Available tizanidine 4 mg tablet 09/22 completed prn Not Available Not Available Not Available ranitidine 300 mg tablet active Not Available Not Available Not Available hydrocodone 5 mg-acetamin ophen 325 mg tablet active Not Available Not Available No t Available famotidine 40 mg tablet active Not Available Not Available Not Available Nexium 40 mg capsule,del ayed release active Not Available Not Available Not Available allopurinol 100 mg tablet 1 {tab} by oral route. active Not Available Not Available No t Available valacyclovi r 500 mg tablet active Not Available Not Available Not Available ciprofloxac in 500 mg tablet active Not Available Not Available Not Available hydrocodone 10 mg-acetamin ophen 325 mg tablet active Not Available Not Available No t Available meclizine 25 mg tablet 03/07 completed Not Available Not Available Not Available hydrocodone 7.5 mg-acetamin ophen 325 mg tablet take 1-2 pills every 4-6 hrs as needed for pain 03/07 completed Not Available Not Available Not Available pantoprazol e 40 mg tablet,blanquita yed release Take 1 {tab} by oral route. active Not Available Not Available No t Available lansoprazol e 30 mg capsule,del ayed release 09/17 completed Not Available Not Available Not Available clobetasol 0.05 % topical ointment active Not Available Not Available Not Available triamcinolo ne acetonide 0.1 % lotion 03/07 completed Not Available Not Available Not Available fluocinonid e 0.05 % topical solution active Not Available Not Available Not Available methylpredn isolone 4 mg tablets in a dose pack Take 1 dose pk by oral route. active Not Available Not Available No t Available lisinopril 2.5 mg tablet 05/07 completed Not Available Not Available Not Available finasteride 5 mg tablet 1 {tab} by oral route. active Not Available Not Available No t Available olmesartan 5 mg tablet active Not Available Not Available Not Available olmesartan 20 mg tablet Take 1 {tab} by oral route. 06/23 completed Not Available Not Available Not Available metaxalone 800 mg tablet active Not Available Not Available Not Available alfuzosin ER 10 mg tablet,exte nded release 24 hr 1 {tab} by oral route. active Not Available Not Available No t Available duloxetine 60 mg capsule,del ayed release 1 {cap} by oral route. active Not Available Not Available No t Available Cymbalta 30 mg capsule,del ayed release TAKE 2 CAPSULES (60 MG) BY ORAL ROUTE ONCE DAILY active Not Available Not Available No t Available solifenacin 10 mg tablet active Not Available Not Available Not Available aspirin 09/22 completed Not Available Not Available Not Available Vitamin D3 09/22 completed Not Available Not Available Not Available multivitami n active Not Available Not Available Not Available Uroxatral active Not Available Not Ursula ilable Not Available cholecalcif farhana (vitamin D3) 25 mcg (1,000 unit) tablet 1 {tab} by oral route. active Not Available Not Available No t Available Voltaren 1 % topical gel active Not Available Not Available Not Available Suprep Bowel Prep Kit 17.5 gram-3.13 gram-1.6 gram oral solution 08/29 completed Not Available Not Available Not Available Nucynta ER 50 mg tablet,exte nded release active Not Available Not Available Not Available Myrbetriq 50 mg tablet,exte nded release 1 {tab} by oral route. active Not Available Not Available No t Available Zohydro ER 10 mg capsule,ext ended release active Not Available Not Available Not Available Fluzone Quad (PF) 60 mcg(15 mcgx4)/0.5 mL intramuscul ar syringe 09/17 completed Not Available Not Available Not Available Fluzone High-Dose (PF) 180 mcg/0.5 mL intramuscul ar syringe active Not Available Not Available N ot Available Fluzone High-Dose Quad (PF) 240 mcg/0.7 mL IM syringe active Not Available Not Available N ot Available Vitals Date Recorded Body height Body mass index (BMI) Body weight Provider Name and Address Organization Details Last Updated DateTime 06/14/2020 177.8 cm 32.3 kg/m2 396766.28 g Deyanira Crane [place] - [facility] 06/14/2020 16:34:43 Date Recorded Body height Body mass index (BMI) Body weight Provider Name and Address Organization Details Last Updated DateTime 06/23/2020 177.8 cm 32.3 kg/m2 827198.28 g Ryanne Guthrie [place] - [facility] 06/23/2020 14:28:15 Date Recorded Body mass index (BMI) Body weight Provider Name and Address Organization Details Last Updated DateTime 01/29/2020 32.9 kg/m2 647795.65 g Aide Buchanan [place] [facility] 01/29/2020 15:21:52 Date Recorded Body height Provider Name an d Address Organization Details Last Updated DateTime 01/29/2020 177.8 cm Danny Ashu [place] - [facility] 1 03/29/2019 15:33:58 Date Recorded Body height Body mass index (BMI) Body weight Provider Name and Address Organization Details Last Updated DateTime 03/07/2021 177.8 cm 32.3 kg/m2 020562.28 g Ryanne Guthrie [place] - [facility] 03/07/2021 16:38:36 Social History Question Answer Notes LastModified by Organizat ion Details LastModified Time Tobacco Smoking Status Never Smoker Danny montes [place] - [facility] 01/06/2013 13:31:25 Auto Related Injury? No Information not available 03/07/2021 How Much Tobacco Do You Chew? None Information not available 09/15/2019 Who Is Your Employer? [email or web address] Information not available 01/29/2020 Which Of Your Hands Is Dominant? Right Information not available 01/06/2013 Currently ? No Information not available 09/15/2019 Marital Status Informatio n not available 03/07/2021 What Was The Date Of Your Most Recent Tobacco Screening? 09/23/2019 Information not available 03/07/2021 If Injured, Is Litigation Ongoing? No Information not available 03/07/2021 How Much Tobacco Do You Smoke? No Information not available 09/15/2019 Work Related Injury? No Information not available 03/07/2021 Sex: Unknown Functional Status Question Answer Note LastModified by Organizat ion Details LastModified Time What is your level of alcohol consumption? Occasional Information not available 01/06/2013 Do you or have you ever used smokeless tobacco? Never used smokeless tobacco Information not available 03/07/2021 Are you currently employed? Yes Information not available 01/06/2013 What is your occupation? [employer] Information not available 09/15/2019 Do you or have you ever used e-cigarettes or vape? Never used electronic cigarettes Information not available 03/07/2021 What is your exercise level? Occasional Information not available 01/06/2013 Mental Status None recorded. Family History Relationship Description Onset Age of this Age Resolved Age Notes LastModified by Organization Details LastModified Time Mother Diabetes mellitus [email or web address] Not available 2014 16:53:01 Father Heart disease [email or web address] Not available 2014 16:53:01 Medical History Condition Response BLEEDING PROBLEMS N STROKE N GI BLEED N DEFIBRILLATOR N DIABETES N COPD N RHEUMATOID ARTHRITIS N MIGRAINE HEADACHES N MALIGNANT HYPERTHERMIA N ASTHMA N SEIZURES N GOUT N THYROID DISEASE N ULCERS N ANEMIA N PACEMAKER N KIDNEY DISEASE Y AIDS/HIV N LIVER DISEASE N DIALYSIS N BLOOD CLOTTING DISORDER N HYPERTENSION Y HEPATITIS N DEPRESSION N LATEX ALLERGY N GERD Y FIBROMYALGIA N OSTEOPOROSIS N HEART DISEASE N BLOOD THINNERS N CANCER Y OSTEOARTHRITIS Y DVT/PHLEBITIS N Immunizations Vaccine Type Date Status Note Provider Nam e and Address Organization Details Recorded Time Influenza, split virus, trivalent, preservative 9 completed JENNIFER French - [facility] 09/15/2019 13:14:15 Past Encounters Encounter ID Performer Location Encounter Start Date Encounter Closed Date Diagnosis/Indication Diagnosis SNOMED-CT Code Diagnosis ICD10 Code Diagnosis IMO Codes Diagnosis Note [id number] Vamsi Parikh MD [facility] [address] [place] [address] [place] [id number] 01/06/2013 12:46:16 01/06/2013 15:33:27 Pain in limb 89535153 Ganglion c yst of tendon sheath 10837900 Synovitis/ tenosynovit is - wrist 893919981 [id number] Vamsi Parikh MD [facility] [address] [place] [address] [place] [address] 02/20/2013 14:10:38 02/20/2013 15:39:58 Ganglion cyst of tendon sheath 64549684 Synovitis/ tenosynovit is - wrist 661695273 [id number] Vamsi Parikh MD [facility] [address] [facility],[place] [address] 03/31/2013 14:42:55 03/31/2013 17:42:42 Synovitis/tenosynovit is - wrist 389261779 Ganglion c yst of tendon sheath 81316652 Pain in limb 42482736 Joint derangement 540508158 [id number] Canelo Mendoza Jr, MD [facility] [address] [place] [id number] 04/08/2014 16:27:12 04/08/2014 17:09:57 Neuritis 11101415 [id number] Canelo Mendoza Jr, MD [facility] [address] [place] [id number] 10/21/2014 15:30:19 10/21/2014 16:18:20 Low back pain 353678550 [id number] Canelo Mendoza Jr, MD [facility] [address] [place] [id number] 11/02/2014 16:19:15 11/02/2014 17:09:54 Low back pain 965980526 [id number] Canelo Mendoza Jr, MD [facility] [address] [place] [id number] 05/07/2017 10:59:01 05/07/2017 11:55:41 Pain of shoulder region 53338520 M25.511 Impingemen t syndrome of shoulder region 608896674 M75.41 [id number] Canelo Mendoza Jr, MD [facility] [address] [place] [address] 07/18/2017 15:24:27 07/18/2017 16:14:38 Pain of shoulder region 77536281 M25.511 Impingemen t syndrome of shoulder region 512808368 M75.41 [id number] Mason Nath OTR/L, [facility] (PT) [address] [place] [id number] 07/24/2017 15:23:40 07/24/2017 17:11:54 Shoulder joint pain 205151536 M25.511 Muscle weakness 59910442 M62.81 [id number] Mason Nath OTR/L, [facility] (PT) [address] [place] [id number] 07/31/2017 15:53:37 07/31/2017 16:26:49 Shoulder joint pain 518661961 M25.511 Muscle weakness 73129865 M62.81 [id number] Mason Nath OTR/L, [facility] (PT) [address] [place] [id number] 08/09/2017 15:11:32 08/09/2017 15:55:31 Shoulder joint pain 846846270 M25.511 Muscle weakness 35437954 M62.81 [id number] Canelo Mendoza Jr, MD [facility] [address] [place] [id number] 08/29/2017 15:21:00 08/29/2017 16:07:59 Pain of shoulder region 96703567 M25.511 Impingemen t syndrome of shoulder region 841029610 M75.41 [id number] Canelo Mendoza Jr, MD [facility] [address] [place] [address] 09/17/2017 16:16:26 09/17/2017 16:39:16 Pain of shoulder region 40219387 M25.511 Metatarsalgia 10927522 M 77.40 Impingemen t syndrome of shoulder region 353559278 M75.41 Biceps tendinitis 991867 007 M75.21 [id number] Vamsi Parikh MD [facility] [address] [place] [address] [place] [address] 09/15/2019 12:48:42 09/17/2019 15:04:32 Acquired trigger finger 6881170 M65.321 M65.331 M65.341 M65.351 M65.311 Snapping t humb syndrome 60087090 M65.311 Arthritis of wrist 07880 10379 109 M13.808 [id number] Vamsi Parikh MD [facility] [address] [place] [address] [place] [address] 4 09/23/2019 12:25:07 09/23/2019 13:26:37 Pre-surgery evaluation [id number] Z01.818 Essential hypertension 14699668 I10 [id number] Vamsi Parikh MD [facility] [address] [place] [address] [place] [address] 4 10/15/2019 09:40:59 10/15/2019 14:20:56 Acquired trigger finger 0178524 M65.321 M65.331 Snapping t humb syndrome 13413571 M65.311 Arthritis of wrist 09626 16015 109 M13.379 [id number] Wali Alcala MD [facility] [address] [place], [place] [address] [address] 4 12/01/2019 13:52:28 12/01/2019 14:29:34 Acquired trigger finger 4007968 M65.311 M65.321 M65.331 Arthritis of wrist 89302 37888 109 M13.828 [id number] Mireya Cutler OTR/L, [facility] (OT) [address] [place], [place] [address] [address] 4 12/02/2019 16:38:06 12/02/2019 17:57:39 Pain in finger of right hand 3757626816 37469 M79.644 Hand joint stiff 9798976 09 M25.641 Weakness o f right hand 3846730275 6271373 R29.285 [id number] Mireya Cutler OTR/L, CHT Rehab (OT) [address] [place], [place] [address] [address] 4 12/04/2019 11:06:07 12/04/2019 11:53:27 Pain in finger of right hand 3906102662 03650 M79.644 Hand joint stiff 5342918 09 M25.641 Weakness o f right hand 0443508303 9844217 R29.256 [id number] Mireya Cutler OTR/L, [facility] Re[facility] (OT) [address] [place], [place] [address] [address] 4 12/09/2019 12:09:43 12/09/2019 13:36:03 Pain in finger of right hand 5165686949 91233 M79.644 Hand joint stiff 9029198 09 M25.641 Weakness o f right hand 5724711103 3623117 R29.942 [id number] Mireya Cutler OTR/L, C[facility] Rehab (OT) [address] [place], [place] [address] [address] 4 12/11/2019 15:41:14 12/11/2019 16:40:53 Pain in finger of right hand 6118154089 10721 M79.644 Hand joint stiff 9913725 09 M25.641 Weakness o f right hand 3906780684 0740539 R29.700 [id number] Mireya Cutler OTR/L, CHT Rehab (OT) [address] [place], [place] [address] [address] 4 12/16/2019 15:43:13 12/16/2019 17:37:23 Pain in finger of right hand 0426465149 06324 M79.644 Hand joint stiff 2502246 09 M25.641 Weakness o f right hand 3013451976 7054026 R29.278 [id number] Mireya Cutler OTR/L, CHT Rehab (OT) [address] [place] [address] [facility] [place] [address] 12/18/2019 17:02:41 12/18/2019 17:49:55 Pain in finger of right hand 9404771018 82247 M79.644 Hand joint stiff 9787991 09 M25.641 Weakness o f right hand 4479882505 1141666 R29.018 [id number] Mireya Cutler OTR/L, CHT Rehab (OT) [address] [place] [address] [facility] [place] [address] 4 12/25/2019 17:12:02 12/25/2019 18:00:22 Pain in finger of right hand 8848378818 71745 M79.644 Hand joint stiff 0907143 09 M25.641 Weakness o f right hand 7552800871 6754725 R29.458 [id number] Mireya Cutler OTR/L, CHT Rehab (OT) [address] [place] [address] [facility] [place] [address] 01/01/2020 16:24:20 01/01/2020 17:22:18 Pain in finger of right hand 0875858658 59263 M79.644 Hand joint stiff 4703124 09 M25.641 Weakness o f right hand 1046963790 7604721 R29.088 [id number] Mireya Tsekas, OTR/L, C[facility] Re[facility] (OT) [address] [place] [address] [place] [address] 4 01/16/2020 15:35:36 01/16/2020 16:20:14 Pain in finger of right hand 3958447926 91446 M79.644 Hand joint stiff 3256136 09 M25.641 Weakness o f right hand 2305742018 2277000 R29.460 [id number] Mireya Cutler OTR/L, CHT Rehab (OT) [address] [place] [address] [place] [address] 4 01/22/2020 16:11:43 01/22/2020 18:06:32 Pain in finger of right hand 3217704474 40100 M79.644 Hand joint stiff 1581889 09 M25.641 Weakness o f right hand 3763873188 1568676 R29.947 [id number] Wali Alcala MD [facility] [address] [place] [address] [place] [address] 4 01/29/2020 15:20:15 01/29/2020 15:31:01 Acquired trigger finger 9708472 M65.311 M65.321 M65.331 Arthritis of wrist 18090 90792 109 M13.184 [id number] Canelo Mendoza Jr, [facility] [address] [place] [address] [place] [address] 4 06/14/2020 15:58:54 06/14/2020 16:58:27 Pain in right knee 4114416266 07737 M25.561 Internal d erangement of right knee 5072555795 05350 M23.91 [id number] Canelo Mendoza Jr, [facility] [address] [place] [address] 4 06/23/2020 14:08:38 06/23/2020 14:51:19 Tear of medial meniscus of knee 239971722 S83.241D [id number] Canelo Mendoza Jr, [facility] [address] [place] [address] [place] [address] 4 03/07/2021 15:42:41 03/07/2021 16:54:16 Tear of medial meniscus of knee 440957714 S83.241D Health Concerns Section Related Observation LastModified by Organization Detai ls LastModified Time None Recorded Concern Status LastModified by Organization Details LastModified Time None Recorded Advance Directives Directive None Recorded Payers Insurance Date Sequence Insurance Name Policy Number Policy Davis Covered Member ID Davis Member ID Guarantor Name 03/01/2021 2 EAST - [employer] - SELECT ( - PPO) [place] [id number] [place] 03/01/2021 1 [employer] (POS) [place] [id number] [place] Foster 03/01/2021 2 SOUTH - STANDARD () [place] Foster [id number] [place] 03/01/2021 1 [place] [facility] (PPO) [id number] 1 [place] Foster [id number] 2 [place] Foster 03/08/2021 1 [place] Foster [id number] [place] Foster 03/21/2021 2 FOR LIFE ( - MEDICARE SUPPLEMENT) West Foster [id number] [place] Foster Notes Date Note Type Note Provider Name and Address Organization Details Recorded Time 01/29/2020 text/html 64-year-old male who is here for evaluation status post right thumb, index and middle finger A1 morgan release as well as excision of the pisiform bone on September 30, 2019. He states that he is doing overall well especially in regards to his wrist surgery. He does have some continued stiffness and tenderness along the A1 pulleys of his hand were the incisions were made. he is now able to make a complete fist. He does have some soreness however it is much better than his last visit. he has a therapy appointment this afternoon but thinks he may not need it. Wali Alcala MD [address] [place], [address], [place] [facility] 01/29/2020 15:29:45 06/14/2020 text/html ROS as noted in the HPI Patient to see me today with chief complaint right knee pain and discomfort. He states this is been a chronic issue over the last several years but is definitely getting worse. He localizes the discomfort to the inside aspect of the right knee. He states it is worse with walking and with standing. He does not have pain when sleeping and does not have significant problems with swelling. He denies any significant problems with the left knee. Canelo Mendoza Jr, MD [address] [place] [address], [phone], [facility] 06/16/2020 10:48:18 06/23/2020 text/html ROS as noted in the HPI patient returns today post-MRI scan of the right knee. 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 I have reviewed this report only. I have discussed this in detail with the patient today. He continues to be significantly symptomatic as before. Canelo Mendoza Jr, MD [address] [place] [address], [phone], [facility] 06/23/2020 18:06:32 03/07/2021 text/html ROS as noted in the HPI Patient in to see me today with complaints of intermittent right knee pain and discomfort. Patient has a previously diagnosed medial meniscal tear of the right knee. He states that 2 to 3 weeks ago he had severe pain that was really uncomfortable with weightbearing. He states he had difficulty walking on it at that time. Symptoms now almost completely resolved. Patient's updated orthopedic health history dated 03/07/2021 is reviewed in the office today. Canelo Mendoza Jr, MD [address] [place] [address], [phone], [facility] 03/07/2021 17:55:39
--- OUTSIDE RECORDS SUMMARY | 2025-03-09 16:07 | XMS_ITS | Clinical Summary ---
Author Organization [facility] Cayla utieddie Address [address] [place] [address] Phone Care Team Providers Care Grinder Hand Name Role Phone Medhat Pierre MD Primary Care Provider [phone] Allergies No known active allergies Medications No [...] at Not on file Legal Sex Male 2:04 PM MDT Gender Identity Not on file Sexual Orientation [...] 10:22 AM CDT Height 177.8 cm (5' 10) 12/15/2021 10:22 AM CDT Body Mass Index 32.57 12/15/2021 10:22 AM CDT Plan of Treatment Health Maintenance Due Date Last Done Comments Pneumococcal PPSV23/PCV13 65 + Years / Low and Medium Risk (1 of 2 - PCV) 2003 Influenza Vaccine (#1) 2024 Insurance MEDICARE [facility] Care Teams Grinder Hand Relationship Specialty Start Date End Date Medhat Pierre MD PCP - General Family Medicine 11/01/21
--- OUTSIDE RECORDS SUMMARY | 2025-03-09 16:07 | XMS_ITS | Patient Health Record ---
Author Organization [facility] Samantha Address [address] [place] [id number] Care Team Providers Care Hostess Name Role Phone JACQUELINE CAMPBELL MD Primary Care Provider Unavailab Todd Wagoner Unavailable [phone] Randi Dill Unavailable Unavailable Migration, Provider Unavailable Unavailable Allergies No Known Allergies Reason For Referral No Information Medications Medication SIG (Take, Route, Frequency, Duration) Notes Start Date End Date Status Multivitamin - 1 tab(s) orally once a day Active Allopurinol 100 MG 1 tab(s) orally once daily Active Vitamin D ONE BY MOUTH ONCE A DAY *Please review and pick correct strength-formulatio n from [email or web address]an options. If intended option is not shown, discontinue and re-order from Quick Search* Active Cymbalta 60 MG 1 CAP(S) ORALLY ONCE A DAY *Please review and pick correct strength-formulatio n from [employer] options. If intended option is not shown, discontinue and re-order from Quick Search* Active Alfuzosin HCl ER 10 MG 1 tab(s) orally once a day Active Pantoprazole Sodium 40 MG 1 tab(s) orally once a day Active Myrbetriq 50 MG 1 tab(s) orally once a day Active Olmesartan Medoxomil 20 MG 1 tab(s) orally once a day; Duration: 30 day(s) Active Proscar 5 MG 1 tab(s) orally once a day Active VESIcare 10 MG orally once a day Active Social History Tobacco Use: Social History Observation Description Date Details (start date - stop date) Never Smoker NA - NA Alcohol Question Answer Notes Did you have a drink contain ing alcohol in the past year? Yes How often did you have a dri nk containing alcohol in the past year? Monthly or less (1 point) How many drinks did you have on a typical day when you were drinking in the past year? 1 or 2 (0 points) How often did you have six o r more drinks on one occasion in the past year? Never (0 points) Points 1 Interpretation Negative Smoking Question Answer Notes Are you a: nonsmoker Tobacco use other than smoking: Question Answer Notes Are you an other tobacco user? No Problems Problem Type SNOMED Code ICD Code Onset Dates Problem Status W/U Status Risk Notes Problem Pain of right knee region (finding) (887743354092277) Pain in right knee (M25.561) Active confirmed Problem Pain of left knee joint (finding) (651621424918847) Pain in left knee (M25.562) Active confirmed Problem Solitary sacroiliitis (481965174) Sacroiliitis, not elsewhere classified (M46.1) Active confirmed Problem Low back pain (946809707) Low back pain (M54.5) Active confirmed Problem Pain in limb (09912610) Pain in right hand (M79.641) Active confirmed Problem Pain in limb (80430457) Pain in left hand (M79.642) Active confirmed Problem High risk drug monitoring status (576202061) 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) use of opiate analgesic (Z79.891) Active confirmed Problem Lumbar radiculopathy (537373544) Radiculopathy, lumbar region (M54.16) Active confirmed Problem Lumbosacral spondylosis without myelopathy (86166050) Spondylosis without myelopathy or radiculopathy, lumbar region (M47.816) Active confirmed Problem Lumbosacral spondylosis without myelopathy (disorder) (27096317) Spondylosis without myelopathy or radiculopathy, lumbosacral region (M47.817) Active confirmed Encounters Encounter Location Date Provider Diagnosis [facility] [address] [id number] 11/15/2024 Provider Migration Plan Of Treatment No Information Insurance Providers Payer Name Payer Address Payer Phone Subscriber Number Group Number Insured Name Patient Relationship to Insured Coverage Start Date Coverage End Date MEDICARE [address] [address] [place] [address] [id number] MURALI CAMARGO Self - patient is the insured 9 FOR LIFE [address] [place] [address] [id number] MURALI CAMARGO Self - patient is the insured 9 Medical (General) History Medical History History ICD Code Kidney cancer x2 Hypertension Arthritis Surgical History Surgery Date(Month/Year) Right knee meniscus repair 1991 Scar tissue removed right knee 1992 Right kidney removed 11/2017 Left shoulder tendon release 2010 Partial left kidney removed 04/2012 Hospitalization History Reason Date(Month/Year) See surgical history
--- OUTSIDE RECORDS SUMMARY | 2025-03-09 16:08 | XMS_ITS | Patient Health Record ---
Author Organization [facility] Address [address] [facility] [address] [place], [place] [id number] Care Team Providers Care Pyrometer Mechanic Name Role Phone Carroll HOWE, Cm Primary Care Provider Unavailab Greer Rodriguez Unavailable [phone] Stefani HOWE, Lancing Unavailable Unavailabl e Migration, Provider Unavailable Unavailable Allergies Allergen (clinical drug ingredient) Drug/Non Drug Allergy documented on EMR Reaction Allergy Type Onset Date Status angiotensin-converting enzyme inhibitor (FN) ACEI (uncoded) cough Allergy Acti ve Reason For Referral No Information Medications Medication [...] review and pick correct strength-formulatio n from [employer] options. If intended option is not shown, discontinue and re-order from Quick Search* Active Alfuzosin HCl ER 10 MG Tablet Extended Release 24 Hour orally qd Active Cymbalta 60 MG Capsule Delayed Release Particles 1 cap(s) orally once a day Active Protonix 40 MG Tablet Delayed Release 1 tab(s) orally once a day Active VESIcare 10 MG Tablet 1 tab(s) orally once a day Active Vitamin D3 1000 UNIT Capsule 1 cap(s) orally once a day; Duration: 30 day(s) 02/25/2016 Active Multi Vitamin 1 TAB ONCE A DAY *Please review and pick correct strength-formulatio n from [employer] options. 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 B/p still lowish. Asymptomatic . Etiology: s/p partial L nephrectomy and total R nephrectomy Followed by Urology Q6M's Problem Hyperuricemia without signs of inflammatory arthritis and tophaceous disease (044254811) Hyperuricemia without signs of inflammatory arthritis and tophaceous disease (E79.0) Active confirmed WNL on XOI Problem Hematuria (81093753) Hematuria, unspecified (R31.9) Active confirmed Neg today. No gross blood. No urinary sx's. Followed by Urology Problem Overweight (456948491) Overweight (E66.3) Active confirmed BMI>30 Problem Vitamin D deficiency (37226435) Vitamin D deficiency, unspecified (E55.9) Active confirmed Ca/phos stable. On Vitamin D3 Problem Secondary hyperparathyroidism of renal origin (74129391) Secondary hyperparathyroidi sm of renal origin (N25.81) Active confirmed Pending. On Vitamin D3 Problem Chronic kidney disease due to hypertension (667618266352634) Hypertensive chronic kidney disease with stage 1 through stage 4 chronic kidney disease, or unspecified chronic kidney disease (I12.9) Active confirmed Controlled, DBP elevated, ANJANA? Problem Gastro-esophageal reflux disease without esophagitis (613316594) Gastro-esophageal reflux disease without esophagitis (K21.9) Active confirmed on PPI. Previously unable to tolerate without Problem Obesity (917777808) Obesity, unspecified (E66.9) Active confirmed BMI > 30 Problem Cardiac arrhythmia (642043921) Cardiac arrhythmia, unspecified (I49.9) Active confirmed irregular HR on exam, seen by cardio, w/u wnl Problem Absent kidney (279575783) Acquired absence of kidney (Z90.5) Active confirmed s/p partia l L nephrectomy and total R nephrectomy - RCC Problem Chronic kidney disease stage 3B (disorder) (573858834) CKD 3 Stage 3B (N18.32) Active confirmed Problem Chronic kidney disease stage 3A (disorder) (831826648) Chronic kidney disease, stage 3a (N18.31) Active confirmed Stable Encounters Encounter Location Date Provider Diagnosis [facility] [address] [facility] [address] [place], [place] [id number] 11/22/2024 Provider Migration Plan Of Treatment Pending Test Test Name Order Date *Magnesium Level 04/26/2017 (LIS) Urinalysis without Scope 1 (LIS) Urinalysis without Scope 8 (LIS) CBC with Differential 04/26/2017 (LIS) Renal Panel 04/26/2017 (LIS) Vitamin D,25-OH 02/15/2021 (LIS) Vitamin D,25-OH 06/14/2021 (LIS) Urinalysis without Scope 9 Insurance Providers Payer Name Payer Address Payer Phone Subscriber Number Group Number Insured Name Patient Relationship to Insured Coverage Start Date Coverage End Date [facility] Mail Code AG-[id number] [address] [place] [address] [phone] [id number] [place] Foster Self - patient is the insured 9 [employer] [address] [place] [address] [id number] [place] Foster Self - patient is the insured [employer] HMO/POS [address] [address] [place] [address] [phone] [id number] [place] Foster Self - patient is the [...] sholder surgery x 2 - D r eRji and [place] 2010 Status post right nephrectomy (RCC) - Dr Barba in [place] 2006 Status post right knee surgery (scope) 1 991 Status post left thumb surgery 1985 Status post endoscopy (Dr. Warren) 06/05 16 Status post endoscopy ( Dr Warren) 09/05 16
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
--- OUTSIDE RECORDS SUMMARY | 2025-03-09 16:08 | XMS_ITS | Clinical Summary ---
Author Organization [facility] Address [facility] [place] [address] Care Team Providers Care Recorder Of Deeds Name Role Phone Stephanie Magana NP Primary Care Provider [phone] Osvaldo Ramos DO Unavailable [phone] George Martinez MD Unavailable Stanley Almeida MD Unavailable [phone] Del Jackson MD Unavailable [phone] Medhat Pierre MD Unavailable [phone] Allergies No known active allergies Medications alfuzosin ER (UROXATRAL) 10 mg 24 hr tablet Take 1 tablet (10 mg total) by mouth daily after dinner 3 Active cholecalciferol (VITAMIN D-3) 25 mcg (1,000 unit) tablet Take 1 tablet (1,000 Units total) by mouth every morning Active DULoxetine DR (CYMBALTA) 60 mg capsule Take 1 capsule (60 mg total) by mouth nightly 3 Active Jardiance 10 mg tablet Take 1 tablet (10 mg total) by mouth every morning 3 Active famotidine (PEPCID) 40 mg tablet Take 1 tablet (40 mg total) by mouth nightly 3 Active Myrbetriq 50 mg tablet extended release 24 hr Take 1 tablet (50 mg total) by mouth daily after dinner [address] (PROTONIX) 40 mg EC tablet Take 1 tablet (40 mg total) by mouth every morning 3 Active solifenacin (VESIcare) 10 mg tablet Take 1 tablet (10 mg total) by mouth daily after dinner 3 Active multivitamin tablet Take 1 tablet by mouth every morning Active allopurinoL (ZYLOPRIM) 100 mg tablet Take 1 tablet (100 mg total) by mouth daily after dinner Active finasteride (PROSCAR) 5 mg tablet Take 1 tablet (5 mg total) by mouth nightly Active olmesartan (BENICAR) 5 mg tablet Take 1 tablet (5 mg total) by mouth nightly Active gabapentin (NEURONTIN) 300 mg capsule Take 1 capsule (300 mg total) by mouth 3 (three) times a day 90 capsule 1 5 Active lidocaine (ASPERCREME) 4 % adhesive patch,medicated Place 2 patches on the skin daily for 12 hours 5 Active Additional Information Patient not taking.Reported on 09/18/2024 polyethylene glycol (MIRALAX) 17 gram packetIndication s:constipation Take 1 packet (17 g total) by mouth daily 30 packet 5 Active Additional Information Patient not taking.Reported on 09/18/2024 senna-docusate (PERICOLACE) 8.6-50 mg Take 2 tablets by mouth 2 (two) times a day as needed for constipation 60 tablet 5 Active Additional Information Patient not taking.Reported on 09/18/2024 amiodarone (PACERONE) 200 mg tabletIndication s:Prevention of Recurrent Atrial Fibrillation Take 2 tablets (400 mg total) by mouth 2 (two) times a day for 3 days, THEN 2 tablets (400 mg total) daily for 20 days. 52 tablet 5 Active Additional Information Patient not taking.Reported on 09/18/2024 oxyCODONE-acetam inophen (LYNOX) 5-300 mg per tablet Take 1 tablet by mouth every 6 (six) hours as needed for moderate pain (pain scale 5-7) Active ondansetron (ZOFRAN) 4 mg tablet Take 1 tablet (4 mg total) by mouth every 6 (six) hours as needed for nausea or vomiting 30 tablet 2 5 Active Additional Information Patient not taking.Reported on 01/29/2025 aXITinib (INLYTA) 5 mg tabletIndication s:renal cell carcinoma Take 1 tablet (5 mg) by mouth every 12 (twelve) hours Indications: renal cell carcinoma. Take with a full glass of water. 60 tablet 2 Active Additional Information Patient not taking.Reported on 01/29/2025 pembrolizumab (KEYTRUDA IV) Infuse IV every 21 days Active Active Problems Patient Care Coordination No te [...] surgical evaluation. Problem Noted Date Diagnosed Date ANJANA (obstructive sleep apnea) 09/08/2024 Assessment & Plan (11/25/2024 11:38 AM CDT): Patient continue to wear CPAP at an auto titrating range of 7-20 cm water pressure while sleeping. His DME is [employer]. Assessment & Plan (09/08/2024 2:51 PM CDT): The patient was diagnosed with obstructive sleep apnea in [facility] about 5- 6 years ago. He currently has a Cira CPAP unit. I will have him sign a release to get the diagnostic study from [facility]. He will also bring his machine in to have us obtain a download. I will then need to increase his CPAP settings since he is snoring and having apneic episodes under the mask. He will follow up with me in 2 months. 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 Lung nodule Encounters Date Type Department Care Team Description 02/26/2025 1:15 PM MEDICAID BILLING SPECIALIST Infusion [address] [address] Metastatic renal cell carcinoma, unspecified laterality (HCC) (Primary Dx); Malignant neoplasm metastatic to intrathoracic lymph node (HCC); Renal cell carcinoma of right kidney metastatic to other site (HCC) 02/26/2025 12:45 PM MEDICAID BILLING SPECIALIST Lab [facility] at [address] [address] Malignant neoplasm metastatic to intrathoracic lymph node (HCC); Metastatic renal cell carcinoma, unspecified laterality (HCC) 02/26/2025 Orders Only [facility] [address] [place] [phone] Osvaldo Ramos DO 02/15/2025 Orders Only [facility] [address] [place] [phone] Osvaldo Ramos DO 01/29/2025 12:15 PM MEDICAID BILLING SPECIALIST Infusion [address] [address] Renal cell carcinoma of right kidney metastatic to other site (HCC) (Primary Dx); Malignant neoplasm metastatic to intrathoracic lymph node (HCC); Metastatic renal cell carcinoma, unspecified laterality (HCC) 01/29/2025 11:45 AM MEDICAID BILLING SPECIALIST Office Visit [facility] [address] [place] [phone] Osvaldo Ramos, Renal cell carcinoma of both kidneys (HCC) (Primary Dx); Malignant neoplasm metastatic to intrathoracic lymph node (HCC); Metastatic renal cell carcinoma, unspecified laterality (HCC) 01/29/2025 11:15 AM MEDICAID BILLING SPECIALIST Lab [facility] at [address] [address] Malignant neoplasm metastatic to intrathoracic lymph node (HCC); Metastatic renal cell carcinoma, unspecified laterality (HCC) 01/16/2025 Telephone [facility] [address] [place] [phone] Kristi Whitney, ADAM Medication Reaction; Med Management 01/08/2025 Telephone [facility] [address] [place] [phone] Stephania Thomas, SHOP FOREMAN 01/07/2025 Telephone [facility] [address] [place] [phone] Gretchen Wiseman [facility] 01/02/2025 2:00 PM CDT Infusion [facility] at [address] [phone] Renal cell carcinoma of right kidney metastatic to other site (HCC) (Primary Dx); Malignant neoplasm metastatic to intrathoracic lymph node (HCC); Metastatic renal cell carcinoma, unspecified laterality (HCC) 01/02/2025 1:30 PM CDT Lab [facility] at [address] [address] Malignant neoplasm metastatic to intrathoracic lymph node (HCC); Metastatic renal cell carcinoma, unspecified laterality (HCC) 01/02/2025 Telephone [facility] [address] [place] [phone] Ana Romero, ANDRÉS 01/01/2025 Orders Only [facility] [address] [place] [phone] Osvaldo Ramos DO 12/18/2024 11:15 AM CDT Office Visit [facility] [address] [place] [phone] George Martinez MD Lung nodule (Primary Dx) 12/16/2024 Telephone [facility] [address] [facility] [address] [place] [phone] Carson Yadira JORDANBrenton 12/12/2024 10:45 AM CDT Infusion [facility] at [address] [place] [phone] Renal cell carcinoma of right kidney metastatic to other site (HCC) (Primary Dx); Malignant neoplasm metastatic to intrathoracic lymph node (HCC); Metastatic renal cell carcinoma, unspecified laterality (HCC) 12/12/2024 10:15 AM CDT Office Visit [facility] [address] [place] [address] [address] [place] [phone] Osvaldo Ramos DO Renal cell carcinoma of both kidneys (HCC) (Primary Dx); Malignant neoplasm metastatic to intrathoracic lymph node (HCC); Metastatic renal cell carcinoma, unspecified laterality (HCC) 12/12/2024 9:45 AM CDT Lab [address] [address] Malignant neoplasm metastatic to intrathoracic lymph node (HCC); Metastatic renal cell carcinoma, unspecified laterality (HCC) from Last 3 Months Surgical History Surgery Date Site/Laterality Comments PARTIAL NEPHRECTOMY 03/19/2011 - 03/18/2012 Left NEPHRECTOMY 03/19/2007 - 03/18/2008 Right KNEE ARTHROSCOPY Right x2 TRANSFER MUSCLE / TENDON ELB OW / UPPER ARM 03/19/2023 - 04/18/2023 Right x2 02/2024 ELBOW SURGERY 02/17/2024 - 03/18/2024 x2 LASIK COLONOSCOPY BRONCHOSCOPY 04/11/2024 w/biopsy LUNG LOBECTOMY 06/04/2024 Right Medical History Medical History Date Comments Arthritis Hypertension Chronic kidney disease Stage 3b Cancer (HCC) renal cell carci noma bilaterally Sleep apnea uses CPAP divya e Multiple pulmonary nodules bronc h scheuled for 04/11/24 for evaluation Wears glasses Family History Medical History Relation Name Comments No Known Problems Maternal Grandfather Stomach cancer Maternal Grandmother Breast cancer Mother No Known Problems Paternal Grandfather No Known Problems Paternal Grandmother Breast cancer Sister Anesthesia problems Neg Hx Relation Name Status Comments Father Maternal Grandfather Maternal Grandmother Mother Paternal Grandfather Paternal Grandmother Sister Social History Tobacco Use Types Packs/Day Years Used Date Smoking Tobacco: Never Smokeless Tobacco: Never Tobacco Cessation:Counseling Given: Not Answered [facility] Utilities Answer Date Recorded In the [...] often do you attend chur ch or jainism services? Never 06/09/2024 Do you belong to any clubs o r organizations such as worship groups, unions, fraternal or athletic groups, or school groups? No 06/09/2024 How often do you attend meet ings of the clubs or organizations you belong to? Never 06/09/2024 Are you , , di vorced, , never , or living with a partner? 06/09/2024 Overall Financial Resource Strain (CARDIA) Answe r [...] were you homeless or living in a longterm (including now)? No 06/09/2024 AUDIT-C Answer Date Recorded Frequency of Alcohol Consumption Not on file 11/20/2024 Q2: How many drinks containi ng alcohol do you have on a typical day when you are drinking? Patient does not drink Frequency of Binge Drinking Not on file 06/2024 Personal Safety Answer Date Recorded Have you ever been in or are you currently in a harmful physical or emotional relationship or is someone making you feel afraid or unsafe? 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 Not on file Not on file Not on file Last Filed Vital Signs Vital Sign Reading Time Taken Comments Blood Pressure 143/90 02/26/2025 1:20 PM MEDICAID BILLING SPECIALIST Pulse 82 02/26/2025 1:20 PM MEDICAID BILLING SPECIALIST Temperature 36.6 C (97.8 F) 02/26/2025 1:20 PM MEDICAID BILLING SPECIALIST Respiratory Rate 16 02/26/2025 1:20 PM MEDICAID BILLING SPECIALIST Oxygen Saturation 99% 02/26/2025 1:20 PM MEDICAID BILLING SPECIALIST Inhaled Oxygen Concentration - - Weight 97.5 kg (214 lb 15.2 oz) 02/26/2025 1:20 PM MEDICAID BILLING SPECIALIST w/ shoes Height 177.8 cm (5' 10) 11/25/2024 9:46 AM CDT Body Mass Index 30.84 11/25/2024 9:46 AM CDT Plan of Treatment Health Maintenance Due Date Last Done Comments Colon Cancer Screening-Colonoscopy 1955 Depression Screening 1955 Hepatitis C Screening 1953 Hepatitis B Screening 1971 Pneumococcal vaccine 65+ (1 of 2 - PCV) 1972 Zoster Vaccine (1 of 2) 1972 Well Visit 65+ 2018 Influenza Vaccine (#1) 2024 4, 01/19/2022, 12/18/2018, Additional history exists Fall Risk Assessment 06/09/2025 06/09/2024 DTaP/Tdap/Td Vaccine (2 - Td or Tdap) 10/07/2031 10/06/2021 Medical Devices Implanted Type Area Electric Arc Furnace Operator Device Identifier Shelf Expiration Date Model / Serial / Lot [employer] Suture [place] Knotless Fibertak Resorbable [id number] - [id number] Implanted:Qty: 1 on 02/18/2024 by Fredy Flanagan MD at [facility] Right: Elbow [employer] [id number] 10/16/2028 [id number] / / [id number] Procedures Procedure Name Priority Date/Time Associated Diagnosis Comments EGFR STAT 02/26/2025 1:07 PM MEDICAID BILLING SPECIALIST Malignant neoplasm metastatic to intrathoracic lymph node (HCC) Metastatic renal cell carcinoma, unspecified laterality (HCC) DIFFERENTIAL AUTO Routine 02/26/2025 1:0 7 PM MEDICAID BILLING SPECIALIST Malignant neoplasm metastatic to intrathoracic lymph node (HCC) Metastatic renal cell carcinoma, unspecified laterality (HCC) TSH Routine 02/26/2025 1:07 PM MEDICAID BILLING SPECIALIST Malignant neoplasm metastatic to intrathoracic lymph node (HCC) Metastatic renal cell carcinoma, unspecified laterality (HCC) CBC WITH AUTO DIFFERENTIAL Routine 02/26/2025 1:07 PM MEDICAID BILLING SPECIALIST Malignant neoplasm metastatic to intrathoracic lymph node (HCC) Metastatic renal cell carcinoma, unspecified laterality (HCC) COMPREHENSIVE METABOLIC PANEL STAT 02/26/2025 1:07 PM MEDICAID BILLING SPECIALIST Malignant neoplasm metastatic to intrathoracic lymph node (HCC) Metastatic renal cell carcinoma, unspecified laterality (HCC) EGFR STAT 01/29/2025 11:19 AM MEDICAID BILLING SPECIALIST Malignant neoplasm metastatic to intrathoracic lymph node (HCC) Metastatic renal cell carcinoma, unspecified laterality (HCC) DIFFERENTIAL AUTO Routine 01/29/2025 11: 19 AM MEDICAID BILLING SPECIALIST Malignant neoplasm metastatic to intrathoracic lymph node (HCC) Metastatic renal cell carcinoma, unspecified laterality (HCC) CBC WITH AUTO DIFFERENTIAL Routine 01/29/2025 11:19 AM MEDICAID BILLING SPECIALIST Malignant neoplasm metastatic to intrathoracic lymph node (HCC) Metastatic renal cell carcinoma, unspecified laterality (HCC) COMPREHENSIVE METABOLIC PANEL STAT 01/29/2025 11:19 AM MEDICAID BILLING SPECIALIST Malignant neoplasm metastatic to intrathoracic lymph node (HCC) Metastatic renal cell carcinoma, unspecified laterality (HCC) TSH Routine 01/29/2025 11:19 AM MEDICAID BILLING SPECIALIST Malignant neoplasm metastatic to intrathoracic lymph node (HCC) Metastatic renal cell carcinoma, unspecified laterality (HCC) EGFR STAT 01/02/2025 1:21 PM CDT Malignant neoplasm metastatic to intrathoracic lymph node (HCC) Metastatic renal cell carcinoma, unspecified laterality (HCC) DIFFERENTIAL AUTO Routine 01/02/2025 1:2 1 PM CDT Malignant neoplasm metastatic to intrathoracic lymph node (HCC) Metastatic renal cell carcinoma, unspecified laterality (HCC) TSH Routine 01/02/2025 1:21 PM CDT Malignant neoplasm metastatic to intrathoracic lymph node (HCC) Metastatic renal cell carcinoma, unspecified laterality (HCC) CBC WITH AUTO DIFFERENTIAL Routine 01/02/2025 1:21 PM CDT Malignant neoplasm metastatic to intrathoracic lymph node (HCC) Metastatic renal cell carcinoma, unspecified laterality (HCC) COMPREHENSIVE METABOLIC PANEL STAT 01/02/2025 1:21 PM CDT Malignant neoplasm metastatic to intrathoracic lymph node (HCC) Metastatic renal cell carcinoma, unspecified laterality (HCC) EGFR STAT 12/12/2024 9:57 AM CDT Malignant neoplasm metastatic to intrathoracic lymph node (HCC) Metastatic renal cell carcinoma, unspecified laterality (HCC) DIFFERENTIAL AUTO Routine 12/12/2024 9:5 7 AM CDT Malignant neoplasm metastatic to intrathoracic lymph node (HCC) Metastatic renal cell carcinoma, unspecified laterality (HCC) TSH Routine 12/12/2024 9:57 AM CDT Malignant neoplasm metastatic to intrathoracic lymph node (HCC) Metastatic renal cell carcinoma, unspecified laterality (HCC) CBC WITH AUTO DIFFERENTIAL Routine 12/12/2024 9:57 AM CDT Malignant neoplasm metastatic to intrathoracic lymph node (HCC) Metastatic renal cell carcinoma, unspecified laterality (HCC) COMPREHENSIVE METABOLIC PANEL STAT 12/12/2024 9:57 AM CDT Malignant neoplasm metastatic to intrathoracic lymph node (HCC) Metastatic renal cell carcinoma, unspecified laterality (HCC) from Last 3 Months Results * (ABNORMAL) eGFR (02/26/2025 1:07 PM MEDICAID BILLING SPECIALIST) eGFR 49(L) >=60 mL/min/1. 73 m2 Comment: [...] Current interpretive data was last reviewed 2021. Testing performed by: [facility], [address] [place] [address], [place]., [address] Blood 02/26/2025 1:07 PM MEDICAID BILLING SPECIALIST 02/26/2025 1:12 PM MEDICAID BILLING SPECIALIST Osvaldo Ramos DO LAB BLOOD ORDERABLES Final R esult ANNE [address] [facility] Department [place] [address] * Differential, auto (02/26/2025 1:07 PM MEDICAID BILLING SPECIALIST) Neutrophil abs 4.06 1.50 - 6.50 K/cumm Comment:Testing performed by : [address] [address] Imm gran abs 0.03 0.00 - 0.10 K/cumm ANNE Comment:Testing performed by : [address] [address] Lymphocyte abs 1.22 0.80 - 3.30 K/cumm ANNE Comment:Testing performed by : [address] [address] Monocyte abs 0.51 0.20 - 0.80 K/cumm [facility] Comment:Testing performed by : [address] [address] Eosinophil abs 0.26 0.00 - 0.50 K/cumm [facility] Comment:Testing performed by : [address] [address] Basophil abs 0.05 0.00 - 0.10 K/cumm [facility] Comment:Testing performed by : [address] [address] Neutrophil pct 66.3 % [facility] Comment: Interpretive Data Percent cell count reference ranges are not reported, since discordance with absolute values may lead to misinterpretation of CBC data. Current Interpretive Data was last revised on 2017. Testing performed by: [address] [address] Imm gran pct 0.5 % ANNE Comment: Interpretive Data Percent cell count reference ranges are not reported, since discordance with absolute values may lead to misinterpretation of CBC data. Current Interpretive Data was last revised on 2017. Testing performed by: [address] [address] Lymphocyte pct 19.9 % ANNE Comment: Interpretive Data Percent cell count reference ranges are not reported, since discordance with absolute values may lead to misinterpretation of CBC data. Current Interpretive Data was last revised on 2017. Testing performed by: [address] [address] Monocyte pct 8.3 % ANNE Comment: Interpretive Data Percent cell count reference ranges are not reported, since discordance with absolute values may lead to misinterpretation of CBC data. Current Interpretive Data was last revised on 2017. Testing performed by: [address] [address] Eosinophil pct 4.2 % ANNE Comment: Interpretive Data Percent cell count reference ranges are not reported, since discordance with absolute values may lead to misinterpretation of CBC data. Current Interpretive Data was last revised on 2017. Testing performed by: [address] [address] Basophil pct 0.8 % ANNE Comment: Interpretive Data Percent cell count reference ranges are not reported, since discordance with absolute values may lead to misinterpretation of CBC data. Current Interpretive Data was last revised on 2017. Testing performed by: [address] [address] Blood 02/26/2025 1:07 PM MEDICAID BILLING SPECIALIST 02/26/2025 1:12 PM MEDICAID BILLING SPECIALIST us Osvaldo Ramos DO LAB BLOOD ORDERABLES Final R esult [facility] [address] [facility] Department [place] [address] * CBC with auto differential (02/26/2025 1:07 PM MEDICAID BILLING SPECIALIST) WBC 6.13 3.80 - 9.90 K/cumm Comment:Testing performed by : [address] [address] Hgb 15.0 13.0 - 17.5 g/dL ANNE Comment:Testing performed by : [address] [address] Hct 45.2 38.9 - 50.3 % ANNE Comment:Testing performed by : [address], [address] Plt 181 150 - 400 K/cumm ANNE Comment:Testing performed by : [address] [address] MPV 11.1 9.1 - 12.3 fL ANNE Comment:Testing performed by : [address], [address] RBC 5.41 4.30 - 5.80 M/cumm ANNE Comment:Testing performed by : [address] [address] MCV 83.5 81.3 - 96.4 fL ANNE Comment:Testing performed by : [address] [address] MCH 27.7 27.1 - 33.3 pg ANNE Comment:Testing performed by : [address] [address] MCHC 33.2 32.3 - 35.7 g/dL ANNE Comment:Testing performed by : [address], [address] RDW CV 14.6 11.1 - 14.9 % ANNE Comment:Testing performed by : [address], [address] RDW SD 43.8 35.7 - 48.1 fL ANNE Comment:Testing performed by : [address], [address] NRBC abs 0.00 0.00 - 0.01 K/cumm ANNE Comment:Testing performed by : [address] [address] ANC Prelim 4.06 1.50 - 6.50 K/cumm ANNE Comment: Interpretive Data The rapid ANC is a preliminary automated count and may vary from the final ANC (Neut Abs) reported in the WBC differential that follows. Current interpretive data was last revised 2024. Testing performed by: [address], [address] Blood 02/26/2025 1:07 PM MEDICAID BILLING SPECIALIST 02/26/2025 1:12 PM MEDICAID BILLING SPECIALIST Osvaldo Ramos LAB BLOOD ORDERABLES Final R esult Performing Organization Address [facility] de Phone Number ANNE [address] [address] * TSH (02/26/2025 1:07 PM MEDICAID BILLING SPECIALIST) Pathologist [facility] Thyroid Stimulating Hormone 0.70 0.30 - 4.20 mcIUnit/mL Comment:Testing performed by : [address] [address] Blood 02/26/2025 1:07 PM MEDICAID BILLING SPECIALIST 02/26/2025 1:39 PM MEDICAID BILLING SPECIALIST Osvaldo Ramos LAB BLOOD ORDERABLES Final R [facility] Performing Organization Address [facility] de Phone Number [id number] [address] * (ABNORMAL) Comprehensive metabolic panel (02/26/2025 1:07 PM MEDICAID BILLING SPECIALIST) [facility] Sodium 143 135 - 145 mmol/L Comment:Testing performed by : [address] [address] Potassium, pl 4.3 3.3 - 4.9 mmol/L ANNE Comment:Testing performed by : [address] [address] Chloride 109 97 - 110 mmol/L ANNE Comment:Testing performed by : [address] [address] CO2 24 22 - 32 mmol/L ANNE Comment:Testing performed by : [address] [address] Anion gap 10 2 - 15 mmol/L ANNE Comment:Testing performed by : [address] [address] BUN 18 6 - 25 mg/dL ANNE Comment:Testing performed by : [address] [place] [address] Creatinine 1.50(H) 0.80 - 1.30 mg/dL ANNE Comment:Testing performed by : [address] [address] Glucose 100 70 - 199 mg/dL ANNE Comment: Interpretive Data Fasting glucose >/= 126 [...] Current interpretive data was last revised 2022. Testing performed by: [address] [address] Calcium 9.0 8.5 - 10.3 mg/dL ANNE Comment:Testing performed by : [address] [address] Bilirubin, total 0.5 0.1 - 1.2 mg/dL ANNE Comment:Testing performed by : [address] [address] Protein, pl 7.3 6.5 - 8.5 g/dL ANNE Comment:Testing performed by : [address] [address] Albumin 4.3 3.5 - 5.0 g/dL ANNE Comment:Testing performed by : [address] [address] Alk phos 96 40 - 130 Units/L ANNE Comment:Testing performed by : [address] [address] [address] ALT 14 7 - 55 Units/L ANNE Comment:Testing performed by : [address] [address] AST 18 10 - 50 Units/L ANNE Comment:Testing performed by : [address] [address] Blood 02/26/2025 1:07 PM MEDICAID BILLING SPECIALIST 02/26/2025 1:12 PM MEDICAID BILLING SPECIALIST Osvaldo Ramos DO LAB BLOOD ORDERABLES Final R esult Performing Organization Address [facility] Co de Phone Number ANNE [address] [address] * (ABNORMAL) eGFR (01/29/2025 11:19 AM MEDICAID BILLING SPECIALIST) eGFR 49(L) >=60 mL/min/1. 73 m2 Comment: [...] Current interpretive data was last reviewed 2021. Testing performed by: [facility], [address] [place] [address]., [address] Blood 01/29/2025 11:1 9 AM MEDICAID BILLING SPECIALIST 01/29/2025 11:20 AM MEDICAID BILLING SPECIALIST Osvaldo Ramos DO LAB BLOOD ORDERABLES Final R esult Performing Organization Address City/[facility]/ZIP Co de Phone Number ANNE [facility] [place] [address] * Differential, auto (01/29/2025 11:19 AM MEDICAID BILLING SPECIALIST) Neutrophil abs 3.43 1.50 - 6.50 K/cumm Comment:Testing performed by : [facility], [address] [place] [address], [place]., [address] Imm gran abs 0.03 0.00 - 0.10 K/cumm [facility] Comment:Testing performed by : [address], [place]., [address] Lymphocyte abs 0.92 0.80 - 3.30 K/cumm [facility] Comment:Testing performed by : [address], [place]., [address] Monocyte abs 0.32 0.20 - 0.80 K/cumm [facility] Comment:Testing performed by : [address], [place]., [address] Eosinophil abs 0.18 0.00 - 0.50 K/cumm [facility] Comment:Testing performed by : [address], [place]., [address] Basophil abs 0.03 0.00 - 0.10 K/cumm [facility] Comment:Testing performed by : [address] [address] Neutrophil pct 69.9 % [facility] Comment: Interpretive Data Percent cell count reference ranges are not reported, since discordance with absolute values may lead to misinterpretation of CBC data. Current Interpretive Data was last revised on 2017. Testing performed by: [address] [address] Imm gran pct 0.6 % [facility] Comment: Interpretive Data Percent cell count reference ranges are not reported, since discordance with absolute values may lead to misinterpretation of CBC data. Current Interpretive Data was last revised on 2017. Testing performed by: [address] [address] Lymphocyte pct 18.7 % C[facility]ER Comment: Interpretive Data Percent cell count reference ranges are not reported, since discordance with absolute values may lead to misinterpretation of CBC data. Current Interpretive Data was last revised on 2017. Testing performed by: [address] [address] Monocyte pct 6.5 % [facility] Comment: Interpretive Data Percent cell count reference ranges are not reported, since discordance with absolute values may lead to misinterpretation of CBC data. Current Interpretive Data was last revised on 2017. Testing performed by: [address] [address] Eosinophil pct 3.7 % ANNE Comment: Interpretive Data Percent cell count reference ranges are not reported, since discordance with absolute values may lead to misinterpretation of CBC data. Current Interpretive Data was last revised on 2017. Testing performed by: [address] [address] Basophil pct 0.6 % ANNE Comment: Interpretive Data Percent cell count reference ranges are not reported, since discordance with absolute values may lead to misinterpretation of CBC data. Current Interpretive Data was last revised on 2017. Testing performed by: [address] [address] Blood 01/29/2025 11:1 9 AM MEDICAID BILLING SPECIALIST 01/29/2025 11:20 AM MEDICAID BILLING SPECIALIST us Osvaldo Ramos DO LAB BLOOD ORDERABLES Final R esult ANNE [address] [facility] Department [place] [address] * (ABNORMAL) CBC with auto differential (01/29/2025 11:19 AM MEDICAID BILLING SPECIALIST) WBC 4.91 3.80 - 9.90 K/cumm Comment:Testing performed by : [address] [address] Hgb 15.5 13.0 - 17.5 g/dL ANNE Comment:Testing performed by : [address] [address] Hct 47.4 38.9 - 50.3 % ANNE BEDOLLA Comment:Testing performed by : [address] [address] Plt 127(L) 150 - 400 K/cumm ANNE BEDOLLA Comment:Testing performed by : [address] [address] MPV 11.5 9.1 - 12.3 fL ANNE Comment:Testing performed by : [address] [address] RBC 5.57 4.30 - 5.80 M/cumm ANNE Comment:Testing performed by : [address] [address] MCV 85.1 81.3 - 96.4 fL ANNE Comment:Testing performed by : [address] [address] MCH 27.8 27.1 - 33.3 pg ANNE Comment:Testing performed by : [address] [address] MCHC 32.7 32.3 - 35.7 g/dL ANNE Comment:Testing performed by : [address] [address] RDW CV 14.6 11.1 - 14.9 % ANNE Comment:Testing performed by : [address] [address] RDW SD 45.1 35.7 - 48.1 fL ANNE Comment:Testing performed by : [address] [address] NRBC abs 0.00 0.00 - 0.01 K/cumm ANNE Comment:Testing performed by : [address] [address] ANC Prelim 3.43 1.50 - 6.50 K/cumm ANNE Comment: Interpretive Data The rapid ANC is a preliminary automated count and may vary from the final ANC (Neut Abs) reported in the WBC differential that follows. Current interpretive data was last revised 2024. Testing performed by: [address] [address] Morphologic Screen Results confirmed by manual morphology review. ANNE Comment:Testing performed by : [address] [address] Blood 01/29/2025 11:1 9 AM MEDICAID BILLING SPECIALIST 01/29/2025 11:20 AM MEDICAID BILLING SPECIALIST Osvaldo MendesAlicia Ramos LAB BLOOD ORDERABLES Edited Result - Final Performing Organization Address [facility] Co de Phone Number ANNE [address] [place] [address] * TSH (01/29/2025 11:19 AM MEDICAID BILLING SPECIALIST) Thyroid Stimulating Hormone 0.81 0.30 - 4.20 mcIUnit/mL Comment:Testing performed by : [address] [address] Blood 01/29/2025 11:1 9 AM MEDICAID BILLING SPECIALIST 01/29/2025 1:50 PM MEDICAID BILLING SPECIALIST Osvaldo MendesAlicia Ramos [facility] BLOOD ORDERABLES Final R esult Performing Organization Address [facility] de Phone Number ANNE [address] [place] [address] * (ABNORMAL) Comprehensive metabolic panel (01/29/2025 11:19 AM MEDICAID BILLING SPECIALIST) Pathologist [facility] Sodium 141 135 - 145 mmol/L Comment:Testing performed by : [address] [address] Potassium, pl 4.8 3.3 - 4.9 mmol/L ANNE Comment:Testing performed by : [address] [address] Chloride 106 97 - 110 mmol/L ANNE Comment:Testing performed by : [address] [address] CO2 24 22 - 32 mmol/L ANNE Comment:Testing performed by : [address] [address] Anion gap 11 2 - 15 mmol/L ANNE Comment:Testing performed by : [address] [address] BUN 16 6 - 25 mg/dL ANNE Comment:Testing performed by : [address] [address] Creatinine 1.50(H) 0.80 - 1.30 mg/dL ANNE Comment:Testing performed by : [address] [address] Glucose 112 70 - 199 mg/dL ANNE Comment: Interpretive Data Fasting glucose >/= 126 [...] Current interpretive data was last revised 2022. Testing performed by: [address] [address] Calcium 9.3 8.5 - 10.3 mg/dL ANNE Comment:Testing performed by : [address] [address] Bilirubin, total 0.4 0.1 - 1.2 mg/dL [facility] Comment:Testing performed by : [address] [address] Protein, pl 7.0 6.5 - 8.5 g/dL ANNE Comment:Testing performed by : [address] [address] Albumin 4.2 3.5 - 5.0 g/dL [facility] Comment:Testing performed by : [address] [address] Alk phos 100 40 - 130 Units/L ANNE Comment:Testing performed by : [address] [address] ALT 16 7 - 55 Units/L [facility] Comment:Testing performed by : [address] [address] AST 25 10 - 50 Units/L ANNE Comment: HEMOLYZED: Hemolysis interferes with the above test. Testing performed by: [address] [address] Blood 01/29/2025 11:1 9 AM MEDICAID BILLING SPECIALIST 01/29/2025 11:20 AM MEDICAID BILLING SPECIALIST Osvaldo MendesAlicia Ramos DO LAB BLOOD ORDERABLES Final R esult Performing Organization Address City/[facility] Co de Phone Number ANNE [facility] [employer] [place] [address] * (ABNORMAL) eGFR (01/02/2025 1:21 PM CDT) Pathologist [facility] eGFR 46(L) >=60 mL/min/1. 73 m2 Comment: [...] Current interpretive data was last reviewed 2021. Testing performed by: [facility], [address] [place] [address]., [address] Blood 01/02/2025 1:21 PM CDT 01/02/2025 1:21 PM CDT Osvaldo Ramos DO LAB BLOOD ORDERABLES Final R esult ANNE [facility] [place] [employer] [place] [place] [address] * Differential, auto (01/02/2025 1:21 PM CDT) Pathologist [facility] Neutrophil abs 4.13 1.50 - 6.50 K/cumm Comment:Testing performed by : [address], [place]., [address] Imm gran abs 0.04 0.00 - 0.10 K/cumm [facility] Comment:Testing performed by : [address], [place]., [address] Lymphocyte abs 1.40 0.80 - 3.30 K/cumm [facility] Comment:Testing performed by : [address], [place]., [address] Monocyte abs 0.44 0.20 - 0.80 K/cumm [facility] Comment:Testing performed by : [address], [place]., [address] Eosinophil abs 0.25 0.00 - 0.50 K/cumm [facility] Comment:Testing performed by : [address], [place]., [address] Basophil abs 0.04 0.00 - 0.10 K/cumm [facility] Comment:Testing performed by : [address] [address] Neutrophil pct 65.6 % [facility] Comment: Interpretive Data Percent cell count reference ranges are not reported, since discordance with absolute values may lead to misinterpretation of CBC data. Current Interpretive Data was last revised on 2017. Testing performed by: [address] [address] Imm gran pct 0.6 % [facility] Comment: Interpretive Data Percent cell count reference ranges are not reported, since discordance with absolute values may lead to misinterpretation of CBC data. Current Interpretive Data was last revised on 2017. Testing performed by: [address] [address] Lymphocyte pct 22.2 % [facility] Comment: Interpretive Data Percent cell count reference ranges are not reported, since discordance with absolute values may lead to misinterpretation of CBC data. Current Interpretive Data was last revised on 2017. Testing performed by: [address] [address] Monocyte pct 7.0 % [facility] Comment: Interpretive Data Percent cell count reference ranges are not reported, since discordance with absolute values may lead to misinterpretation of CBC data. Current Interpretive Data was last revised on 2017. Testing performed by: [address] [address] Eosinophil pct 4.0 % ANNE BEDOLLA Comment: Interpretive Data Percent cell count reference ranges are not reported, since discordance with absolute values may lead to misinterpretation of CBC data. Current Interpretive Data was last revised on 2017. Testing performed by: [address] [address] Basophil pct 0.6 % ANNE Comment: Interpretive Data Percent cell count reference ranges are not reported, since discordance with absolute values may lead to misinterpretation of CBC data. Current Interpretive Data was last revised on 2017. Testing performed by: [address] [address] Blood 01/02/2025 1:21 PM CDT 01/02/2025 1:21 PM CDT Osvaldo Ramos DO LAB BLOOD ORDERABLES Final R esult ANNE [address] [facility] Department [place] [address] * CBC with auto differential (01/02/2025 1:21 PM CDT) WBC 6.30 3.80 - 9.90 K/cumm Comment:Testing performed by : [address] [address] Hgb 15.3 13.0 - 17.5 g/dL ANNE BEDOLLA Comment:Testing performed by : [address] [address] Hct 47.1 38.9 - 50.3 % ANNE BEDOLLA Comment:Testing performed by : [address] [address] Plt 205 150 - 400 K/cumm ANNE BEDOLLA Comment:Testing performed by : [address] [address] MPV 10.7 9.1 - 12.3 fL ANNE BEDOLLA Comment:Testing performed by : [address] [address] RBC 5.51 4.30 - 5.80 M/cumm ANNE Comment:Testing performed by : [address] [address] MCV 85.5 81.3 - 96.4 fL ANNE Comment:Testing performed by : [address] [address] MCH 27.8 27.1 - 33.3 pg ANNE Comment:Testing performed by : [address] [address] MCHC 32.5 32.3 - 35.7 g/dL ANNE Comment:Testing performed by : [address] [address] RDW CV 14.3 11.1 - 14.9 % ANNE Comment:Testing performed by : [address] [address] RDW SD 44.0 35.7 - 48.1 fL ANNE Comment:Testing performed by : [address] [address] NRBC abs 0.00 0.00 - 0.01 K/cumm ANNE Comment:Testing performed by : [address] [address] ANC Prelim 4.13 1.50 - 6.50 K/cumm ANNE Comment: Interpretive Data The rapid ANC is a preliminary automated count and may vary from the final ANC (Neut Abs) reported in the WBC differential that follows. Current interpretive data was last revised 2024. Testing performed by: [address] [address] Blood 01/02/2025 1:21 PM CDT 01/02/2025 1:21 PM CDT us Osvaldo Ramos DO LAB BLOOD ORDERABLES Final R esult ANNE [address]237 [facility] Department [place] [address] * TSH (01/02/2025 1:21 PM CDT) Pathologist [facility] Thyroid Stimulating Hormone 1.02 0.30 - 4.20 mcIUnit/mL Comment:Testing performed by : [address] [address] Blood 01/02/2025 1:21 PM CDT 01/02/2025 3:41 PM CDT us Osvaldo Ramos DO LAB BLOOD ORDERABLES Final R esult ANNE 4500 [facility] Department [place] [address] * (ABNORMAL) Comprehensive metabolic panel (01/02/2025 1:21 PM CDT) [facility] Sodium 143 135 - 145 mmol/L Comment:Testing performed by : [address] [address] Potassium, pl 4.1 3.3 - 4.9 mmol/L ANNE Comment:Testing performed by : [address] [address] Chloride 106 97 - 110 mmol/L ANNE Comment:Testing performed by : [address] [address] CO2 25 22 - 32 mmol/L ANNE Comment:Testing performed by : [address] [address] Anion gap 12 2 - 15 mmol/L ANNE Comment:Testing performed by : [address] [address] BUN 14 6 - 25 mg/dL ANNE Comment:Testing performed by : [address] [address] Creatinine 1.60(H) 0.80 - 1.30 mg/dL ANNE Comment:Testing performed by : [address] [address] Glucose 139 70 - 199 mg/dL ANNE Comment: Interpretive Data Fasting glucose >/= 126 [...] Current interpretive data was last revised 2022. Testing performed by: [address] [address] Calcium 9.1 8.5 - 10.3 mg/dL ANNE Comment:Testing performed by : [address] [address] Bilirubin, total 0.6 0.1 - 1.2 mg/dL [facility] Comment:Testing performed by : [address] [address] Protein, pl 7.2 6.5 - 8.5 g/dL ANNE Comment:Testing performed by : [address] [address] Albumin 4.3 3.5 - 5.0 g/dL [facility] Comment:Testing performed by : [address] [address] Alk phos 112 40 - 130 Units/L ANNE Comment:Testing performed by : [address] [address] ALT 14 7 - 55 Units/L ANNE Comment:Testing performed by : [address] [address] AST 16 10 - 50 Units/L [facility] Comment:Testing performed by : [address] [address] Blood 01/02/2025 1:21 PM CDT 01/02/2025 1:21 PM CDT us Osvaldo Ramos DO LAB BLOOD ORDERABLES Final R esult [facility] [id number] [facility] Department [place] [address] * (ABNORMAL) eGFR (12/12/2024 9:57 AM CDT) eGFR 49(L) >=60 mL/min/1. 73 m2 [...] Current interpretive data was last reviewed 2021. Testing performed by: [address] [address] Blood 12/12/2024 9:57 AM CDT 12/12/2024 9:58 AM CDT Osvaldo Ramos DO LAB BLOOD ORDERABLES Final R esult Performing Organization Address City/State/[facility] Co de Phone Number [place] [id number] [facility] Department [place] [address] * Differential, auto (12/12/2024 9:57 AM CDT) Pathologist [facility] Neutrophil abs 3.58 1.50 - 6.50 K/cumm Comment:Testing performed by : [address] [address] Imm gran abs 0.01 0.00 - 0.10 K/cumm ANNE Comment:Testing performed by : [address] [address] Lymphocyte abs 1.44 0.80 - 3.30 K/cumm [facility] Comment:Testing performed by : [address] [address] Monocyte abs 0.38 0.20 - 0.80 K/cumm [facility] Comment:Testing performed by : [address], [place]., [address] Eosinophil abs 0.22 0.00 - 0.50 K/cumm [facility] Comment:Testing performed by : [address], [place]., [address] Basophil abs 0.03 0.00 - 0.10 K/cumm [facility] Comment:Testing performed by : [address] [address] Neutrophil pct 63.3 % [facility] Comment: Interpretive Data Percent cell count reference ranges are not reported, since discordance with absolute values may lead to misinterpretation of CBC data. Current Interpretive Data was last revised on 2017. Testing performed by: [address] [address] Imm gran pct 0.2 % [facility] Comment: Interpretive Data Percent cell count reference ranges are not reported, since discordance with absolute values may lead to misinterpretation of CBC data. Current Interpretive Data was last revised on 2017. Testing performed by: [address] [address] Lymphocyte pct 25.4 % [facility] Comment: Interpretive Data Percent cell count reference ranges are not reported, since discordance with absolute values may lead to misinterpretation of CBC data. Current Interpretive Data was last revised on 2017. Testing performed by: [address] [address] Monocyte pct 6.7 % [facility] Comment: Interpretive Data Percent cell count reference ranges are not reported, since discordance with absolute values may lead to misinterpretation of CBC data. Current Interpretive Data was last revised on 2017. Testing performed by: [address] [address] Eosinophil pct 3.9 % [facility] Comment: Interpretive Data Percent cell count reference ranges are not reported, since discordance with absolute values may lead to misinterpretation of CBC data. Current Interpretive Data was last revised on 2017. Testing performed by: [address] [address] Basophil pct 0.5 % ANNE BEDOLLA Comment: Interpretive Data Percent cell count reference ranges are not reported, since discordance with absolute values may lead to misinterpretation of CBC data. Current Interpretive Data was last revised on 2017. Testing performed by: [address] [address] Blood 12/12/2024 9:57 AM CDT 12/12/2024 9:58 AM CDT Osvaldo Ramos DO LAB BLOOD ORDERABLES Final R esult ANNE [facility] Department [place] [address] * (ABNORMAL) CBC with auto differential (12/12/2024 9:57 AM CDT) WBC 5.66 3.80 - 9.90 K/cumm Comment:Testing performed by : [address] [address] Hgb 15.6 13.0 - 17.5 g/dL ANNE BEDOLLA Comment:Testing performed by : [address] [address] Hct 46.7 38.9 - 50.3 % ANNE BEDOLLA Comment:Testing performed by : [address] [address] Plt 147(L) 150 - 400 K/cumm ANNE BEDOLLA Comment:Testing performed by : [address] [address] MPV 11.1 9.1 - 12.3 fL ANNE BEDOLLA Comment:Testing performed by : [address] [address] RBC 5.56 4.30 - 5.80 M/cumm ANNE BEDOLLA Comment:Testing performed by : [address] [address] MCV 84.0 81.3 - 96.4 fL ANNE Comment:Testing performed by : [address] [address] MCH 28.1 27.1 - 33.3 pg ANNE BEDOLLA Comment:Testing performed by : [address] [address] MCHC 33.4 32.3 - 35.7 g/dL ANNE Comment:Testing performed by : [address] [address] RDW CV 14.0 11.1 - 14.9 % ANNE Comment:Testing performed by : [address] [address] RDW SD 42.5 35.7 - 48.1 fL ANNE Comment:Testing performed by : [address] [address] NRBC abs 0.00 0.00 - 0.01 K/cumm ANNE Comment:Testing performed by : [address] [address] ANC Prelim 3.58 1.50 - 6.50 K/cumm ANNE Comment: Interpretive Data The rapid ANC is a preliminary automated count and may vary from the final ANC (Neut Abs) reported in the WBC differential that follows. Current interpretive data was last revised 2024. Testing performed by: [address] [address] Blood 12/12/2024 9:57 AM CDT 12/12/2024 9:58 AM CDT us Osvaldo Ramos DO LAB BLOOD ORDERABLES Final R esult ANNE BEDOLLA [address] [facility] Department [place] [address] * TSH (12/12/2024 9:57 AM CDT) Thyroid Stimulating Hormone 1.60 0.30 - 4.20 mcIUnit/mL Comment:Testing performed by : [address] [address] Blood 12/12/2024 9:57 AM CDT 12/12/2024 11:54 AM CDT Osvaldo Ramos DO LAB BLOOD ORDERABLES Final R esult ANNE 2048 [facility] Department [place] [address] * (ABNORMAL) Comprehensive metabolic panel (12/12/2024 9:57 AM CDT) Sodium 141 135 - 145 mmol/L Comment:Testing performed by : [address] [address] Potassium, pl 3.9 3.3 - 4.9 mmol/L ANNE Comment:Testing performed by : [address] [address] Chloride 107 97 - 110 mmol/L ANNE Comment:Testing performed by : [address] [address] CO2 22 22 - 32 mmol/L ANNE Comment:Testing performed by : [address] [address] Anion gap 12 2 - 15 mmol/L ANNE Comment:Testing performed by : [address] [address] BUN 19 6 - 25 mg/dL ANNE Comment:Testing performed by : [address] [address] Creatinine 1.50(H) 0.80 - 1.30 mg/dL ANNE Comment:Testing performed by : [address] [address] Glucose 154 70 - 199 mg/dL ANNE Comment: Interpretive Data Fasting glucose >/= 126 [...] Current interpretive data was last revised 2022. Testing performed by: [address] [address] Calcium 8.7 8.5 - 10.3 mg/dL ANNE Comment:Testing performed by : [address] [address] Bilirubin, total 0.5 0.1 - 1.2 mg/dL ANNE Comment:Testing performed by : [address] [address] Protein, pl 6.9 6.5 - 8.5 g/dL ANNE Comment:Testing performed by : [address] [address] Albumin 4.0 3.5 - 5.0 g/dL ANNE Comment:Testing performed by : [address] [address] Alk phos 107 40 - 130 Units/L ANNE Comment:Testing performed by : [address] [address] ALT 16 7 - 55 Units/L ANNE Comment:Testing performed by : [address] [address] AST 14 10 - 50 Units/L ANNE Comment:Testing performed by : [address] [address] Blood 12/12/2024 9:57 AM CDT 12/12/2024 9:58 AM CDT us Osvaldo Ramos DO LAB BLOOD ORDERABLES Final R esult ANNE 5439 [facility] Department [place] [address] from Last 3 Months Insurance MEDICARE FOR LIFE MEDICARE FOR LIFE MEDICARE FOR LIFE Advance Directives For more information, please contact: [phone] * Full Code (Latest Code Status on File) Date Activated Date Inactivated Comments 06/04/2024 12:48 PM 06/09/2024 10:54 PM Care Teams Recorder Of Deeds Relationship Specialty Start Date End Date Stephanie Magana [employer] [address] [place] [address] PCP - General Family Medicine 04/03/24 Osvaldo Ramos DO [address] [place] [address] MEDICAL ONCOLOGY, [facility] [address] [place] [address] Medical Oncologist/Electoral Officer Hematology and Oncology 06/20/24 George Martinez MD [address] [place] [address] MEDICAL ONCOLOGY, [facility] [address] [place] [address] Surgeon Thoracic Surgery 07/05/24 Stanley Almeida MD [address] [facility] [address] [place] [address] Consulting Physician Urology 07/05/24 Del Jackson MD [address] [facility] [address] [place], [place] [id number] Referring Physician Nephrology 07/05/24 Medhat Pierre MD [address] [place] [address] DR [facility] [address] [place] [address] Referring Physician Family Medicine 12/18/24
--- OUTSIDE RECORDS SUMMARY | 2025-03-09 16:08 | XMS_ITS | Clinical Summary ---
Author Organization [facility] Address [address] [place] [address] Care Team Providers Care Analyst Business Analysis Name Role Phone Medhat Pierre Primary Care Provider Unavailabl e Source Comments [facility],non-owned Affiliates and Associated Physician Practices is amultiple site organization consisting of ambulatory clinics and hospital sitesin [place], [place], [place] and [place]. This disclosure is being madepursuant to the Care Everywhere program and may not contain all information available regarding this patient. Last updated 17.[facility] Allergies No known active allergies Medications * Be aware that medications may not be up to date on this document. Alwaysverify current medications with the patient. alfuzosin CR 24hr (Uroxatral) 10 MG tablet 1 {tab} by oral route. 08/19/2022 Active Alfuzosin HCl (UROXATRAL PO) Activ e allopurinol (Zyloprim) 100 MG tablet 1 {tab} by oral route. Active ciprofloxacin (Cipro) 500 MG tablet Active DULoxetine (Cymbalta) 60 MG capsule 06/05/2022 Active empagliflozin (Jardiance) 10 MG tablet 07/18/2022 Active Active Problems No known active problems Encounters Date Type Department Care Team Description 01/07/2025 12:50 PM CDT Office Visit [facility] - Dermatology [address] [place] [address] [place] [address] Fredy Marie MD Seborrheic keratoses (Primary Dx); Lentigo; Multiple benign nevi 01/07/2025 Travel from Last 3 Months Social History Tobacco Use Types Packs/Day Years Used Date Smoking Tobacco: Never Smokeless Tobacco: Never Tobacco Cessation:Counseling Given: Not Answered Sex and Gender Information Value Date Recorded Sex Assigned at Not on file Legal Sex Male 7:08 AM [employer] Gender Identity Not on file Sexual Orientation Not on file Plan of Treatment Upcoming Encounters Date Type Department Care Team ([facility] st Contact Info) Description 01/13/2026 12:50 PM CDT Office Visit [facility] - Dermatology [address] [place] [address], [place] [id number] Fredy Marie MD [address] [place] [address] [address] [place] [id number] Health Maintenance Due Date Last Done Comments [...] 50+ (1 of 1 - PCV) 2003 Respiratory Syncytial Virus (RSV) Vaccine Pt: or over 60 yrs (1 - Risk 50-74 years 1-dose series) 2003 ZOSTER VACCINE (1 of 2) 2003 DEPRESSION SCREENING 03/19/2024 COVID-19 VACCINE (1 - 2024-2 6 season) 2024 INFLUENZA VACCINE (#1) 2024 4, 12/18/2018, 01/18/2010 HEPATITIS B VACCINE Aged Out No longe [...] on patient's age to complete this topic Insurance MEDICARE [facility] MEDICARE [facility] MEDICARE Care Teams Analyst Business Analysis Relationship Specialty Start Date End Date Medhat Pierre PCP - General 07/04/23
--- OUTSIDE RECORDS SUMMARY | 2025-03-09 16:08 | XMS_ITS | Patient Health Record ---
Author Organization [facility] Billing Info Address [address] [place] [address] Phone [phone] Care Team Providers Care Rn Surgical Name Role Phone Cm Hodges Primary Care Provider Sherrie BARNES MD, [facility] [phone] Reason For Referral No Information Medications Medication SIG (Take, Route, Frequency, Duration) Notes Start Date End Date Diagnosis (ICD Code) Status VESIcare 10 MG Tablet 1 tablet Orally Once a day; Duration: 90 days 06/25/2018 Active Vitamin D-3 1000 UNIT Capsule 1 capsule Orally Once a day; Duration: 30 day(s) Active Alfuzosin HCl ER 10 MG Tablet Extended Release 24 Hour 1 tablet immediately after the same meal Orally Once a day; Duration: 90 days 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, unspecified laterality (ICD_10 - C64.9) Active Olmesartan Medoxomil 20 MG Tablet 1 tablet Orally Once a day; Duration: 30 day(s) Active Uroxatral 10 MG Tablet Extended Release 24 Hour 1 tablet immediately after the same meal Orally Once a day; Duration: 90 days 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, unspecified laterality (ICD_10 - C64.9) Active Pepcid 40 MG Tablet 1 tablet at bedtime Orally Once a day; Duration: 30 day(s) Active Allopurinol 100 MG Tablet 1 tablet Orally Once a day; Duration: 30 day(s) Active Proscar 5 MG Tablet 1 tablet Orally Once a day; Duration: 90 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, unspecified laterality (ICD_10 - C64.9) Active Cozaar 50 MG Tablet 1 tablet Orally Once a day; Duration: 30 day(s) Active Zantac 150 MG Tablet 1 tablet at bedtime Orally Once a day; Duration: 30 day(s) Not-Taking Cymbalta 60 MG Capsule Delayed Release Particles 1 capsule Orally Once a day; Duration: 30 day(s) Active Multivitamin Adult - Tablet as directed Orally Active Pantoprazole Sodium 40 MG Tablet Delayed Release 1 tablet Orally Once a day; Duration: 30 day(s) Active Myrbetriq 50 MG Tablet Extended Release 24 Hour 1 tablet Orally Once a day; Duration: 90 days 08/26/2018 Active Social History Tobacco Use: Social History Observation Description Date Details (start date - stop date) Never Smoker NA - NA Sex Observation Social History Observation Description Sex Observation Male Social History Social History Social Info Question Answer Notes Tobacco Status: Patient is a never smoker Alcohol Use: Patient occasional *DO NOT USE * Tobacco Status (CQW): Patient is Never smoker Ambulatory Status: : is independent Living Environment: Reported as: House/Condo/Apartment Additional Details Category Social Info Options Details Social History 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 [employer] Caffeine: 2 teas/ day Children: 1 Marital Status: Lives with: spouse Problems Problem Type SNOMED Code ICD Code Dates Problem Status W/U Status Risk Notes Problem Primary malignant neoplasm of kidney (79311701) 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, unspecified laterality (C64.9) Added On:2017 Active confirmed Problem Lower urinary tract symptoms due to benign prostatic hypertrophy (40054960160459) Benign prostatic hyperplasia with lower urinary tract symptoms, symptom details unspecified (N40.1) Added On:2017 Active confirmed Plan Of Treatment Pending Test Test Name Order Date XRAY-CHEST, 2 VIEWS, FRONTAL & LATERAL ( [id number]) 01/31/2018 MRI-ABDOMEN; W/O CONTRAST MA TL(S) FOLLOWED BY CONTRAST MATL(S) & FURTHER SEQUENCES ([id number]) 01/31/2018 BUN + Creat ([id number]) 01/31/2018 BUN + Creat ([id number]) 03/10/2020 Future Test Test Name Order Date MRI-ABDOMEN; W/O CONTRAST MA TL(S) FOLLOWED BY CONTRAST MATL(S) & FURTHER SEQUENCES ([id number]) 02/16/2021 Insurance Providers Payer Name Payer Address Payer Phone Subscriber Number Group Number Insured Name Patient Relationship to Insured Coverage Start Date Coverage End Date [place] [address] [address] [place], [place] [id number] [place] Self - patient is the insured 9 9 [employer] [id number] [address] [place] [id number] [place] Self - patient is the insured 8 [...]
--- OUTSIDE RECORDS SUMMARY | 2025-03-09 16:08 | XMS_ITS ---
Author Organization [facility] Address [address] [place] [id number] Care Team Providers Care Sat Act Instructor Name Role Phone Stephanie Magana NP Primary Care Provider [phone] Osvaldo Ramos DO Unavailable [phone] George Martinez MD Unavailable Stanley Almeida MD Unavailable [phone] Del Jackson MD Unavailable [phone] Medhat Pierre MD Unavailable [phone] Active Problems Patient Care Coordination No te [...] was diagnosed with obstructive sleep apnea in [facility] about 5- 6 years ago. He currently has a [employer] CPAP unit. I will have him sign a release to get the diagnostic study from [facility]. 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 Protocol Amendment/Osvaldo Moscoso, Lifetime Dose Tracking * Chemical Lifetime Dose Automatic Entry Manual Entr y Fluoro Time 0.413 minutes 0.413 minutes 0 minutes Air kerma at the reference point (Ka,r) 3.61 mGy 3 .61 mGy 0 mGy
== END 2025-03-09 14:17 | disposition home or self-care (01) ==
PROVIDERS: PCP Nurse Practitioner Family; Visit Provider Nurse Practitioner Family
DX: M19.012 Primary osteoarthritis, left shoulder (principal)
CPT/HCPCS: 73030